=== PATIENT | female | born 1950 | race Caucasian/White ===

== ENCOUNTER 2016-06-13 08:56 | Outpatient (CLI) | payer MEDICARE ==
[~2016-06-13 08:56] MED LIST: FERUMOXYTOL (NON-ESRD) 510 MG/NS 100 ML IV PRN; NORMAL SALINE 250 ML IV PRN
[2016-06-13 10:25] VITALS: BP 148/28
== END 2016-06-13 10:24 | disposition home or self-care (01) ==
LOC: II 08:56 → 5TH 08:57 → II 10:24
PROVIDERS: ATTEND Internal Medicine
PROC: 3E033GC Introduction of Other Therapeutic Substance into Peripheral Vein, Percutaneous Approach (ICD-10-PCS; principal; 2016-06-13)
DX: D63.1 Anemia in chronic kidney disease (principal); N18.3 Chronic kidney disease, stage 3 (moderate)
CPT/HCPCS: 96365; Q0138

== ENCOUNTER 2016-06-20 08:55 | Outpatient (CLI) | payer MEDICARE ==
[2016-06-20 09:08] VITALS: BP 168/33
== END 2016-06-20 09:59 | disposition home or self-care (01) ==
LOC: II 08:55 → 5TH 08:56 → II 09:59
PROVIDERS: ATTEND Internal Medicine
PROC: 3E033GC Introduction of Other Therapeutic Substance into Peripheral Vein, Percutaneous Approach (ICD-10-PCS; principal; 2016-06-20)
DX: D63.1 Anemia in chronic kidney disease (principal); N18.3 Chronic kidney disease, stage 3 (moderate)
CPT/HCPCS: 96365; Q0138; 96367

== ENCOUNTER 2016-08-05 07:52 | Outpatient (CLI) | payer MEDICARE ==
[~2016-08-05 07:52] MED LIST changes: +ACETAMINOPHEN 325 MG TABLET PO PRN; +DIPHENHYDRAMINE HCL 25 MG CAPSULE PO PRN; +FUROSEMIDE INJ/PF 20 MG/2 ML SDV IV PRN; +NORMAL SALINE 1000 ML 1,000 ML IV PRN
[2016-08-05 08:52] VITALS: BP 140/31
== END 2016-08-05 09:12 | disposition home or self-care (01) ==
LOC: II 07:52 → 5TH 07:58 → II 09:12
PROVIDERS: ATTEND Internal Medicine
PROC: 3E033GC Introduction of Other Therapeutic Substance into Peripheral Vein, Percutaneous Approach (ICD-10-PCS; principal; 2016-08-05)
DX: D63.1 Anemia in chronic kidney disease (principal); N18.3 Chronic kidney disease, stage 3 (moderate)
CPT/HCPCS: 96374; Q0138; 96367

== ENCOUNTER 2016-11-06 08:48 | Outpatient (CLI) | payer MEDICARE, OTHER ==
[2016-11-06] MEDS ORDERED: NORMAL SALINE 250 ML IV PRN (09:20)
[2016-11-06] MEDS ORDERED: FERUMOXYTOL (NON-ESRD) 510 MG/NS 100 ML IV ONE ×2 (09:30)
[2016-11-06 09:52] VITALS: BP 136/34
== END 2016-11-06 11:05 | disposition home or self-care (01) ==
LOC: II 08:48 → 5TH 08:51 → II 11:05
PROVIDERS: ATTEND Internal Medicine
PROC: 3E033GC Introduction of Other Therapeutic Substance into Peripheral Vein, Percutaneous Approach (ICD-10-PCS; principal; 2016-11-06)
DX: N18.3 Chronic kidney disease, stage 3 (moderate) (principal); D63.1 Anemia in chronic kidney disease
CPT/HCPCS: 96367; Q0138; 96365

== ENCOUNTER 2016-11-13 08:54 | Outpatient (CLI) | payer MEDICARE, OTHER ==
[~2016-11-13 08:54] MED LIST changes: -ACETAMINOPHEN 325 MG TABLET PO PRN; -DIPHENHYDRAMINE HCL 25 MG CAPSULE PO PRN; -FUROSEMIDE INJ/PF 20 MG/2 ML SDV IV PRN; -NORMAL SALINE 1000 ML 1,000 ML IV PRN
[2016-11-13 09:20] VITALS: BP 132/42
== END 2016-11-13 09:58 | disposition home or self-care (01) ==
LOC: II 08:54 → 5TH 08:55 → II 09:58
PROVIDERS: ATTEND Internal Medicine
PROC: 3E033GC Introduction of Other Therapeutic Substance into Peripheral Vein, Percutaneous Approach (ICD-10-PCS; principal; 2016-11-13)
DX: N18.3 Chronic kidney disease, stage 3 (moderate) (principal); D63.1 Anemia in chronic kidney disease
CPT/HCPCS: 96365; Q0138; 96367

== ENCOUNTER 2016-11-19 10:00 | Emergency (ER) | payer MEDICARE, OTHER ==
--- NOTE | 2016-11-19 10:30 | ER Document Report ---
ED Medical Screen (RME) - General Chief Complaint: General Weakness Stated Complaint: WEAKNESS Time Seen by Provider: 11/19/16 10:23 Mode of Arrival: Ambulatory Information source: Patient, Relative TRAVEL OUTSIDE OF THE [place] IN LAST 30 DAYS: No - HPI Onset: Yesterday Onset/Duration: Gradual, Constant Associated Symptoms: Nausea, Weakness Exacerbated by: Denies Relieved by: Denies Notes: 11/19/16 10:29 Patient is a 66-year-old female with multiple medical problems including anemia. Patient states she was recently told that her thyroid levels are low and needs to see an fashion illustrator. Patient presents today with complaints of generalized weakness for 2 days along with some mild nausea. Also feels dizzy. No syncope. No chest pain or shortness of breath. She is eating and drinking without difficulty. No fevers or chills. - Related Data Allergies/Adverse Reactions: Sulfa (Sulfonamide Antibiotics) Allergy (Verified 11/19/16 10:18) warfarin sodium [From Coumadin] Adverse Reaction (Mild, Verified 11/19/16 10:18) Diarrhea Past Medical History - General Information source: Patient, [facility] Records - Social History Cigarette use (# per day): No Chew tobacco use (# tins/day): No - Past Medical History Cardiac Medical History: Reports: Hx Atrial Fibrillation - TWO YEARS AGO, Hx Congestive Heart Failure, Hx Coronary Artery Disease, Hx Heart Attack, Hx Hypercholesterolemia, Hx Hypertension Pulmonary Medical History: Reports: Hx Pneumonia Denies: Hx Asthma, Hx Bronchitis, Hx COPD, Hx Tuberculosis Neurological Medical History: Denies: Hx Cerebrovascular Accident, Hx Seizures Endocrine Medical History: Reports: Hx Diabetes Mellitus Type 1, Hx Diabetes Mellitus Type 2 Renal/ Medical History: Denies: Hx End Stage Renal Disease, Hx Kidney Stones, Hx Peritoneal Dialysis GI Medical History: Denies: Hx Cirrhosis, Hx Gastroesophageal Reflux Disease, Hx Ulcer Musculoskeltal Medical History: Reports Hx Arthritis, Reports Hx Gout, Denies Hx Multiple Sclerosis Skin Medical History: Denies Hx MRSA Psychiatric Medical History: Denies: Hx Bipolar Disorder, Hx Depression, Hx Schizophrenia Past Surgical History: Reports: Hx Cardiac Catheterization - Jan, Hx Cardiac Surgery - [place] 2004, Hx Coronary Artery Bypass Graft, Hx Hysterectomy, Hx Tubal Ligation. Denies: Hx Adenoidectomy, Hx Pacemaker - Immunizations Hx Diphtheria, Pertussis, Tetanus Vaccination: No Review of Systems - Review of Systems Constitutional: Weakness -: Yes All other systems reviewed and negative Physical Exam - Vital signs Vitals: Temp Pulse Resp BP Pulse Ox 97.8 F 62 16 98/36 L 94 11/19/16 10:20 11/19/16 10:20 11/19/16 10:20 11/19/16 10:20 11/19/16 10:20 Interpretation: Hypotensive - General General appearance: Appears well, Alert - HEENT Head: Normocephalic, Atraumatic Eyes: Normal Pupils: PERRL Mucous membranes: Moist Pharynx: Normal Neck: Normal - Respiratory Respiratory status: No respiratory distress Chest status: Nontender Breath sounds: Normal Chest palpation: Normal - Cardiovascular Rhythm: Regular Heart sounds: Normal auscultation Murmur: No - Abdominal Inspection: Normal Distension: No distension Bowel sounds: Normal Tenderness: Nontender Organomegaly: No organomegaly - Extremities General upper extremity: Normal inspection, Nontender, Normal color, Normal ROM , Normal temperature General lower extremity: Normal inspection, Nontender, Normal color, Normal ROM , Normal temperature, Normal weight bearing. No: Sasha's sign - Neurological Neuro grossly intact: Yes Cognition: Normal Orientation: AAOx4 [place] Coma Scale Eye Opening: Spontaneous [place]ur Coma Scale Verbal: Oriented [place] Coma Scale Motor: Obeys Commands [place] Coma Scale Total: 15 Speech: Normal Motor strength normal: LUE, RUE, LLE, RLE Sensory: Normal - Skin Skin Temperature: Warm Skin Moisture: Dry Skin Color: Normal Course - Re-evaluation Re-evalutation: 11/19/16 10:30 Patient will need to be evaluated in the back treatment area by another ED provider. - Vital Signs Vital signs: Temp Pulse Resp BP Pulse Ox 97.8 F 62 16 98/36 L 94 11/19/16 10:20 11/19/16 10:20 11/19/16 10:20 11/19/16 10:20 11/19/16 10:20
[2016-11-19] MEDS ORDERED: NORMAL SALINE 1000 ML 500 ML IV PRN (10:31)
--- NOTE | 2016-11-19 10:59 | ER Document Report ---
ED Dizziness/Weakness - General Chief Complaint: General Weakness Stated Complaint: WEAKNESS Time Seen by Provider: 11/19/16 10:23 Mode of Arrival: Ambulatory Information source: Patient Notes: Patient is a 66-year-old female, With a history of a triple bypass in 2004, hypertension, diabetes anemia, atrial fibrillation who presents to the ER today for generalized weakness, nausea and vomiting over the past 2 days. Patient states that she has vomited at least 2-3 times. She denies any chest pain, shortness of breath, numbness or tingling, weakness worse on one side, facial droop. She admits to a headache in the back of her head only. She denies any history of headaches. TRAVEL OUTSIDE OF THE [place] IN LAST 30 DAYS: No - Related Data Allergies/Adverse Reactions: Sulfa (Sulfonamide Antibiotics) Allergy (Verified 11/19/16 10:18) warfarin sodium [From Coumadin] Adverse Reaction (Mild, Verified 11/19/16 10:18) Diarrhea Past Medical History - General Information source: Patient, [facility] Records - Social History Smoking Status: Never Smoker Cigarette use (# per day): No Chew tobacco use (# tins/day): No Frequency of alcohol use: None Drug Abuse: None Family History: DM Patient has suicidal ideation: No Patient has homicidal ideation: No - Past Medical History Cardiac Medical History: Reports: Hx Atrial Fibrillation - TWO YEARS AGO, Hx Congestive Heart Failure, Hx Coronary Artery Disease, Hx Heart Attack, Hx Hypercholesterolemia, Hx Hypertension Pulmonary Medical History: Reports: Hx Pneumonia Denies: Hx Asthma, Hx Bronchitis, Hx COPD, Hx Tuberculosis Neurological Medical History: Denies: Hx Cerebrovascular Accident, Hx Seizures Endocrine Medical History: Reports: Hx Diabetes Mellitus Type 1, Hx Diabetes Mellitus Type 2 Renal/ Medical History: Denies: Hx End Stage Renal Disease, Hx Kidney Stones, Hx Peritoneal Dialysis GI Medical History: Denies: Hx Cirrhosis, Hx Gastroesophageal Reflux Disease, Hx Ulcer Musculoskeltal Medical History: Reports Hx Arthritis, Reports Hx Gout, Denies Hx Multiple Sclerosis Skin Medical History: Denies Hx MRSA Psychiatric Medical History: Denies: Hx Bipolar Disorder, Hx Depression, Hx Schizophrenia Past Surgical History: Reports: Hx Cardiac Catheterization - Jan, Hx Cardiac Surgery - [place] 2004, Hx Coronary Artery Bypass Graft, Hx Hysterectomy, Hx Tubal Ligation. Denies: Hx Adenoidectomy, Hx Pacemaker - Immunizations Hx Diphtheria, Pertussis, Tetanus Vaccination: No Hx Pneumococcal Vaccination: 03/11/14 Review of Systems - Review of Systems Constitutional: See HPI EENT: No symptoms reported Cardiovascular: See HPI Respiratory: No symptoms reported Gastrointestinal: No symptoms reported Genitourinary: See HPI Female Genitourinary: No symptoms reported Musculoskeletal: No symptoms reported Skin: No symptoms reported Hematologic/Lymphatic: No symptoms reported Neurological/Psychological: No symptoms reported Physical Exam - Vital signs Vitals: Temp Pulse Resp BP Pulse Ox 97.8 F 62 16 98/36 L 94 11/19/16 10:20 11/19/16 10:20 11/19/16 10:20 11/19/16 10:20 11/19/16 10:20 - Notes Notes: PHYSICAL EXAMINATION: GENERAL: chronically ill appearing, obese, but in no acute distress. HEAD: Atraumatic, normocephalic. EYES: Pupils equal round and reactive to light, extraocular movements intact, sclera anicteric, conjunctiva are normal. NECK: Normal range of motion, supple without lymphadenopathy LUNGS: CTAB and equal. No wheezes rales or rhonchi. HEART: Irregularly irregular rhythm, without murmurs ABDOMEN: Soft, no tenderness. No guarding, no rebound BACK: no vertebral tenderness, normal ROM GI/: no CVA tenderness EXTREMITIES: Normal range of motion, no pitting edema. No cyanosis. PHYSICAL EXAMINATION: NEUROLOGICAL: Cranial nerves grossly intact. Normal sensory/motor exams. Good and equal strength bilaterally, Kernig and Brudzinski's signs negative, Romberg' s test normal, normal heel to castellon testing PSYCH: Normal mood, normal affect. SKIN: Warm, Dry, normal turgor, no rashes or lesions noted Course - Re-evaluation Re-evalutation: 11/19/16 12:07 pt's troponin is 0.198 which is highest than it's ever been here and she had a normal troponin 2 weeks ago. [facility] cardiac connection called, awaiting callback. heparin protocol initiated. chest pain free at this time. 11/19/16 12:46 Dr. Oseguera, spool sorter from [facility] agrees to accept pt at this time. He states he's unsure if it's a true NSTEMI or from MELL, but with her cardiac history, she is to still start heparin protocol I ordered and be transferred there. She had her aspirin today already. She denies chest pain. Her vitals are much better, no longer hypotensive. receiving fluids. 11/19/16 13:55 pt just got very short of breath and her oxygen saturation dropped to the 80s, she was having no problems breathing before, this is new. CTA ordered, pt on oxygen and satting at 94% on 4L, repeat EKG ordered. still no chest pain. 11/19/16 18:13 CTA was negative for any PE or other acute pathology. Patient has been breathing better but has remained on oxygen. Daughter actually states that she does normally have some shortness of breath. This is not told to us initially by patient and patient's . Transport is here to get patient, patient has no complaints at this time. - Vital Signs Vital signs: Temp Pulse Resp BP Pulse Ox 97.8 F 62 20 163/50 H 100 11/19/16 10:20 11/19/16 10:20 11/19/16 17:01 11/19/16 17:01 11/19/16 17:01 - Laboratory Result Diagrams: 11/19/16 10:38 11/19/16 10:38 Laboratory results interpreted by me: 11/19/16 11/19/16 11/19/16 10:38 10:38 10:38 WBC 11.6 H RBC 2.78 L Hgb 10.2 L Hct 32.2 L MCV 116 H MCH 36.6 H MCHC 31.7 L RDW 21.2 H Seg Neuts % (Manual) 92 H Band Neutrophils % 1 L Lymphocytes % (Manual) 1 L Abs Neuts (Manual) 10.8 H Abs Lymphs (Manual) 0.1 L BUN 40 H Creatinine 1.57 H Est GFR ( Amer) 40 L Est GFR (Non-Af Amer) 33 L Glucose 121 H Direct Bilirubin 0.5 H AST 38 H Total Protein 6.1 L Albumin 3.3 L TSH 0.19 L Urine Protein Ur Leukocyte Esterase 11/19/16 13:04 WBC RBC Hgb Hct MCV MCH MCHC RDW Seg Neuts % (Manual) Band Neutrophils % Lymphocytes % (Manual) Abs Neuts (Manual) Abs Lymphs (Manual) BUN Creatinine Est GFR ( Amer) Est GFR (Non-Af Amer) Glucose Direct Bilirubin AST Total Protein Albumin TSH Urine Protein 100 H Ur Leukocyte Esterase SMALL H Critical Care Note - Critical Care Note Total time excluding time spent on procedures (mins): 45 - 45 minutes spent in critical care time with patient, consulted with attending, speaking with family , placing orders and evaluating tests and labs. Discharge - Discharge Clinical Impression: NSTEMI (non-ST elevated myocardial infarction), MELL (acute kidney injury) Condition: Stable Disposition: [facility]
[2016-11-19 11:02] LABS: HEMATOCRIT 32.2 % (36.0-47.0); HEMOGLOBIN 10.2 g/dL (12.0-15.5); HGB HCT DIFFERENCE -1.6; MEAN CORPUSCULAR HEMOGLOBIN 36.6 pg (27.0-33.4); MEAN CORPUSCULAR HGB CONC 31.7 g/dL (32.0-36.0); MEAN CORPUSCULAR VOLUME 116 fl (80-97); RED BLOOD COUNT 2.78 10^6/uL (3.72-5.28); RED CELL DISTRIBUTION WIDTH 21.2 % (11.5-14.0); WHITE BLOOD COUNT 11.6 10^3/uL (4.0-10.5)
--- NOTE | 2016-11-19 11:06 | RADIOLOGY REPORT (SQ) ---
EXAM DESCRIPTION: CHEST SINGLE VIEW COMPLETED DATE/TIME: 11/19/2016 10:58 am REASON FOR STUDY: weak COMPARISON: Two-view chest 03/10/2016, 06/28/2015 EXAM PARAMETERS: NUMBER OF VIEWS: One view. TECHNIQUE: Single frontal radiographic view of the chest acquired. RADIATION DOSE: NA LIMITATIONS: None. FINDINGS: LUNGS AND PLEURA: No opacities, masses or pneumothorax. No pleural effusion. MEDIASTINUM AND HILAR STRUCTURES: No masses. Contour normal. HEART AND VASCULAR STRUCTURES: Stable mild cardiomegaly. Old sternotomy and CABG BONES: No acute findings. HARDWARE: None in the chest. OTHER: No other significant finding. IMPRESSION: Stable cardiomegaly. TECHNICAL DOCUMENTATION: JOB ID: [id number]
[2016-11-19 11:11] LABS: ALANINE AMINOTRANSFERASE 51 U/L (9-52); ALBUMIN 3.3 g/dL (3.5-5.0); ALKALINE PHOSPHATASE 75 U/L (38-126); ANION GAP 10 (5-19); ASPARTATE AMINO TRANSFERASE 38 U/L (14-36); BILIRUBIN,DIRECT 0.5 mg/dL (0.0-0.4); BILIRUBIN,TOTAL 1.2 mg/dL (0.2-1.3); BLOOD UREA NITROGEN 40 mg/dL (7-20); CALCIUM 8.8 mg/dL (8.4-10.2); CARBON DIOXIDE 27 mmol/L (22-30); CHLORIDE 101 mmol/L (98-107); CREATININE RESULT 1.57 mg/dL (0.52-1.25); GLUCOSE 121 mg/dL (75-110); POTASSIUM 4.3 mmol/L (3.6-5.0); SODIUM 137.8 mmol/L (137-145); TOTAL PROTEIN 6.1 g/dL (6.3-8.2)
[2016-11-19 11:36] LABS: BAND NEUTROPHILS % (MANUAL) 1 % (3-5); BASOPHILS % (MANUAL) 0 % (0-2); EOSINOPHILS % (MANUAL) 0 % (0-6); LYMPHOCYTES % (MANUAL) 1 % (13-45); TOTAL CELLS COUNTED 100
[2016-11-19 11:37] LABS: ANISOCYTOSIS 3+; TOXIC GRANULATION 1+
--- NOTE | 2016-11-19 11:39 | RADIOLOGY REPORT (SQ) ---
EXAM DESCRIPTION: CT HEAD WITHOUT COMPLETED DATE/TIME: 11/19/2016 11:29 am REASON FOR STUDY: headache, hypotensive, weakness COMPARISON: None. TECHNIQUE: Axial images acquired through the brain without intravenous contrast. Images reviewed wi th bone, brain and subdural windows. Images stored on PACS. All CT scanners at this facility use dose modulation, iterative reconstruction, and/or weight based d osing when appropriate to reduce radiation dose to as low as reasonably achievable (ALARA). [facility]: Dose Right [facility]: CareDose [facility]: Dose Right [facility]: Teradose 4D [facility]: [employer] RADIATION DOSE: Up-to-date CT equipment and radiation dose reduction techniques were employed. CTDIv ol: 64.6 mGy. DLP: 1163 mGy-cm. mGy. LIMITATIONS: None. FINDINGS: VENTRICLES: Normal size and contour. CEREBRUM: No masses. No hemorrhage. No midline shift. Normal fox/white matter differentiation. N o evidence for acute infarction. CEREBELLUM: No masses. No hemorrhage. No alteration of density. No evidence for acute infarction. EXTRAAXIAL SPACES: No fluid collections. No masses. ORBITS AND GLOBE: No intra- or extraconal masses. Normal contour of globe without masses. CALVARIUM: No fracture. PARANASAL SINUSES: There is complete opacification of the sphenoid sinus. SOFT TISSUES: No mass or hematoma. OTHER: No other significant finding. IMPRESSION: Complete opacification of the sphenoid sinus stable from 2016. No acute intracranial ev ent. TECHNICAL DOCUMENTATION: JOB ID: [id number] Quality ID # [id number]: Final reports with documentation of one or more dose reduction techniques (e.g., Au tomated exposure control, adjustment of the mA and/or kV according to patient size, use of iterative reconstruction technique) 2010 [email or web address]- All Rights Reserved
[2016-11-19] MEDS ORDERED: HEPARIN SOD (PORCINE) 1,000 UNIT/ML 10 ML VIAL IV ONE (11:54)
[2016-11-19 13:04] LABS: PROTHROMBIN TIME 15.4 SEC (11.4-15.4)
[2016-11-19 13:05] LABS: PARTIAL THROMBOPLASTIN TIME 33.8 SEC (23.5-35.8)
--- NOTE | 2016-11-19 13:08 | EKG REPORT ---
SEVERITY:- ABNORMAL ECG - ATRIAL FIBRILLATION CONSIDER ANTEROSEPTAL INFARCT ABNORMAL T, CONSIDER ISCHEMIA, LATERAL LEADS : Confirmed by: Jeff Lanier MD 19-Nov-2016 13:07:31
--- NOTE | 2016-11-19 13:08 | EKG REPORT ---
SEVERITY:- ABNORMAL ECG - ATRIAL FIBRILLATION ABNRM R PROG, CONSIDER ASMI OR LEAD PLACEMENT ABNORMAL T, CONSIDER ISCHEMIA, LATERAL LEADS : Confirmed by: Jeff Lanier MD 19-Nov-2016 13:08:13
[2016-11-19 13:27] LABS: APPEARANCE,URINE CLOUDY; BILIRUBIN,URINE NEGATIVE (NEGATIVE); GLUCOSE, URINE NEGATIVE (NEGATIVE); KETONES,URINE NEGATIVE (NEGATIVE); LEUKOCYTE ESTERASE,URINE SMALL (NEGATIVE); NITRITE,URINE NEGATIVE (NEGATIVE); PROTEIN,URINE 100 mg/dL (NEGATIVE); URINE SPECIFIC GRAVITY 1.015; UROBILINOGEN,URINE NEGATIVE mg/dL (<2.0)
[2016-11-19] MEDS ORDERED: ONDANSETRON HCL INJ/PF 4 MG/2 ML SDV IV ONE (14:06)
--- NOTE | 2016-11-19 16:06 | RADIOLOGY REPORT (SQ) ---
EXAM DESCRIPTION: CTA CHEST COMPLETED DATE/TIME: 11/19/2016 2:57 pm REASON FOR STUDY: hypoxia, tachypnea, elevated troponin COMPARISON: Chest x-ray done earlier the same day. TECHNIQUE: CT scan of the chest performed using helical scanning technique with dynamic intravenous contrast injection. Images reviewed with lung, soft tissue and bone windows. Reconstructed coronal and sagittal MPR images reviewed. Additional 3 dimensional post-processing performed to develop Maximal Intensity Projection images (MS P). All images stored on PACS. All CT scanners at this facility use dose modulation, iterative reconstruction, and/or weight based d osing when appropriate to reduce radiation dose to as low as reasonably achievable (ALARA). [facility]: Dose Right [facility]: CareDose [facility]: Dose Right [facility]: Teradose 4D [facility]: [employer] CONTRAST TYPE AND DOSE: Not provided by the process engineering technician. RENAL FUNCTION: BUN 40, creatinine 1.57 RADIATION DOSE: . LIMITATIONS: None. FINDINGS: LUNGS AND PLEURA: There are small pleural effusions right greater than left. Minimal basi lar atelectasis. No focal consolidation. AORTA AND GREAT VESSELS: No aneurysm or dissection. HEART: No pericardial effusion. PULMONARY ARTERIES: No emboli visualized in the main pulmonary arteries or the segmental branches. HILAR AND MEDIASTINAL STRUCTURES: No identified masses or abnormal nodes. HARDWARE: None in the chest. UPPER ABDOMEN: There is a large left adrenal mass. This measures 7.5 by 5.4 cm in greatest dimension s. The lesion contains fat and is most consistent with adrenal myelolipoma. THYROID AND OTHER SOFT TISSUES: No masses. No adenopathy. BONES: No acute or significant finding. 3D MIPS: Confirm above findings. OTHER: No other significant finding. IMPRESSION: 1. No pulmonary emboli. 2. Small bilateral pleural effusions and basilar atelectasis right greater than left. 3. Fact containing lesion in the left adrenal gland most consistent with adrenal myelolipoma. TECHNICAL DOCUMENTATION: JOB ID: [id number] Quality ID # [id number]: Final reports with documentation of one or more dose reduction techniques (e.g., Au tomated exposure control, adjustment of the mA and/or kV according to patient size, use of iterative reconstruction technique) 2010 [employer]- All Rights Reserved
[2016-11-19 17:04] VITALS: BP 163/50
--- NOTE | 2016-11-19 19:48 | EKG REPORT ---
SEVERITY:- ABNORMAL ECG - ATRIAL FIBRILLATION, V-RATE 72-99 CONSIDER ANTEROSEPTAL INFARCT : Confirmed by: Jeff Lanier MD 19-Nov-2016 19:48:19
== END 2016-11-19 18:00 | disposition short-term general hospital (02) ==
LOC: ER 10:00
DX: I21.4 Non-ST elevation (NSTEMI) myocardial infarction (principal); N17.9 Acute kidney failure, unspecified; I25.10 Atherosclerotic heart disease of native coronary artery without angina pectoris; I25.2 Old myocardial infarction; I10 Essential (primary) hypertension; E11.9 Type 2 diabetes mellitus without complications; R53.1 Weakness; R11.2 Nausea with vomiting, unspecified; R06.02 Shortness of breath; R51 Headache; Z88.2 Allergy status to sulfonamides; Z95.1 Presence of aortocoronary bypass graft
CPT/HCPCS: 93005; 99291; 96361; 96374; 96375; 86900; 86901; 36415; 86850; 84443; 85025; 85610; 85730; 80053; 81001; 84484; 71010; 70450; 71275; 93010; J1644; J2405; J7030

== ENCOUNTER → 2016-11-28 | Outpatient (CLI) | payer MEDICARE ==
[2016-11-28 10:11] LABS: ANION GAP 11 (5-19); BLOOD UREA NITROGEN 29 mg/dL (7-20); CALCIUM 8.3 mg/dL (8.4-10.2); CARBON DIOXIDE 24 mmol/L (22-30); CHLORIDE 103 mmol/L (98-107); CREATININE RESULT 0.95 mg/dL (0.52-1.25); GLUCOSE 92 mg/dL (75-110); POTASSIUM 4.3 mmol/L (3.6-5.0)
--- NOTE | 2016-11-28 10:32 | RADIOLOGY REPORT (SQ) ---
EXAM DESCRIPTION: ANKLE BILATERAL 3 VIEWS MIN COMPLETED DATE/TIME: 11/28/2016 9:12 am REASON FOR STUDY: PAIN IN RIGHT/LT ANKLE AND JOINTS OF RIGHT/LT FOOT M25.571 PAIN IN RIGHT ANKLE A ND JOINTS OF RIGHT FOOT M25.572 PAIN IN LEFT ANKLE AND JOINTS OF LEFT FOOT COMPARISON: None. NUMBER OF VIEWS: Three views of each ankle TECHNIQUE: AP, lateral, and oblique radiographic images acquired of the right and left ankle. LIMITATIONS: None. FINDINGS: MINERALIZATION: Normal. BONES: No acute fracture or dislocation. No worrisome bone lesions. JOINTS: No effusions. SOFT TISSUES: Soft tissue swelling is identified bilaterally. OTHER: No other significant finding. IMPRESSION: Bilateral soft tissue swelling without evidence for fracture. TECHNICAL DOCUMENTATION: JOB ID: [id number] [employer]- All Rights Reserved
--- NOTE | 2016-11-28 10:32 | RADIOLOGY REPORT (SQ) ---
EXAM DESCRIPTION: FOOT BILATERAL 3 VIEWS COMPLETED DATE/TIME: 11/28/2016 9:12 am REASON FOR STUDY: PAIN IN RIGHT/LT ANKLE AND JOINTS OF RIGHT/LT FOOT M25.571 PAIN IN RIGHT ANKLE AN D JOINTS OF RIGHT FOOT M25.572 PAIN IN LEFT ANKLE AND JOINTS OF LEFT FOOT COMPARISON: None. NUMBER OF VIEWS: Three views of each foot TECHNIQUE: AP, lateral and oblique radiographic images acquired of the right and left foot. LIMITATIONS: None. FINDINGS: MINERALIZATION: Normal. BONES: No acute fracture or dislocation. No worrisome bone lesions. JOINTS: Degenerative changes are identified in multiple interphalangeal joints and tarsal articulatio ns. SOFT TISSUES: No soft tissue swelling. No foreign body. OTHER: There is bilateral Achilles tendon and plantar spurring. There are calcifications in the plan tar fascia on the right IMPRESSION: Degenerative changes without evidence for fracture. TECHNICAL DOCUMENTATION: JOB ID: [id number] [email or web address]- All Rights Reserved
== END ==
LOC: OD 08:30
PROVIDERS: ATTEND Family Medicine Geriatric Medicine
DX: M25.571 Pain in right ankle and joints of right foot (principal); M25.572 Pain in left ankle and joints of left foot; M10.9 Gout, unspecified; Z79.899 Other long term (current) drug therapy
CPT/HCPCS: 36415; 80048; 84550

== ENCOUNTER 2016-12-06 11:05 | Inpatient (IN) | payer MEDICARE ==
--- NOTE | 2016-12-06 11:41 | ER Document Report ---
ED Syncope and Near Syncope - General Chief Complaint: Weakness Stated Complaint: WEAKNESS Time Seen by Provider: 12/06/16 11:20 Mode of Arrival: Ambulatory Information source: Patient, Relative TRAVEL OUTSIDE OF THE [place] IN LAST 30 DAYS: No - HPI Patient complains to provider of: Fainting Episode witnessed (by whom): Yes - Symptoms prior to episode: Dizziness, Lightheaded, Short of breath Position/Activity at time of episode: Sitting Quality of pain: No pain Context: Became unresponsive Injury location: None Current symptoms: Breathing difficulty, Short of breath Recently seen / treated by doctor: Yes Notes: Patient is a 66-year-old female with multiple medical problems, including coronary artery disease, congestive heart failure, presents to the emergency room complaining of generalized weakness with lightheadedness and dizziness, with a syncopal episode in the car, reports that patient was unresponsive for approximately 5 minutes, her eyes rolled in the back of her head and he was unable to get a response from her, patient reports feeling funny in the head prior to this happening, as in a lightheadedness or dizziness sensation, she denies having any chest pain or pain elsewhere at any time, she does report increased generalized weakness over the past 2 days with dyspnea on exertion and increased swelling in her lower extremities, she was recently seen at this hospital on 11/19/2016 and transferred to tertiary care center because of an elevated troponin, she has a PICC line in the right upper arm to receive antibiotics related to sepsis of unknown source according to patient and , she did attempt to ambulate to the bathroom in her room in the emergency department and became very short of breath doing so - Related Data Allergies/Adverse Reactions: Sulfa (Sulfonamide Antibiotics) Allergy (Verified 12/06/16 11:14) warfarin sodium [From Coumadin] Adverse Reaction (Mild, Verified 12/06/16 11:14) Diarrhea Home Medications: Current Home Medications Apremilast [Otezla] 30 mg PO DAILY 12/06/16 [History] Aspirin [Aspirin 325 mg Tablet] 325 mg PO DAILY 12/06/16 [History] Carvedilol 25 mg PO BID 12/06/16 [History] Ergocalciferol (Vitamin D2) [Vitamin D2] 50,000 unit PO ASDIR PRN 12/06/16 [ History] Folic Acid [Folvite 1 mg Tablet] 1 mg PO DAILY 12/06/16 [History] Furosemide [Lasix] 40 mg PO BID 12/06/16 [History] Methotrexate Sodium [Methotrexate] 2.5 mg PO SUMOWEFR@1000 12/06/16 [History] Nifedipine [Procardia XL 60 mg Tablet] 60 mg PO DAILY 12/06/16 [History] Potassium Chloride [Klor-Con 10] 20 meq PO BID 12/06/16 [History] Past Medical History - General Information source: Patient - Social History Smoking Status: Former Smoker Family History: DM - Past Medical History Cardiac Medical History: Reports: Hx Atrial Fibrillation - TWO YEARS AGO, Hx Congestive Heart Failure, Hx Coronary Artery Disease, Hx Heart Attack, Hx Hypercholesterolemia, Hx Hypertension Pulmonary Medical History: Reports: Hx Pneumonia Denies: Hx Asthma, Hx Bronchitis, Hx COPD, Hx Tuberculosis Neurological Medical History: Denies: Hx Cerebrovascular Accident, Hx Seizures Endocrine Medical History: Reports: Hx Diabetes Mellitus Type 1, Hx Diabetes Mellitus Type 2 Renal/ Medical History: Denies: Hx End Stage Renal Disease, Hx Kidney Stones, Hx Peritoneal Dialysis GI Medical History: Denies: Hx Cirrhosis, Hx Gastroesophageal Reflux Disease, Hx Ulcer Musculoskeltal Medical History: Reports Hx Arthritis, Reports Hx Gout, Denies Hx Multiple Sclerosis Skin Medical History: Denies Hx MRSA Psychiatric Medical History: Denies: Hx Bipolar Disorder, Hx Depression, Hx Schizophrenia Past Surgical History: Reports: Hx Cardiac Catheterization - Jan, Hx Cardiac Surgery - [place] 2004, Hx Coronary Artery Bypass Graft, Hx Hysterectomy, Hx Tubal Ligation. Denies: Hx Adenoidectomy, Hx Pacemaker - Immunizations Hx Diphtheria, Pertussis, Tetanus Vaccination: No Hx Pneumococcal Vaccination: 03/11/14 Review of Systems - Review of Systems Constitutional: Weakness EENT: No symptoms reported Cardiovascular: Syncope, Dizziness, Lightheaded Respiratory: Short of breath Gastrointestinal: No symptoms reported Genitourinary: No symptoms reported Female Genitourinary: No symptoms reported Musculoskeletal: No symptoms reported Skin: No symptoms reported Hematologic/Lymphatic: No symptoms reported Neurological/Psychological: No symptoms reported -: Yes All other systems reviewed and negative Physical Exam - Vital signs Vitals: Temp Pulse Resp BP Pulse Ox 97.9 F 57 L 20 158/40 H 90 L 12/06/16 11:14 12/06/16 11:14 12/06/16 11:14 12/06/16 11:14 12/06/16 11:14 Interpretation: Bradycardic, Hypoxic - General General appearance: Alert In distress: Mild - HEENT Head: Normocephalic, Atraumatic Eyes: Normal Conjunctiva: Normal Extraocular movements intact: Yes Eyelashes: Normal Pupils: PERRL Mouth/Lips: Normal Mucous membranes: Normal Pharynx: Normal Neck: Normal - Respiratory Respiratory status: Depressed respirations Chest status: Nontender Breath sounds: Rales Chest palpation: Normal - Cardiovascular Rhythm: Regular, Bradycardia - Abdominal Inspection: Morbidly Obese Distension: No distension Bowel sounds: Normal Tenderness: Nontender Organomegaly: No organomegaly - Back Back: Normal - Extremities General lower extremity: Edema - pitting to knees Arm: Other - PICC line in right upper arm - Neurological Neuro grossly intact: Yes Cognition: Normal Orientation: AAOx4 [place] Coma Scale Eye Opening: Spontaneous [place] Coma Scale Verbal: Oriented [place] Coma Scale Motor: Obeys Commands [place] Coma Scale Total: 15 Speech: Normal - Psychological Associated symptoms: Normal affect, Normal mood - Skin Skin Temperature: Warm Skin Moisture: Dry Skin Color: Pale Course - Re-evaluation Re-evalutation: 12/06/16 17:47 Patient with congestive heart failure, with acute exacerbation, increased edema in lower extremities, pleural effusions, dyspnea on exertion even with short walk from her stretcher to the bathroom, she was discussed with the hospitalist service who agrees to admit for further evaluation and treatment, patient in agreement with this plan as well - Vital Signs Vital signs: Temp Pulse Resp BP Pulse Ox 97.9 F 57 L 15 139/45 H 97 12/06/16 11:14 12/06/16 11:14 12/06/16 15:15 12/06/16 15:15 12/06/16 15:15 - Laboratory Laboratory results interpreted by me: 12/06/16 12/06/16 09:00 09:00 Creatine Kinase < 20 L NT-Pro-B Natriuret Pep 2080 H - Diagnostic Test Radiology reviewed: Image reviewed, Reports reviewed - EKG Interpretation by Me Rate: Bradycardia Rhythm: A.Fib - Transfer of Care Care transferred to following provider: Fredo Arguello Discharge - Discharge Clinical Impression: Dyspnea on exertion, Hypoxia CHF exacerbation Qualifiers: Congestive heart failure type: diastolic Qualified Code(s): I50.33 - Acute on chronic diastolic (congestive) heart failure Condition: Fair Disposition: ADMITTED INPATIENT Admitting Provider: Hospitalist Unit Admitted: [facility]
[2016-12-06 12:08] LABS: PROTHROMBIN TIME 13.5 SEC (11.4-15.4)
[2016-12-06 12:13] LABS: CREATINE KINASE MB 0.87 ng/mL (<4.55); TROPONIN I 0.014 ng/mL
--- NOTE | 2016-12-06 12:45 | RADIOLOGY REPORT (SQ) ---
EXAM DESCRIPTION: CHEST SINGLE VIEW COMPLETED DATE/TIME: 12/06/2016 12:28 pm REASON FOR STUDY: bran COMPARISON: 11/19/2016 NUMBER OF VIEWS: One view. TECHNIQUE: Single frontal radiographic image of the chest acquired. LIMITATIONS: None. FINDINGS: LUNGS AND PLEURA: Small bilateral pleural effusions with associated airspace disease. MEDIASTINUM AND HEART: Stable heart size and mediastinal structures. SUPPORT DEVICES: Right-sided PICC line tip overlying SVC. BONY STRUCTURES: No acute findings. HARDWARE: CABG. OTHER: No other significant finding. IMPRESSION: Congestive heart failure.
[2016-12-06] MEDS ORDERED: FUROSEMIDE INJ/PF 40 MG/4 ML SDV IV ONE (12:53)
[2016-12-06] MEDS ORDERED: GLUCAGON,HUMAN RECOMB 1 MG INJ IM PRN (14:49)
[2016-12-06] MEDS ORDERED: DEXTROSE 50%-WATER 25 GM/50 ML DISP.SYRIN IV PRN ×2 (14:49)
[2016-12-06] MEDS ORDERED: DEXTROSE 40% GEL 15 GM TUBE PO PRN ×2 (14:49)
[2016-12-06] MEDS ORDERED: INSULIN LISPRO 100 UNIT/ML 3 ML VIAL SUBCUT PRN (14:49)
--- NOTE | 2016-12-06 15:17 | EKG REPORT ---
SEVERITY:- ABNORMAL ECG - ATRIAL FIBRILLATION ABNRM R PROG, CONSIDER ASMI OR LEAD PLACEMENT NONSPECIFIC T ABNORMALITIES, LATERAL LEADS : Confirmed by: Trang Monson MD 06-Dec-2016 15:15:42
--- NOTE | 2016-12-06 17:04 | HISTORY AND PHYSICAL E ---
History and Physical NAME: KIRK FUNEZ : 1950 AGE: 66Y ADMITTED: 12/06/2016 ROOM: 331 CODE STATUS: DO NOT RESUSCITATE/DO NOT INTUBATE. PRIMARY CARE PROVIDER: MINO MONZON MD OUTPATIENT FINISHED CLOTH EXAMINER: АННА CARVAJAL MD. OUTPATIENT INSTALLER INTERIOR ASSEMBLIES: BLASE. Ceci FLOYD MD - [facility]. OUTPATIENT TREE PULLER: ADAMARIS ROJAS MD OUTPATIENT VASCULAR SURGEON: De. Pickens CHIEF COMPLAINT: Weakness and shortness of breath. HISTORY OF PRESENT ILLNESS: The patient is a 66-year-old female with a past medical history including coronary artery disease and CHF that presents to the emergency department with a chief complaint of generalized weakness, lightheadedness, dizziness with syncope episodes in the car en route to the hospital. According to the patient's , the patient had an approximately 5 minute episode of unresponsiveness while en route. According to him, the patient's eyes rolled back in her head. He was unable to get any response from her, but she had no jerking, involuntary movements, no episodes of incontinence. According to the patient, she states that she had been feeling funny prior to this happening. The patient states that since she was discharged from [facility] 1 week ago, she has had increased weakness and edema of the lower extremities with paroxysmal nocturnal dyspnea. The patient was recently in our emergency department on 11/19/2016 and was transferred to tertiary care due to an elevated troponin. It was uncertain of the exact end diagnosis, but according to the patient and her daughter, the patient did have an echocardiogram as well as a SUPRIYA while at [facility] due to positive blood cultures. Uncertain of the exact etiology or organism as we are awaiting records at this time. The patient still has a PICC line in place; however, she has received her last dose of Ancef just 2 days ago. According to the patient, she did ambulate to the bathroom since being in the emergency department and became extremely dyspneic with this. The patient was found to have a BNP of 2080. The patient had a potassium of 5.4. Her creatinine was 1.18. Hemoglobin 10.1. The patient's chest x-ray was suggestive of CHF and the patient was referred to the hospitalist for admission and management. PAST MEDICAL HISTORY: Past medical history is remarkable for: 1. Diabetes mellitus type 2. 2. Coronary artery disease. 3. Atrial fibrillation. 4. Congestive heart failure, echocardiogram is unavailable. 5. Myocardial infarction. 6. Hypercholesterolemia. 7. Hypertension. 8. Psoriasis. 9. Osteoarthritis. 10. History of gout. 11. Gastroesophageal reflux disease. PAST SURGICAL HISTORY: Past surgical history is remarkable for: 1. Cardiac catheterization. 2. Coronary artery bypass grafting in 2004. 3. Hysterectomy. 4. Tubal ligation. ALLERGIES: Include: 1. SULFA. 2. WARFARIN, which causes nausea. MEDICATIONS: Home medications appear to be: 1. Allopurinol 300 mg p.o. q. hour of sleep. 2. Aspirin 325 mg p.o. daily. 3. Coreg 12.5 mg p.o. b.i.d. 4. Vitamin D3 of 1.2 mg p.o. daily. 5. Vitamin B12 of 1,000 mcg p.o. q. weekly. 6. Hydralazine 50 mg p.o. t.i.d. 7. Lantus 25 units subcutaneously q. hour of sleep. 8. Losartan 100 mg p.o. daily. 9. Aldomet 125 mg p.o. q. morning. 10. Nitro-Dur 0.4 mg an hour transdermal patch, 1 patch q. morning. 11. Omeprazole 20 mg p.o. daily. 12. Potassium chloride 20 mEq p.o. b.i.d. 13. Simvastatin 20 mg p.o. q. night. 14. Hytrin 5 mg p.o. q. hour of sleep. SOCIAL HISTORY: The patient currently resides at home with her , Patricio, who is also her surrogate decision maker. He can be reached at [phone]. The patient has a remote history of tobacco use, but states she has not smoked in many, many years. Denies any history of alcohol use or illicit drug use. FAMILY HISTORY: Family medical history is positive for diabetes and coronary artery disease in multiple family members. The patient does have a daughter who is healthy. REVIEW OF SYSTEMS: CONSTITUTIONAL: The patient denies any fevers. Positive for chills, dizziness, weakness, and loss of appetite. INTEGUMENTARY: Denies any diaphoresis, rashes, bruising, or itching. Patient does have areas of psoriasis. HEENT: The patient denies any visual changes, hearing loss, nasal drainage, sore throat. No headache. CARDIOVASCULAR: Denies any heart palpitations, but positive for shortness of breath and edema. Denies any chest pain. RESPIRATORY: Denies any sputum production or hemoptysis. Positive for cough. GASTROINTESTINAL: Positive for nausea. Denies any vomiting, abdominal pain, bloody hematemesis, constipation, melena, hematochezia. No epigastric pain. GENITOURINARY: Denies any hematuria, pyuria, or dysuria. MUSCULOSKELETAL: The patient does have some chronic joint pains associated with psoriasis, but no acute pains. NEUROLOGIC: No seizures, tremors, or loss of consciousness. HEMATOLOGIC: The patient denies any angie bleeding, but admits to easy bruising. ENDOCRINE: Denies any recent weight changes. PSYCHIATRIC: Denies any suicidal or homicidal ideations. The rest of the review of the other organ systems is negative. PHYSICAL EXAMINATION: GENERAL: The patient is a well-developed, well-nourished 66-year-old female who is awake, alert, and oriented to person, place, time, and situation. She is verbal, conversational, and does not appear to be in any acute distress. VITAL SIGNS: Temperature is 97.9, pulse 57, respirations 20, blood pressure is 158/40, oxygen saturation is 90% on room air. SKIN: Warm and dry. She is pale. Not diaphoretic. HEENT: Pupils equal, round, and reactive to light and accommodation. Conjunctivae pink. Sclerae is nonicteric. There are no mouth lesions. Tongue is midline. NECK: Supple. The patient does have JVD to the level of the right clavicle. No palpable lymphadenopathy or thyromegaly. CARDIOVASCULAR SYSTEM: Heart is irregularly irregular. There is no murmur, no rub. CHEST: Symmetrical and unlabored at this time with bilateral basal crackles. ABDOMEN: Soft, nontender, and nondistended. Bowel sounds are present. No palpable organomegaly. BACK: No CVA tenderness or sacral edema. EXTREMITIES: The patient has no clubbing, cyanosis, or peripheral signs of embolization. Trace pedal pulses noted bilaterally. Patient does have +2 bilateral lower extremity pitting edema. PSYCHIATRIC: Appropriate affect, pleasant mood. DIAGNOSTIC DATA: Lab values are as follows: Hematology obtained on 12/06/2016: WBCs are 5.7, hemoglobin is 10.1, hematocrit is 31.0, platelet count is 203,000. Coagulation obtained on 12/06/2016: PT is 13.5, INR is 0.96. Chemistries obtained on 12/06/2016: Sodium is 143, potassium is 5.4, chloride is 98, carbon dioxide 26, BUN 25, creatinine is 1.18, glucose 98, calcium is 8.5, magnesium is 1.8, AST 15, ALT is 19, alk phos 102. CK 20, CK-MB is 0.87, troponin is 0.014, BNP is 2080. Total protein 5.6, albumin 3.1. Chest x-ray obtained on 12/06/2016 reveals congestive heart failure. EKG obtained on 12/06/2016 reveals atrial fibrillation. IMPRESSION AND PLAN: 1. Acute on chronic congestive heart failure, unable to fully classify given that I do not have an echocardiogram available. Currently awaiting records from [facility]. Regardless, will admit the patient to inpatient IMCU, diuresis the patient with IV Bumex and replace electrolytes as needed. Will repeat chemistries in the a.m. and will resume home medications once reconcilable. 2. Atrial fibrillation. The patient is currently rate controlled. Will continue home medications. 3. Hypertension. The patient's blood pressures are only slightly elevated. Will resume medications once reconciled. 4. Psoriasis. It appears that the patient is on 2 separate biologic agents, including Otezla as well as methotrexate. According to the patient, she has noticed significant nausea and symptoms with the methotrexate. Did discuss weaning of this. The patient's weaver hand loom is Dr. Montero. Also, we are leery of biologic agent given her acute worsening of heart failure. Will follow. 5. Diabetes mellitus type 2. Will start the patient sliding-scale coverage, resume basal once the patient is taking p.o. 6. Hyperlipidemia. Will continue home medications. 7. DVT prophylaxis. Start patient on subcutaneous heparin. DISPOSITION: The patient is a DO NOT RESUSCITATE/DO NOT INTUBATE. The patient has expressed a desire for natural . She did this with her family to witness. Will admit the patient to inpatient IMCU. The patient's expected length of stay will surpass 2 midnights. TIME: Time spent on this admission including assessment, plan, physical examination, patient education, and family meeting was 60 minutes. DICTATING PHYSICIAN: MINO FONSECA NP [id number] PHY#: [id number] ID: [id number] JOB#: [id number] ACCT: [id number] cc:MARILYN BALDERRAMA > [facility]
[2016-12-06 17:46] LABS: APPEARANCE,URINE CLEAR; BILIRUBIN,URINE NEGATIVE (NEGATIVE); GLUCOSE, URINE NEGATIVE (NEGATIVE); KETONES,URINE NEGATIVE (NEGATIVE); LEUKOCYTE ESTERASE,URINE NEGATIVE (NEGATIVE); NITRITE,URINE NEGATIVE (NEGATIVE); PROTEIN,URINE NEGATIVE (NEGATIVE); URINE SPECIFIC GRAVITY 1.006; UROBILINOGEN,URINE NEGATIVE mg/dL (<2.0)
[2016-12-06] MEDS ORDERED: BUMETANIDE INJ/PF 1 MG/4 ML SDV ONE (17:46)
[2016-12-06] MEDS: BUMETANIDE INJ/PF 1 MG/4 ML SDV IV SCH (18:18)
[2016-12-06] MEDS: ALLOPURINOL 300 MG TABLET PO SCH (18:18)
[2016-12-06 18:37] LABS: ANION GAP 9 (5-19); BLOOD UREA NITROGEN 27 mg/dL (7-20); CALCIUM 8.9 mg/dL (8.4-10.2); CARBON DIOXIDE 26 mmol/L (22-30); CHLORIDE 108 mmol/L (98-107); CREATININE RESULT 1.28 mg/dL (0.52-1.25); GLUCOSE 96 mg/dL (75-110); POTASSIUM 5.4 mmol/L (3.6-5.0); SODIUM 143.2 mmol/L (137-145)
[2016-12-06] MEDS ORDERED: SODIUM POLYSTYRENE SULFONATE 15 GM/60 ML PO SCH (18:45)
[2016-12-06 18:53] LABS: FREE T3 4.15 pg/mL (2.77-5.27)
[2016-12-06 19:07] LABS: THYROID STIMULATING HORMONE 2.79 uIU/mL (0.47-4.68)
--- NOTE | 2016-12-06 19:58 | PDOC CONSULTATION ---
Consultation Consult Date: 12/06/16 Attending physician:: ENRICO CASANOVA Consult reason:: Shortness of breath History of Present Illness Admission Date/PCP: 12/06/16 13:37 MINO MONZON, Patient complains of: Syncope and shortness of breath History of Present Illness: Patient is a 66-year-old female with multiple medical problems, including coronary artery disease, congestive heart failure, presents to the emergency room complaining of generalized weakness with lightheadedness and dizziness, with a syncopal episode in the car, reports that patient was unresponsive for approximately 5 minutes, her eyes rolled in the back of her head and he was unable to get a response from her, patient reports feeling funny in the head prior to this happening, as in a lightheadedness or dizziness sensation, she denies having any chest pain or pain elsewhere at any time, she does report increased generalized weakness over the past 2 days with dyspnea on exertion and increased swelling in her lower extremities, she was recently seen at this hospital on 11/19/2016 and transferred to tertiary care center because of an elevated troponin, she has a PICC line in the right upper arm to receive antibiotics related to sepsis of unknown source according to patient and , she did attempt to ambulate to the bathroom in her room in the emergency department and became very short of breath doing so and was noted to become near syncopal. Patient's daughter also interviewed. She claims that recently patient had episodes of weak spells and also episodes of shortness of breath. Patient herself is a poor historian but daughter claims that she had a stress test about 3 weeks ago which was reported to be negative but that result is not available. 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 Patient did have an attempt of ablation of AV fistula. The atrial fibrillation is felt to be chronic. Patient also has some chronic pedal edema. Patient claims that she has a positive history of sleep apnea but because of claustrophobia is not on any CPAP therapy. Past Medical History Cardiac Medical History: Reports: Atrial Fibrillation - TWO YEARS AGO, Congestive Heart Failure, Coronary Artery Disease, Myocardial Infarction, Hyperlipidema, Hypertension Pulmonary Medical History: Reports: Pneumonia Denies: Asthma, Bronchitis, Chronic Obstructive Pulmonary Disease (COPD), Tuberculosis Neurological Medical History: Denies: Seizures Endocrine Medical History: Reports: Diabetes Mellitus Type 1, Diabetes Mellitus Type 2 Renal/ Medical History: Denies: End Stage Renal Disease GI Medical History: Denies: Cirrhosis, Gastroesophageal Reflux Disease Musculoskeltal Medical History: Reports: Arthritis, Gout Psychiatric Medical History: Denies: Bipolar Disorder, Depression Hematology: Reports: Anemia, Bleeding Tendencies Past Surgical History Past Surgical History: Reports: Cardiac Catheterization - Jan, Coronary Artery Bypass Graft - 2005 at [facility], Hysterectomy, Tubal Ligation Denies: Adenoidectomy, Pacemaker Social History Information Source: Patient Smoking Status: Former Smoker Frequency of Alcohol Use: None Hx Recreational Drug Use: No Drugs: None Hx Prescription Drug Abuse: No - Advance Directive Resuscitation Status: Do Not Resuscitate Surrogate healthcare decision maker:: Patient's is the surrogate decision-maker Family History Family History: CAD, DM, Hypertension Parental Family History Reviewed: Yes Children Family History Reviewed: Yes Sibling(s) Family History Reviewed.: Yes Medication/Allergy Home Medications: Allopurinol [Zyloprim 300 mg Tablet] 300 mg PO DAILY 11/02/12 Simvastatin 20 mg PO QPM 11/02/12 Acetaminophen [Tylenol 325 mg Tablet] 500 mg PO Q6HP PRN 02/05/13 Cyanocobalamin (Vitamin B-12) [Vitamin B-12 500 mcg Tablet] 1,000 mcg PO DAILY 02/05/13 Hydralazine HCl [Apresoline 50 mg Tablet] 50 mg PO TID 05/17/14 Nitroglycerin [Nitro-Dur 10 mg (0.4MG/Hr) Transdermal Patch] 1 patch TD DAILY Losartan Potassium 100 mg PO DAILY 07/27/14 Omeprazole 20 mg PO DAILY 07/27/14 Insulin Glargine,Hum.rec.anlog [Lantus Insulin 100 Unit/mL] 25 unit SUBCUT QHS 10/23/15 Apremilast [Otezla] 30 mg PO DAILY 12/06/16 Aspirin [Aspirin 325 mg Tablet] 325 mg PO DAILY 12/06/16 Carvedilol 25 mg PO BID 12/06/16 Ergocalciferol (Vitamin D2) [Vitamin D2] 50,000 unit PO ASDIR PRN 12/06/16 Folic Acid [Folvite 1 mg Tablet] 1 mg PO DAILY 12/06/16 Furosemide [Lasix] 40 mg PO BID 12/06/16 Methotrexate Sodium [Methotrexate] 2.5 mg PO SUMOWEFR@1000 12/06/16 Nifedipine [Procardia XL 60 mg Tablet] 60 mg PO DAILY 12/06/16 Potassium Chloride [Klor-Con 10] 20 meq PO BID 12/06/16 Allergies/Adverse Reactions: Sulfa (Sulfonamide Antibiotics) Allergy (Verified 12/06/16 11:14) warfarin sodium [From Coumadin] Adverse Reaction (Mild, Verified 12/06/16 11:14) Diarrhea Review of Systems Review of Systems: Please see history of present illness and past medical history as wall. Constitutional: No fever or chills reported. General deterioration of her health. Head : No recent chronic headaches, recent head injury. Eyes: No recent eye pain, diplopia, redness, discharge, acute visual changes. Ears: No recent chronic ear pain, acute hearing loss, ear discharge. Oral cavity: No recent ulcerations, bleeding, oral cavity discomfort. Neck: No recent acute neck pain reported. Hematologic: No recent easy bruising or bleeding or hematologic malignancy reported. Describes immunologic problems. Lymphatic: No recent lymphatic malignancy, chronic lymphadenopathy reported yet. Describes history of anemia from recurrent GI bleed Cardiovascular system review: See history of present illness. Respiratory system review: No recent chronic cough, hemoptysis, blood clots in the lungs reported. Significant shortness of breath on exertion, increasing pedal edema Gastrointestinal system review: Negative for any recent acute or chronic abdominal pain, hematemesis, melena, recent change in bowel habits. Genitourinary system review: No recent acute or chronic hematuria, flank pain, UTI etc. reported. Skin system review: Negative for any recent abnormal bruising, no rash, no pruritus reported. Neurologic: No prior history of strokes, mini strokes, seizure disorder. History of near syncope and syncope. Psychologic: No history of major psychosis or major depression reported. Musculoskeletal: Minor aches and pains reported. No acute joint swelling reported. Endocrine: No recent polyuria, polydipsia, recent heat or cold intolerance. Physical Exam Vital Signs: Temp Pulse Resp BP Pulse Ox 97.9 F 57 L 17 139/55 H 98 12/06/16 11:14 12/06/16 11:14 12/06/16 12:02 12/06/16 12:02 12/06/16 12:02 Exam: GENERAL: well-nourished and in no acute distress. Alert and oriented x3 HEAD: Atraumatic, normocephalic. EYES: Pupils equal round and reactive to light, extraocular movements intact, sclera anicteric, conjunctiva are normal. ENT: TMs normal, nares patent, oropharynx clear without exudates. Moist mucous membranes. No oral ulcerations or bleeding gums noted NECK: supple without lymphadenopathy. Trachea is central. No cervical or axillary lymphadenopathy noted. Carotids are 2+, JVD 8-10 cm LUNGS: Respiration seems nonlabored, no significant accessory muscle action noted. Bibasilar fine crackles and mild dullness noted. CHEST: Palpation of the chest wall shows no significant chest wall tenderness. No other significant abnormalities noted. HEART: [place] NURSE QUALITY, No PSH, 1/6 REX aortic area, 1/6 green systolic murmur mitral area, no rubs, no gallops. ABDOMEN: Soft, no significant tenderness appreciated, normoactive bowel sounds. No guarding, no rebound. No rigidity noted . No masses appreciated. EXTREMITIES: Pedal pulses are 1-2+, no calf tenderness noted. No clubbing or cyanosis, 2+ pedal edema noted NEUROLOGICAL: Focused neurological exam showed no significant neurologic deficit. Normal speech, no focal weakness appreciated. PSYCH: Normal mood, normal affect. Judgment and insight within normal limits. SKIN: No significant ecchymosis, rash, ulcerations or signs of pruritus noted. MUSCULOSKELETAL EXAM: No significant joint swelling noted. Results EKG Comments: Atrial fibrillation with minor nonspecific ST-T wave changes noted Impressions: Chest X-Ray 12/06/16 11:30 IMPRESSION: Congestive heart failure. Assessment & Plan - Diagnosis (1) Syncope Qualifiers: Syncope type: unspecified Qualified Code(s): R55 - Syncope and collapse Is this a current diagnosis for this admission?: Yes (2) Bradycardia Is this a current diagnosis for this admission?: Yes (3) Atrial fibrillation Qualifiers: Atrial fibrillation type: unspecified Qualified Code(s): I48.91 - Unspecified atrial fibrillation Is this a current diagnosis for this admission?: Yes (4) Coronary artery disease Qualifiers: Coronary Disease-Associated Artery/Lesion type: unspecified vessel or lesion type Associated angina: angina presence unspecified Is this a current diagnosis for this admission?: Yes (5) CHF exacerbation Qualifiers: Congestive heart failure type: diastolic Qualified Code(s): I50.33 - Acute on chronic diastolic (congestive) heart failure Is this a current diagnosis for this admission?: Yes (7) Hypoxia Is this a current diagnosis for this admission?: Yes (8) Hypertension Qualifiers: Hypertension type: essential hypertension Qualified Code(s): I10 - Essential (primary) hypertension Is this a current diagnosis for this admission?: Yes - Notes Notes: Syncope: Possibly related to postural hypotension, bradycardia, tachycardia. On monitoring patient was noted to be bradycardic. Have stopped carvedilol. This may need to be reinstituted gradually at a lower dose if needed. Bradycardia: Significant bradycardia with heart rate dropping down into 30s along with symptoms of generalized weakness noted by the nurse on floor. Have ordered for carvedilol to be held. Potassium was noted to be 5.4, order 2 doses of Kayexalate and stopped potassium supplementation. Follow potassium level. Atrial fibrillation: Patient not on chronic anticoagulation because of history of recurrent GI bleed. This can be addressed later on by the waiter waitress. Periodically assessment is indicated. Coronary artery disease: Patient initial troponin I is unremarkable. Patient claims a recent stress test 3 weeks ago which I am told is relatively unremarkable. No need for ischemia workup at this time in the absence of chest pain. CHF: Possibly diastolic possibly systolic. I did not find any evidence echocardiogram, in hospital records. It will be worthwhile to obtain a 2D echo to evaluate pulmonary hypertension especially in view of new onset syncope and near syncope. Continue diuretic therapy. Hypoxemia: Could be related to underlying COPD, obesity hypoventilation syndrome , CHF etc. Continue with oxygen supplementation. Hypertension: Will recommend liberal blood pressure control in this patient. Continue current antihypertensive. Medical decision making was complex. - Time Time Spent: 50 to 70 Minutes - CODE STATUS : was discussed, patient remains DO NOT RESUSCITATE. Surrogate decision-maker unchanged. Multiple medical problems were addressed. More than 50% of the time spent coordinating care, discussing management plans with involved caregivers. Management plans discussed with involved personnels. Medical decision making was of high complexity, patient's has multiple comorbidities. Medications reviewed and adjusted accordingly: Yes
[2016-12-06] MEDS ORDERED: INSULIN GLARGINE,HUM.REC.ANLOG 300 UNIT/3 ML INSULN.PEN SUBCUT ONE (22:00)
[2016-12-06] MEDS ORDERED: CARVEDILOL 12.5 MG TABLET PO SCH ×2 (22:00)
[2016-12-06] MEDS: HYDRALAZINE HCL 50 MG TABLET PO SCH (22:36)
[2016-12-06] MEDS: SIMVASTATIN 10 MG TABLET PO SCH (22:42)
[2016-12-06] MEDS: HEPARIN SOD (PORCINE) 5,000 UNIT/ML 1 ML SYRINGE SUBCUT SCH (22:44)
[2016-12-06] MEDS: INSULIN GLARGINE,HUM.REC.ANLOG 300 UNIT/3 ML INSULN.PEN SUBCUT SCH (22:44)
[2016-12-07] MEDS ORDERED: SODIUM POLYSTYRENE SULFONATE 15 GM/60 ML PO ONE (05:15)
[2016-12-07 05:24] LABS: HEMATOCRIT 30.5 % (36.0-47.0); HEMOGLOBIN 9.9 g/dL (12.0-15.5); HGB HCT DIFFERENCE -0.8; MEAN CORPUSCULAR HGB CONC 32.3 g/dL (32.0-36.0); MEAN CORPUSCULAR VOLUME 121 fl (80-97); RED BLOOD COUNT 2.53 10^6/uL (3.72-5.28); RED CELL DISTRIBUTION WIDTH 20.8 % (11.5-14.0); WHITE BLOOD COUNT 5.9 10^3/uL (4.0-10.5)
[2016-12-07 05:36] LABS: ANION GAP 8 (5-19); BLOOD UREA NITROGEN 30 mg/dL (7-20); CALCIUM 8.7 mg/dL (8.4-10.2); CARBON DIOXIDE 28 mmol/L (22-30); CHLORIDE 107 mmol/L (98-107); CREATININE RESULT 1.37 mg/dL (0.52-1.25); GLUCOSE 87 mg/dL (75-110); MAGNESIUM 1.8 mg/dL (1.6-2.3); POTASSIUM 5.2 mmol/L (3.6-5.0); SODIUM 142.7 mmol/L (137-145)
[2016-12-07] MEDS: HYDRALAZINE HCL 50 MG TABLET PO SCH ×3 (06:15→21:47)
[2016-12-07] MEDS: HEPARIN SOD (PORCINE) 5,000 UNIT/ML 1 ML SYRINGE SUBCUT SCH ×3 (06:17→21:50)
[2016-12-07] MEDS: BUMETANIDE INJ/PF 1 MG/4 ML SDV IV SCH (06:48)
[2016-12-07] MEDS ORDERED: ACETAMINOPHEN 325 MG TABLET PO PRN ×2 (08:54→15:15)
[2016-12-07] MEDS ORDERED: ERGOCALCIFEROL (VITAMIN D2) 50000 UNIT (1.25 MG) CAPSULE PO PRN (08:54)
[2016-12-07] MEDS ORDERED: [UNRECOGNIZED DRUG - OTHER] PO SCH (10:00)
[2016-12-07] MEDS ORDERED: ENOXAPARIN SODIUM INJ 40 MG/0.4 ML DISP.SYRIN SUBCUT SCH (10:00)
[2016-12-07] MEDS ORDERED: METHOTREXATE SODIUM 2.5 MG TABLET PO SCH (10:00)
[2016-12-07] MEDS ORDERED: (PENDING PHARMACY ID) (Losartan Potassium [Losartan Potassium] 100 MG) PO SCH (10:00)
[2016-12-07] MEDS ORDERED: ASPIRIN 325 MG TABLET PO SCH ×2 (10:00)
[2016-12-07] MEDS ORDERED: LOSARTAN POTASSIUM 50 MG TABLET PO SCH (10:00)
[2016-12-07] MEDS ORDERED: ASPIRIN 81 MG TABLET, ENT COATED PO SCH ×2 (10:00)
[2016-12-07] MEDS ORDERED: ERGOCALCIFEROL (VITAMIN D2) 50000 UNIT (1.25 MG) CAPSULE PO SCH (10:00)
[2016-12-07] MEDS ORDERED: (PENDING PHARMACY ID) (Apremilast [Otezla] 30 MG) PO SCH (10:00)
[2016-12-07] MEDS ORDERED: NIFEDIPINE 30 MG TAB.ER.24 PO SCH (10:00)
[2016-12-07] MEDS ORDERED: FUROSEMIDE 40 MG TABLET PO SCH (10:00)
[2016-12-07] MEDS ORDERED: CYANOCOBALAMIN PO SCH (10:00)
[2016-12-07] MEDS: NITROGLYCERIN 10 MG (0.4 MG/HR) PATCH.TD24 TD SCH (10:35)
[2016-12-07] MEDS: LANSOPRAZOLE 15 MG TAB.RAP.DR PO SCH (10:38)
[2016-12-07] MEDS: FOLIC ACID 1 MG TABLET PO SCH (10:39)
--- NOTE | 2016-12-07 16:03 | PROGRESS NOTE E ---
Progress Note NAME: KIRK FUNEZ : 1950 AGE: 66Y DATE: 12/07/2016 ROOM: 331 SUBJECTIVE: The patient is out of bed to the bedside chair. is present at the bedside, active in the patient's care. The patient states that she feels much better today in comparison to admission. Her shortness of breath is much improved. She is still dyspneic with significant activity, however, she is not dyspneic at rest. The patient also states that her nausea has improved. She denies any vomiting, shortness of breath, dizziness. No chest pain. No fevers, chills. The patient has been afebrile. Her blood pressures have been in a good range. The patient's heart rate is slowly improving, and the patient does not voice any other concerns at this time. REVIEW OF SYSTEMS: The rest of the review of systems is negative. MEDICATIONS: Medications have been reviewed. OBJECTIVE: GENERAL: The patient is a 66-year-old female that is awake, alert and oriented to person, place, time, and situation. She is verbal, conversational, does not appear to be in any acute distress. VITAL SIGNS: As follows: Temperature is 97.7, pulse 63, respirations 16, blood pressure 150/51, oxygen saturation 97% on room air. SKIN: Warm and dry. No rash. Not diaphoretic. HEENT: Pupils equal, round, reactive to light and accommodation. Conjunctiva pink. NECK: I see no evidence of JVD. CARDIOVASCULAR SYSTEM: Heart is irregular. No murmur or rub. CHEST: Clear, symmetrical, unlabored. ABDOMEN: Soft, nontender, nondistended. BACK: No CVA tenderness or sacral edema. EXTREMITIES: No clubbing, cyanosis. The patient does have 2+ pitting of the right lower extremity with trace edema of the left lower extremity. PSYCHIATRIC: Appropriate affect. Pleasant mood. DIAGNOSTICS: Lab values are as follows: Hematology obtained on 12/07/2016; WBCs are 5.9, hemoglobin is 9.9, hematocrit is 30.5, platelet count is 187,000. Chemistry obtained on 12/06/2016: Sodium is 143, potassium 5.4, chloride is 108, carbon dioxide 26, BUN 27, creatinine is 1.28, glucose 96, calcium is 8.9. IMPRESSION AND PLAN: 1. ACUTE ON CHRONIC DIASTOLIC CONGESTIVE HEART FAILURE. I reviewed the patient's SUPRIYA that she had done at [facility] 2 weeks ago. The patient did have a normal EF. The patient has tolerated diuresis well with much improvement of her symptoms. Will transition to oral diuretics and repeat chemistries in the a.m. and follow. 2. BRADYCARDIA. The patient was recently started on Procardia in addition to Coreg. Both are currently on hold at this time, but I will resume the Coreg once the patient's heart rate is sustained above 60. 3. SYNCOPE, MOST LIKELY SECONDARY TO BRADYCARDIA AND HYPOXIA. The patient overall is much improved. No further replication of symptoms. 4. CORONARY ARTERY DISEASE. Will continue the patient's home medications. 5. ATRIAL FIBRILLATION. The patient is rate controlled. 6. HYPERTENSION. The patient's blood pressure has been slightly elevated; however, given the patient's recent syncope, will allow it with some permissive hypertension for perfusion. 7. RECENT MSSA BACTEREMIA. The patient did undergo a SUPRIYA with Dr. Roldan at [facility]. The patient has completed her last dose of IV Unasyn. The patient's PICC line can be removed prior to leaving the hospital. 8. PSORIASIS. The patient states that she has been unable to tolerate methotrexate. However, in the past if she abruptly stops it, as she has taken it 4 times a week, she becomes ill. I did discuss possibly weaning. This can be discussed with her car loader. However, the patient is also taking Otezla which is concerning given her worsening heart failure. Will defer to Cardiology and Rheumatology. 9. DIABETES MELLITUS TYPE 2. Blood sugars have been in a decent range. Will continue current medications. 10. HYPERLIPIDEMIA. Will continue statin. DISPOSITION: The patient is a DO NOT RESUSCITATE/DO NOT INTUBATE. Pending patient's symptomatology and diagnostic findings, will re-evaluate in the a.m. Time spent on this followup including assessment, plan, physical examination, patient education, family meeting, and specialty collaboration is 30 minutes. DICTATING PHYSICIAN: MINO FONSECA NP [id number] PHY#: [id number] ID: [id number] JOB#: [id number] ACCT: [id number] cc:MINO FONSECA NP > [facility]
[2016-12-07] MEDS: FUROSEMIDE 40 MG TABLET PO SCH (17:58)
[2016-12-07] MEDS: ALLOPURINOL 300 MG TABLET PO SCH (17:59)
--- NOTE | 2016-12-07 18:22 | PDOC PROGRESS REPORT ---
Subjective Progress Note for:: 12/07/16 Subjective:: Patient seems to be doing better with gradual improvement. Pt is denying any chest arm or neck discomfort. Patient denying any PND, orthopnea. Patient denied any sustained palpitations, dizziness, syncope, near syncope. Patient denying any fever chills. Patient denying any other significant discomfort. Patient is maintaining chronic atrial fibrillation but heart rate is better. Review of systems: Rest review of systems negative. Medications: Medications have been reviewed. Physical Exam Vital Signs: Temp Pulse Resp BP Pulse Ox 97.7 F 63 16 150/51 H 97 12/07/16 07:52 12/07/16 07:52 12/07/16 07:52 12/07/16 07:52 12/07/16 07:52 Intake & Output 12/06/16 12/07/16 12/08/16 06:59 06:59 06:59 Intake Total 588 Output Total 280 Balance 308 Weight 112.9 kg Exam: GENERAL: well-nourished and in no acute distress. Alert and oriented x3 HEAD: Atraumatic, normocephalic. EYES: Pupils equal round and reactive to light, extraocular movements intact, sclera anicteric, conjunctiva are normal. ENT: TMs normal, nares patent, oropharynx clear without exudates. Moist mucous membranes. No oral ulcerations or bleeding gums noted NECK: supple without lymphadenopathy. Trachea is central. No cervical or axillary lymphadenopathy noted. Carotids are 2+, JVD 8-10 cm LUNGS: Respiration seems nonlabored, no significant accessory muscle action noted. Bibasilar fine crackles and mild dullness noted. Occasional wheezing noted. CHEST: Palpation of the chest wall shows no significant chest wall tenderness. No other significant abnormalities noted. HEART: [place] QUALITY ASSURANCE MONITOR FINAL, No PSH, 1/6 REX aortic area, 1/6 green systolic murmur mitral area, no rubs, no gallops. ABDOMEN: Soft, no significant tenderness appreciated, normoactive bowel sounds. No guarding, no rebound. No rigidity noted . No masses appreciated. EXTREMITIES: Pedal pulses are 1-2+, no calf tenderness noted. No clubbing or cyanosis. 2 + pedal edema noted NEUROLOGICAL: Focused neurological exam showed no significant neurologic deficit. Normal speech, no focal weakness appreciated. PSYCH: Normal mood, normal affect. Judgment and insight within normal limits. SKIN: No significant ecchymosis, rash, ulcerations or signs of pruritus noted. MUSCULOSKELETAL EXAM: No significant joint swelling noted. Results Laboratory Results: 12/07/16 04:30 12/07/16 04:30 12/06/16 12/07/16 12/07/16 17:18 04:30 04:30 WBC 5.9 RBC 2.53 L Hgb 9.9 L Hct 30.5 L MCV 121 H MCH 39.0 H MCHC 32.3 RDW 20.8 H Plt Count 187 Sodium 142.7 Potassium 5.2 H Chloride 107 Carbon Dioxide 28 Anion Gap 8 BUN 30 H Creatinine 1.37 H Est GFR ( Amer) 47 L Est GFR (Non-Af Amer) 39 L Glucose 87 Calcium 8.7 Magnesium 1.8 Urine Color YELLOW Urine Appearance CLEAR Urine pH 5.0 Ur Specific [place] 1.006 Urine Protein NEGATIVE Urine Glucose (UA) NEGATIVE Urine Ketones NEGATIVE Urine Blood NEGATIVE Urine Nitrite NEGATIVE Ur Leukocyte Esterase NEGATIVE Urine WBC (Auto) 4 Urine RBC (Auto) 1 Impressions: Chest X-Ray 12/06/16 11:30 IMPRESSION: Congestive heart failure. Assessment & Plan - Diagnosis (1) Syncope Qualifiers: Syncope type: unspecified Qualified Code(s): R55 - Syncope and collapse Is this a current diagnosis for this admission?: Yes (2) Bradycardia Is this a current diagnosis for this admission?: Yes (3) Atrial fibrillation Qualifiers: Atrial fibrillation type: unspecified Qualified Code(s): I48.91 - Unspecified atrial fibrillation Is this a current diagnosis for this admission?: Yes (4) Coronary artery disease Qualifiers: Coronary Disease-Associated Artery/Lesion type: unspecified vessel or lesion type Associated angina: angina presence unspecified Is this a current diagnosis for this admission?: Yes (5) CHF exacerbation Qualifiers: Congestive heart failure type: diastolic Qualified Code(s): I50.33 - Acute on chronic diastolic (congestive) heart failure Is this a current diagnosis for this admission?: Yes (7) Hypoxia Is this a current diagnosis for this admission?: Yes (8) Hypertension Qualifiers: Hypertension type: essential hypertension Qualified Code(s): I10 - Essential (primary) hypertension Is this a current diagnosis for this admission?: Yes - Notes Notes: Previous hospitalization records were reviewed. Syncope: Possibly related to postural hypotension, bradycardia, tachycardia. On monitoring patient was noted to be bradycardic yesterday but this has improved. Continue to hold carvedilol. This may need to be reinstituted gradually at a lower dose if needed. Bradycardia: This has improved. Yesterday potassium level was high. Today potassium is still high at 5.2. Stopped potassium supplementation. Follow potassium level. Atrial fibrillation: Patient not on chronic anticoagulation because of history of recurrent GI bleed. This can be addressed later on by the factory engineer. Periodically assessment is indicated. Coronary artery disease: Patient initial troponin I is unremarkable. Patient claims a recent stress test 3 weeks ago which I am told is relatively unremarkable. No need for ischemia workup at this time in the absence of chest pain. CHF: Possibly diastolic possibly systolic. I did not find any evidence echocardiogram, in hospital records. It will be worthwhile to obtain a 2D echo to evaluate pulmonary hypertension especially in view of new onset syncope and near syncope. Continue diuretic therapy. Hypoxemia: Could be related to underlying COPD, obesity hypoventilation syndrome , CHF etc. Continue with oxygen supplementation. Hypertension: Will recommend liberal blood pressure control in this patient. Continue current antihypertensive. Patient has previous diagnosis of sleep apnea syndrome. Patient may need to be reevaluated and treated if needed. Medical decision making was complex. - Time Time with patient: Greater than 35 minutes - CODE STATUS : was discussed, patient remains DO NOT RESUSCITATE. Surrogate decision-maker unchanged. Multiple medical problems were addressed. More than 50% of the time spent coordinating care, discussing management plans with involved caregivers. Management plans discussed with involved personnels. Medical decision making was of moderate to high complexity, patient's has multiple comorbidities. Medications reviewed and adjusted accordingly: Yes
[2016-12-07] MEDS: SIMVASTATIN 10 MG TABLET PO SCH (21:46)
[2016-12-07] MEDS: INSULIN GLARGINE,HUM.REC.ANLOG 300 UNIT/3 ML INSULN.PEN SUBCUT SCH (21:50)
[2016-12-07] MEDS ORDERED: CARVEDILOL 12.5 MG TABLET PO SCH (22:00)
[2016-12-08 05:14] LABS: MEAN CORPUSCULAR HEMOGLOBIN 39.3 pg (27.0-33.4); MEAN CORPUSCULAR HGB CONC 32.3 g/dL (32.0-36.0); MEAN CORPUSCULAR VOLUME 121 fl (80-97); RED BLOOD COUNT 2.55 10^6/uL (3.72-5.28); RED CELL DISTRIBUTION WIDTH 20.3 % (11.5-14.0); WHITE BLOOD COUNT 6.7 10^3/uL (4.0-10.5)
[2016-12-08 05:22] LABS: ANION GAP 7 (5-19); BLOOD UREA NITROGEN 32 mg/dL (7-20); CALCIUM 8.8 mg/dL (8.4-10.2); CARBON DIOXIDE 30 mmol/L (22-30); CHLORIDE 105 mmol/L (98-107); GLUCOSE 79 mg/dL (75-110); MAGNESIUM 1.8 mg/dL (1.6-2.3); POTASSIUM 4.5 mmol/L (3.6-5.0); SODIUM 142.4 mmol/L (137-145)
[2016-12-08] MEDS: HEPARIN SOD (PORCINE) 5,000 UNIT/ML 1 ML SYRINGE SUBCUT SCH ×3 (06:30→22:44)
[2016-12-08] MEDS: HYDRALAZINE HCL 50 MG TABLET PO SCH ×3 (06:30→22:43)
[2016-12-08] MEDS: CYANOCOBALAMIN (VITAMIN B-12) 1,000 MCG TABLET PO SCH (09:12)
[2016-12-08] MEDS: ASPIRIN 325 MG TABLET PO SCH (09:12)
[2016-12-08] MEDS: FOLIC ACID 1 MG TABLET PO SCH (09:13)
[2016-12-08] MEDS: FUROSEMIDE 40 MG TABLET PO SCH ×2 (09:13→17:16)
[2016-12-08] MEDS: NITROGLYCERIN 10 MG (0.4 MG/HR) PATCH.TD24 TD SCH (09:14)
[2016-12-08] MEDS: LANSOPRAZOLE 15 MG TAB.RAP.DR PO SCH (09:14)
--- NOTE | 2016-12-08 09:16 | PDOC PROGRESS REPORT ---
Subjective Progress Note for:: 12/08/16 Subjective:: The patient states to feel much better. She is much less short of breath. The legs are not swollen. She has not been popping about yet this morning. She denies any shortness of breath or chest pain. She denies any palpitations. Physical Exam Vital Signs: Temp Pulse Resp BP Pulse Ox 97.8 F 73 20 165/48 H 100 12/08/16 07:08 12/08/16 07:08 12/08/16 07:08 12/08/16 07:08 12/08/16 07:08 Intake & Output 12/07/16 12/08/16 12/09/16 06:59 06:59 06:59 Intake Total 588 1090 Output Total 280 900 Balance 308 190 Weight 112.9 kg 112.9 kg General appearance: PRESENT: no acute distress Head exam: PRESENT: atraumatic Eye exam: PRESENT: conjunctiva pink Neck exam: ABSENT: carotid bruit Respiratory exam: PRESENT: crackles Cardiovascular exam: PRESENT: irregular rhythm Pulses: PRESENT: +1 pedal pulses bilateral GI/Abdominal exam: PRESENT: normal bowel sounds, soft Extremities exam: PRESENT: full ROM Musculoskeletal exam: PRESENT: ambulatory Neurological exam: PRESENT: alert, awake Results Laboratory Results: 12/08/16 04:15 12/08/16 04:15 12/08/16 12/08/16 04:15 04:15 WBC 6.7 RBC 2.55 L Hgb 10.0 L Hct 31.0 L MCV 121 H MCH 39.3 H MCHC 32.3 RDW 20.3 H Plt Count 205 Sodium 142.4 Potassium 4.5 Chloride 105 Carbon Dioxide 30 Anion Gap 7 BUN 32 H Creatinine 1.30 H Est GFR ( Amer) 50 L Est GFR (Non-Af Amer) 41 L Glucose 79 Calcium 8.8 Magnesium 1.8 Impressions: Chest X-Ray 12/06/16 11:30 IMPRESSION: Congestive heart failure. Assessment & Plan - Diagnosis (1) Atrial fibrillation Qualifiers: Atrial fibrillation type: unspecified Qualified Code(s): I48.91 - Unspecified atrial fibrillation Is this a current diagnosis for this admission?: YesPlan: Right controlled (2) Bradycardia Is this a current diagnosis for this admission?: YesPlan: Possibly medication related to resolved (3) CHF exacerbation Qualifiers: Congestive heart failure type: diastolic Qualified Code(s): I50.33 - Acute on chronic diastolic (congestive) heart failure Is this a current diagnosis for this admission?: YesPlan: Improved with fluid restriction and diuretics (4) Syncope Qualifiers: Syncope type: unspecified Qualified Code(s): R55 - Syncope and collapse Is this a current diagnosis for this admission?: YesPlan: Most probably related to bradycardia secondary to medications resolved
[2016-12-08] MEDS: ALLOPURINOL 300 MG TABLET PO SCH (17:17)
[2016-12-08] MEDS ORDERED: LOSARTAN POTASSIUM 50 MG TABLET PO ONE (17:28)
[2016-12-08] MEDS: SIMVASTATIN 10 MG TABLET PO SCH (22:44)
[2016-12-08] MEDS: INSULIN GLARGINE,HUM.REC.ANLOG 300 UNIT/3 ML INSULN.PEN SUBCUT SCH (22:49)
[2016-12-09] MEDS: HYDRALAZINE HCL 50 MG TABLET PO SCH ×2 (05:28→14:03)
[2016-12-09] MEDS: HEPARIN SOD (PORCINE) 5,000 UNIT/ML 1 ML SYRINGE SUBCUT SCH ×2 (05:28→14:04)
--- NOTE | 2016-12-09 08:53 | PDOC DISCHARGE SUMMARY ---
General - Admit/Disc Date/PCP Admission Date/Primary Care Provider: 12/06/16 13:37 MINO MONZON, Discharge Date: 12/09/16 - Discharge Diagnosis (1) Atrial fibrillation Is this a current diagnosis for this admission?: Yes (2) Bradycardia Is this a current diagnosis for this admission?: Yes (3) CHF exacerbation Is this a current diagnosis for this admission?: Yes (4) Syncope Is this a current diagnosis for this admission?: Yes (5) Pseudomonas urinary tract infection Is this a current diagnosis for this admission?: Yes - Additional Information Resuscitation Status: Do Not Resuscitate Discharge Diet: Cardiac, Diabetic Discharge Activity: Activity As Tolerated, Balance Activity w/Rest, Weigh Daily Home Medications: Allopurinol [Zyloprim 300 mg Tablet] 300 mg PO DAILY 11/02/12 Simvastatin 20 mg PO QPM 11/02/12 Acetaminophen [Tylenol 325 mg Tablet] 500 mg PO Q6HP PRN 02/05/13 Cyanocobalamin (Vitamin B-12) [Vitamin B-12 500 mcg Tablet] 1,000 mcg PO DAILY 02/05/13 Hydralazine HCl [Apresoline 50 mg Tablet] 50 mg PO TID 05/17/14 Nitroglycerin [Nitro-Dur 10 mg (0.4MG/Hr) Transdermal Patch] 1 patch TD DAILY Losartan Potassium 100 mg PO DAILY 07/27/14 Omeprazole 20 mg PO DAILY 07/27/14 Insulin Glargine,Hum.rec.anlog [Lantus Insulin 100 Unit/mL] 25 unit SUBCUT QHS 10/23/15 Apremilast [Otezla] 30 mg PO DAILY 12/06/16 Aspirin [Aspirin 325 mg Tablet] 325 mg PO DAILY 12/06/16 Ergocalciferol (Vitamin D2) [Vitamin D2] 50,000 unit PO WE@1000 12/06/16 Folic Acid [Folvite 1 mg Tablet] 1 mg PO DAILY 12/06/16 Furosemide [Lasix] 40 mg PO BID 12/06/16 Methotrexate Sodium [Methotrexate] 2.5 mg PO SUMOWEFR@1000 12/06/16 Potassium Chloride [Klor-Con 10] 20 meq PO BID 12/06/16 Aspirin [Aspirin 325 mg Tablet] 325 mg PO DAILY #0 tablet 12/09/16 Ciprofloxacin HCl [Cipro 500 mg Tablet] 500 mg PO Q12 #0 tablet 12/09/16 History of Present Illness History of Present Illness: KIRK FUNEZ is a 66 year old female Hospital Course Hospital Course: The patient did well after the admission. Some of her medications have been stopped because of bradycardia. She continued to be in atrial fibrillation with rate control. She did not have any recurrence of syncope. On the day of discharge she appeared comfortable in no acute distress she was seen by cardiology and is scheduled for a follow-up. Her blood sugars were well controlled. I &O were negative. Urine was positive for Pseudomonas and the patient was started on Cipro Physical Exam Vital Signs: Temp Pulse Resp BP Pulse Ox 97.6 F 85 17 177/55 H 94 12/09/16 07:26 12/09/16 07:26 12/09/16 07:26 12/09/16 07:26 12/09/16 07:26 Intake & Output 12/08/16 12/09/16 12/10/16 06:59 06:59 06:59 Intake Total 1090 408 Output Total 900 1250 Balance 190 -842 Weight 112.9 kg 112.9 kg General appearance: PRESENT: no acute distress Eye exam: PRESENT: conjunctiva pink Neck exam: ABSENT: carotid bruit Respiratory exam: PRESENT: crackles Cardiovascular exam: PRESENT: irregular rhythm Pulses: PRESENT: +1 pedal pulses bilateral Vascular exam: PRESENT: normal capillary refill - We will recheck her stats GI/Abdominal exam: PRESENT: normal bowel sounds, soft Musculoskeletal exam: PRESENT: ambulatory Neurological exam: PRESENT: alert, awake Results Laboratory Results: 12/08/16 04:15 12/08/16 04:15 12/06/16 17:18 Clean Catch Midstream Urine Culture - Final Pseudomonas Aeruginosa Impressions: Chest X-Ray 12/06/16 11:30 IMPRESSION: Congestive heart failure.
[2016-12-09] MEDS: ASPIRIN 325 MG TABLET PO SCH (09:31)
[2016-12-09] MEDS: CYANOCOBALAMIN (VITAMIN B-12) 1,000 MCG TABLET PO SCH (09:32)
[2016-12-09] MEDS: NITROGLYCERIN 10 MG (0.4 MG/HR) PATCH.TD24 TD SCH (09:32)
[2016-12-09] MEDS: FUROSEMIDE 40 MG TABLET PO SCH (09:33)
[2016-12-09] MEDS: LANSOPRAZOLE 15 MG TAB.RAP.DR PO SCH (09:34)
[2016-12-09] MEDS: FOLIC ACID 1 MG TABLET PO SCH (09:34)
[2016-12-09] MEDS ORDERED: CIPROFLOXACIN HCL 500 MG TABLET PO SCH (10:00)
[2016-12-09] MEDS ORDERED: LOSARTAN POTASSIUM 50 MG TABLET PO SCH (10:00)
--- NOTE | 2016-12-09 11:37 | PDOC PROGRESS REPORT ---
Subjective Progress Note for:: 12/08/16 Subjective:: Patient was seen yesterday on rounds but somehow note got deleted. Patient seems to be doing better with significant improvement. Pt is denying any chest arm or neck discomfort. Patient denying any PND, orthopnea. Patient denied any sustained palpitations, dizziness, syncope, near syncope. Patient denying any fever chills. Patient denying any other significant discomfort. Patient still has pedal edema. Patient is maintaining chronic atrial fibrillation but heart rate is better. Review of systems: Rest review of systems negative. Medications: Medications have been reviewed. Physical Exam Vital Signs: Temp Pulse Resp BP Pulse Ox 97.6 F 85 17 177/55 H 94 12/09/16 07:26 12/09/16 07:26 12/09/16 07:26 12/09/16 07:26 12/09/16 07:26 Intake & Output 12/08/16 12/09/16 12/10/16 06:59 06:59 06:59 Intake Total 1090 408 Output Total 900 1250 Balance 190 -842 Weight 112.9 kg 112.9 kg Exam: GENERAL: well-nourished and in no acute distress. Alert and oriented x3 HEAD: Atraumatic, normocephalic. EYES: Pupils equal round and reactive to light, extraocular movements intact, sclera anicteric, conjunctiva are normal. ENT: TMs normal, nares patent, oropharynx clear without exudates. Moist mucous membranes. No oral ulcerations or bleeding gums noted NECK: supple without lymphadenopathy. Trachea is central. No cervical or axillary lymphadenopathy noted. Carotids are 2+, JVD 10 cm LUNGS: Respiration seems nonlabored, no significant accessory muscle action noted. Breath sounds clear to auscultation bilaterally and equal noted. No wheezes rales or rhonchi noted. No significant dullness noted on percussion. CHEST: Palpation of the chest wall shows no significant chest wall tenderness. No other significant abnormalities noted. HEART: [employer], No PSH, 1/6 REX aortic area, 1/6 green systolic murmur mitral area, no rubs, no gallops. ABDOMEN: Soft, no significant tenderness appreciated, normoactive bowel sounds. No guarding, no rebound. No rigidity noted . No masses appreciated. EXTREMITIES: Pedal pulses are 1-2+, no calf tenderness noted. No clubbing or cyanosis. 1-2 + pedal edema noted NEUROLOGICAL: Focused neurological exam showed no significant neurologic deficit. Normal speech, no focal weakness appreciated. PSYCH: Normal mood, normal affect. Judgment and insight within normal limits. SKIN: No significant ecchymosis, rash, ulcerations or signs of pruritus noted. MUSCULOSKELETAL EXAM: No significant joint swelling noted. Results Laboratory Results: 12/08/16 04:15 12/08/16 04:15 12/06/16 17:18 Clean Catch Midstream Urine Culture - Final Pseudomonas Aeruginosa EKG Comments: Telemetry shows atrial fibrillation. Impressions: Chest X-Ray 12/06/16 11:30 IMPRESSION: Congestive heart failure. Assessment & Plan - Diagnosis (1) Syncope Qualifiers: Syncope type: unspecified Qualified Code(s): R55 - Syncope and collapse Is this a current diagnosis for this admission?: Yes (2) Bradycardia Is this a current diagnosis for this admission?: Yes (3) Atrial fibrillation Qualifiers: Atrial fibrillation type: unspecified Qualified Code(s): I48.91 - Unspecified atrial fibrillation Is this a current diagnosis for this admission?: Yes (4) Coronary artery disease Qualifiers: Coronary Disease-Associated Artery/Lesion type: unspecified vessel or lesion type Associated angina: angina presence unspecified Is this a current diagnosis for this admission?: Yes (5) CHF exacerbation Qualifiers: Congestive heart failure type: diastolic Qualified Code(s): I50.33 - Acute on chronic diastolic (congestive) heart failure Is this a current diagnosis for this admission?: Yes (7) Hypoxia Is this a current diagnosis for this admission?: Yes (8) Hypertension Qualifiers: Hypertension type: essential hypertension Qualified Code(s): I10 - Essential (primary) hypertension Is this a current diagnosis for this admission?: Yes - Notes Notes: Syncope: Most likely related to bradycardia. Patient noted to be significantly bradycardic on admission but this has progressively improved. Continue to hold carvedilol. This may need to be reinstituted gradually at a lower dose if needed. Bradycardia: This has improved. Yesterday potassium level was high. Today potassium is normal at 4.5. Follow potassium level. Patient may need supplementation at the lower dose. Atrial fibrillation: Patient not on chronic anticoagulation because of history of recurrent GI bleed. This can be addressed later on by the developing machine tender. Periodically assessment is indicated. May consider event monitoring as an outpatient for better heart rate control. Coronary artery disease: Patient initial troponin I is unremarkable. Patient claims a recent stress test 3 weeks ago which I am told is relatively unremarkable. No need for ischemia workup at this time in the absence of chest pain. CHF: Continue diuretic therapy. Edema and other symptoms have gradually improved. Hypoxemia: Could be related to underlying COPD, obesity hypoventilation syndrome , CHF etc. Continue with oxygen supplementation. Hypertension: Continue current antihypertensive. Blood pressure goal should be 135/85 or less but avoid any postural hypotension Patient has previous diagnosis of sleep apnea syndrome. Patient may need to be reevaluated and treated if needed. Medical decision making was complex. - Time Time with patient: Greater than 35 minutes - CODE STATUS was discussed, patient remains full code. Surrogate decision-maker unchanged. Multiple medical problems were addressed. More than 50% of the time spent coordinating care, discussing management plans with involved caregivers. Management plans discussed with involved personnels. Medical decision making was of moderate to high complexity, patient's has multiple comorbidities. Medications reviewed and adjusted accordingly: Yes
--- NOTE | 2016-12-09 11:41 | PDOC PROGRESS REPORT ---
Subjective Progress Note for:: 12/09/16 Subjective:: Patient seems to be doing better with significant improvement. Pt is denying any chest arm or neck discomfort. Patient denying any PND, orthopnea. Patient denied any sustained palpitations, dizziness, syncope, near syncope. Patient denying any fever chills. Patient denying any other significant discomfort. Patient still has pedal edema. Patient tells me that she is being discharged today. Patient is maintaining chronic atrial fibrillation but heart rate is better. Review of systems: Rest review of systems negative. Medications: Medications have been reviewed. Physical Exam Vital Signs: Temp Pulse Resp BP Pulse Ox 97.6 F 85 17 177/55 H 94 12/09/16 07:26 12/09/16 07:26 12/09/16 07:26 12/09/16 07:26 12/09/16 07:26 Intake & Output 12/08/16 12/09/16 12/10/16 06:59 06:59 06:59 Intake Total 1090 408 Output Total 900 1250 Balance 190 -842 Weight 112.9 kg 112.9 kg Exam: GENERAL: well-nourished and in no acute distress. Alert and oriented x3 HEAD: Atraumatic, normocephalic. EYES: Pupils equal round and reactive to light, extraocular movements intact, sclera anicteric, conjunctiva are normal. ENT: TMs normal, nares patent, oropharynx clear without exudates. Moist mucous membranes. No oral ulcerations or bleeding gums noted NECK: supple without lymphadenopathy. Trachea is central. No cervical or axillary lymphadenopathy noted. Carotids are 2+, JVD 8-10 cm LUNGS: Respiration seems nonlabored, no significant accessory muscle action noted. Breath sounds clear to auscultation bilaterally and equal noted. No wheezes rales or rhonchi noted. No significant dullness noted on percussion. CHEST: Palpation of the chest wall shows no significant chest wall tenderness. No other significant abnormalities noted. HEART: [place] [employer] GIN, No PSH, 1/6 REX aortic area, 1/6 green systolic murmur mitral area, no rubs, no gallops. ABDOMEN: Soft, no significant tenderness appreciated, normoactive bowel sounds. No guarding, no rebound. No rigidity noted . No masses appreciated. EXTREMITIES: Pedal pulses are 1-2+, no calf tenderness noted. No clubbing or cyanosis. 1-2 + pedal edema noted NEUROLOGICAL: Focused neurological exam showed no significant neurologic deficit. Normal speech, no focal weakness appreciated. PSYCH: Normal mood, normal affect. Judgment and insight within normal limits. SKIN: No significant ecchymosis, rash, ulcerations or signs of pruritus noted. MUSCULOSKELETAL EXAM: No significant joint swelling noted. Results Laboratory Results: 12/08/16 04:15 12/08/16 04:15 12/06/16 17:18 Clean Catch Midstream Urine Culture - Final Pseudomonas Aeruginosa Impressions: Chest X-Ray 12/06/16 11:30 IMPRESSION: Congestive heart failure. Assessment & Plan - Diagnosis (1) Syncope Qualifiers: Syncope type: unspecified Qualified Code(s): R55 - Syncope and collapse Is this a current diagnosis for this admission?: Yes (2) Bradycardia Is this a current diagnosis for this admission?: Yes (3) Atrial fibrillation Qualifiers: Atrial fibrillation type: unspecified Qualified Code(s): I48.91 - Unspecified atrial fibrillation Is this a current diagnosis for this admission?: Yes (4) Coronary artery disease Qualifiers: Coronary Disease-Associated Artery/Lesion type: unspecified vessel or lesion type Associated angina: angina presence unspecified Is this a current diagnosis for this admission?: Yes (5) CHF exacerbation Qualifiers: Congestive heart failure type: diastolic Qualified Code(s): I50.33 - Acute on chronic diastolic (congestive) heart failure Is this a current diagnosis for this admission?: Yes (7) Hypoxia Is this a current diagnosis for this admission?: Yes (8) Hypertension Qualifiers: Hypertension type: essential hypertension Qualified Code(s): I10 - Essential (primary) hypertension Is this a current diagnosis for this admission?: Yes - Notes Notes: Syncope: No recurrences. Patient has ambulated to the bathroom. Most likely related to bradycardia. Improved since holding carvedilol. Heart rate has now normalized. Bradycardia: This has improved. Potassium level was 4.5 yesterday. Continue to monitor potassium as an outpatient. Patient will benefit from a event monitor as an outpatient. Atrial fibrillation: Patient not on chronic anticoagulation because of history of recurrent GI bleed. This can be addressed later on by the fire safety director. Periodically assessment is indicated. Coronary artery disease: Patient initial troponin I is unremarkable. Patient claims a recent stress test 3 weeks ago which I am told is relatively unremarkable. No need for ischemia workup at this time in the absence of chest pain. CHF: Continue diuretic therapy. Need to consider restarting carvedilol at a lower dose. Hypoxemia: Could be related to underlying COPD, obesity hypoventilation syndrome , CHF etc. Continue with oxygen supplementation. Hypertension: Blood pressure noted to be high today. Need to monitor blood pressure as an outpatient. Patient has previous diagnosis of sleep apnea syndrome. Patient may need to be reevaluated and treated if needed. Medical decision making was complex. - Time Time with patient: 15-25 minutes - CODE STATUS was discussed, patient remains full code. Surrogate decision-maker unchanged. Multiple medical problems were addressed. More than 50% of the time spent coordinating care, discussing management plans with involved caregivers. Management plans discussed with involved personnels. Medical decision making was of moderate to high complexity , patient's has multiple comorbidities. Medications reviewed and adjusted accordingly: Yes
[2016-12-09 14:30] VITALS: BP 170/30
== END 2016-12-09 14:51 | disposition home health service (06) | DRG 292 ==
LOC: ER 11:05 → EH 13:37 → 3S 16:22
PROVIDERS: ADMIT Family Medicine; ATTEND Family Medicine
DX: I11.0 Hypertensive heart disease with heart failure (principal); E66.2 Morbid (severe) obesity with alveolar hypoventilation; Z68.41 Body mass index [BMI] 40.0-44.9, adult; N39.0 Urinary tract infection, site not specified; I25.10 Atherosclerotic heart disease of native coronary artery without angina pectoris; I50.33 Acute on chronic diastolic (congestive) heart failure; R55 Syncope and collapse; R00.1 Bradycardia, unspecified; R09.02 Hypoxemia; I48.2 Chronic atrial fibrillation; E11.9 Type 2 diabetes mellitus without complications; M19.90 Unspecified osteoarthritis, unspecified site; L40.9 Psoriasis, unspecified; E78.00 Pure hypercholesterolemia, unspecified; I25.2 Old myocardial infarction; E78.5 Hyperlipidemia, unspecified; B96.5 Pseudomonas (aeruginosa) (mallei) (pseudomallei) as the cause of diseases classified elsewhere; Z66 Do not resuscitate; Z88.2 Allergy status to sulfonamides; Z79.02 Long term (current) use of antithrombotics/antiplatelets; Z98.51 Tubal ligation status; Z95.1 Presence of aortocoronary bypass graft; Z79.4 Long term (current) use of insulin; Z79.82 Long term (current) use of aspirin; Z79.891 Long term (current) use of opiate analgesic; Z83.3 Family history of diabetes mellitus; Z82.49 Family history of ischemic heart disease and other diseases of the circulatory system; Z95.9 Presence of cardiac and vascular implant and graft, unspecified
CPT/HCPCS: 36415; 71010; 80048; 80053; 81001; 82550; 82553; 82962; 83735; 83880; 84439; 84443; 84481; 84484; 85025; 85027; 85610; 85730; 87040; 87086; 87088; 87186; 93005; 93010; 96374; 99285; J1644; J1815; J1940; J3490

== ENCOUNTER 2016-12-13 14:42 | Emergency (ER) | payer MEDICARE ==
[2016-12-13] MEDS ORDERED: DIPH/PERTUSS(ACELL)/TETANUS VAC/PF 0.5 ML SYR (>=10YO) IM ONE (14:54)
--- NOTE | 2016-12-13 15:04 | ER Document Report ---
ED Fall - General Chief Complaint: Fall Stated Complaint: FALL/FACIAL INJURY Time Seen by Provider: 12/13/16 14:49 Mode of Arrival: Wheelchair Information source: Patient TRAVEL OUTSIDE OF THE [place] IN LAST 30 DAYS: No - HPI Patient complains to provider of: fall, facial injury, right knee injury Occurred: Just prior to arrival Where: Home Context: Lost balance Associated symptoms: None Location of injury/pain: Face, Knee, Upper extremity Quality of pain: Achy Severity: Mild Pain Level: 2 Notes: Patient is a 66-year-old female who presents to the emergency room after fall at home today injuring her face, her left forearm and her right knee, states she felt off balance and wobbly, causing her to fall flat to the floor on her face basically, she denies any loss of consciousness, no chest pain, she does report constant shortness of breath from congestive heart failure, she is oxygen dependent at home, no vomiting, denies pain elsewhere, states she was able to bear weight on both legs with pain in the right knee - Related data Allergies/Adverse Reactions: Sulfa (Sulfonamide Antibiotics) Allergy (Verified 12/13/16 14:52) warfarin sodium [From Coumadin] Adverse Reaction (Mild, Verified 12/13/16 14:52) Diarrhea Past Medical History - General Information source: Patient - Social History Smoking Status: Never Smoker Chew tobacco use (# tins/day): No Frequency of alcohol use: None Drug Abuse: None Family History: CAD, DM, Hypertension Patient has suicidal ideation: No Patient has homicidal ideation: No - Past Medical History Cardiac Medical History: Reports: Hx Atrial Fibrillation - TWO YEARS AGO, Hx Congestive Heart Failure, Hx Coronary Artery Disease, Hx Heart Attack, Hx Hypercholesterolemia, Hx Hypertension Pulmonary Medical History: Reports: Hx Pneumonia Denies: Hx Asthma, Hx Bronchitis, Hx COPD, Hx Tuberculosis Neurological Medical History: Denies: Hx Cerebrovascular Accident, Hx Seizures Endocrine Medical History: Reports: Hx Diabetes Mellitus Type 1, Hx Diabetes Mellitus Type 2 Renal/ Medical History: Denies: Hx End Stage Renal Disease, Hx Kidney Stones, Hx Peritoneal Dialysis GI Medical History: Denies: Hx Cirrhosis, Hx Gastroesophageal Reflux Disease, Hx Ulcer Musculoskeltal Medical History: Reports Hx Arthritis, Reports Hx Gout, Denies Hx Multiple Sclerosis Skin Medical History: Denies Hx MRSA Psychiatric Medical History: Denies: Hx Bipolar Disorder, Hx Depression, Hx Schizophrenia Past Surgical History: Reports: Hx Cardiac Catheterization - Jan, Hx Cardiac Surgery - [place] 2004, Hx Coronary Artery Bypass Graft - 2004 at [facility], Hx Hysterectomy, Hx Tubal Ligation. Denies: Hx Adenoidectomy, Hx Pacemaker - Immunizations Hx Diphtheria, Pertussis, Tetanus Vaccination: No Hx Pneumococcal Vaccination: 03/11/14 Review of Systems - Review of Systems Constitutional: No symptoms reported EENT: See HPI Cardiovascular: No symptoms reported Respiratory: No symptoms reported Gastrointestinal: No symptoms reported Genitourinary: No symptoms reported Female Genitourinary: No symptoms reported Musculoskeletal: See HPI Skin: See HPI Hematologic/Lymphatic: No symptoms reported Neurological/Psychological: No symptoms reported -: Yes All other systems reviewed and negative Physical Exam - Vital signs Vitals: Temp 97.4 F 12/13/16 14:49 Interpretation: Hypertensive - General General appearance: Alert In distress: None - HEENT Head: Normocephalic Eyes: Normal Conjunctiva: Normal Extraocular movements intact: Yes Eyelashes: Normal Pupils: PERRL Nasal: Ecchymosis, Epistaxis, Swelling, Other - Small hematoma to bridge of nose , with erythema and swelling, patient does have a small amount of blood coming from both nares, with bleeding from the distal septum, no hematoma noted Pharynx: Normal Neck: Normal - Respiratory Respiratory status: No respiratory distress Chest status: Nontender Breath sounds: Wheezing Chest palpation: Normal - Cardiovascular Rhythm: Regular Heart sounds: Normal auscultation Murmur: No - Abdominal Inspection: Normal Distension: No distension Bowel sounds: Normal Tenderness: Nontender Organomegaly: No organomegaly - Back Back: Normal, Nontender - Extremities General upper extremity: Normal temperature General lower extremity: Normal temperature. No: Sasha's sign Forearm: Other - Patient has a 3-1/2 cm L-shaped skin tear to the left lateral sensation and motor is intact with 2+ radial pulses Knee: Ecchymosis - Patient with ecchymosis and swelling to the right knee over the patella, with hematoma, tenderness to palpate, pain with range of motion testing, distal sensation and motor is intact, there is pitting edema distally - Neurological Neuro grossly intact: Yes Cognition: Normal Orientation: AAOx4 Timur Coma Scale Eye Opening: Spontaneous Timur Coma Scale Verbal: Oriented Timur Coma Scale Motor: Obeys Commands Timur Coma Scale Total: 15 Speech: Normal Motor strength normal: LUE, RUE, LLE, RLE Sensory: Normal - Psychological Associated symptoms: Normal affect, Normal mood - Skin Skin Temperature: Warm Skin Moisture: Dry Skin Color: Normal Course - Re-evaluation Re-evalutation: 12/13/16 16:27 Imaging findings were discussed with patient at bedside which are consistent with a distal nasal septum fracture, patient has a history of CHF and she is oxygen dependent but her oxygen was greater than 90% on each of my evaluations while in the room speaking with patient, she was started on antibiotics for open nasal septum fracture, no evidence of a septal hematoma as she has a small amount of active bleeding from the distal portion of her septum, she was also placed in an Pierce wrap for the right knee and wound care was provided to the left forearm, her tetanus shot was updated and she was offered pain medication which she declined, patient was advised to follow-up with her primary care provider and ENT in the next 2 days, and advised to return if any worsening of symptoms, patient acknowledges understanding and agreement with this plan - Vital Signs Vital signs: Temp Pulse Resp BP Pulse Ox 97.4 F 20 12/13/16 14:49 12/13/16 14:52 - Diagnostic Test Radiology reviewed: Image reviewed, Reports reviewed Procedures - Immobilization Right Knee Time completed: 16:28 Pre-Proc Neuro Vasc Exam: Normal Immobilizer type: Pierce wrap Performed by: PCT Post-Proc Neuro Vasc Exam: Normal Alignment checked and good: Yes Discharge - Discharge Clinical Impression: Skin tear Nasal septum fracture Qualifiers: Encounter type: initial encounter Fracture type: open Qualified Code(s): S02.2XXB - Fracture of nasal bones, initial encounter for open fracture Knee contusion Qualifiers: Encounter type: initial encounter Laterality: right Qualified Code(s): S80.01XA - Contusion of right knee, initial encounter Condition: Stable Disposition: HOME, SELF-CARE Instructions: Fracture of the Nose ([facility]), Prophylactic Antibiotic ([facility]), Skin Tear ([facility]), Contusion ([facility]) Additional Instructions: Follow up with your primary care provider and an ENT in one to 2 days. Return to the emergency room immediately if symptoms worsen or any additional concerns. Prescriptions: Amox Tr/Potassium Clavulanate [Augmentin 875-125 Tablet] 1 tab PO BID #20 tablet Referrals: MINO MONZON MD [Primary Care Provider] - Follow up as needed PAUL RICHARDSON MD [[facility]] - Follow up as needed
--- NOTE | 2016-12-13 15:34 | RADIOLOGY REPORT (SQ) ---
EXAM DESCRIPTION: CT HEAD WITHOUT COMPLETED DATE/TIME: 12/13/2016 3:12 pm REASON FOR STUDY: injury COMPARISON: CT facial bones same day CT brain 11/19/2016 CT angio neck 10/19/2015 TECHNIQUE: Axial images acquired through the brain without intravenous contrast. Images reviewed wi th bone, brain and subdural windows. Images stored on PACS. All CT scanners at this facility use dose modulation, iterative reconstruction, and/or weight based d osing when appropriate to reduce radiation dose to as low as reasonably achievable (ALARA). [facility]: Dose Right [facility]: CareDose [facility]: Dose Right [facility]: Teradose 4D [facility]: Smart [employer] RADIATION DOSE: Up-to-date CT equipment and radiation dose reduction techniques were employed. CTDIv ol: 64.6 mGy. DLP: 1163 mGy-cm. mGy. LIMITATIONS: Motion artifact. FINDINGS: VENTRICLES: Normal size and contour. CEREBRUM: No masses. No hemorrhage. No midline shift. Normal fox/white matter differentiation. N o evidence for acute infarction. CEREBELLUM: No masses. No hemorrhage. No alteration of density. No evidence for acute infarction. EXTRAAXIAL SPACES: No fluid collections. No masses. ORBITS AND GLOBE: No intra- or extraconal masses. Normal contour of globe without masses. CALVARIUM: No fracture. PARANASAL SINUSES: There is chronic inflammatory change in the sphenoid sinus, chronic opacification of the sphenoid sinus and mucoperiosteal thickening around its periphery. This is similar compared t o study from 10/19/2015. SOFT TISSUES: No mass or hematoma. OTHER: Patient has a nasal septal fracture better shown on the CT facial bones. There is hemorrhage in the nasal cavity. Ethmoid air cells, frontal sinus, right maxillary sinus are clear. Air-fluid l evel left maxillary sinus IMPRESSION: No acute intracranial changes. Motion artifact. Chronic inflammatory change in the sphenoid sinus Nasal septal fractures better shown on the CT facial bones. TECHNICAL DOCUMENTATION: JOB ID: [id number] Quality ID # [id number]: Final reports with documentation of one or more dose reduction techniques (e.g., Au tomated exposure control, adjustment of the mA and/or kV according to patient size, use of iterative reconstruction technique) 2010 [employer]- All Rights Reserved
--- NOTE | 2016-12-13 15:37 | RADIOLOGY REPORT (SQ) ---
EXAM DESCRIPTION: CT FACIAL AREA WITHOUT COMPLETED DATE/TIME: 12/13/2016 3:13 pm REASON FOR STUDY: fall COMPARISON: CT brain same date, 11/19/2016 CT soft tissue neck 10/19/2015 TECHNIQUE: Noncontrasted images through the facial bones and orbits windowed for bone and soft tissu e. Additional coronal and sagittal reconstructed images reviewed. All images stored on PACS. All CT scanners at this facility use dose modulation, iterative reconstruction, and/or weight based d osing when appropriate to reduce radiation dose to as low as reasonably achievable (ALARA). [facility]: Dose Right [facility]: CareDose [facility]: Dose Right [facility]: Teradose 4D [facility]: Smart [employer] RADIATION DOSE: Up-to-date CT equipment and radiation dose reduction techniques were employed. CTDIv ol: 30.4 mGy. DLP: 551 mGy-cm. mGy. LIMITATIONS: None. FINDINGS: FACIAL BONES: Minimally depressed midline nasal bone fracture seen on sagittal image 27. This fracture line extends into the superior aspect of the nasal septum best shown on coronal images 12-15. There is hemorrhage in the nasal cavity and mild rightward nasal septal deviation. No orbital floor fracture. No zygoma or anterior frontal sinus fracture. ORBITS: Intact. No fracture. Symmetric intact globes and retroorbital soft tissues. PARANASAL SINUSES: Air-fluid level left maxillary sinus likely related to the acute injury. There is chronic appearing opacification of the sphenoid sinus with mucoperiosteal thickening, similar compar ed to studies dating back to 2016. SOFT TISSUES: No mass or edema. INFERIOR BRAIN: Limited view. No acute findings. OTHER: No other significant finding. IMPRESSION: Midline nasal bone fracture with superior nasal septal fracture. TECHNICAL DOCUMENTATION: JOB ID: [id number] Quality ID # [id number]: Final reports with documentation of one or more dose reduction techniques (e.g., Au tomated exposure control, adjustment of the mA and/or kV according to patient size, use of iterative reconstruction technique) 2010 [employer]- All Rights Reserved
[2016-12-13] MEDS ORDERED: ACETAMINOPHEN 325 MG TABLET PO ONE (15:38)
[2016-12-13] MEDS ORDERED: AMOXICILLIN TR/POT CLAVULANATE 500-125 MG TAB PO ONE (15:39)
[2016-12-13] MEDS ORDERED: ALBUTEROL SULFATE 0.083% NEB 2.5 MG/3 ML AMPUL NEB ONE (15:42)
--- NOTE | 2016-12-13 16:05 | RADIOLOGY REPORT (SQ) ---
EXAM DESCRIPTION: KNEE RIGHT 4 VIEWS COMPLETED DATE/TIME: 12/13/2016 3:30 pm REASON FOR STUDY: pain COMPARISON: None. NUMBER OF VIEWS: Four views. TECHNIQUE: AP, lateral, and both oblique radiographic images acquired of the right knee. LIMITATIONS: None. FINDINGS: MINERALIZATION: Osteopenic BONES: No acute fracture or dislocation. No worrisome bone lesions. JOINT: High-grade patellofemoral, medial, and lateral compartment joint space narrowing with bony spu rring. SOFT TISSUES: Diffuse subcutaneous edema. Atherosclerotic arterial vascular calcifications with mult iple surgical clips in trhe medial leg soft tissues. OTHER: No other significant finding. IMPRESSION: Advanced osteoarthritis. No acute fracture TECHNICAL DOCUMENTATION: JOB ID: [id number] [employer]- All Rights Reserved
[2016-12-13 16:44] VITALS: BP 193/58
== END 2016-12-13 16:44 | disposition home or self-care (01) ==
LOC: ER 14:42
DX: S02.2XXB Fracture of nasal bones, initial encounter for open fracture (principal); S80.01XA Contusion of right knee, initial encounter; W19.XXXA Unspecified fall, initial encounter; I50.9 Heart failure, unspecified; Z99.81 Dependence on supplemental oxygen
CPT/HCPCS: 94640; 99284; 90471; 73564; 70450; 70486; 90715; A9270 ×3

== ENCOUNTER 2017-01-02 09:46 | Outpatient (CLI) | payer MEDICARE ==
[~2017-01-02 09:46] MED LIST changes: +ACETAMINOPHEN 325 MG TABLET PO PRN; +DIPHENHYDRAMINE HCL 25 MG CAPSULE PO PRN; -FERUMOXYTOL (NON-ESRD) 510 MG/NS 100 ML IV PRN; +FUROSEMIDE INJ/PF 20 MG/2 ML SDV IV PRN; -NORMAL SALINE 250 ML IV PRN
[2017-01-02] MEDS ORDERED: NORMAL SALINE 250 ML IV PRN (10:24)
[2017-01-02 11:22] LABS: HEMOGLOBIN 7.3 g/dL (12.0-15.5); HGB HCT DIFFERENCE -1.1; MEAN CORPUSCULAR HEMOGLOBIN 33.6 pg (27.0-33.4); MEAN CORPUSCULAR HGB CONC 31.7 g/dL (32.0-36.0); RED BLOOD COUNT 2.17 10^6/uL (3.72-5.28); RED CELL DISTRIBUTION WIDTH 19.8 % (11.5-14.0); WHITE BLOOD COUNT 7.5 10^3/uL (4.0-10.5)
[2017-01-02 11:30] LABS: MEAN CORPUSCULAR VOLUME 106 fl (80-97)
[2017-01-02 15:37] VITALS: BP 188/47
== END 2017-01-02 15:40 | disposition home or self-care (01) ==
LOC: II 09:46 → 5TH 09:54 → II 15:40
PROVIDERS: ATTEND Internal Medicine
PROC: 30233N1 Transfusion of Nonautologous Red Blood Cells into Peripheral Vein, Percutaneous Approach (ICD-10-PCS; principal; 2017-01-02)
DX: D50.8 Other iron deficiency anemias (principal)
CPT/HCPCS: 86900; 86901; 36415; 36430; 86850; 86920; P9016; A9270 ×2

== ENCOUNTER 2017-01-20 10:48 | Outpatient (CLI) | payer MEDICARE, OTHER ==
[2017-01-20 11:35] LABS: HEMATOCRIT 19.4 % (36.0-47.0); HGB HCT DIFFERENCE -1.4; MEAN CORPUSCULAR HEMOGLOBIN 28.4 pg (27.0-33.4); MEAN CORPUSCULAR HGB CONC 31.2 g/dL (32.0-36.0); RED BLOOD COUNT 2.12 10^6/uL (3.72-5.28); RED CELL DISTRIBUTION WIDTH 21.3 % (11.5-14.0); WHITE BLOOD COUNT 7.6 10^3/uL (4.0-10.5)
[2017-01-20 12:05] LABS: MEAN CORPUSCULAR VOLUME 91 fl (80-97)
[2017-01-20] MEDS ORDERED: NORMAL SALINE 250 ML IV PRN (12:08)
[2017-01-20 16:07] VITALS: BP 187/46
== END 2017-01-20 16:07 | disposition home or self-care (01) ==
LOC: II 10:48 → 5TH 10:52 → II 16:07
PROVIDERS: ATTEND Internal Medicine
PROC: 30233N1 Transfusion of Nonautologous Red Blood Cells into Peripheral Vein, Percutaneous Approach (ICD-10-PCS; principal; 2017-01-20)
DX: D50.8 Other iron deficiency anemias (principal)
CPT/HCPCS: 86900; 86901; 36415; 36430; 86850; 86920; P9016; A9270 ×2; J1940

== ENCOUNTER 2017-01-23 11:47 | Outpatient (CLI) | payer MEDICARE, OTHER ==
[~2017-01-23 11:47] MED LIST changes: -ACETAMINOPHEN 325 MG TABLET PO PRN; -DIPHENHYDRAMINE HCL 25 MG CAPSULE PO PRN; +FERUMOXYTOL (NON-ESRD) 510 MG/NS 100 ML IV PRN; -FUROSEMIDE INJ/PF 20 MG/2 ML SDV IV PRN
[2017-01-23 12:45] VITALS: BP 173/35
[2017-01-28] MEDS ORDERED: NORMAL SALINE 250 ML IV PRN (08:00)
[2017-01-28] MEDS ORDERED: FERUMOXYTOL 510 MG in NORMAL SALINE 100 ML IV PRN (08:00)
== END 2017-01-23 13:02 | disposition home or self-care (01) ==
LOC: II 11:47 → 5TH 11:47 → II 13:02
PROVIDERS: ATTEND Internal Medicine
PROC: 3E033GC Introduction of Other Therapeutic Substance into Peripheral Vein, Percutaneous Approach (ICD-10-PCS; principal; 2017-01-23)
DX: N18.3 Chronic kidney disease, stage 3 (moderate) (principal); D63.1 Anemia in chronic kidney disease
CPT/HCPCS: 96365; 96367

== ENCOUNTER 2017-01-30 08:36 | Outpatient (CLI) | payer MEDICARE, OTHER ==
[~2017-01-30 08:36] MED LIST changes: +NORMAL SALINE 250 ML IV PRN
[2017-01-30 08:46] VITALS: BP 157/52
== END 2017-01-30 09:35 | disposition home or self-care (01) ==
LOC: II 08:36
PROVIDERS: ATTEND Internal Medicine
PROC: 3E033GC Introduction of Other Therapeutic Substance into Peripheral Vein, Percutaneous Approach (ICD-10-PCS; principal; 2017-01-30)
DX: N18.3 Chronic kidney disease, stage 3 (moderate) (principal); D63.1 Anemia in chronic kidney disease
CPT/HCPCS: 96365; Q0138

== ENCOUNTER 2017-03-05 13:24 | Outpatient (CLI) | payer MEDICARE ==
[~2017-03-05 13:24] MED LIST changes: +ACETAMINOPHEN 325 MG TABLET PO PRN; +DIPHENHYDRAMINE HCL 25 MG CAPSULE PO PRN; -FERUMOXYTOL (NON-ESRD) 510 MG/NS 100 ML IV PRN; +FUROSEMIDE INJ/PF 20 MG/2 ML SDV IV PRN; -NORMAL SALINE 250 ML IV PRN
[2017-03-05 14:08] LABS: HEMATOCRIT 27.5 % (36.0-47.0); HEMOGLOBIN 8.5 g/dL (12.0-15.5); MEAN CORPUSCULAR HEMOGLOBIN 27.5 pg (27.0-33.4); MEAN CORPUSCULAR VOLUME 89 fl (80-97); RED CELL DISTRIBUTION WIDTH 19.8 % (11.5-14.0); WHITE BLOOD COUNT 11.8 10^3/uL (4.0-10.5)
[2017-03-05] MEDS: NORMAL SALINE 250 ML IV PRN ×2 (15:36→18:23)
[2017-03-05 21:33] VITALS: BP 158/40
== END 2017-03-05 21:25 | disposition home or self-care (01) ==
LOC: II 13:24 → 2N 13:26 → II 21:25
PROVIDERS: ATTEND Internal Medicine Hematology & Oncology
PROC: 30233N1 Transfusion of Nonautologous Red Blood Cells into Peripheral Vein, Percutaneous Approach (ICD-10-PCS; principal; 2017-03-05)
DX: D64.9 Anemia, unspecified (principal)
CPT/HCPCS: 86900; 86901; 36430; 86850; 86920; P9016; A9270 ×2; J1940; J7050; 96374

== ENCOUNTER 2017-03-27 09:24 | Outpatient (CLI) | payer MEDICARE ==
[2017-03-27 09:59] LABS: HEMATOCRIT 19.8 % (36.0-47.0); HGB HCT DIFFERENCE -1.2; MEAN CORPUSCULAR HGB CONC 31.5 g/dL (32.0-36.0); RED BLOOD COUNT 2.01 10^6/uL (3.72-5.28); RED CELL DISTRIBUTION WIDTH 26.5 % (11.5-14.0); WHITE BLOOD COUNT 6.8 10^3/uL (4.0-10.5)
[2017-03-27] MEDS ORDERED: NORMAL SALINE 250 ML IV PRN (10:25)
[2017-03-27 10:26] LABS: HEMOGLOBIN 6.2 g/dL (12.0-15.5)
[2017-03-27 10:31] LABS: MEAN CORPUSCULAR VOLUME 99 fl (80-97)
[2017-03-27 18:21] VITALS: BP 180/40
[2017-03-27] MEDS ORDERED: FUROSEMIDE INJ/PF 20 MG/2 ML SDV IV ONE (18:30)
== END 2017-03-27 19:03 | disposition home or self-care (01) ==
LOC: II 09:24 → 4S 09:37 → II 19:03
PROVIDERS: ATTEND Internal Medicine
PROC: 30233N1 Transfusion of Nonautologous Red Blood Cells into Peripheral Vein, Percutaneous Approach (ICD-10-PCS; principal; 2017-03-27)
DX: D64.9 Anemia, unspecified (principal)
CPT/HCPCS: 86900; 86901; 36415; 36430; 86850; 86920; P9016; A9270 ×2; J1940; 96374

== ENCOUNTER 2017-04-21 07:48 | Outpatient (CLI) | payer MEDICARE ==
[~2017-04-21 07:48] MED LIST changes: -ACETAMINOPHEN 325 MG TABLET PO PRN; -DIPHENHYDRAMINE HCL 25 MG CAPSULE PO PRN; +FERUMOXYTOL (NON-ESRD) 510 MG/NS 100 ML IV PRN; -FUROSEMIDE INJ/PF 20 MG/2 ML SDV IV PRN; +NORMAL SALINE 250 ML IV PRN
[2017-04-21 09:26] VITALS: BP 162/31
== END 2017-04-21 10:15 | disposition home or self-care (01) ==
LOC: II 07:48 → 5TH 07:49 → II 10:15
PROVIDERS: ATTEND Internal Medicine
PROC: 3E033GC Introduction of Other Therapeutic Substance into Peripheral Vein, Percutaneous Approach (ICD-10-PCS; principal; 2017-04-21)
DX: N18.3 Chronic kidney disease, stage 3 (moderate) (principal); D63.1 Anemia in chronic kidney disease
CPT/HCPCS: 96365; Q0138; 96367

== ENCOUNTER 2017-04-27 09:38 | Outpatient (CLI) | payer MEDICARE ==
[~2017-04-27 09:38] MED LIST changes: +ACETAMINOPHEN 325 MG TABLET PO PRN; +DIPHENHYDRAMINE HCL 25 MG CAPSULE PO PRN; -FERUMOXYTOL (NON-ESRD) 510 MG/NS 100 ML IV PRN; +FUROSEMIDE INJ/PF 20 MG/2 ML SDV IV PRN; -NORMAL SALINE 250 ML IV PRN
[2017-04-27 10:08] LABS: HEMATOCRIT 25.3 % (36.0-47.0); HGB HCT DIFFERENCE -2.8; MEAN CORPUSCULAR HEMOGLOBIN 28.4 pg (27.0-33.4); MEAN CORPUSCULAR HGB CONC 29.7 g/dL (32.0-36.0); RED BLOOD COUNT 2.65 10^6/uL (3.72-5.28); RED CELL DISTRIBUTION WIDTH 25.5 % (11.5-14.0)
[2017-04-27 10:12] LABS: HEMOGLOBIN 7.5 g/dL (12.0-15.5)
[2017-04-27] MEDS ORDERED: NORMAL SALINE 250 ML IV PRN (10:29)
[2017-04-27 10:43] LABS: MEAN CORPUSCULAR VOLUME 95 fl (80-97)
[2017-04-27 17:40] VITALS: BP 172/48
== END 2017-04-27 18:40 | disposition home or self-care (01) ==
LOC: II 09:38 → 2S 09:50 → II 18:40
PROVIDERS: ATTEND Internal Medicine
PROC: 30233N1 Transfusion of Nonautologous Red Blood Cells into Peripheral Vein, Percutaneous Approach (ICD-10-PCS; principal; 2017-04-27)
DX: D64.9 Anemia, unspecified (principal)
CPT/HCPCS: 86900; 86901; 36415; 36430; 86850; 86920; P9016; A9270 ×2; J1940

== ENCOUNTER 2017-04-28 07:46 | Outpatient (CLI) | payer MEDICARE ==
[~2017-04-28 07:46] MED LIST changes: -ACETAMINOPHEN 325 MG TABLET PO PRN; -DIPHENHYDRAMINE HCL 25 MG CAPSULE PO PRN; +FERUMOXYTOL (NON-ESRD) 510 MG/NS 100 ML IV PRN; -FUROSEMIDE INJ/PF 20 MG/2 ML SDV IV PRN; +NORMAL SALINE 250 ML IV PRN
[2017-04-28 08:14] VITALS: BP 190/43
== END 2017-04-28 09:10 | disposition home or self-care (01) ==
LOC: II 07:46 → 5TH 07:46 → II 09:10
PROVIDERS: ATTEND Internal Medicine
PROC: 3E033GC Introduction of Other Therapeutic Substance into Peripheral Vein, Percutaneous Approach (ICD-10-PCS; principal; 2017-04-28)
DX: N18.3 Chronic kidney disease, stage 3 (moderate) (principal); D63.1 Anemia in chronic kidney disease
CPT/HCPCS: 96367; Q0138; 96365

== ENCOUNTER 2017-05-18 10:42 | Outpatient (CLI) | payer MEDICARE ==
[2017-05-18 11:21] LABS: HEMATOCRIT 18.1 % (36.0-47.0); MEAN CORPUSCULAR HEMOGLOBIN 29.5 pg (27.0-33.4); MEAN CORPUSCULAR HGB CONC 30.7 g/dL (32.0-36.0); MEAN CORPUSCULAR VOLUME 96 fl (80-97); PLATELET COUNT 251 10^3/uL (150-450); RED BLOOD COUNT 1.89 10^6/uL (3.72-5.28)
[2017-05-18 11:22] LABS: HEMOGLOBIN 5.6 g/dL (12.0-15.5)
[2017-05-18] MEDS ORDERED: ACETAMINOPHEN 325 MG TABLET PO PRN (11:25)
[2017-05-18] MEDS ORDERED: DIPHENHYDRAMINE HCL 25 MG CAPSULE PO PRN (11:25)
[2017-05-18] MEDS ORDERED: FUROSEMIDE INJ/PF 20 MG/2 ML SDV IV PRN (11:25)
[2017-05-18 17:42] VITALS: BP 142/38
== END 2017-05-18 18:35 | disposition home or self-care (01) ==
LOC: II 10:42 → 2N 10:43 → II 18:35
PROVIDERS: ATTEND Internal Medicine
PROC: 30233N1 Transfusion of Nonautologous Red Blood Cells into Peripheral Vein, Percutaneous Approach (ICD-10-PCS; principal; 2017-05-18)
DX: D64.9 Anemia, unspecified (principal)
CPT/HCPCS: 86900; 86901; 36415; 36430; 86850; 86920; P9016; A9270 ×2; J1940; 96374

== ENCOUNTER 2017-06-17 07:41 | Outpatient (CLI) | payer MEDICARE, OTHER | END 2017-06-17 10:17 | disposition home or self-care (01) | LOC: 5TH 07:41 → II 07:41 | PROVIDERS: ATTEND Internal Medicine | PROC: 3E033GC Introduction of Other Therapeutic Substance into Peripheral Vein, Percutaneous Approach (ICD-10-PCS; principal; 2017-06-17) | DX: N18.3 Chronic kidney disease, stage 3 (moderate) (principal); D63.1 Anemia in chronic kidney disease | CPT/HCPCS: 96365; Q0138 ==

== ENCOUNTER 2017-06-22 08:54 | Day surgery (SDC) | payer MEDICARE, OTHER ==
[~2017-06-22 08:54] MED LIST changes: -FERUMOXYTOL (NON-ESRD) 510 MG/NS 100 ML IV PRN; -NORMAL SALINE 250 ML IV PRN; +PROPOFOL INJ 200 MG/20 ML VIAL IV ONE
[2017-06-22 11:11] VITALS: BP 181/50
--- NOTE | 2017-06-22 12:40 | Operative Report ---
Operative Report DATE OF SURGERY: 06/22/17 Operative Report: The risks, benefits and alternatives of the procedure including risks of bleeding, perforation requiring surgery are explained to the patient in detail and informed consent was obtained. Patient was taken back to the endoscopy suite and placed in the left, lateral decubital position. Timeout was called. Propofol medications administered. A rectal examination is done which did not reveal any masses, tears or fissures. An Olympus videoscope was inserted into the patient's rectum. The scope was then carefully advanced all the way to the cecum. The cecum was identified by the usual anatomical landmarks including the ileocecal valve as well as the appendiceal office. Photodocumentation was obtained. The scope was then sequentially pulled back via the various segments of the colon including the ascending colon, hepatic flexure, transverse colon, splenic flexure, descending colon finding to the rectosigmoid portions of the colon. Retroflexion maneuvers performed. The risks benefits and alternatives of the procedure explained to the patient in detail and informed consent is obtained.A GIF Olympus video scope was inserted into the patient's mouth and hypopharynx, the esophagus is identified intubated and insufflated, the scope was then advanced through the esophagus stomach and duodenum, retroflexion maneuver is done ,the esophagus stomach and first and second portions of the duodenum examined PREOPERATIVE DIAGNOSIS: Iron deficiency anemia POSTOPERATIVE DIAGNOSIS: 2 right-sided colon AVMs that are noted and ablated in situ. Internal hemorrhoids. Hiatal hernia. Duodenitis with evidence of iron deposition in the mucosa. Gastric nodule status post biopsy rule out Helicobacter pylori OPERATION: Colonoscopy with ablation. EGD with biopsy SURGEON: TAHIRA ROJAS ANESTHESIA: LMAC TISSUE REMOVED OR ALTERED: As noted above. COMPLICATIONS: None. ESTIMATED BLOOD LOSS: None. INTRAOPERATIVE FINDINGS: As noted above. PROCEDURE: Patient tolerated procedure well. No immediate postprocedure complications are noted. Patient discharged in good condition. Discharge date 06/22/2017. Discharge diet: Regular. Discharge activity: Regular. 2-3 week follow-up to discuss findings. Patient is instructed to call the office or proceed to the emergency room should there be any further problems or questions. We will wait on pathology.
== END 2017-06-22 11:20 | disposition home or self-care (01) ==
LOC: END 08:54
PROVIDERS: ATTEND Internal Medicine Gastroenterology
PROC: 0DB68ZX Excision of Stomach, Via Natural or Artificial Opening Endoscopic, Diagnostic (ICD-10-PCS; principal; 2017-06-22 11:30)
PROC: 0DB98ZX Excision of Duodenum, Via Natural or Artificial Opening Endoscopic, Diagnostic (ICD-10-PCS; 2017-06-22 11:30)
DX: Q27.33 Arteriovenous malformation of digestive system vessel (principal); K64.8 Other hemorrhoids; K44.9 Diaphragmatic hernia without obstruction or gangrene; K29.80 Duodenitis without bleeding; K29.50 Unspecified chronic gastritis without bleeding; I11.0 Hypertensive heart disease with heart failure; I50.9 Heart failure, unspecified; D50.0 Iron deficiency anemia secondary to blood loss (chronic); M19.90 Unspecified osteoarthritis, unspecified site; E11.9 Type 2 diabetes mellitus without complications; M10.9 Gout, unspecified; Z79.82 Long term (current) use of aspirin; Z79.899 Other long term (current) drug therapy; Z79.4 Long term (current) use of insulin; Z85.9 Personal history of malignant neoplasm, unspecified
CPT/HCPCS: 43239; 45388; 82962; 88305 ×2; 88313 ×2; J2704; 813

== ENCOUNTER 2017-06-24 08:34 | Outpatient (CLI) | payer MEDICARE ==
[~2017-06-24 08:34] MED LIST changes: +FERUMOXYTOL (NON-ESRD) 510 MG/NS 100 ML IV PRN; +NORMAL SALINE 250 ML IV PRN; -PROPOFOL INJ 200 MG/20 ML VIAL IV ONE
[2017-06-24 11:12] VITALS: BP 178/36
== END 2017-06-24 11:13 | disposition home or self-care (01) ==
LOC: II 08:34
PROVIDERS: ATTEND Internal Medicine
PROC: 3E033GC Introduction of Other Therapeutic Substance into Peripheral Vein, Percutaneous Approach (ICD-10-PCS; principal; 2017-06-24)
DX: N18.3 Chronic kidney disease, stage 3 (moderate) (principal); D63.1 Anemia in chronic kidney disease
CPT/HCPCS: 96365; Q0138

== ENCOUNTER → 2017-06-29 | Outpatient (CLI) | payer MEDICARE, OTHER ==
--- NOTE | 2017-06-30 08:44 | WOMENS IMAGING REPORT ---
EXAM DESCRIPTION: 3D SCREENING MAMMO BILAT COMPLETED DATE/TIME: 06/29/2017 1:20 pm REASON FOR STUDY: ROUTINE BILATERAL SCREENING;Z12.31 Z12.31 ENCNTR SCREEN MAMMOGRAM FOR MALIGNANT N EOPLASM OF BECKY COMPARISON: 11/19/15 and 10/23/14 TECHNIQUE: Standard craniocaudal and mediolateral oblique views of each breast recorded using digita l acquisition and breast tomosynthesis. LIMITATIONS: None. FINDINGS: Findings present which are benign by mammographic criteria. No suspicious masses, calcifi cations or architectural distortion. Read with the assistance of CAD. .[facility] - R2 Cenova Version 1.3 .[facility] - R2 Cenova Version 1.3 .[facility] - R2 Cenova Version 2.4 .[facility] - R2 Cenova Version 2.4 .[facility] - R2 [employer] Version 9.2 Benign mammographic findings may include one or more of the following: Smooth masses, popcorn/rim/co arse calcifications, asymmetries, post-procedure changes, and lesions with long-standing stability. IMPRESSION: BENIGN MAMMOGRAPHIC FINDINGS. BIRADS 2 BREAST DENSITY: a. The breasts are almost entirely fatty. BIRAD: 2 BENIGN FINDING(S) RECOMMENDATION: RECOMMENDATION: ROUTINE SCREENING COMMENT: The patient has been notified of the results by letter per [place] requirements. Additional no tification policies are in place for contacting patient with suspicious or incomplete findings. Quality ID #225: The [employer] recommends an annual screening mammogram for women aged 40 years or over. This facility utilizes a reminder system to ensure that all patients receive reminder letters, and/or direct phone calls for appointments. This includes reminders for routine scr eening mammograms, diagnostic mammograms, or other Breast Imaging Interventions when appropriate. Th is patient will be placed in the appropriate reminder system. The [employer] (ACR) has developed recommendations for screening MRI of the breast s in certain patient populations, to be used in conjunction with mammography. Breast MRI surveillanc e may be appropriate for women with more than 20% lifetime risk of developing breast cancer as deter mined by genetic testing, significant family history of the disease, or history of mantle radiation f or Hodgkins Disease. ACR Practice Guidelines 2008. DBT Technology DBT is a type of tomographic mammography. With conventional mammography, overlapping breast tissue ma y make lesions difficult to detect, even with good compression. DBT uses an x-ray tube that rotates a round the breast, taking images at different angles. These images are then combined to create thin sl ices of the breast that the radiologist can view as a 3D reconstruction. The Hologic unit can perform full-field digital mammograms (2D imaging); or DBT (3D imaging); or both, in a combination mode that quickly performs both the mammogram and the tomosynthesis scan while the breast is still compressed. PQRS 6045F: Fluoroscopic imaging is not utilized for breast tomosynthesis. TECHNICAL DOCUMENTATION: FINDING NUMBER: (1) ASSESSMENT: (1) JOB ID: [id number] [employer]- All Rights Reserved
== END ==
LOC: WI 08:25
PROVIDERS: ATTEND Internal Medicine
DX: Z12.31 Encounter for screening mammogram for malignant neoplasm of breast (principal)
CPT/HCPCS: 77063; 77067

== ENCOUNTER 2017-07-30 08:47 | Outpatient (CLI) | payer MEDICARE, OTHER ==
[2017-07-30 09:33] VITALS: BP 163/45
== END 2017-07-30 10:41 | disposition home or self-care (01) ==
LOC: II 08:47 → 5TH 08:54 → II 10:41
PROVIDERS: ATTEND Internal Medicine
PROC: 3E033GC Introduction of Other Therapeutic Substance into Peripheral Vein, Percutaneous Approach (ICD-10-PCS; principal; 2017-07-30)
DX: N18.3 Chronic kidney disease, stage 3 (moderate) (principal); D63.1 Anemia in chronic kidney disease
CPT/HCPCS: 96367; Q0138; 96365

== ENCOUNTER 2017-08-22 13:31 | Emergency (ER) | payer MEDICARE ==
[2017-08-22] MEDS ORDERED: ONDANSETRON 4 MG TAB.RAPDIS PO ONE (14:32)
--- NOTE | 2017-08-22 14:34 | ER Document Report ---
ED Medical Screen (RME) - General TRAVEL OUTSIDE OF THE [place] IN LAST 30 DAYS: No <KIERSTEN MUNOZ - Last Filed: 08/22/17 14:33> <MARIALUISA GIANG V - Last Filed: 08/22/17 18:24> - General Chief Complaint: Nausea/Vomiting/Diarrhea Stated Complaint: VOMITING Time Seen by Provider: 08/22/17 14:29 Notes: 67-year-old female patient with chronic anemia developed nausea vomiting diarrhea yesterday. She has had about 10 episodes of diarrhea, 5 episodes of vomiting. No fever but some chills. She is an insulin-dependent diabetic. I have greeted and performed a rapid initial assessment of this patient. A comprehensive ED assessment and evaluation of the patient, analysis of test results and completion of the medical decision making process will be conducted by additional ED providers. (KIERSTEN MUNOZ) Additionally patient has a history of prior GI bleeding as well as AVM. Patient is typically sees Dr. Osuna as an outpatient for outpatient colonoscopies. Patient has been having black tarry stools for the past 1 week. Patient has associated dizziness and lightheadedness. Patient denies any abdominal pain. Patient also has a history of heart failure as well as insulin- dependent diabetes. (MARIALUISA GIANG V) - Related Data Allergies/Adverse Reactions: Sulfa (Sulfonamide Antibiotics) Allergy (Mild, Verified 08/22/17 13:36) Hives warfarin sodium [From Coumadin] Adverse Reaction (Mild, Verified 08/22/17 13:36) Diarrhea Past Medical History - Social History Chew tobacco use (# tins/day): No Frequency of alcohol use: None Drug Abuse: None - Past Medical History Cardiac Medical History: Reports: Hx Atrial Fibrillation - TWO YEARS AGO, Hx Coronary Artery Disease, Hx Heart Attack - Triple bypass 2004, Hx Hypercholesterolemia, Hx Hypertension Denies: Hx Congestive Heart Failure Pulmonary Medical History: Reports: Hx Bronchitis, Hx Pneumonia Denies: Hx Asthma, Hx COPD, Hx Tuberculosis Neurological Medical History: Denies: Hx Cerebrovascular Accident, Hx Seizures Endocrine Medical History: Reports: Hx Diabetes Mellitus Type 1, Hx Diabetes Mellitus Type 2 Renal/ Medical History: Reports: Hx End Stage Renal Disease. Denies: Hx Kidney Stones, Hx Peritoneal Dialysis GI Medical History: Denies: Hx Cirrhosis, Hx Gastroesophageal Reflux Disease, Hx Ulcer Musculoskeltal Medical History: Reports Hx Arthritis - SCORIATIC ARTHRITIS, Reports Hx Gout, Denies Hx Multiple Sclerosis Skin Medical History: Denies Hx MRSA Psychiatric Medical History: Denies: Hx Bipolar Disorder, Hx Depression, Hx Schizophrenia Past Surgical History: Reports: Hx Cardiac Catheterization - Jan, Hx Cardiac Surgery - [place] 2004, Hx Section, Hx Cholecystectomy, Hx Coronary Artery Bypass Graft - 2004 at [facility], Hx Hysterectomy, Hx Tubal Ligation. Denies: Hx Adenoidectomy, Hx Pacemaker - Immunizations Hx Diphtheria, Pertussis, Tetanus Vaccination: Yes - 2016 History of Influenza Vaccine for 02/2017 - 07/2017 Season: Yes Influenza Administration Date for 02/2017 - 07/2017 Season: 01/08/17 <KIERSTEN MUNOZ - Last Filed: 08/22/17 14:33> - General Information source: Patient <MARIALUISA GIANG V - Last Filed: 08/22/17 18:24> Review of Systems <KIERSTEN MUNOZ - Last Filed: 08/22/17 14:33> <MARIALUISA GIANG V - Last Filed: 08/22/17 18:24> - Review of Systems Notes: REVIEW OF SYSTEMS: CONSTITUTIONAL: -fevers, -chills EENT: -eye pain, -difficulty swallowing, -nasal congestion CARDIOVASCULAR: -chest pain, -syncope, + dizziness RESPIRATORY: -cough, -SOB GASTROINTESTINAL: -abdominal pain, -nausea, -vomiting, -diarrhea, + black tarry stools GENITOURINARY: -dysuria, -hematuria MUSCULOSKELETAL: -back pain, -neck pain SKIN: -rash or skin lesions. HEMATOLOGIC: -easy bruising or bleeding. LYMPHATIC: -swollen, enlarged glands. NEUROLOGICAL: -altered mental status or loss of consciousness, -headache, - neurologic symptoms PSYCHIATRIC: -anxiety, -depression. ALL OTHER SYSTEMS REVIEWED AND NEGATIVE. (MARIALUISA GIANG V) Physical Exam <KIERSTEN MUNOZ - Last Filed: 08/22/17 14:33> <MARIALUISA GIANG V - Last Filed: 08/22/17 18:24> - Vital signs Vitals: Temp Pulse Resp BP Pulse Ox 97.6 F 72 20 130/32 H 100 08/22/17 13:45 08/22/17 13:45 08/22/17 13:45 08/22/17 13:45 08/22/17 13:45 - Notes Notes: Reviewed vital signs and nursing note as charted by RN. CONSTITUTIONAL: Alert and oriented and responds appropriately to questions HEAD: Normocephalic; atraumatic EYES: PERRL; Conjunctivae clear, sclerae non-icteric ENT: normal nose; no rhinorrhea; moist mucous membranes; pharynx without lesions noted NECK: Supple without meningismus; non-tender; no cervical lymphadenopathy, no masses CARD: Regular rate and rhythm; no murmurs, no clicks, no rubs, no gallops; symmetric distal pulses RESP: Normal chest excursion without splinting or tachypnea; breath sounds clear and equal bilaterally ABD/GI: Normal bowel sounds; non-distended; soft, nontender Rectal: Normal external rectum, patient has no melena but has Black stools, heme positive BACK: The back appears normal and is non-tender to palpation EXT: Normal ROM in all joints; non-tender to palpation; no cyanosis, no effusions, no edema SKIN: Pale skin, pale conjunctiva NEURO:Cranial nerves 3-12 intact. Motor strength 5/5 bilaterally. Sensation intact to touch bilaterally. No pronator drift. Finger to nose intact bilaterally PSYCH: The patient's mood and manner are appropriate. Grooming and personal hygiene are appropriate. (MARIALUISA GIANG V) Course <KIERSTEN MUNOZ - Last Filed: 08/22/17 14:33> - Laboratory Result Diagrams: 08/22/17 14:40 08/22/17 14:40 <MARIALUISA GIANG V - Last Filed: 08/22/17 18:24> - Re-evaluation Re-evalutation: 67-year-old here with black stools as well as prior history of GI bleeding as well as anemia Differential diagnosis includes GI bleeding, anemia, upper GI bleeding, worsening AVM malformations, Clostridium difficile We will obtain basic lab work including CBC, BMP, type and screen, C. difficile Reassess patient 08/22/17 17:20 Patient has elevated BUN as well as worsening anemia Patient has drop in his hemoglobin from 8 to 5 Concern for worsening GI bleeding as well as profound anemia We will start patient on packed red blood cells, admit patient for GI evaluation Anticipate transfer to [facility] per patient request Attempted to contact her turn down man, Dr. Osuna, unable to contact the patient We will start patient on Protonix 08/22/17 18:16 I have discussed the case with transfer center at [facility] as well as [facility] , no beds available for next 24 hours I have discussed the case with [facility], and discussed the case with accepting physician, Dr. Andrei Boyce Patient is accepted to [facility]. Patient is on her second blood unit Transfer patient to [facility] Patient and family agree with the transfer (MARIALUISA GIANG V) - Vital Signs Vital signs: Temp Pulse Resp BP Pulse Ox 97.3 F 77 17 147/40 H 97 08/22/17 17:45 08/22/17 17:00 08/22/17 17:45 08/22/17 17:45 08/22/17 17:45 - Laboratory Laboratory results interpreted by me: 08/22/17 08/22/17 08/22/17 14:40 14:40 15:30 WBC 13.3 H RBC 1.92 L Hgb 5.9 L Hct 18.6 L MCHC 31.7 L RDW 23.5 H Seg Neutrophils % 87.2 H Lymphocytes % 6.5 L Absolute Neutrophils 11.5 H BUN 101 H Creatinine 1.30 H Est GFR ( Amer) 50 L Est GFR (Non-Af Amer) 41 L Glucose 136 H Total Protein 5.2 L Albumin 2.9 L Crossmatch See Detail Critical Care Note <KIERSTEN MUNOZ - Last Filed: 08/22/17 14:33> <MARIALUISA GIANG V - Last Filed: 08/22/17 18:24> - Critical Care Note Comments: Critical Care Time: 75 minutes Critical care provider statement: Critical care time was exclusive of: Separately billable procedures and treating other patients and teaching time Critical care was time spent personally by me on the following activities: Blood draw for specimens, development of treatment plan with patient or surrogate, evaluation of patient's response to treatment, examination of patient , obtaining history from patient or surrogate, ordering and performing treatments and interventions, ordering and review of laboratory studies, ordering and review of radiographic studies, pulse oximetry, re-evaluation of patient's condition and review of old charts I assumed direction of critical care for this patient from another provider in my specialty: no (MARIALUISA GIANG V) Doctor's Discharge <KIERSTEN MUNOZ - Last Filed: 08/22/17 14:33> <MARIALUISA GIANG V - Last Filed: 08/22/17 18:24> - Discharge Clinical Impression: GI bleeding, Anemia Condition: Stable Disposition: [facility] Referrals: MINO MONZON MD [Primary Care Provider] - Follow up as needed
[2017-08-22 15:05] LABS: ABSOLUTE LYMPHOCYTES (AUTO) 0.9 10^3/uL (0.5-4.7); ABSOLUTE MONOCYTES (AUTO) 0.8 10^3/uL (0.1-1.4); ABSOLUTE NEUT (AUTO) 11.5 10^3/uL (1.7-8.2); BASOPHILS % (AUTO) 0.3 % (0-2); EOSINOPHILS % (AUTO) 0.2 % (0-6); HEMATOCRIT 18.6 % (36.0-47.0); LYMPHOCYTES % (AUTO) 6.5 % (13-45); MEAN CORPUSCULAR HEMOGLOBIN 30.7 pg (27.0-33.4); MEAN CORPUSCULAR HGB CONC 31.7 g/dL (32.0-36.0); MEAN CORPUSCULAR VOLUME 97 fl (80-97); MONOCYTES % (AUTO) 5.8 % (3-13); PLATELET COUNT 251 10^3/uL (150-450); RED BLOOD COUNT 1.92 10^6/uL (3.72-5.28); RED CELL DISTRIBUTION WIDTH 23.5 % (11.5-14.0); SEGMENTED NEUTROPHILS % (AUTO) 87.2 % (42-78); TOTAL CELLS COUNTED % (AUTO) 100 %; WHITE BLOOD COUNT 13.3 10^3/uL (4.0-10.5)
[2017-08-22 15:13] LABS: APPEARANCE,URINE CLEAR; BILIRUBIN,URINE NEGATIVE (NEGATIVE); COLOR,URINE YELLOW; GLUCOSE, URINE NEGATIVE (NEGATIVE); KETONES,URINE NEGATIVE (NEGATIVE); LEUKOCYTE ESTERASE,URINE NEGATIVE (NEGATIVE); NITRITE,URINE NEGATIVE (NEGATIVE); PROTEIN,URINE NEGATIVE (NEGATIVE); URINE SPECIFIC GRAVITY 1.013; UROBILINOGEN,URINE NEGATIVE mg/dL (<2.0)
[2017-08-22] MEDS ORDERED: NORMAL SALINE 1000 ML 1,000 ML IV ONE (15:17)
[2017-08-22 15:19] LABS: ALANINE AMINOTRANSFERASE 22 U/L (9-52); ALBUMIN 2.9 g/dL (3.5-5.0); ALKALINE PHOSPHATASE 62 U/L (38-126); ANION GAP 10 (5-19); ASPARTATE AMINO TRANSFERASE 18 U/L (14-36); BILIRUBIN,DIRECT 0.1 mg/dL (0.0-0.4); BILIRUBIN,TOTAL 0.2 mg/dL (0.2-1.3); BLOOD UREA NITROGEN 101 mg/dL (7-20); CALCIUM 8.8 mg/dL (8.4-10.2); CARBON DIOXIDE 30 mmol/L (22-30); CHLORIDE 101 mmol/L (98-107); GLUCOSE 136 mg/dL (75-110); POTASSIUM 4.3 mmol/L (3.6-5.0); SODIUM 140.7 mmol/L (137-145); TOTAL PROTEIN 5.2 g/dL (6.3-8.2)
[2017-08-22 15:25] LABS: HEMOGLOBIN 5.9 g/dL (12.0-15.5)
[2017-08-22] MEDS ORDERED: NORMAL SALINE 250 ML IV PRN ×2 (15:27)
[2017-08-22] MEDS ORDERED: PANTOPRAZOLE SODIUM 40 MG VIAL IV ONE (17:57)
[2017-08-22 20:44] VITALS: BP 132/31
== END 2017-08-22 21:00 | disposition short-term general hospital (02) ==
LOC: ER 13:31
DX: R11.2 Nausea with vomiting, unspecified (principal); R19.7 Diarrhea, unspecified; R42 Dizziness and giddiness; K92.2 Gastrointestinal hemorrhage, unspecified; D64.9 Anemia, unspecified; E78.00 Pure hypercholesterolemia, unspecified; E10.22 Type 1 diabetes mellitus with diabetic chronic kidney disease; I12.0 Hypertensive chronic kidney disease with stage 5 chronic kidney disease or end stage renal disease; N18.6 End stage renal disease; I25.2 Old myocardial infarction; Z88.2 Allergy status to sulfonamides; Z95.1 Presence of aortocoronary bypass graft; Z90.49 Acquired absence of other specified parts of digestive tract; Z90.710 Acquired absence of both cervix and uterus
CPT/HCPCS: 99291; 99292; 96374; 86900; 86901; 36415; 36430; 86850; 85025; 82272; 80053; 81001; 86920; P9016; A9270; C9113; S0119; S0164

== ENCOUNTER 2017-08-28 08:02 | Outpatient (CLI) | payer MEDICARE ==
[~2017-08-28 08:02] MED LIST changes: +FERRIC CARBOXYMALTOSE 750 MG in NORMAL SALINE 250 ML IV PRN; -FERUMOXYTOL (NON-ESRD) 510 MG/NS 100 ML IV PRN
[2017-08-28 09:42] VITALS: BP 160/45
== END 2017-08-28 09:46 | disposition home or self-care (01) ==
LOC: II 08:02 → 5TH 08:05 → II 09:46
PROVIDERS: ATTEND Internal Medicine
PROC: 3E033GC Introduction of Other Therapeutic Substance into Peripheral Vein, Percutaneous Approach (ICD-10-PCS; principal; 2017-08-28)
DX: D50.8 Other iron deficiency anemias (principal); K90.9 Intestinal malabsorption, unspecified
CPT/HCPCS: 96365; J7050; J1439

== ENCOUNTER 2017-09-04 07:55 | Outpatient (CLI) | payer MEDICARE, OTHER ==
[2017-09-04 08:07] VITALS: BP 160/28
== END 2017-09-04 09:03 | disposition home or self-care (01) ==
LOC: II 07:55 → 5TH 08:00 → II 09:03
PROVIDERS: ATTEND Internal Medicine
PROC: 3E033GC Introduction of Other Therapeutic Substance into Peripheral Vein, Percutaneous Approach (ICD-10-PCS; principal; 2017-09-04)
DX: D50.8 Other iron deficiency anemias (principal); K90.9 Intestinal malabsorption, unspecified
CPT/HCPCS: 96367; J7050; J1439; 96374

== ENCOUNTER 2017-09-11 03:43 | Emergency (ER) | payer MEDICARE, OTHER ==
[2017-09-11] MEDS ORDERED: NORMAL SALINE 250 ML IV PRN ×2 (04:11→05:15)
[2017-09-11] MEDS ORDERED: TRANEXAMIC ACID INJ/PF 1,000 MG/10 ML SDV IV ONE (04:11)
[2017-09-11] MEDS ORDERED: ONDANSETRON HCL INJ/PF 4 MG/2 ML SDV IV ONE ×2 (04:22→05:56)
[2017-09-11 04:35] LABS: ABSOLUTE LYMPHOCYTES (AUTO) 0.7 10^3/uL (0.5-4.7); ABSOLUTE MONOCYTES (AUTO) 0.4 10^3/uL (0.1-1.4); ABSOLUTE NEUT (AUTO) 10.5 10^3/uL (1.7-8.2); BASOPHILS % (AUTO) 0.4 % (0-2); EOSINOPHILS % (AUTO) 0.1 % (0-6); LYMPHOCYTES % (AUTO) 5.8 % (13-45); MEAN CORPUSCULAR HEMOGLOBIN 32.6 pg (27.0-33.4); MEAN CORPUSCULAR HGB CONC 31.4 g/dL (32.0-36.0); MONOCYTES % (AUTO) 3.5 % (3-13); PLATELET COUNT 253 10^3/uL (150-450); RED BLOOD COUNT 1.74 10^6/uL (3.72-5.28); RED CELL DISTRIBUTION WIDTH 26.5 % (11.5-14.0); SEGMENTED NEUTROPHILS % (AUTO) 90.2 % (42-78); TOTAL CELLS COUNTED % (AUTO) 100 %; WHITE BLOOD COUNT 11.6 10^3/uL (4.0-10.5)
--- NOTE | 2017-09-11 04:36 | RADIOLOGY REPORT (SQ) ---
EXAM DESCRIPTION: CHEST SINGLE VIEW CLINICAL HISTORY: abdominal pain COMPARISON: 12/06/2016 FINDINGS: Single frontal view of the chest. Cardiomegaly. Prior median sternotomy. Atherosclerotic vascular calcification. Leads overlie the chest. No consolidation, pneumothorax, or pleural effusion. No displaced rib fractures identified. Upper abdominal soft tissues are unremarkable. IMPRESSION: 1. No acute pulmonary process identified. Cardiomegaly.
[2017-09-11 04:43] LABS: INTERNATIONAL RATION (INR) 1.14; PROTHROMBIN TIME 15.2 SEC (11.4-15.4)
[2017-09-11 04:47] LABS: ANION GAP 9 (5-19); BLOOD UREA NITROGEN 92 mg/dL (7-20); CALCIUM 8.4 mg/dL (8.4-10.2); CARBON DIOXIDE 28 mmol/L (22-30); CHLORIDE 107 mmol/L (98-107); GLUCOSE 143 mg/dL (75-110); POTASSIUM 4.5 mmol/L (3.6-5.0); SODIUM 144.3 mmol/L (137-145)
[2017-09-11 05:01] LABS: HEMOGLOBIN 5.7 g/dL (12.0-15.5)
[2017-09-11 05:02] LABS: MEAN CORPUSCULAR VOLUME 104 fl (80-97)
[2017-09-11 05:09] LABS: ANISOCYTOSIS 3+; HYPOCHROMASIA 2+; OVALOCYTES SLIGHT; POIKILOCYTOSIS SLIGHT; POLYCHROMASIA SLIGHT
[2017-09-11 05:10] LABS: PLATELET COMMENT ADEQUATE
[2017-09-11] MEDS ORDERED: ACETAMINOPHEN 325 MG TABLET PO ONE (05:27)
--- NOTE | 2017-09-11 05:28 | ER Document Report ---
ED General - General Chief Complaint: Nausea/Vomiting/Diarrhea Stated Complaint: BLOOD IN STOOL Time Seen by Provider: 09/11/17 04:05 Notes: Patient is a 67-year-old female with a history of AV malformations and chronic anemia requiring frequent blood transfusions and iron infusions who presents with complaint of bright red blood per rectum. Started on lunchtime and continue to progress throughout the night. She had several large bowel movements tonight and therefore came to the ER. She is followed by Dr. Osuna. Said she recently had a colonoscopy in June which showed AV malformations. She is followed by Dr. Fito francis for her chronic anemia. She just recently had a blood transfusion yesterday. She denies use any recent fevers. She does have some diffuse crampy abdominal pain which she sometimes gets when she has these bleeding episodes. She says she feels this is the worse when she has ever had. She has had some nausea. No vomiting. No other complaints at this time. TRAVEL OUTSIDE OF THE [place] IN LAST 30 DAYS: No - Related Data Allergies/Adverse Reactions: Sulfa (Sulfonamide Antibiotics) Allergy (Mild, Verified 09/11/17 04:58) Hives warfarin sodium [From Coumadin] Adverse Reaction (Mild, Verified 09/11/17 04:58) Diarrhea Past Medical History - Social History Smoking Status: Never Smoker Frequency of alcohol use: None Drug Abuse: None Family History: CAD, DM, Hypertension Patient has suicidal ideation: No Patient has homicidal ideation: No - Past Medical History Cardiac Medical History: Reports: Hx Atrial Fibrillation - TWO YEARS AGO, Hx Coronary Artery Disease, Hx Heart Attack - Triple bypass 2004, Hx Hypercholesterolemia, Hx Hypertension Denies: Hx Congestive Heart Failure Pulmonary Medical History: Reports: Hx Bronchitis, Hx Pneumonia Denies: Hx Asthma, Hx COPD, Hx Tuberculosis Neurological Medical History: Denies: Hx Cerebrovascular Accident, Hx Seizures Endocrine Medical History: Reports: Hx Diabetes Mellitus Type 1, Hx Diabetes Mellitus Type 2 Renal/ Medical History: Reports: Hx End Stage Renal Disease. Denies: Hx Kidney Stones, Hx Peritoneal Dialysis GI Medical History: Denies: Hx Cirrhosis, Hx Gastroesophageal Reflux Disease, Hx Ulcer Musculoskeltal Medical History: Reports Hx Arthritis - SCORIATIC ARTHRITIS, Reports Hx Gout, Denies Hx Multiple Sclerosis Skin Medical History: Denies Hx MRSA Psychiatric Medical History: Denies: Hx Bipolar Disorder, Hx Depression, Hx Schizophrenia Past Surgical History: Reports: Hx Cardiac Catheterization - 18TH OF SEPT 2013, Hx Cardiac Surgery - [place] 2004, Hx Section, Hx Cholecystectomy, Hx Coronary Artery Bypass Graft - 2004 at [facility], Hx Hysterectomy, Hx Tubal Ligation. Denies: Hx Adenoidectomy, Hx Pacemaker - Immunizations Hx Diphtheria, Pertussis, Tetanus Vaccination: No Hx Pneumococcal Vaccination: 03/11/14 Review of Systems - Review of Systems Notes: My Normal Review Basic REVIEW OF SYSTEMS: CONSTITUTIONAL : Denies fever, chills, or sweats. Denies recent illness. RESPIRATORY: Denies cough, cold, or chest congestion. Denies shortness of breath, difficulty breathing, or wheezing. GASTROINTESTINAL: Some abdominal pain. Rectal bleeding. MUSCULOSKELETAL: Denies neck or back pain or joint pain or swelling. SKIN: Denies rash or skin lesions. HEMATOLOGIC : Chronic anemia NEUROLOGICAL: Denies altered mental status or loss of consciousness. Denies headache. Denies weakness or paralysis or loss of use of either side. Denies problems with gait or speech. Denies sensory or motor loss. ALL OTHER SYSTEMS REVIEWED AND NEGATIVE. Physical Exam - Vital signs Vitals: Temp Pulse Resp BP Pulse Ox 97.6 F 81 18 160/32 H 98 09/11/17 03:44 09/11/17 03:44 09/11/17 03:44 09/11/17 03:44 09/11/17 03:44 - Notes Notes: General Appearance: Well nourished, alert, cooperative, no acute distress, no obvious discomfort. Vitals: reviewed, See vital signs table. Head: no swelling or tenderness to the head Eyes: PERRL, EOMI, Conjuctiva clear Mouth: No decreasd moisture Lungs: No wheezing, No rales, No rhonci, No accessory muscle use, good air exchange bilaterally. Heart: Normal rate, Regular rythm, No murmur, no rub Abdomen: Normal BS, soft, No rigidity, No abdominal tenderness, No guarding, no rebound, Rectal exam: Dry blood around rectum. Extremities: strength 5/5 in all extremities, good pulses in all extremities, no swelling or tenderness in the extremities, no edema. Skin: warm, dry, appropriate color, no rash Neuro: speech clear, oriented x 3, normal affect, responds appropriately to questions. Course - Re-evaluation Re-evalutation: 09/11/17 05:27 Patient is received a tranexamic acid. She has had one bloody bowel movement while here in the ER. Her vital signs remained stable. I have ordered the blood. Her blood transfusion should be starting soon according to nurse. The went for blood bank to send on the blood. I did attempt to call Dr. Osuna. He is not on-call but this is his private patient. Cell Phone Repair Technician informed me that she left a message for him to call us back. 09/11/17 05:[address] Osuna again and he did not answer. Dr. Osuna is not on-call so he is not I will give to answer. We do not have any undersigned GI call either. I therefore went back to speak with patient and she says that she is also followed by Dr. Villarreal at [facility]. She said she just saw him last week and had endoscopy in the is also been discussing with him possibly taking the camera pill. She requests to be transferred to [facility] that we do not have GI coverage. I did call and speak with Dr. Amezquita, hospitalist at [place], who agrees to accept the patient for transfer. Patient remains vitally stable. Current heart rate is 76. Blood pressure is 152/50. - Vital Signs Vital signs: Temp Pulse Resp BP Pulse Ox 98 F 81 20 152/50 H 100 09/11/17 05:40 09/11/17 03:44 09/11/17 06:03 09/11/17 06:03 09/11/17 06:03 - Laboratory Result Diagrams: 09/11/17 04:15 09/11/17 04:15 Laboratory results interpreted by me: 09/11/17 09/11/17 09/11/17 04:15 04:15 04:15 WBC 11.6 H RBC 1.74 L Hgb 5.7 L Hct 18.0 L MCV 104 H D MCHC 31.4 L RDW 26.5 H Seg Neutrophils % 90.2 H Lymphocytes % 5.8 L Absolute Neutrophils 10.5 H BUN 92 H Creatinine 1.29 H Est GFR ( Amer) 50 L Est GFR (Non-Af Amer) 41 L Glucose 143 H Crossmatch See Detail Critical Care Note - Critical Care Note Total time excluding time spent on procedures (mins): 35 Comments: Critical care time for this patient not including time spent on procedures approximately 35 minutes to frequent re-evaluations and blood transfusions for severe anemia. Discharge - Discharge Clinical Impression: Rectal bleeding Anemia Qualifiers: Anemia type: unspecified type Qualified Code(s): D64.9 - Anemia, unspecified Condition: Stable Disposition: [facility] Referrals: MINO MONZON MD [Primary Care Provider] - Follow up as needed
[2017-09-11] MEDS ORDERED: MORPHINE SULFATE 10 MG/ML INJ IV ONE (06:14)
[2017-09-11] MEDS ORDERED: FUROSEMIDE INJ/PF 40 MG/4 ML SDV IV ONE (06:50)
--- NOTE | 2017-09-11 07:14 | RADIOLOGY REPORT (SQ) ---
EXAM DESCRIPTION: CT ABDOMEN AND PELVIS WITH CONTRAST CLINICAL HISTORY: Views abdominal pain. COMPARISON: 07/05/2015 TECHNIQUE: CT of the abdomen and pelvis performed following IV administration of 100 mL of Isovue-370. DLP: 2952.05 mGycm FINDINGS: Lung Bases: Small bilateral pleural effusions. Cardia megaly. Bones: Minimal degenerative change of the spine. Degenerative change of the sacroiliac joints and hips. Abdomen: Liver: The liver has normal size and density. No intrahepatic mass or biliary dilatation. Gallbladder: Prior cholecystectomy. 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 The right adrenal gland, pancreas, and spleen are unremarkable. Kidneys: The kidneys have normal size and contour without evidence of solid mass or hydronephrosis. Vasculature: Aortoiliac atherosclerosis. IVC is unremarkable. The portal vein is patent. The proximal visceral and renal arteries are patent. Stomach: The stomach and duodenum have normal course. Other: No free intraperitoneal air. No free fluid or lymphadenopathy. Nonspecific left pelvic likely retroperitoneal inflammatory change may be related to previous surgery. Pelvis: Bladder: Urinary bladder is unremarkable. Bowel: No dilated loops of large or small bowel. Appendix: The appendix is not definitely identified. Reported prior appendectomy. Pelvis: Prior hysterectomy. IMPRESSION: 1. No acute inflammatory or obstructive process identified. 2. Small bilateral pleural effusions. 3. Stable left adrenal angiomyolipoma. This exam was performed according to our departmental dose-optimization program, which includes automated exposure control, adjustment of the mA and/or kV according to patient size and/or use of iterative reconstruction technique.
--- NOTE | 2017-09-11 08:02 | ER Document Report ---
Doctor's Note Notes: 09/11/17 08:02 Transport is here at this time. Patient remained stable for transport. CT scan reviewed. No significant major results seen on CT.
[2017-09-11 08:07] VITALS: BP 168/51
--- NOTE | 2017-09-11 21:29 | EKG REPORT ---
SEVERITY:- ABNORMAL ECG - ATRIAL FIBRILLATION PROBABLE LVH WITH SECONDARY REPOL ABNRM ANTERIOR Q WAVES, POSSIBLY DUE TO LVH : Confirmed by: Shelia Branch 11-Sep-2017 21:28:08
== END 2017-09-11 08:30 | disposition short-term general hospital (02) ==
LOC: ER 03:43
DX: K62.5 Hemorrhage of anus and rectum (principal); D64.9 Anemia, unspecified; Q27.33 Arteriovenous malformation of digestive system vessel; R10.84 Generalized abdominal pain; R11.0 Nausea; E11.9 Type 2 diabetes mellitus without complications; I25.10 Atherosclerotic heart disease of native coronary artery without angina pectoris; I10 Essential (primary) hypertension; I25.2 Old myocardial infarction; Z95.5 Presence of coronary angioplasty implant and graft; Z95.1 Presence of aortocoronary bypass graft; Z88.2 Allergy status to sulfonamides
CPT/HCPCS: 93005; 96376; 99291; 96374; 96375; 86900; 86901; 36415; 36430; 86850; 85025; 85610; 85730; 80048; 86920; 71045; 74177; 93010; P9016; A9270; J1940; J2270; J2405; J3490

== ENCOUNTER 2017-10-06 11:38 | Outpatient (CLI) | payer MEDICARE ==
[2017-10-06 12:24] VITALS: BP 146/72
== END 2017-10-06 13:49 | disposition home or self-care (01) ==
LOC: II 11:38
PROVIDERS: ATTEND Internal Medicine
PROC: 3E033GC Introduction of Other Therapeutic Substance into Peripheral Vein, Percutaneous Approach (ICD-10-PCS; principal; 2017-10-06)
DX: D50.8 Other iron deficiency anemias (principal); K90.9 Intestinal malabsorption, unspecified
CPT/HCPCS: 96365; J7050; J1439

== ENCOUNTER 2017-10-13 08:49 | Outpatient (CLI) | payer MEDICARE ==
[2017-10-13 09:46] VITALS: BP 163/37
== END 2017-10-13 10:28 | disposition home or self-care (01) ==
LOC: II 08:49 → 5TH 08:53 → II 10:28
PROVIDERS: ATTEND Internal Medicine
PROC: 3E033GC Introduction of Other Therapeutic Substance into Peripheral Vein, Percutaneous Approach (ICD-10-PCS; principal; 2017-10-13)
DX: D50.8 Other iron deficiency anemias (principal); K90.9 Intestinal malabsorption, unspecified
CPT/HCPCS: 96367; J7050; J1439; 96374

== ENCOUNTER 2017-10-26 09:22 | Outpatient (CLI) | payer MEDICARE, OTHER ==
[~2017-10-26 09:22] MED LIST changes: +ACETAMINOPHEN 325 MG TABLET PO PRN; +DIPHENHYDRAMINE HCL 25 MG CAPSULE PO PRN; -FERRIC CARBOXYMALTOSE 750 MG in NORMAL SALINE 250 ML IV PRN; +FUROSEMIDE INJ/PF 20 MG/2 ML SDV IV PRN; -NORMAL SALINE 250 ML IV PRN
[2017-10-26 09:57] LABS: HEMATOCRIT 19.8 % (36.0-47.0); MEAN CORPUSCULAR HEMOGLOBIN 32.1 pg (27.0-33.4); MEAN CORPUSCULAR HGB CONC 31.9 g/dL (32.0-36.0); MEAN CORPUSCULAR VOLUME 101 fl (80-97); PLATELET COUNT 239 10^3/uL (150-450); RED BLOOD COUNT 1.97 10^6/uL (3.72-5.28); RED CELL DISTRIBUTION WIDTH 21.6 % (11.5-14.0); WHITE BLOOD COUNT 11.7 10^3/uL (4.0-10.5)
[2017-10-26 09:59] LABS: HEMOGLOBIN 6.3 g/dL (12.0-15.5)
[2017-10-26] MEDS ORDERED: PROMETHAZINE HCL INJ 25 MG/1 ML VIAL ONE (10:26)
[2017-10-26] MEDS ORDERED: NORMAL SALINE 250 ML IV PRN (10:38)
[2017-10-26] MEDS ORDERED: NORMAL SALINE 1000 ML 1,000 ML IV ONE (10:45)
[2017-10-26 15:49] VITALS: BP 174/35
== END 2017-10-26 16:00 | disposition home or self-care (01) ==
LOC: LAB 09:22 → 2S 09:40 → LAB 16:00
PROVIDERS: ATTEND Internal Medicine
PROC: 30233N1 Transfusion of Nonautologous Red Blood Cells into Peripheral Vein, Percutaneous Approach (ICD-10-PCS; principal; 2017-10-26)
PROC: 3E033GC Introduction of Other Therapeutic Substance into Peripheral Vein, Percutaneous Approach (ICD-10-PCS; 2017-10-26)
DX: D64.9 Anemia, unspecified (principal)
CPT/HCPCS: 86900; 86901; 36415; 36430; 86850; 86920; P9016; A9270 ×2; J2550; J7030; 96374

== ENCOUNTER 2017-10-26 16:05 | Emergency (ER) | payer MEDICARE ==
--- NOTE | 2017-10-26 16:39 | ER Document Report ---
ED General - General Chief Complaint: Vomiting Stated Complaint: VOMITING Time Seen by Provider: 10/26/17 16:39 Mode of Arrival: Ambulatory Information source: Patient, DrDon Zavaleta, [facility] Records TRAVEL OUTSIDE OF THE [place] IN LAST 30 DAYS: No - HPI Onset: Yesterday Onset/Duration: Sudden Quality of pain: No pain Associated symptoms: Diarrhea, Nausea, Vomiting Exacerbated by: Denies Relieved by: Denies Similar symptoms previously: No - NOT RECENT Recently seen / treated by doctor: Yes - DR. CARVAJAL, TODAY - Related Data Allergies/Adverse Reactions: Sulfa (Sulfonamide Antibiotics) Allergy (Mild, Verified 09/11/17 04:58) Hives warfarin sodium [From Coumadin] Adverse Reaction (Mild, Verified 09/11/17 04:58) Diarrhea Past Medical History - General Information source: Patient, [facility] Records - Social History Smoking Status: Unknown if Ever Smoked Cigarette use (# per day): No Chew tobacco use (# tins/day): No Frequency of alcohol use: None Drug Abuse: None Lives with: Family Family History: CAD, DM, Hypertension - Past Medical History Cardiac Medical History: Reports: Hx Atrial Fibrillation - TWO YEARS AGO, Hx Congestive Heart Failure, Hx Coronary Artery Disease, Hx Heart Attack - Triple bypass 2004, Hx Hypercholesterolemia, Hx Hypertension Pulmonary Medical History: Reports: Hx Bronchitis, Hx Pneumonia Denies: Hx Asthma, Hx COPD, Hx Tuberculosis Neurological Medical History: Denies: Hx Cerebrovascular Accident, Hx Seizures Endocrine Medical History: Reports: Hx Diabetes Mellitus Type 1, Hx Diabetes Mellitus Type 2 Renal/ Medical History: Reports: Hx End Stage Renal Disease. Denies: Hx Kidney Stones, Hx Peritoneal Dialysis GI Medical History: Reports: Hx Endoscopy, Other - AVM's, RESULTING IN CHRONIC BLOOD LOSS & RECURRENT NEED FOR TRANSFUSION. Denies: Hx Cirrhosis, Hx Gastroesophageal Reflux Disease, Hx Ulcer Musculoskeltal Medical History: Reports Hx Arthritis - SCORIATIC ARTHRITIS, Reports Hx Gout, Denies Hx Multiple Sclerosis Skin Medical History: Denies Hx MRSA Psychiatric Medical History: Denies: Hx Bipolar Disorder, Hx Depression, Hx Schizophrenia Past Surgical History: Reports: Hx Cardiac Catheterization - Jan, Hx Cardiac Surgery - [place] 2004, Hx Section, Hx Cholecystectomy, Hx Coronary Artery Bypass Graft - 2004 at [facility], Hx Hysterectomy, Hx Tubal Ligation. Denies: Hx Adenoidectomy, Hx Pacemaker - Immunizations Hx Diphtheria, Pertussis, Tetanus Vaccination: No Hx Pneumococcal Vaccination: 03/11/14 Review of Systems - Review of Systems Constitutional: Weakness EENT: No symptoms reported Cardiovascular: No symptoms reported Respiratory: Short of breath Gastrointestinal: Black stools Genitourinary: No symptoms reported Musculoskeletal: No symptoms reported Skin: No symptoms reported Neurological/Psychological: No symptoms reported Physical Exam - Vital signs Vitals: Resp Pulse Ox 28 H 96 10/26/17 16:36 10/26/17 16:36 Interpretation: Tachypneic. No: Hypotensive, Tachycardic - General General appearance: Appears well, Alert In distress: None - HEENT Head: Normocephalic Eyes: Pale conjunctiva Ears: Normal Nasal: Normal Mouth/Lips: Normal Mucous membranes: Normal Pharynx: Normal Neck: Normal - Respiratory Respiratory status: No respiratory distress Breath sounds: Normal - Cardiovascular Rhythm: Regular Heart sounds: Normal auscultation Murmur: No - Abdominal Inspection: Normal Distension: No distension Bowel sounds: Normal - Rectal Stool: Heme positive, Black - Back Back: Normal - Extremities General upper extremity: Normal inspection General lower extremity: Normal inspection - Neurological Neuro grossly intact: Yes Cognition: Normal Orientation: AAOx4 - Psychological Associated symptoms: Normal affect, Normal mood - Skin Skin Temperature: Warm Skin Moisture: Dry Skin Color: Normal Skin Turgor: Elastic Course - Vital Signs Vital signs: Temp Pulse Resp BP Pulse Ox 98.2 F 77 21 H 195/52 H 97 10/27/17 08:45 10/26/17 19:03 10/27/17 08:45 10/27/17 08:45 10/27/17 08:45 - Laboratory Result Diagrams: 10/27/17 02:55 10/26/17 17:54 Laboratory results interpreted by me: 10/26/17 10/27/17 17:54 02:55 WBC 10.9 H RBC 2.46 L Hgb 7.8 L Hct 23.1 L RDW 22.9 H Seg Neutrophils % 85.1 H Lymphocytes % 6.5 L Absolute Neutrophils 9.3 H Carbon Dioxide 32 H BUN 88 H Est GFR ( Amer) 58 L Est GFR (Non-Af Amer) 48 L Glucose 134 H Total Protein 5.4 L Albumin 2.8 L - Consults DR. COPPOLA Time consulted: 18:15 Reason for consultation: 10/26/17 19:07 ACCEPTS PATIENT FOR TRANSFER TO [facility] (NO G.I. SPECIALIST AVAILABLE @ [facility] THIS DATE). Discharge - Discharge Clinical Impression: Upper gastrointestinal bleed Anemia Qualifiers: Anemia type: unspecified type Qualified Code(s): D64.9 - Anemia, unspecified Condition: Good Disposition: [facility]
[2017-10-26] MEDS ORDERED: PANTOPRAZOLE SODIUM 40 MG VIAL IV PRN (17:35)
[2017-10-26 18:13] LABS: INTERNATIONAL RATION (INR) 1.13; PROTHROMBIN TIME 15.1 SEC (11.4-15.4)
[2017-10-26 18:22] LABS: ALANINE AMINOTRANSFERASE 23 U/L (9-52); ALBUMIN 2.8 g/dL (3.5-5.0); ALKALINE PHOSPHATASE 74 U/L (38-126); ANION GAP 8 (5-19); ASPARTATE AMINO TRANSFERASE 21 U/L (14-36); BILIRUBIN,DIRECT 0.4 mg/dL (0.0-0.4); BILIRUBIN,TOTAL 0.7 mg/dL (0.2-1.3); BLOOD UREA NITROGEN 88 mg/dL (7-20); CALCIUM 8.5 mg/dL (8.4-10.2); CARBON DIOXIDE 32 mmol/L (22-30); CHLORIDE 104 mmol/L (98-107); GLUCOSE 134 mg/dL (75-110); POTASSIUM 3.7 mmol/L (3.6-5.0); SODIUM 144.3 mmol/L (137-145); TOTAL PROTEIN 5.4 g/dL (6.3-8.2)
[2017-10-27 03:15] LABS: ABSOLUTE BASOPHILS # (AUTO) 0.1 10^3/uL (0.0-0.2); ABSOLUTE EOSINOPHILS # (AUTO) 0.2 10^3/uL (0.0-0.6); ABSOLUTE LYMPHOCYTES (AUTO) 0.7 10^3/uL (0.5-4.7); ABSOLUTE MONOCYTES (AUTO) 0.6 10^3/uL (0.1-1.4); ABSOLUTE NEUT (AUTO) 9.3 10^3/uL (1.7-8.2); BASOPHILS % (AUTO) 0.8 % (0-2); HEMATOCRIT 23.1 % (36.0-47.0); LYMPHOCYTES % (AUTO) 6.5 % (13-45); MEAN CORPUSCULAR HEMOGLOBIN 31.6 pg (27.0-33.4); MEAN CORPUSCULAR HGB CONC 33.6 g/dL (32.0-36.0); MONOCYTES % (AUTO) 5.6 % (3-13); PLATELET COUNT 220 10^3/uL (150-450); RED BLOOD COUNT 2.46 10^6/uL (3.72-5.28); RED CELL DISTRIBUTION WIDTH 22.9 % (11.5-14.0); SEGMENTED NEUTROPHILS % (AUTO) 85.1 % (42-78); TOTAL CELLS COUNTED % (AUTO) 100 %; WHITE BLOOD COUNT 10.9 10^3/uL (4.0-10.5)
[2017-10-27 03:20] LABS: HEMOGLOBIN 7.8 g/dL (12.0-15.5)
[2017-10-27 03:22] LABS: MEAN CORPUSCULAR VOLUME 94 fl (80-97)
[2017-10-27] MEDS ORDERED: ACETAMINOPHEN 325 MG TABLET PO ONE (06:37)
--- NOTE | 2017-10-27 08:49 | ER Document Report ---
Doctor's Note Notes: 10/27/17 08:49 Patient transport here at this time. Blood pressure is high not low. Awake and alert and in no acute distress. Remained stable for transfer at this time.
[2017-10-27 08:55] VITALS: BP 195/52
== END 2017-10-27 08:58 | disposition short-term general hospital (02) ==
LOC: ER 16:05
DX: K92.2 Gastrointestinal hemorrhage, unspecified (principal); D64.9 Anemia, unspecified; R53.1 Weakness; R11.2 Nausea with vomiting, unspecified; R19.7 Diarrhea, unspecified; I25.10 Atherosclerotic heart disease of native coronary artery without angina pectoris; I10 Essential (primary) hypertension; E11.9 Type 2 diabetes mellitus without complications; Z88.2 Allergy status to sulfonamides
CPT/HCPCS: 99285; 96365; 96366; 36415; 82962; 85025; 85610; 82272; 80053; A9270; C9113; S0164

== ENCOUNTER 2017-11-24 07:40 | Outpatient (CLI) | payer MEDICARE, OTHER ==
[2017-11-24] MEDS ORDERED: NORMAL SALINE 250 ML IV PRN (08:00)
[2017-11-24] MEDS ORDERED: FERUMOXYTOL 510 MG in NORMAL SALINE 100 ML IV PRN (08:00)
[2017-11-24 08:52] VITALS: BP 149/38
== END 2017-11-24 09:31 | disposition home or self-care (01) ==
LOC: II 07:40 → 5TH 07:43 → II 09:31
PROVIDERS: ATTEND Internal Medicine
PROC: 3E033GC Introduction of Other Therapeutic Substance into Peripheral Vein, Percutaneous Approach (ICD-10-PCS; principal; 2017-11-24)
DX: D50.8 Other iron deficiency anemias (principal); N18.3 Chronic kidney disease, stage 3 (moderate)
CPT/HCPCS: 96365; Q0138

== ENCOUNTER 2017-12-01 07:45 | Outpatient (CLI) | payer MEDICARE, OTHER ==
[~2017-12-01 07:45] MED LIST changes: -ACETAMINOPHEN 325 MG TABLET PO PRN; -DIPHENHYDRAMINE HCL 25 MG CAPSULE PO PRN; +FERUMOXYTOL (NON-ESRD) 510 MG/NS 100 ML IV PRN; -FUROSEMIDE INJ/PF 20 MG/2 ML SDV IV PRN; +NORMAL SALINE 250 ML IV PRN
[2017-12-01 09:06] VITALS: BP 152/30
== END 2017-12-01 09:44 | disposition home or self-care (01) ==
LOC: II 07:45 → 5TH 07:48 → II 09:44
PROVIDERS: ATTEND Internal Medicine
PROC: 3E033GC Introduction of Other Therapeutic Substance into Peripheral Vein, Percutaneous Approach (ICD-10-PCS; principal; 2017-12-01)
DX: D50.8 Other iron deficiency anemias (principal); N18.3 Chronic kidney disease, stage 3 (moderate)
CPT/HCPCS: 96365; Q0138

== ENCOUNTER 2018-01-04 10:39 | Inpatient (IN) | payer MEDICARE, OTHER ==
--- NOTE | 2018-01-04 11:13 | ER Document Report ---
ED General - General Chief Complaint: Shortness Of Breath Stated Complaint: SHORTNESS OF BREATH Time Seen by Provider: 01/04/18 11:13 Notes: 67-year-old female history of congestive heart failure followed by Dr. Dasilva which sent here for direct admit. Patient has been complaining of increased shortness of breath, orthopnea, dyspnea on exertion, lower extremity edema with lower extremity anasarca. Has been admitted in the past for similar symptoms. Denies any chest pain at this time. Has had some increased weight gain as well. Was seen at primary care doctor's this morning and sent to the hospital for direct admit. Currently there are no beds available in the hospital so patient sent through the emergency department to be evaluated initially by emergency physician. TRAVEL OUTSIDE OF THE [place] IN LAST 30 DAYS: No - HPI Onset: Last week Onset/Duration: Gradual, Constant, Worse Pain Level: 0 - Related Data Allergies/Adverse Reactions: Sulfa (Sulfonamide Antibiotics) Allergy (Mild, Verified 01/04/18 10:40) Hives warfarin sodium [From Coumadin] Adverse Reaction (Mild, Verified 01/04/18 10:40) Diarrhea Past Medical History - General Information source: Patient - Social History Smoking Status: Never Smoker Cigarette use (# per day): No Frequency of alcohol use: None Drug Abuse: None Lives with: Spouse/Significant other Family History: CAD, DM, Hypertension - Past Medical History Cardiac Medical History: Reports: Hx Atrial Fibrillation - TWO YEARS AGO, Hx Congestive Heart Failure, Hx Coronary Artery Disease, Hx Heart Attack - Triple bypass 2004, Hx Hypercholesterolemia, Hx Hypertension Pulmonary Medical History: Reports: Hx Bronchitis, Hx Pneumonia Denies: Hx Asthma, Hx COPD, Hx Tuberculosis Neurological Medical History: Denies: Hx Cerebrovascular Accident, Hx Seizures Endocrine Medical History: Reports: Hx Diabetes Mellitus Type 1, Hx Diabetes Mellitus Type 2 Renal/ Medical History: Reports: Hx End Stage Renal Disease. Denies: Hx Kidney Stones, Hx Peritoneal Dialysis GI Medical History: Reports: Hx Endoscopy. Denies: Hx Cirrhosis, Hx Gastroesophageal Reflux Disease, Hx Ulcer Musculoskeletal Medical History: Reports Hx Arthritis - SCORIATIC ARTHRITIS, Reports Hx Gout, Denies Hx Multiple Sclerosis Skin Medical History: Denies Hx MRSA Psychiatric Medical History: Denies: Hx Bipolar Disorder, Hx Depression, Hx Schizophrenia Past Surgical History: Reports: Hx Cardiac Catheterization - 18TH OF SEPT 2013, Hx Cardiac Surgery - [place] 2005, Hx Section, Hx Cholecystectomy, Hx Coronary Artery Bypass Graft - 2005 at [facility], Hx Hysterectomy, Hx Tubal Ligation. Denies: Hx Adenoidectomy, Hx Pacemaker - Immunizations Hx Diphtheria, Pertussis, Tetanus Vaccination: No Hx Pneumococcal Vaccination: 03/11/14 Review of Systems - Review of Systems Notes: Constitutional: denies: Chills, Diaphoresis, Fever, Malaise, Weakness EENT: denies: Eye discharge, Blurred vision, Tearing, Double vision, Nose congestion, Nose discharge, Throat swelling, Mouth pain Cardiovascular: denies: Palpitations, Heart racing, does complain of dyspnea and orthopnea but denies chest pain at this complain of bilateral lower extremity edema Respiratory: + for shortness of breath, dyspnea on exertion, orthopnea. Gastrointestinal: denies: Abdominal pain, Diarrhea, Nausea, Vomiting, Black stools, bright red blood in stool Genitourinary: denies: Burning, Dysuria, Discharge, Frequency, Flank pain, Hematuria Musculoskeletal: denies: Joint pain, Joint swelling, Muscle pain, Muscle stiffness, back pain. Significant for bilateral lower extremity edema Hematologic/Lymphatic: denies: Anemia, Easy bleeding, Easy bruising, Blood clots Neurological/Psychological: denies: Confusion, Dementia, Depression, Loss of consciousness Skin: No lesions, no masses, no skin breakdown, no abscesses. does complain of oozing of the bilateral lower extremities with edema. Physical Exam - Vital signs Vitals: Temp Pulse Resp BP Pulse Ox 97.6 F 58 L 20 177/33 H 93 01/04/18 10:45 01/04/18 10:45 01/04/18 10:45 01/04/18 10:45 01/04/18 10:45 Interpretation: Normal - General General appearance: Appears well, Alert - HEENT Head: Normocephalic, Atraumatic Eyes: Normal Pupils: PERRL - Respiratory Respiratory status: No respiratory distress Chest status: Nontender Breath sounds: Rales - Faint bilateral lower lobe Chest palpation: Normal - Cardiovascular Rhythm: Regular Heart sounds: Normal auscultation Murmur: No - Abdominal Inspection: Normal Distension: No distension Bowel sounds: Normal Tenderness: Nontender Organomegaly: No organomegaly - Back Back: Normal, Nontender - Extremities General upper extremity: Normal inspection, Nontender, Normal color, Normal ROM , Normal temperature General lower extremity: Normal inspection, Nontender, Edema - Large amount of edema lateral lower extremities 3+ pitting., Normal color, Normal ROM, Normal temperature, Normal weight bearing. No: Sasha's sign - Neurological Neuro grossly intact: Yes Cognition: Normal Orientation: AAOx4 [place] Coma Scale Eye Opening: Spontaneous [place] Coma Scale Verbal: Oriented [place] Coma Scale Motor: Obeys Commands [place] Coma Scale Total: 15 Speech: Normal Motor strength normal: LUE, RUE, LLE, RLE Sensory: Normal - Psychological Associated symptoms: Normal affect, Normal mood - Skin Skin Temperature: Warm Skin Moisture: Dry Skin Color: Normal Course - Re-evaluation Re-evalutation: 01/04/18 11:16 At this time patient presents with admit orders. Will hold in the emergency department. Will contact patient's primary care doctor to let them know that there are no beds currently available so that when rounding occurs if patient is still in the ER they will know to come here. I will place the laboratory orders that patient came with and put order in for a bed. 01/04/18 19:22 - Vital Signs Vital signs: Temp Pulse Resp BP Pulse Ox 97.3 F 82 24 H 176/29 H 92 01/04/18 18:02 01/04/18 18:02 01/04/18 18:02 01/04/18 18:02 01/04/18 18:02 - Laboratory Result Diagrams: 01/04/18 14:54 01/04/18 17:15 - EKG Interpretation by Oh EKG shows normal: Bishop, Intervals, QRS Complexes, ST-T Waves Rhythm: A.Fib Discharge - Discharge Clinical Impression: Congestive heart failure Qualifiers: Heart failure type: unspecified Heart failure chronicity: unspecified Qualified Code(s): I50.9 - Heart failure, unspecified Condition: Good Disposition: ADMITTED INPATIENT Admitting Provider: Schuyler Unit Admitted: [facility]
[2018-01-04 17:12] LABS: ABSOLUTE EOSINOPHILS # (AUTO) 0.1 10^3/uL (0.0-0.6); ABSOLUTE LYMPHOCYTES (AUTO) 0.4 10^3/uL (0.5-4.7); ABSOLUTE MONOCYTES (AUTO) 0.3 10^3/uL (0.1-1.4); ABSOLUTE NEUT (AUTO) 4.3 10^3/uL (1.7-8.2); BASOPHILS % (AUTO) 0.6 % (0-2); EOSINOPHILS % (AUTO) 1.4 % (0-6); HEMATOCRIT 30.8 % (36.0-47.0); HEMOGLOBIN 9.5 g/dL (12.0-15.5); LYMPHOCYTES % (AUTO) 7.1 % (13-45); MEAN CORPUSCULAR HEMOGLOBIN 31.1 pg (27.0-33.4); MEAN CORPUSCULAR HGB CONC 30.9 g/dL (32.0-36.0); MEAN CORPUSCULAR VOLUME 101 fl (80-97); MONOCYTES % (AUTO) 6.1 % (3-13); PLATELET COUNT 175 10^3/uL (150-450); RED BLOOD COUNT 3.07 10^6/uL (3.72-5.28); RED CELL DISTRIBUTION WIDTH 18.4 % (11.5-14.0); SEGMENTED NEUTROPHILS % (AUTO) 84.8 % (42-78); TOTAL CELLS COUNTED % (AUTO) 100 %; WHITE BLOOD COUNT 5.1 10^3/uL (4.0-10.5)
[2018-01-04 17:16] LABS: INTERNATIONAL RATION (INR) 1.02; PROTHROMBIN TIME 13.9 SEC (11.4-15.4)
[2018-01-04 17:17] LABS: PARTIAL THROMBOPLASTIN TIME 29.7 SEC (23.5-35.8)
--- NOTE | 2018-01-04 17:21 | RADIOLOGY REPORT (SQ) ---
EXAM DESCRIPTION: CHEST 2 VIEWS COMPLETED DATE/TIME: 01/04/2018 5:11 pm REASON FOR STUDY: sob COMPARISON: 03/10/2016 EXAM PARAMETERS: NUMBER OF VIEWS: two views TECHNIQUE: Digital Frontal and Lateral radiographic views of the chest acquired. RADIATION DOSE: NA LIMITATIONS: none FINDINGS: LUNGS AND PLEURA: Small pleural effusions. Pulmonary vascular congestion. Cannot exclude mild pulmonary edema. MEDIASTINUM AND HILAR STRUCTURES: No masses or contour abnormalities. HEART AND VASCULAR STRUCTURES: Cardiomegaly. BONES: No acute findings. HARDWARE: Sternotomy wires. Graft markers. OTHER: No other significant finding. IMPRESSION: Cardiomegaly. Cannot exclude mild pulmonary edema. Small pleural effusions. TECHNICAL DOCUMENTATION: JOB ID: [id number] [employer]- All Rights Reserved Reading location - IP/workstation name: [email or web address]
[2018-01-04] MEDS ORDERED: CEFEPIME 1 GM/D5W RTU 1 GM/50 ML RTUPB IV SCH (18:00)
[2018-01-04 18:03] LABS: CREATINE KINASE MB 1.98 ng/mL (<4.55)
[2018-01-04 18:07] LABS: TROPONIN I 0.035 ng/mL
[2018-01-04 18:19] LABS: ALANINE AMINOTRANSFERASE 17 U/L (9-52); ALBUMIN 3.5 g/dL (3.5-5.0); ALKALINE PHOSPHATASE 122 U/L (38-126); ANION GAP 11 (5-19); ASPARTATE AMINO TRANSFERASE 19 U/L (14-36); BILIRUBIN,DIRECT 0.5 mg/dL (0.0-0.4); BILIRUBIN,TOTAL 0.5 mg/dL (0.2-1.3); BLOOD UREA NITROGEN 92 mg/dL (7-20); CALCIUM 8.9 mg/dL (8.4-10.2); CARBON DIOXIDE 29 mmol/L (22-30); CHLORIDE 102 mmol/L (98-107); CREATINE KINASE 37 U/L (30-135); GLUCOSE 88 mg/dL (75-110); POTASSIUM 5.7 mmol/L (3.6-5.0); SODIUM 141.9 mmol/L (137-145); TOTAL PROTEIN 6.7 g/dL (6.3-8.2)
[2018-01-04] MEDS: FUROSEMIDE INJ/PF 40 MG/4 ML SDV IV SCH (18:25)
[2018-01-04] MEDS ORDERED: DEXTROSE 40% GEL 15 GM TUBE PO PRN (19:17)
[2018-01-04] MEDS ORDERED: GLUCAGON,HUMAN RECOMB 1 MG INJ IM PRN (19:17)
[2018-01-04] MEDS ORDERED: INSULIN LISPRO 100 UNIT/ML 3 ML VIAL SUBCUT PRN (19:17)
[2018-01-04] MEDS ORDERED: DEXTROSE 40% GEL 15 GM TUBE X 2 PO PRN (19:17)
[2018-01-04] MEDS ORDERED: DEXTROSE 50%-WATER SYRINGE 12.5 GM/25 ML DOSE IV PRN (19:17)
[2018-01-04] MEDS ORDERED: DEXTROSE 50%-WATER SYRINGE 25 GM/50 ML DOSE IV PRN (19:17)
--- NOTE | 2018-01-04 19:29 | EKG REPORT ---
SEVERITY:- ABNORMAL ECG - ATRIAL FIBRILLATION : Confirmed by: Jeff Lanier MD 04-Jan-2018 19:28:24
[2018-01-04 19:38] LABS: HEMATOCRIT 29.9 % (36.0-47.0); HEMOGLOBIN 9.3 g/dL (12.0-15.5); MEAN CORPUSCULAR VOLUME 100 fl (80-97); PLATELET COUNT 157 10^3/uL (150-450); RED BLOOD COUNT 2.99 10^6/uL (3.72-5.28); RED CELL DISTRIBUTION WIDTH 18.5 % (11.5-14.0); WHITE BLOOD COUNT 6.8 10^3/uL (4.0-10.5)
[2018-01-04 20:01] LABS: ALANINE AMINOTRANSFERASE 21 U/L (9-52); ALBUMIN 3.3 g/dL (3.5-5.0); ALKALINE PHOSPHATASE 118 U/L (38-126); ANION GAP 11 (5-19); ASPARTATE AMINO TRANSFERASE 20 U/L (14-36); BILIRUBIN,DIRECT 0.5 mg/dL (0.0-0.4); BILIRUBIN,TOTAL 0.5 mg/dL (0.2-1.3); BLOOD UREA NITROGEN 93 mg/dL (7-20); CALCIUM 8.8 mg/dL (8.4-10.2); CARBON DIOXIDE 26 mmol/L (22-30); CHLORIDE 103 mmol/L (98-107); CREATINE KINASE 40 U/L (30-135); GLUCOSE 105 mg/dL (75-110); SODIUM 140.1 mmol/L (137-145); TOTAL PROTEIN 6.6 g/dL (6.3-8.2)
[2018-01-04 20:12] LABS: CREATINE KINASE MB 1.94 ng/mL (<4.55); TROPONIN I 0.046 ng/mL
[2018-01-04] MEDS: IPRATROPIUM/ALBUTEROL 0.5-2.5 MG/3 ML AMPUL NEB SCH (20:14)
[2018-01-04] MEDS ORDERED: VANCOMYCIN HCL 1,250 MG in DEXTROSE 5%-WATER 250 ML IV SCH (22:00)
[2018-01-04] MEDS: CEFEPIME 1 GM/D5W RTU 1 GM/50 ML RTUPB IV SCH (22:02)
[2018-01-04] MEDS: HYDRALAZINE HCL 50 MG TABLET PO SCH (22:03)
[2018-01-04] MEDS: CARVEDILOL 12.5 MG TABLET PO SCH (22:04)
[2018-01-04] MEDS: INSULIN GLARGINE,HUM.REC.ANLOG 300 UNIT/3 ML INSULN.PEN SUBCUT SCH (22:04)
[2018-01-04] MEDS: SIMVASTATIN 10 MG TABLET PO SCH (22:04)
[2018-01-04] MEDS ORDERED: INSULIN REG, HUMAN 100 UNIT/ML 3 ML VIAL (PYX) SUBCUT ONE (22:30)
[2018-01-04] MEDS ORDERED: DEXTROSE 50%-WATER 25 GM/50 ML DISP.SYRIN IV ONE (22:30)
[2018-01-04] MEDS ORDERED: SODIUM POLYSTYRENE SULFONATE 15 GM/60 ML PO ONE (22:45)
[2018-01-05 00:53] LABS: ANION GAP 8 (5-19); BLOOD UREA NITROGEN 96 mg/dL (7-20); CALCIUM 8.5 mg/dL (8.4-10.2); CARBON DIOXIDE 27 mmol/L (22-30); CHLORIDE 104 mmol/L (98-107); CREATINE KINASE 34 U/L (30-135); GLUCOSE 100 mg/dL (75-110); POTASSIUM 5.3 mmol/L (3.6-5.0); SODIUM 139.4 mmol/L (137-145)
[2018-01-05 01:01] LABS: CREATINE KINASE MB 1.69 ng/mL (<4.55); TROPONIN I 0.047 ng/mL
[2018-01-05] MEDS: FUROSEMIDE INJ/PF 40 MG/4 ML SDV IV SCH ×3 (01:21→17:35)
[2018-01-05] MEDS: IPRATROPIUM/ALBUTEROL 0.5-2.5 MG/3 ML AMPUL NEB SCH ×4 (02:12→20:51)
[2018-01-05] MEDS: HYDRALAZINE HCL 50 MG TABLET PO SCH ×3 (05:31→21:51)
[2018-01-05] MEDS: CEFEPIME 1 GM/D5W RTU 1 GM/50 ML RTUPB IV SCH ×3 (05:32→21:52)
[2018-01-05] MEDS ORDERED: LANSOPRAZOLE 30 MG TAB.RAP.DR PO SCH (06:00)
[2018-01-05 06:58] LABS: CREATINE KINASE MB 1.85 ng/mL (<4.55); TROPONIN I 0.059 ng/mL
[2018-01-05 07:01] LABS: ANION GAP 11 (5-19); BLOOD UREA NITROGEN 94 mg/dL (7-20); CALCIUM 8.3 mg/dL (8.4-10.2); CARBON DIOXIDE 25 mmol/L (22-30); CHLORIDE 103 mmol/L (98-107); CREATINE KINASE 33 U/L (30-135); GLUCOSE 97 mg/dL (75-110); POTASSIUM 5.8 mmol/L (3.6-5.0); SODIUM 139.3 mmol/L (137-145)
--- NOTE | 2018-01-05 07:44 | EKG REPORT ---
SEVERITY:- ABNORMAL ECG - ATRIAL FIBRILLATION NONSPECIFIC T ABNORMALITIES, INFERIOR LEADS : Confirmed by: Jeff Lanier MD 05-Jan-2018 07:43:48
[2018-01-05] MEDS: ALLOPURINOL 300 MG TABLET PO SCH (09:24)
[2018-01-05] MEDS: CETIRIZINE 10 MG TABLET PO SCH (09:24)
[2018-01-05] MEDS: CARVEDILOL 12.5 MG TABLET PO SCH ×2 (09:25→21:52)
[2018-01-05] MEDS: SODIUM POLYSTYRENE SULFONATE 15 GM/60 ML PO SCH ×2 (09:25→21:51)
[2018-01-05] MEDS: NITROGLYCERIN 10 MG (0.4 MG/HR) PATCH.TD24 TD SCH (09:25)
[2018-01-05] MEDS: ENOXAPARIN SODIUM INJ 30 MG/0.3 ML DISP.SYRIN SUBCUT SCH (09:26)
[2018-01-05] MEDS ORDERED: LOSARTAN POTASSIUM 50 MG TABLET PO SCH (10:00)
[2018-01-05] MEDS ORDERED: POTASSIUM CHLORIDE 10 MEQ CAPSULE.ER PO SCH (10:00)
--- NOTE | 2018-01-05 12:02 | RADIOLOGY REPORT (SQ) ---
EXAM DESCRIPTION: U/S RETROPERITON (RENAL/AORTA) COMPLETED DATE/TIME: 01/05/2018 11:34 am REASON FOR STUDY: renal failure COMPARISON: CT abdomen pelvis 09/11/2017 TECHNIQUE: Dynamic and static grayscale images acquired of the kidneys and bladder and recorded on P ACS. Additional selected color Doppler and spectral images recorded. LIMITATIONS: Large patient FINDINGS: RIGHT KIDNEY: Normal size, 11.2 cm in length. Normal echogenicity. No solid or suspicious masses. No hydronephrosis. No calcifications. LEFT KIDNEY: Normal size, 10.6 cm in length. Normal echogenicity. No solid or suspicious masses. No hydronephrosis. No calcifications. BLADDER: No masses. OTHER FINDINGS: No other significant finding. IMPRESSION: GROSSLY NORMAL RENAL AND BLADDER ULTRASOUND. TECHNICAL DOCUMENTATION: JOB ID: [id number] [employer]- All Rights Reserved Reading location - IP/workstation name: [email or web address]
--- NOTE | 2018-01-05 12:34 | PDOC CONSULTATION ---
Consultation Consult Date: 01/05/18 Attending physician:: ASAF COURTNEY Consult reason:: CHF History of Present Illness Admission Date/PCP: 01/04/18 11:37 MINO MONZON MD Patient complains of: Shortness of breath and cellulitis History of Present Illness: KIRK FUNEZ is a 67 year old female with history of congestive heart failure followed by Dr. Courtney sent here for direct admit. Patient has been complaining of increased shortness of breath, orthopnea, dyspnea on exertion, lower extremity edema with lower extremity anasarca. Has been admitted in the past for similar symptoms. Denies any chest pain at this time. Has had some increased weight gain as well. Was seen at primary care doctor's this morning and sent to the hospital for direct admit. Currently there are no beds available in the hospital so patient sent through the emergency department to be evaluated initially by emergency physician. This history obtained by the hospitalist was reviewed and confirmed. Patient has also noted some pain and discomfort in the right lower extremity with increased redness and swelling. Patient is suspected to have right lower extremity cellulitis. In addition patient claims that she had some exacerbation of psoriatic rash. On questioning patient denied any chest pain. She denied any recent sustained palpitations, syncope, near syncope. Patient claims that her last cardiac evaluation was more than a year ago. Past Medical History Cardiac Medical History: Reports: Atrial Fibrillation - TWO YEARS AGO, Congestive Heart Failure, Coronary Artery Disease, Myocardial Infarction - Triple bypass 2004, Hyperlipidema, Hypertension Pulmonary Medical History: Reports: Bronchitis, Pneumonia Denies: Asthma, Chronic Obstructive Pulmonary Disease (COPD), Tuberculosis Neurological Medical History: Denies: Seizures Endocrine Medical History: Reports: Diabetes Mellitus Type 1, Diabetes Mellitus Type 2 Renal/ Medical History: Reports: End Stage Renal Disease GI Medical History: Denies: Cirrhosis, Gastroesophageal Reflux Disease Musculoskeltal Medical History: Reports: Arthritis - SCORIATIC ARTHRITIS, Gout Psychiatric Medical History: Denies: Bipolar Disorder, Depression Hematology: Reports: Anemia Denies: Bleeding Tendencies Past Surgical History Past Surgical History: Reports: Cardiac Catheterization - Jan, Section, Cholecystectomy, Coronary Artery Bypass Graft - 2004 at [facility], Hysterectomy, Tubal Ligation Denies: Adenoidectomy, Pacemaker Social History Information Source: Patient Lives with: Spouse/Significant other Smoking Status: Never Smoker Number of Years Smokin Frequency of Alcohol Use: None Hx Recreational Drug Use: No Drugs: None Hx Prescription Drug Abuse: No - Advance Directive Resuscitation Status: Full Code Surrogate healthcare decision maker:: Patient's is the surrogate this decision maker Family History Family History: CAD, DM, Hypertension Parental Family History Reviewed: Yes Children Family History Reviewed: Yes Sibling(s) Family History Reviewed.: Yes Medication/Allergy Home Medications: Allopurinol [Zyloprim 300 mg Tablet] 300 mg PO DAILY 03/05/17 Apremilast [Otezla] 30 mg PO QHS 03/05/17 Cholecalciferol (Vitamin D3) [Vitamin D] 50,000 unit PO WE@1000 03/05/17 Cyanocobalamin (Vitamin B-12) [Vitamin B-12] 1,000 mcg PO DAILY 03/05/17 Furosemide [Lasix 40 mg Tablet] 40 mg PO TID 03/05/17 Hydralazine HCl [Apresoline 25 mg Tablet] 1.5 tab PO TID 03/05/17 Insulin Glargine,Hum.rec.anlog [Toujeo Solostar] 20 units SQ QHS 03/05/17 Losartan Potassium [Cozaar 100 mg Tablet] 100 mg PO DAILY 03/05/17 Potassium Chloride 20 meq PO BID 03/05/17 Simvastatin [Zocor 20 mg Tablet] 20 mg PO QHS 03/05/17 Carvedilol 12.5 mg PO QPM 06/17/17 Cetirizine HCl [Zyrtec 10 mg Tablet] 1 tab PO DAILY 08/22/17 Acetaminophen [Pain & Fever] 500 mg PO QID 01/04/18 Levalbuterol Tartrate [Xopenex Hfa] 15 gm IH TIDP PRN 01/04/18 Nitroglycerin [Nitroglycerin Patch] 1 patch TOP DAILY 01/04/18 Allergies/Adverse Reactions: Sulfa (Sulfonamide Antibiotics) Allergy (Mild, Verified 01/04/18 10:40) Hives warfarin sodium [From Coumadin] Adverse Reaction (Mild, Verified 01/04/18 10:40) Diarrhea Review of Systems Review of Systems: Please see history of present illness and past medical history as wall. Constitutional: Low-grade fever reported. Head : No recent chronic headaches, recent head injury. Eyes: No recent eye pain, diplopia, redness, discharge, acute visual changes. Ears: No recent chronic ear pain, acute hearing loss, ear discharge. Oral cavity: No recent ulcerations, bleeding, oral cavity discomfort. Neck: No recent acute neck pain reported. Hematologic: No recent easy bruising or bleeding. Lymphatic: No recent lymph node enlargement reported. Cardiovascular system review: See history of present illness. Respiratory system review: No hemoptysis or blood clots in the lungs reported. Mild Shortness of breath on exertion Gastrointestinal system review: Negative for any recent acute hematemesis, melena. Genitourinary system review: No recent acute or chronic hematuria, flank pain, UTI etc. reported. Skin system review: Positive for psoriatic rash. Patient also has redness and swelling of the right lower extremity. Neurologic: No prior history of strokes, mini strokes, seizure disorder. Psychologic: No history of major psychosis or major depression reported. Musculoskeletal: Minor aches and pains reported. No acute joint swelling reported. Endocrine: No recent polyuria, polydipsia, recent heat or cold intolerance. Physical Exam Vital Signs: Temp Pulse Resp BP Pulse Ox 97.9 F 63 16 164/52 H 94 01/05/18 07:29 01/05/18 07:48 01/05/18 07:48 01/05/18 07:29 01/05/18 07:48 Intake & Output 01/04/18 01/05/18 01/06/18 06:59 06:59 06:59 Intake Total 500 Output Total 200 Balance 300 Weight 114.1 kg Exam: GENERAL: well-nourished and in no acute distress. Alert and oriented x3 HEAD: Atraumatic, normocephalic. EYES: Pupils equal round and reactive to light, extraocular movements intact, sclera anicteric, conjunctiva are normal. ENT: TMs normal, nares patent, oropharynx clear without exudates. Moist mucous membranes. No oral ulcerations or bleeding gums noted NECK: supple without lymphadenopathy. Trachea is central. No cervical or axillary lymphadenopathy noted. Carotids are 2+, JVD 12 cm LUNGS: Respiration seems nonlabored, no significant accessory muscle action noted. Bibasilar fine crackles are noted. No wheezes rales or rhonchi noted. No significant dullness noted on percussion. CHEST: Palpation of the chest wall shows no significant chest wall tenderness. HEART: [place] [employer], No PSH, 1/6 REX aortic area, 1/6 green systolic murmur mitral area, no rubs, no gallops. ABDOMEN: Soft, no significant tenderness appreciated, normoactive bowel sounds. No guarding, no rebound. No rigidity noted . No masses appreciated. EXTREMITIES: Pedal pulses are 1-2+, no calf tenderness noted. No clubbing or cyanosis. negative pedal edema noted NEUROLOGICAL: Focused neurological exam showed no significant neurologic deficit. Normal speech, no focal weakness appreciated. PSYCH: Normal mood, normal affect. Judgment and insight within normal limits. SKIN: No significant ecchymosis, skin is noted to be warm. Findings consistent with cellulitis right lower leg. MUSCULOSKELETAL EXAM: No significant acute joint swelling noted. Results Laboratory Results: 01/04/18 19:00 01/05/18 06:10 01/04/18 01/04/18 01/04/18 14:54 17:15 19:00 WBC 5.1 6.8 RBC 3.07 L 2.99 L Hgb 9.5 L 9.3 L Hct 30.8 L 29.9 L MCV 101 H 100 H MCH 31.1 31.0 MCHC 30.9 L 31.0 L RDW 18.4 H 18.5 H Plt Count 175 157 Seg Neutrophils % 84.8 H Lymphocytes % 7.1 L Monocytes % 6.1 Eosinophils % 1.4 Basophils % 0.6 Absolute Neutrophils 4.3 Absolute Lymphocytes 0.4 L Absolute Monocytes 0.3 Absolute Eosinophils 0.1 Absolute Basophils 0.0 Sodium 141.9 Potassium 5.7 H Chloride 102 Carbon Dioxide 29 Anion Gap 11 BUN 92 H Creatinine 2.31 H Est GFR ( Amer) 26 L Est GFR (Non-Af Amer) 21 L Glucose 88 Calcium 8.9 Total Bilirubin 0.5 AST 19 ALT 17 Alkaline Phosphatase 122 Total Protein 6.7 Albumin 3.5 01/04/18 01/05/18 01/05/18 19:00 00:15 06:10 WBC RBC Hgb Hct MCV MCH MCHC RDW Plt Count Seg Neutrophils % Lymphocytes % Monocytes % Eosinophils % Basophils % Absolute Neutrophils Absolute Lymphocytes Absolute Monocytes Absolute Eosinophils Absolute Basophils Sodium 140.1 139.4 139.3 Potassium 6.0 H* 5.3 H 5.8 H Chloride 103 104 103 Carbon Dioxide 26 27 25 Anion Gap 11 8 11 BUN 93 H 96 H 94 H Creatinine 2.25 H 2.24 H 2.37 H Est GFR ( Amer) 26 L 27 L 25 L Est GFR (Non-Af Amer) 22 L 22 L 21 L Glucose 105 100 97 Calcium 8.8 8.5 8.3 L Total Bilirubin 0.5 AST 20 ALT 21 Alkaline Phosphatase 118 Total Protein 6.6 Albumin 3.3 L 01/04/18 01/04/18 01/04/18 17:15 17:15 19:00 Creatine Kinase 37 40 CK-MB (CK-2) 1.98 Troponin I 0.035 NT-Pro-B Natriuret Pep 8320 H 01/04/18 01/05/18 01/05/18 19:00 00:15 00:15 Creatine Kinase 34 CK-MB (CK-2) 1.94 1.69 Troponin I 0.046 0.047 NT-Pro-B Natriuret Pep 01/05/18 01/05/18 06:10 06:10 Creatine Kinase 33 CK-MB (CK-2) 1.85 Troponin I 0.059 NT-Pro-B Natriuret Pep EKG Comments: Atrial fibrillation with controlled ventricular response Impressions: Chest X-Ray 01/04/18 16:53 IMPRESSION: Cardiomegaly. Cannot exclude mild pulmonary edema. Small pleural effusions. Renal Ultrasound 01/05/18 06:58 IMPRESSION: GROSSLY NORMAL RENAL AND BLADDER ULTRASOUND. Assessment & Plan - Diagnosis (1) Congestive heart failure Qualifiers: Heart failure type: unspecified Heart failure chronicity: unspecified Qualified Code(s): I50.9 - Heart failure, unspecified Is this a current diagnosis for this admission?: Yes (2) Atrial fibrillation Qualifiers: Atrial fibrillation type: chronic Qualified Code(s): I48.2 - Chronic atrial fibrillation Is this a current diagnosis for this admission?: Yes (3) Coronary artery disease Qualifiers: Coronary Disease-Associated Artery/Lesion type: [place] artery [place] vs. transplanted heart: [place] heart Associated angina: angina presence unspecified Qualified Code(s): I25.10 - Atherosclerotic heart disease of [place] coronary artery without angina pectoris Is this a current diagnosis for this admission?: Yes (4) Hypertension Qualifiers: Hypertension type: essential hypertension Qualified Code(s): I10 - Essential (primary) hypertension Is this a current diagnosis for this admission?: Yes (5) Cellulitis of right leg Is this a current diagnosis for this admission?: Yes - Notes Notes: Congestive heart failure: Agree with obtaining a 2D echo. Will review that when completed. In the meantime, agree with IV diuretics. Atrial fibrillation: This is probably chronic. Recommend rate control. Chronic anticoagulation issue to be decided later on. Currently not on any chronic anticoagulation, patient has history of GI bleed and also had received blood transfusion. After ruling out any acute ongoing bleed, may consider chronic anticoagulation. Any of the newer oral anticoagulants will be preferable. Other option would be placement of watchman device, or other left atrial appendage occlusive device. Coronary artery disease: Currently symptomatically stable. Will consider evaluation with a nuclear stress test after CHF is well controlled. Hypertension: Blood pressure goal should be 135/85 or less. Recommend beta- blockers, MT inhibitor/ARB for hypertension control. Additional agents may be needed. Cellulitis of the right leg: Continue with antibiotic therapy. - Time Time Spent: 30 to 50 Minutes - CODE STATUS was discussed, patient remains full code. Surrogate decision-maker unchanged. Multiple medical problems were addressed. More than 50% of the time spent coordinating care, discussing management plans with involved caregivers. Management plans discussed with involved personnels. Medical decision making was of moderate to high complexity , patient's has multiple comorbidities. Medications reviewed and adjusted accordingly: Yes
[2018-01-05 13:17] LABS: URINE PROTEIN 48.6 mg/dL (<12)
--- NOTE | 2018-01-05 13:37 | PDOC H&P ---
History of Present Illness Admission Date/PCP: 01/04/18 11:37 MINO MONZON MD Patient complains of: Progressive shortness of breath and leg swelling History of Present Illness: KIRK FUNEZ is a 67 year old female she presents with 6 month history of progressive shortness of breath, dyspnea on exertion less than 100 feet, 2-3 pillow orthopnea, cough nonproductive, leg swelling development of discharge of the right leg with pain denied fever chills chest pain palpitation. She states to being compliant with her medications and attempts as outpatient of increasing diuretics did not show any improvement in her leg edema. Past Medical History Cardiac Medical History: Reports: Atrial Fibrillation - TWO YEARS AGO, Congestive Heart Failure, Coronary Artery Disease, Myocardial Infarction - Triple bypass 2004, Hyperlipidema, Hypertension, Heart Murmur Pulmonary Medical History: Reports: Bronchitis, Pneumonia Denies: Asthma, Chronic Obstructive Pulmonary Disease (COPD), Tuberculosis Neurological Medical History: Reports: Other - retinal artery occlusion Denies: Seizures Endocrine Medical History: Reports: Diabetes Mellitus Type 1, Diabetes Mellitus Type 2 Renal/ Medical History: Reports: Chronic Kidney Disease, End Stage Renal Disease Malignancy Medical History: Reports: Breast Cancer GI Medical History: Denies: Cirrhosis, Gastroesophageal Reflux Disease GI History Note: History of occult GI blood loss Musculoskeltal Medical History: Reports: Arthritis - SCORIATIC ARTHRITIS, Gout Skin Medical History: Reports: Psoriasis Psychiatric Medical History: Reports: None Denies: Bipolar Disorder, Depression Hematology: Reports: Anemia Denies: Bleeding Tendencies Past Surgical History Past Surgical History: Reports: Cardiac Catheterization - Jan, Section, Cholecystectomy, Coronary Artery Bypass Graft - [address] [facility], Hysterectomy, Tubal Ligation Denies: Adenoidectomy, Pacemaker Social History Lives with: Spouse/Significant other Smoking Status: Never Smoker Number of Years Smokin Frequency of Alcohol Use: None Hx Recreational Drug Use: No Drugs: None Hx Prescription Drug Abuse: No - Advance Directive Resuscitation Status: Full Code Family History Family History: CAD, DM, Hypertension Parental Family History Reviewed: Yes Children Family History Reviewed: Yes Sibling(s) Family History Reviewed.: Yes Medication/Allergy Home Medications: Allopurinol [Zyloprim 300 mg Tablet] 300 mg PO DAILY 03/05/17 Apremilast [Otezla] 30 mg PO QHS 03/05/17 Cholecalciferol (Vitamin D3) [Vitamin D] 50,000 unit PO WE@1000 03/05/17 Cyanocobalamin (Vitamin B-12) [Vitamin B-12] 1,000 mcg PO DAILY 03/05/17 Furosemide [Lasix 40 mg Tablet] 40 mg PO TID 03/05/17 Hydralazine HCl [Apresoline 25 mg Tablet] 1.5 tab PO TID 03/05/17 Insulin Glargine,Hum.rec.anlog [Toujeo Solostar] 20 units SQ QHS 03/05/17 Losartan Potassium [Cozaar 100 mg Tablet] 100 mg PO DAILY 03/05/17 Potassium Chloride 20 meq PO BID 03/05/17 Simvastatin [Zocor 20 mg Tablet] 20 mg PO QHS 03/05/17 Carvedilol 12.5 mg PO QPM 06/17/17 Cetirizine HCl [Zyrtec 10 mg Tablet] 1 tab PO DAILY 08/22/17 Acetaminophen [Pain & Fever] 500 mg PO QID 01/04/18 Levalbuterol Tartrate [Xopenex Hfa] 15 gm IH TIDP PRN 01/04/18 Nitroglycerin [Nitroglycerin Patch] 1 patch TOP DAILY 01/04/18 Allergies/Adverse Reactions: Sulfa (Sulfonamide Antibiotics) Allergy (Mild, Verified 01/04/18 10:40) Hives warfarin sodium [From Coumadin] Adverse Reaction (Mild, Verified 01/04/18 10:40) Diarrhea Review of Systems Constitutional: PRESENT: weight gain Eyes: ABSENT: visual disturbances Ears: ABSENT: hearing changes Cardiovascular: PRESENT: dyspnea on exertion, edema, orthropnea Respiratory: PRESENT: cough, dyspnea Gastrointestinal: ABSENT: abdominal pain, constipation, diarrhea, hematemesis, hematochezia, nausea, vomiting Genitourinary: ABSENT: dysuria, hematuria Musculoskeletal: ABSENT: joint swelling Integumentary: PRESENT: erythema Neurological: PRESENT: other - visual loss transient Endocrine: ABSENT: cold intolerance, heat intolerance, menstrual abnormalities, polydipsia, polyuria Hematologic/Lymphatic: ABSENT: easy bleeding, easy bruising, lymphadenopathy Physical Exam Vital Signs: Temp Pulse Resp BP Pulse Ox 97.0 F 76 17 153/48 H 96 01/05/18 11:12 01/05/18 11:12 01/05/18 11:12 01/05/18 11:12 01/05/18 11:12 Intake & Output 01/04/18 01/05/18 01/06/18 06:59 06:59 06:59 Intake Total 500 400 Output Total 200 Balance 300 400 Weight 114.1 kg General appearance: PRESENT: no acute distress Head exam: PRESENT: atraumatic, normocephalic Eye exam: PRESENT: conjunctiva pink, EOMI, PERRLA. ABSENT: scleral icterus Ear exam: PRESENT: normal external ear exam Mouth exam: PRESENT: moist, tongue midline Neck exam: PRESENT: full ROM. ABSENT: carotid bruit, JVD, lymphadenopathy, thyromegaly Respiratory exam: PRESENT: crackles, decreased breath sounds Cardiovascular exam: PRESENT: systolic murmur Murmur grade: 2 Pulses: PRESENT: normal dorsalis pedis pul, +2 pedal pulses bilateral Vascular exam: PRESENT: normal capillary refill GI/Abdominal exam: PRESENT: normal bowel sounds, soft. ABSENT: distended, guarding, mass, organolmegaly, rebound, tenderness Rectal exam: PRESENT: deferred Extremities exam: PRESENT: other - 1-2+ edema to the knees Neurological exam: PRESENT: alert, awake, oriented to person, oriented to place , oriented to time, oriented to situation, CN II-XII grossly intact. ABSENT: motor sensory deficit Psychiatric exam: PRESENT: appropriate affect, normal mood. ABSENT: homicidal ideation, suicidal ideation Skin exam: PRESENT: erythema, warm, other Results Laboratory Results: 01/04/18 19:00 01/05/18 06:10 01/04/18 01/04/18 01/04/18 14:54 17:15 19:00 WBC 5.1 6.8 RBC 3.07 L 2.99 L Hgb 9.5 L 9.3 L Hct 30.8 L 29.9 L MCV 101 H 100 H MCH 31.1 31.0 MCHC 30.9 L 31.0 L RDW 18.4 H 18.5 H Plt Count 175 157 Seg Neutrophils % 84.8 H Lymphocytes % 7.1 L Monocytes % 6.1 Eosinophils % 1.4 Basophils % 0.6 Absolute Neutrophils 4.3 Absolute Lymphocytes 0.4 L Absolute Monocytes 0.3 Absolute Eosinophils 0.1 Absolute Basophils 0.0 Sodium 141.9 Potassium 5.7 H Chloride 102 Carbon Dioxide 29 Anion Gap 11 BUN 92 H Creatinine 2.31 H Est GFR ( Amer) 26 L Est GFR (Non-Af Amer) 21 L Glucose 88 Calcium 8.9 Total Bilirubin 0.5 AST 19 ALT 17 Alkaline Phosphatase 122 Total Protein 6.7 Albumin 3.5 01/04/18 01/05/18 01/05/18 19:00 00:15 06:10 WBC RBC Hgb Hct MCV MCH MCHC RDW Plt Count Seg Neutrophils % Lymphocytes % Monocytes % Eosinophils % Basophils % Absolute Neutrophils Absolute Lymphocytes Absolute Monocytes Absolute Eosinophils Absolute Basophils Sodium 140.1 139.4 139.3 Potassium 6.0 H* 5.3 H 5.8 H Chloride 103 104 103 Carbon Dioxide 26 27 25 Anion Gap 11 8 11 BUN 93 H 96 H 94 H Creatinine 2.25 H 2.24 H 2.37 H Est GFR ( Amer) 26 L 27 L 25 L Est GFR (Non-Af Amer) 22 L 22 L 21 L Glucose 105 100 97 Calcium 8.8 8.5 8.3 L Total Bilirubin 0.5 AST 20 ALT 21 Alkaline Phosphatase 118 Total Protein 6.6 Albumin 3.3 L 01/04/18 01/04/18 01/04/18 17:15 17:15 19:00 Creatine Kinase 37 40 CK-MB (CK-2) 1.98 Troponin I 0.035 NT-Pro-B Natriuret Pep 8320 H 01/04/18 01/05/18 01/05/18 19:00 00:15 00:15 Creatine Kinase 34 CK-MB (CK-2) 1.94 1.69 Troponin I 0.046 0.047 NT-Pro-B Natriuret Pep 01/05/18 01/05/18 06:10 06:10 Creatine Kinase 33 CK-MB (CK-2) 1.85 Troponin I 0.059 NT-Pro-B Natriuret Pep Impressions: Chest X-Ray 01/04/18 16:53 IMPRESSION: Cardiomegaly. Cannot exclude mild pulmonary edema. Small pleural effusions. Renal Ultrasound 01/05/18 06:58 IMPRESSION: GROSSLY NORMAL RENAL AND BLADDER ULTRASOUND. Assessment & Plan - Diagnosis (1) Congestive heart failure Qualifiers: Heart failure type: unspecified Heart failure chronicity: unspecified Qualified Code(s): I50.9 - Heart failure, unspecified Is this a current diagnosis for this admission?: Yes Plan: 1000 cc fluid restricted put on IV Lasix, get an echo consult cardiology, (2) Cellulitis of right leg Is this a current diagnosis for this admission?: Yes Plan: It has been put on cefepime and vancomycin to be managed by the pharmacy we will monitor clinical response of redness warmth and tenderness (3) Hypertension Qualifiers: Hypertension type: essential hypertension Qualified Code(s): I10 - Essential (primary) hypertension Is this a current diagnosis for this admission?: Yes Plan: We will continue carvedilol, increase hydralazine to 100 every 8 we will continue on Nitro-Dur 0.4 q. daily (4) Acute on chronic renal failure Qualifiers: Acute renal failure type: unspecified Chronic kidney disease stage: stage 4 (severe) Qualified Code(s): N17.9 - Acute kidney failure, unspecified; N18.4 - Chronic kidney disease, stage 4 (severe); N18.4 - Chronic kidney disease , stage 4 (severe); N18.4 - Chronic kidney disease, stage 4 (severe); N18.4 - Chronic kidney disease, stage 4 (severe) Is this a current diagnosis for this admission?: Yes Plan: Plan get a renal ultrasound and urine spot sodium get a CPAP, UPEP get serum immune protein electrophoresis, will get an JOBY, [id number], discontinue Protonix, discontinue losartan, will consult nephrology. Also get a microalbumin level (5) Hyperkalemia, diminished renal excretion Is this a current diagnosis for this admission?: Yes Plan: When she is getting Lasix IV we will give Kayexalate for 24-36 hours, will discontinue the losartan my expectation is as kidney function improves her hyperkalemia will resolve. - Time Time Spent: 50 to 70 Minutes Medications reviewed and adjusted accordingly: Yes Anticipated discharge: Home Within: within 72 hours - Inpatient Certification I certify that my determination is in accordance with my understanding of Medicare's requirements for reasonable and necessary INPATIENT services [42 CFR 412.3e].: Yes Medical Necessity: Failure to Improve With Outpatient Therapy, Significant Comorbidiites Make Outpatient Treatment Too Risky, Need for IV Antibiotics Post Hospital Care: D/C Front Desk Monitor Documentation
--- NOTE | 2018-01-05 14:32 | RADIOLOGY REPORT (SQ) ---
EXAM DESCRIPTION: CT HEAD WITHOUT COMPLETED DATE/TIME: 01/05/2018 2:24 pm REASON FOR STUDY: TIA COMPARISON: 12/13/2016 TECHNIQUE: Axial images acquired through the brain without intravenous contrast. Images reviewed wi th bone, brain and subdural windows. Images stored on PACS. All CT scanners at this facility use dose modulation, iterative reconstruction, and/or weight based d osing when appropriate to reduce radiation dose to as low as reasonably achievable (ALARA). [facility]: Dose Right [facility]: CareDose [facility]: Dose Right [facility]: Teradose 4D [facility]: [employer] RADIATION DOSE: CT Rad equipment meets quality standard of care and radiation dose reduction techniq ues were employed. CTDIvol: 48.6 mGy. DLP: 904 mGy-cm. mGy. LIMITATIONS: None. FINDINGS: VENTRICLES: Normal size and contour. CEREBRUM: No masses. No hemorrhage. No midline shift. No evidence for acute infarction. Normal gra y/white matter differentiation. No areas of low density in the white matter. CEREBELLUM: No masses. No hemorrhage. No alteration of density. No evidence for acute infarction. EXTRAAXIAL SPACES: No fluid collections. No masses. ORBITS AND GLOBE: No intra- or extraconal masses. Normal contour of globe without masses. CALVARIUM: No fracture. PARANASAL SINUSES: There is chronic sphenoid sinus disease. SOFT TISSUES: No mass or hematoma. OTHER: No other significant finding. IMPRESSION: 1. No acute intracranial event. 2. Chronic sphenoid sinus disease. EVIDENCE OF ACUTE STROKE: NO. COMMENT: Quality ID # [id number]: Final reports with documentation of one or more dose reduction techniques (e.g., Automated exposure control, adjustment of the mA and/or kV according to patient size, use of iterative reconstruction technique) TECHNICAL DOCUMENTATION: JOB ID: [id number] [facility]- All Rights Reserved Reading location - IP/workstation name: [email or web address]
--- NOTE | 2018-01-05 15:07 | PDOC CONSULTATION ---
Consultation Consult Date: 01/05/18 Consult reason:: MELL. History of Present Illness Admission Date/PCP: 01/04/18 11:37 MINO MONZON MD History of Present Illness: KIRK FUNEZ is a 67 year old female with a long-standing history of complicated diabetes, hypertension, CAD, congestive heart failure, psoriasis was admitted with history of progressive shortness of breath initially on exertion finally culminating in orthopnea on the day before admission.She has also noticed progressive worsening of pedal edema.She is also noticed some worsening of his psoriasis of her lower extremities. She denies any history of fever or chills. After clinical evaluations in the ER she was diagnosed to have congestive heart failure and MELL. She was begun on IV diuretics and oxygen and also begun on IV antibiotics on the presumptive diagnosis of possible cellulitis of her lower extremities.She admits to high salt intake. No history of being on any NSAIDs. No history of any recent infection.Her base creatinine is around 1.1. Hypertension was also found to be high. Her home medications included an ARB along with potassium replacements. Both above-mentioned had been stopped and she has been treated with Kayexalate.Currently she is feeling better as she is sitting on the edge of the bed. Past Medical History Cardiac Medical History: Reports: Atrial Fibrillation - TWO YEARS AGO, Coronary Artery Disease, Heart Murmur, Hyperlipidemia, Hypertension-primary, Myocardial Infarction - Triple bypass 2004 Pulmonary Medical History: Reports: Bronchitis, Pneumonia Denies: Asthma, Chronic Obstructive Pulmonary Disease (COPD), Tuberculosis Neurological Medical History: Reports: Other - retinal artery occlusion Denies: Seizures Endocrine Medical History: Reports: Diabetes Mellitus Type 2 Renal/ Medical History: Denies: Benign Prostatic Hyperplasia Malignancy Medical History: Reports: Breast Cancer GI Medical History: Denies: Cirrhosis, Gastroesophageal Reflux Disease Musculoskeltal Medical History: Reports: Arthritis - SCORIATIC ARTHRITIS, Gout Skin Medical History: Reports: Psoriasis Psychiatric Medical History: Reports: None Denies: Bipolar Disorder, Depression Past Surgical History Past Surgical History: Reports: Cardiac Catheterization - Jan, Section, Cholecystectomy, Coronary Artery Bypass Graft - 2004 at [facility], Hysterectomy, Tubal Ligation Denies: Pacemaker Social History Lives with: Spouse/Significant other Smoking Status: Never Smoker Number of Years Smokin Frequency of Alcohol Use: None Hx Recreational Drug Use: No Drugs: None Hx Prescription Drug Abuse: No - Advance Directive Resuscitation Status: Full Code Family History Parental Family History Reviewed: Yes - Denies any history of ESRD. Children Family History Reviewed: No Sibling(s) Family History Reviewed.: No Medication/Allergy Home Medications: Allopurinol [Zyloprim 300 mg Tablet] 300 mg PO DAILY 03/05/17 Apremilast [Otezla] 30 mg PO QHS 03/05/17 Cholecalciferol (Vitamin D3) [Vitamin D] 50,000 unit PO WE@1000 03/05/17 Cyanocobalamin (Vitamin B-12) [Vitamin B-12] 1,000 mcg PO DAILY 03/05/17 Furosemide [Lasix 40 mg Tablet] 40 mg PO TID 03/05/17 Hydralazine HCl [Apresoline 25 mg Tablet] 1.5 tab PO TID 03/05/17 Insulin Glargine,Hum.rec.anlog [Toujeo Solostar] 20 units SQ QHS 03/05/17 Losartan Potassium [Cozaar 100 mg Tablet] 100 mg PO DAILY 03/05/17 Potassium Chloride 20 meq PO BID 03/05/17 Simvastatin [Zocor 20 mg Tablet] 20 mg PO QHS 03/05/17 Carvedilol 12.5 mg PO QPM 06/17/17 Cetirizine HCl [Zyrtec 10 mg Tablet] 1 tab PO DAILY 08/22/17 Acetaminophen [Pain & Fever] 500 mg PO QID 01/04/18 Levalbuterol Tartrate [Xopenex Hfa] 15 gm IH TIDP PRN 01/04/18 Nitroglycerin [Nitroglycerin Patch] 1 patch TOP DAILY 01/04/18 Allergies/Adverse Reactions: Sulfa (Sulfonamide Antibiotics) Allergy (Mild, Verified 01/04/18 10:40) Hives warfarin sodium [From Coumadin] Adverse Reaction (Mild, Verified 01/04/18 10:40) Diarrhea Review of Systems Constitutional: PRESENT: fatigue. ABSENT: fever(s), headache(s), night sweats, weakness Nose, Mouth, and Throat: ABSENT: mouth pain, sore throat Cardiovascular: PRESENT: dyspnea on exertion, edema, orthropnea, palpitations. ABSENT: chest pain Respiratory: PRESENT: cough, dyspnea. ABSENT: hemoptysis Gastrointestinal: ABSENT: abdominal pain, diarrhea, dysphagia, heartburn, hematemesis, hematochezia, nausea, vomiting Genitourinary: ABSENT: dysuria, hematuria Integumentary: PRESENT: erythema - Of lower extremity which she thinks was worsening of her psoriatic lesions.. ABSENT: lesions, pruritus, rash Neurological: ABSENT: confusion, convulsions, focal weakness, frequent falls, syncope Endocrine: ABSENT: heat intolerance Hematologic/Lymphatic: ABSENT: easy bleeding, easy bruising, lymphadenopathy Physical Exam Vital Signs: Temp Pulse Resp BP Pulse Ox 97.0 F 61 16 153/48 H 99 01/05/18 11:12 01/05/18 14:00 01/05/18 14:00 01/05/18 11:12 01/05/18 14:00 Intake & Output 01/04/18 01/05/18 01/06/18 06:59 06:59 06:59 Intake Total 500 400 Output Total 200 Balance 300 400 Weight 114.1 kg General appearance: PRESENT: mild distress Eye exam: PRESENT: conjunctiva pink, EOMI, PERRLA Ear exam: PRESENT: normal external ear exam Mouth exam: PRESENT: moist, neck supple Neck exam: ABSENT: lymphadenopathy, meningismus, tenderness, thyromegaly, tracheal deviation Respiratory exam: PRESENT: clear to auscultation noelle, crackles. ABSENT: rhonchi Cardiovascular exam: PRESENT: +S1, +S2 GI/Abdominal exam: PRESENT: normal bowel sounds, soft. ABSENT: distended, organomegaly, tenderness Extremities exam: PRESENT: pedal edema, +1 edema. ABSENT: calf tenderness, clubbing Neurological exam: PRESENT: alert, awake, oriented to person, oriented to place , oriented to time Skin exam: PRESENT: erythema - And patchy areas of her lower extremity which looks possibly more like psoriatic lesions then cellulitis. ABSENT: mottled, rash Results Laboratory Results: 01/04/18 19:00 01/05/18 06:10 01/04/18 01/04/18 01/04/18 14:54 17:15 19:00 WBC 5.1 6.8 RBC 3.07 L 2.99 L Hgb 9.5 L 9.3 L Hct 30.8 L 29.9 L MCV 101 H 100 H MCH 31.1 31.0 MCHC 30.9 L 31.0 L RDW 18.4 H 18.5 H Plt Count 175 157 Seg Neutrophils % 84.8 H Lymphocytes % 7.1 L Monocytes % 6.1 Eosinophils % 1.4 Basophils % 0.6 Absolute Neutrophils 4.3 Absolute Lymphocytes 0.4 L Absolute Monocytes 0.3 Absolute Eosinophils 0.1 Absolute Basophils 0.0 Sodium 141.9 Potassium 5.7 H Chloride 102 Carbon Dioxide 29 Anion Gap 11 BUN 92 H Creatinine 2.31 H Est GFR ( Amer) 26 L Est GFR (Non-Af Amer) 21 L Glucose 88 Calcium 8.9 Total Bilirubin 0.5 AST 19 ALT 17 Alkaline Phosphatase 122 Total Protein 6.7 Albumin 3.5 01/04/18 01/05/18 01/05/18 19:00 00:15 06:10 WBC RBC Hgb Hct MCV MCH MCHC RDW Plt Count Seg Neutrophils % Lymphocytes % Monocytes % Eosinophils % Basophils % Absolute Neutrophils Absolute Lymphocytes Absolute Monocytes Absolute Eosinophils Absolute Basophils Sodium 140.1 139.4 139.3 Potassium 6.0 H* 5.3 H 5.8 H Chloride 103 104 103 Carbon Dioxide 26 27 25 Anion Gap 11 8 11 BUN 93 H 96 H 94 H Creatinine 2.25 H 2.24 H 2.37 H Est GFR ( Amer) 26 L 27 L 25 L Est GFR (Non-Af Amer) 22 L 22 L 21 L Glucose 105 100 97 Calcium 8.8 8.5 8.3 L Total Bilirubin 0.5 AST 20 ALT 21 Alkaline Phosphatase 118 Total Protein 6.6 Albumin 3.3 L 01/04/18 01/04/18 01/04/18 17:15 17:15 19:00 Creatine Kinase 37 40 CK-MB (CK-2) 1.98 Troponin I 0.035 NT-Pro-B Natriuret Pep 8320 H 01/04/18 01/05/18 01/05/18 19:00 00:15 00:15 Creatine Kinase 34 CK-MB (CK-2) 1.94 1.69 Troponin I 0.046 0.047 NT-Pro-B Natriuret Pep 01/05/18 01/05/18 06:10 06:10 Creatine Kinase 33 CK-MB (CK-2) 1.85 Troponin I 0.059 NT-Pro-B Natriuret Pep Impressions: Chest X-Ray 01/04/18 16:53 IMPRESSION: Cardiomegaly. Cannot exclude mild pulmonary edema. Small pleural effusions. Renal Ultrasound 01/05/18 06:58 IMPRESSION: GROSSLY NORMAL RENAL AND BLADDER ULTRASOUND. Head CT 01/05/18 13:39 IMPRESSION: 1. No acute intracranial event. 2. Chronic sphenoid sinus disease. EVIDENCE OF ACUTE STROKE: NO. Assessment & Plan - Diagnosis (1) Acute on chronic renal failure Qualifiers: Acute renal failure type: unspecified Chronic kidney disease stage: stage 4 (severe) Qualified Code(s): N17.9 - Acute kidney failure, unspecified; N18.4 - Chronic kidney disease, stage 4 (severe); N18.4 - Chronic kidney disease , stage 4 (severe); N18.4 - Chronic kidney disease, stage 4 (severe); N18.4 - Chronic kidney disease, stage 4 (severe) Is this a current diagnosis for this admission?: Yes Plan: Currently nonoliguric. Her baseline creatinine is 1.1 which puts her in CKD stage III. Unsure of proteinuria. Will get a UA. Her presenting renal numbers showed a creatinine between 3 and 4 secondary to MELL from prerenal congestive heart failure. Possible additional factors may include cellulitis.Renal ultrasound obtained was reviewed and was negative for any obstructive lesions otherwise. Continue on IV Lasix. Please dose medications for GFR of approximately 25 cc/min. Converted/adjusted vancomycin and cefepime accordingly. Discussed with pharmacy that I will take over management of vancomycin. (2) Congestive heart failure Qualifiers: Heart failure type: unspecified Heart failure chronicity: unspecified Qualified Code(s): I50.9 - Heart failure, unspecified Is this a current diagnosis for this admission?: Yes (3) Hyperkalemia, diminished renal excretion Is this a current diagnosis for this admission?: Yes Plan: From a combination of being on ARB/potassium replacement. Both above medications have been held. Currently treating with SPS. Advised low potassium diet for the moment. We will continue to monitor. Discussed implications of hyperkalemia. (4) Atrial fibrillation Qualifiers: Atrial fibrillation type: chronic Qualified Code(s): I48.2 - Chronic atrial fibrillation Is this a current diagnosis for this admission?: Yes Plan: Currently rate controlled. As per cardiology. (5) Diabetes mellitus Plan: Poorly controlled. Advised the need for tight diabetic control especially given her comorbidities and therefore the propensity to have advanced CKD. (6) Psoriasis Plan: ? Possibly the lesion on the right leg with exacerbation. Monitor. (7) Cellulitis of right leg Is this a current diagnosis for this admission?: Yes Plan: ?.Currently on IV cefepime and vancomycin that I have dose adjusted renally. If there is no clinical responses to the antibiotics one might deem that this could be just a psoriatic exacerbation and might stop the antibiotics. (8) Anemia Plan: Note that some studies have been initiated. Note that she has had a previous history of GI bleed. I am going to add iron studies as well to that.
--- NOTE | 2018-01-05 18:46 | XCELERA REPORT ---
[address] [address] Transthoracic Echocardiogram Report Name: KIRK FUNEZ Age: 67 yrs Gender: Female : 1950 Patient Status: Inpatient Patient Location: [address] [place], [place] [address] Study Date: 01/05/2018 10:42 AM Height: 64 in Weight: 251 lb BSA: 2.2 m2 Procedure: A complete two-dimensional transthoracic echocardiogram was performed (2D, M-mode, spectral and color flow Doppler). The study was technically difficult with many images being suboptimal in quality. Reason For Study: chf Ordering Physician: ASAF COURTNEY Performed By: Sandy Rosales Interpretation Summary The left ventricular ejection fraction is normal. Doppler measurements suggest pseudonormalized left ventricular relaxation, which is associated with grade II/IV or mild to moderate diastolic dysfunction There is mild to moderate concentric left ventricular hypertrophy. The left ventricle is grossly normal size. Wall motion cannot be accurately commented on, but no definite regional wall motion abnormalities noted. The right ventricle is mildly dilated. There is normal right ventricular wall thickness. The right ventricular systolic function is borderline reduced. The left atrium is mildly dilated. The right atrium is mildly dilated. There is a trace to mild amount of mitral regurgitation There is no mitral valve stenosis. There is no aortic valve stenosis No aortic regurgitation is present. There is a mild amount of tricuspid regurgitation There is moderate to severe pulmonary hypertension by echo Best estimated RVSP is approximately 60-65 mm/Hg. The inferior vena cava appeared dilated and decreased < 50% with respiration (RAP 15-20 mmHg) The aortic root is not well visualized. There is no pericardial effusion. MMode/2D Measurements & Calculations RVDd: 2.8 cm LVIDd: 4.1 cm FS: 40.2 % Ao root diam: 2.6 cm IVSd: 1.2 cm LVIDs: 2.5 cm EDV(Teich): 75.9 ml Ao root area: 5.3 cm2 LVPWd: 1.1 cm ESV(Teich): 21.7 ml LA dimension: 3.5 cm EF(Teich): 71.3 % Doppler Measurements & Calculations MV E max tyler: MV P1/2t max tyler: Ao V2 max: LV V1 max P.5 cm/sec 154.5 cm/sec 181.3 cm/sec 6.0 mmHg MV A max tyler: MV P1/2t: 64.2 msec Ao max PG: LV V1 max: 39.0 cm/sec MVA(P1/2t): 3.4 cm2 13.2 mmHg 122.9 cm/sec MV E/A: 4.0 MV dec slope: 705.3 cm/sec2 MV dec time: 0.20 sec PA V2 max: TR max tyler: MV P1/2t-pr_phl: 107.6 cm/sec 350.2 cm/sec 59.9 msec PA max P.6 mmHgTR max P.1 mmHg Left Ventricle The left ventricle is grossly normal size. There is mild to moderate concentric left ventricular hypertrophy. The left ventricular ejection fraction is normal. Doppler measurements suggest pseudonormalized left ventricular relaxation, which is associated with grade II/IV or mild to moderate diastolic dysfunction. Wall motion cannot be accurately commented on, but no definite regional wall motion abnormalities noted. Right Ventricle The right ventricle is mildly dilated. There is normal right ventricular wall thickness. The right ventricular systolic function is borderline reduced. Atria The right atrium is mildly dilated. The left atrium is mildly dilated. Interarterial septum not well visualized and not well dopplered. Cannot comment on ASD/PFO presence. Mitral Valve There is mild mitral leaflet calcification. There is mild to moderate mitral annular calcification. There is no mitral valve stenosis. There is a trace to mild amount of mitral regurgitation. Aortic Valve The aortic valve is not well visualized secondary to technical limitations. There is no aortic valve stenosis. No aortic regurgitation is present. Tricuspid Valve The tricuspid valve is not well visualized, but is grossly normal. There is no tricuspid stenosis. There is a mild amount of tricuspid regurgitation. There is moderate to severe pulmonary hypertension by echo. Best estimated RVSP is approximately 60-65 mm/Hg. Pulmonic Valve The pulmonic valve is not well visualized. Great Vessels The aortic root is not well visualized. The inferior vena cava appeared dilated and decreased < 50% with respiration (RAP 15-20 mmHg). Effusions There is no pericardial effusion. : ASAF COURTNEY > Shelia Branch
[2018-01-05 19:39] LABS: APPEARANCE,URINE CLOUDY; BILIRUBIN,URINE NEGATIVE (NEGATIVE); COLOR,URINE YELLOW; GLUCOSE, URINE NEGATIVE (NEGATIVE); KETONES,URINE NEGATIVE (NEGATIVE); LEUKOCYTE ESTERASE,URINE NEGATIVE (NEGATIVE); NITRITE,URINE NEGATIVE (NEGATIVE); PROTEIN,URINE 30 mg/dL (NEGATIVE); URINE SPECIFIC GRAVITY 1.016; UROBILINOGEN,URINE NEGATIVE mg/dL (<2.0)
[2018-01-05] MEDS: SIMVASTATIN 10 MG TABLET PO SCH (21:52)
[2018-01-05] MEDS: INSULIN GLARGINE,HUM.REC.ANLOG 300 UNIT/3 ML INSULN.PEN SUBCUT SCH (21:53)
[2018-01-06] MEDS: FUROSEMIDE INJ/PF 40 MG/4 ML SDV IV SCH ×3 (01:06→22:19)
[2018-01-06] MEDS: IPRATROPIUM/ALBUTEROL 0.5-2.5 MG/3 ML AMPUL NEB SCH ×4 (02:27→20:31)
[2018-01-06] MEDS: HYDRALAZINE HCL 50 MG TABLET PO SCH ×3 (05:26→22:17)
[2018-01-06 06:27] LABS: APPEARANCE,URINE SLIGHTLY-CLOUDY; BILIRUBIN,URINE NEGATIVE (NEGATIVE); CALCIUM OXALATE CRYSTALS,URINE RARE /HPF; COLOR,URINE YELLOW; GLUCOSE, URINE NEGATIVE (NEGATIVE); KETONES,URINE NEGATIVE (NEGATIVE); LEUKOCYTE ESTERASE,URINE TRACE (NEGATIVE); NITRITE,URINE NEGATIVE (NEGATIVE); PROTEIN,URINE 30 mg/dL (NEGATIVE); URINE SPECIFIC GRAVITY 1.014; UROBILINOGEN,URINE NEGATIVE mg/dL (<2.0)
[2018-01-06 06:52] LABS: ABSOLUTE EOSINOPHILS # (AUTO) 0.1 10^3/uL (0.0-0.6); ABSOLUTE LYMPHOCYTES (AUTO) 0.4 10^3/uL (0.5-4.7); ABSOLUTE MONOCYTES (AUTO) 0.5 10^3/uL (0.1-1.4); ABSOLUTE NEUT (AUTO) 6.3 10^3/uL (1.7-8.2); ABSOLUTE RETICS # 0.068 10^6/uL (0.028-0.122); BASOPHILS % (AUTO) 0.5 % (0-2); EOSINOPHILS % (AUTO) 0.9 % (0-6); HEMATOCRIT 28.8 % (36.0-47.0); HEMOGLOBIN 8.9 g/dL (12.0-15.5); LYMPHOCYTES % (AUTO) 5.6 % (13-45); MEAN CORPUSCULAR HEMOGLOBIN 31.1 pg (27.0-33.4); MEAN CORPUSCULAR VOLUME 100 fl (80-97); MONOCYTES % (AUTO) 6.4 % (3-13); PLATELET COUNT 160 10^3/uL (150-450); RED BLOOD COUNT 2.87 10^6/uL (3.72-5.28); RED CELL DISTRIBUTION WIDTH 18.3 % (11.5-14.0); RETICULOCYTE COUNT (AUTO) 2.36 % (0.66-2.85); SEGMENTED NEUTROPHILS % (AUTO) 86.6 % (42-78); TOTAL CELLS COUNTED % (AUTO) 100 %; WHITE BLOOD COUNT 7.2 10^3/uL (4.0-10.5)
[2018-01-06 07:05] LABS: ANION GAP 13 (5-19); BLOOD UREA NITROGEN 99 mg/dL (7-20); C-REACTIVE PROTEIN 13.3 mg/L (<10.0); CALCIUM 8.4 mg/dL (8.4-10.2); CARBON DIOXIDE 27 mmol/L (22-30); CHLORIDE 101 mmol/L (98-107); GLUCOSE 107 mg/dL (75-110); IRON(TIBC) 17.3 ug/dL (37-170); POTASSIUM 5.2 mmol/L (3.6-5.0); SODIUM 140.7 mmol/L (137-145)
--- NOTE | 2018-01-06 07:50 | EKG REPORT ---
SEVERITY:- ABNORMAL ECG - ATRIAL FIBRILLATION, V-RATE 60-101 BORDERLINE RIGHT AXIS DEVIATION NONSPECIFIC ST-T CHANGES- INFERIOR LEADS UNCHANGED OLD ANTEROSEPTAL AL : Confirmed by: Jeff Lanier MD 06-Jan-2018 07:49:41
[2018-01-06 07:53] LABS: ERYTHROCYTE SEDIMENTATION RATE 50 mm/hr (0-30)
[2018-01-06] MEDS ORDERED: IRON SUCROSE COMPLEX INJ/PF 100 MG/5 ML SDV IV ONE (10:00)
[2018-01-06] MEDS: CARVEDILOL 12.5 MG TABLET PO SCH ×2 (10:37→22:18)
[2018-01-06] MEDS: ENOXAPARIN SODIUM INJ 30 MG/0.3 ML DISP.SYRIN SUBCUT SCH (10:38)
[2018-01-06] MEDS: CEFEPIME 1 GM/D5W RTU 1 GM/50 ML RTUPB IV SCH ×2 (10:38→22:19)
[2018-01-06] MEDS: NITROGLYCERIN 10 MG (0.4 MG/HR) PATCH.TD24 TD SCH (10:39)
[2018-01-06] MEDS: ALLOPURINOL 300 MG TABLET PO SCH (10:40)
[2018-01-06] MEDS: CETIRIZINE 10 MG TABLET PO SCH (10:40)
[2018-01-06] MEDS ORDERED: SODIUM POLYSTYRENE SULFONATE 15 GM/60 ML PO ONE (11:30)
[2018-01-06 11:39] LABS: ANTICHROMATIN AB <0.2 AI (0.0-0.9); CENTROMERE B AB <0.2 AI (0.0-0.9); JO-1 ANTIBODY (ANACOMP) <0.2 AI (0.0-0.9); RNP AB <0.2 AI (0.0-0.9); SCLERODERMA-70 ANTIBODIES <0.2 AI (0.0-0.9); SJOGREN'S ANTI-SS-B AB <0.2 AI (0.0-0.9); SJOGREN'S SS-A ANTIBODY <0.2 AI (0.0-0.9); SMITH AB ANA <0.2 AI (0.0-0.9)
--- NOTE | 2018-01-06 12:23 | PDOC PROGRESS REPORT ---
Subjective Progress Note for:: 01/06/18 Subjective:: Patient seen today less short of breath but became somewhat dizzy last night while going to the bathroom noticed to have a lower blood pressure so this morning his blood pressure medicine was held. She denies chest pain, cough, abdominal pain she had some mild urinary discomfort this morning urine analysis was sent. Achieved a negative balance of 200 cc in the last 24 hours. Reason For Visit: CHF,CELLULITUS Physical Exam Vital Signs: Temp Pulse Resp BP Pulse Ox 97.9 F 93 26 H 186/43 H 95 01/06/18 07:58 01/06/18 09:03 01/06/18 10:46 01/06/18 07:58 01/06/18 10:46 Intake & Output 01/05/18 01/06/18 01/07/18 06:59 06:59 06:59 Intake Total 500 672 50 Output Total 200 800 Balance 300 -128 50 Weight 114.1 kg 114 kg General appearance: PRESENT: no acute distress, well-developed, well-nourished Head exam: PRESENT: atraumatic, normocephalic Eye exam: PRESENT: conjunctiva pink, EOMI, PERRLA. ABSENT: scleral icterus Ear exam: PRESENT: normal external ear exam Mouth exam: PRESENT: moist, tongue midline Neck exam: PRESENT: full ROM. ABSENT: carotid bruit, JVD, lymphadenopathy, thyromegaly Respiratory exam: PRESENT: crackles, decreased breath sounds Cardiovascular exam: PRESENT: systolic murmur Murmur grade: 2 Pulses: PRESENT: normal dorsalis pedis pul, +2 pedal pulses bilateral Vascular exam: PRESENT: normal capillary refill GI/Abdominal exam: PRESENT: normal bowel sounds, soft. ABSENT: distended, guarding, mass, organolmegaly, rebound, tenderness Rectal exam: PRESENT: deferred Additional comments: Lateral lower extremity edema the right leg the erythematous area and warmth has decreased she does have psoriatic lesions which are mainly dry. Musculoskeletal exam: PRESENT: ambulatory Neurological exam: PRESENT: alert, awake, oriented to person, oriented to place , oriented to time, oriented to situation, CN II-XII grossly intact. ABSENT: motor sensory deficit Psychiatric exam: PRESENT: appropriate affect, normal mood. ABSENT: homicidal ideation, suicidal ideation Skin exam: PRESENT: dry, intact, warm. ABSENT: cyanosis, rash Results Laboratory Results: 01/06/18 06:21 01/06/18 06:21 01/05/18 01/06/18 01/06/18 12:35 05:45 06:21 WBC 7.2 RBC 2.87 L Hgb 8.9 L Hct 28.8 L MCV 100 H MCH 31.1 MCHC 31.0 L RDW 18.3 H Plt Count 160 Seg Neutrophils % 86.6 H Lymphocytes % 5.6 L Monocytes % 6.4 Eosinophils % 0.9 Basophils % 0.5 Absolute Neutrophils 6.3 Absolute Lymphocytes 0.4 L Absolute Monocytes 0.5 Absolute Eosinophils 0.1 Absolute Basophils 0.0 Retic Count (auto) 2.36 Absolute Retic 0.068 Sodium Potassium Chloride Carbon Dioxide Anion Gap BUN Creatinine Est GFR ( Amer) Est GFR (Non-Af Amer) Glucose Calcium Iron TIBC % Saturation Ferritin C-Reactive Protein Vitamin B12 Folate Urine Color YELLOW YELLOW Urine Appearance CLOUDY SLIGHTLY-CLOUDY Urine pH 5.0 5.0 Ur Specific [place] 1.016 1.014 Urine Protein 30 H 30 H Urine Glucose (UA) NEGATIVE NEGATIVE Urine Ketones NEGATIVE NEGATIVE Urine Blood NEGATIVE NEGATIVE Urine Nitrite NEGATIVE NEGATIVE Ur Leukocyte Esterase NEGATIVE TRACE H Urine WBC (Auto) 3 2 Urine RBC (Auto) 11 16 01/06/18 06:21 WBC RBC Hgb Hct MCV MCH MCHC RDW Plt Count Seg Neutrophils % Lymphocytes % Monocytes % Eosinophils % Basophils % Absolute Neutrophils Absolute Lymphocytes Absolute Monocytes Absolute Eosinophils Absolute Basophils Retic Count (auto) Absolute Retic Sodium 140.7 Potassium 5.2 H Chloride 101 Carbon Dioxide 27 Anion Gap 13 BUN 99 H Creatinine 2.89 H Est GFR ( Amer) 20 L Est GFR (Non-Af Amer) 16 L Glucose 107 Calcium 8.4 Iron 17.3 L TIBC 390 % Saturation 4 Ferritin 29.80 C-Reactive Protein 13.3 H Vitamin B12 > 1000.0 H Folate 10.80 Urine Color Urine Appearance Urine pH Ur Specific [place] Urine Protein Urine Glucose (UA) Urine Ketones Urine Blood Urine Nitrite Ur Leukocyte Esterase Urine WBC (Auto) Urine RBC (Auto) 01/04/18 01/04/18 01/04/18 17:15 17:15 19:00 Creatine Kinase 37 40 CK-MB (CK-2) 1.98 Troponin I 0.035 NT-Pro-B Natriuret Pep 8320 H 08/01/05/18 01/05/18 19:00 00:15 00:15 Creatine Kinase 34 CK-MB (CK-2) 1.94 1.69 Troponin I 0.046 0.047 NT-Pro-B Natriuret Pep 01/05/18 01/05/18 06:10 06:10 Creatine Kinase 33 CK-MB (CK-2) 1.85 Troponin I 0.059 NT-Pro-B Natriuret Pep Impressions: Chest X-Ray 01/04/18 16:53 IMPRESSION: Cardiomegaly. Cannot exclude mild pulmonary edema. Small pleural effusions. Renal Ultrasound 01/05/18 06:58 IMPRESSION: GROSSLY NORMAL RENAL AND BLADDER ULTRASOUND. Head CT 01/05/18 13:39 IMPRESSION: 1. No acute intracranial event. 2. Chronic sphenoid sinus disease. EVIDENCE OF ACUTE STROKE: NO. Assessment & Plan - Diagnosis (1) Congestive heart failure Qualifiers: Heart failure type: unspecified Heart failure chronicity: unspecified Qualified Code(s): I50.9 - Heart failure, unspecified Is this a current diagnosis for this admission?: Yes (2) Cellulitis of right leg Is this a current diagnosis for this admission?: Yes (3) Hypertension Qualifiers: Hypertension type: essential hypertension Qualified Code(s): I10 - Essential (primary) hypertension Is this a current diagnosis for this admission?: Yes (4) Acute on chronic renal failure Qualifiers: Acute renal failure type: unspecified Chronic kidney disease stage: stage 4 (severe) Qualified Code(s): N17.9 - Acute kidney failure, unspecified; N18.4 - Chronic kidney disease, stage 4 (severe); N18.4 - Chronic kidney disease , stage 4 (severe); N18.4 - Chronic kidney disease, stage 4 (severe); N18.4 - Chronic kidney disease, stage 4 (severe) Is this a current diagnosis for this admission?: Yes Plan: Since an increase in the creatinine decreased GFR we will cut back on the diuretics Lasix 40 twice daily discussed with PA for nephrology agreed along with a negative fluid balance can be achieved we may decrease her total fluids at 750 cc. (5) Hyperkalemia, diminished renal excretion Is this a current diagnosis for this admission?: Yes (6) Pulmonary hypertension Is this a current diagnosis for this admission?: Yes Plan: Is with cardiology treatment options we will do outpatient sleep study - Time Time Spent with patient: 15-24 minutes Medications reviewed and adjusted accordingly: Yes Anticipated discharge: Home Within: within 48 hours - Inpatient Certification Medical Necessity: Failure to Improve With Outpatient Therapy, Need for Nebulizer Therapy and Monitoring of Response, Need for IV Antibiotics Post Hospital Care: D/C Safekeeping Clerk Documentation
[2018-01-06 14:40] LABS: A/G RATIO. 1.1 (0.7-1.7); ALBUMIN 3 3.1 g/dL (2.9-4.4); ALPHA-1-GLOBULIN 0.3 g/dL (0.0-0.4); BETA GLOBULIN 0.8 g/dL (0.7-1.3); GAMMA GLOBULINS 1.2 g/dL (0.4-1.8); IMMUNOGLOBULIN A 221 mg/dL (87-352); IMMUNOGLOBULIN G 1281 mg/dL (700-1600); IMMUNOGLOBULIN M 167 mg/dL (26-217); MONOCLONAL-SPIKE Not Observed g/dL (Not Observ)
[2018-01-06 14:53] LABS: DNA DOUBLE STRAND ANTIBODY ANA 10 IU/mL (0-9)
--- NOTE | 2018-01-06 16:11 | PDOC PROGRESS REPORT ---
Subjective Progress Note for:: 01/06/18 Subjective:: Patient was seen today laying in her bed. She says that she is less short of breath than yesterday. According to the nurse in charge of her care she became dizzy and lightheaded when she went to go to the restroom. BP night meds were held. She currently today denies being dizzy or lightheaded anymore. Reason For Visit: CHF,CELLULITUS Physical Exam Vital Signs: Temp Pulse Resp BP Pulse Ox 97.3 F 71 16 168/36 H 95 01/06/18 15:24 01/06/18 15:24 01/06/18 15:24 01/06/18 15:24 01/06/18 15:24 Intake & Output 01/05/18 01/06/18 01/07/18 06:59 06:59 06:59 Intake Total 500 672 272 Output Total 200 800 100 Balance 300 -128 172 Weight 114.1 kg 114 kg General appearance: PRESENT: no acute distress, well-developed, well-nourished Mouth exam: PRESENT: moist, neck supple Neck exam: PRESENT: full ROM. ABSENT: JVD Respiratory exam: PRESENT: clear to auscultation noelle. ABSENT: accessory muscle use, crackles, rales, rhonchi, wheezes Cardiovascular exam: PRESENT: +S1, +S2 GI/Abdominal exam: PRESENT: normal bowel sounds, soft. ABSENT: distended, organomegaly, tenderness Extremities exam: PRESENT: +2 edema. ABSENT: pedal edema Musculoskeletal exam: ABSENT: normal inspection, tenderness Neurological exam: PRESENT: alert, awake, oriented to person, oriented to place , oriented to time, oriented to situation Skin exam: PRESENT: dry, erythema, intact, rash, warm. ABSENT: cyanosis Results Laboratory Results: 01/06/18 06:21 01/06/18 06:21 01/05/18 01/05/18 01/06/18 06:10 12:35 05:45 WBC RBC Hgb Hct MCV MCH MCHC RDW Plt Count Seg Neutrophils % Lymphocytes % Monocytes % Eosinophils % Basophils % Absolute Neutrophils Absolute Lymphocytes Absolute Monocytes Absolute Eosinophils Absolute Basophils Retic Count (auto) Absolute Retic Sodium Potassium Chloride Carbon Dioxide Anion Gap BUN Creatinine Est GFR ( Amer) Est GFR (Non-Af Amer) Glucose Calcium Iron TIBC % Saturation Ferritin C-Reactive Protein Total Protein 6.0 Albumin 3.1 Vitamin B12 Folate Urine Color YELLOW YELLOW Urine Appearance CLOUDY SLIGHTLY-CLOUDY Urine pH 5.0 5.0 Ur Specific [place] 1.016 1.014 Urine Protein 30 H 30 H Urine Glucose (UA) NEGATIVE NEGATIVE Urine Ketones NEGATIVE NEGATIVE Urine Blood NEGATIVE NEGATIVE Urine Nitrite NEGATIVE NEGATIVE Ur Leukocyte Esterase NEGATIVE TRACE H Urine WBC (Auto) 3 2 Urine RBC (Auto) 11 16 01/06/18 01/06/18 06:21 06:21 WBC 7.2 RBC 2.87 L Hgb 8.9 L Hct 28.8 L MCV 100 H MCH 31.1 MCHC 31.0 L RDW 18.3 H Plt Count 160 Seg Neutrophils % 86.6 H Lymphocytes % 5.6 L Monocytes % 6.4 Eosinophils % 0.9 Basophils % 0.5 Absolute Neutrophils 6.3 Absolute Lymphocytes 0.4 L Absolute Monocytes 0.5 Absolute Eosinophils 0.1 Absolute Basophils 0.0 Retic Count (auto) 2.36 Absolute Retic 0.068 Sodium 140.7 Potassium 5.2 H Chloride 101 Carbon Dioxide 27 Anion Gap 13 BUN 99 H Creatinine 2.89 H Est GFR ( Amer) 20 L Est GFR (Non-Af Amer) 16 L Glucose 107 Calcium 8.4 Iron 17.3 L TIBC 390 % Saturation 4 Ferritin 29.80 C-Reactive Protein 13.3 H Total Protein Albumin Vitamin B12 > 1000.0 H Folate 10.80 Urine Color Urine Appearance Urine pH Ur Specific [place] Urine Protein Urine Glucose (UA) Urine Ketones Urine Blood Urine Nitrite Ur Leukocyte Esterase Urine WBC (Auto) Urine RBC (Auto) 01/04/18 01/04/18 01/04/18 17:15 17:15 19:00 Creatine Kinase 37 40 CK-MB (CK-2) 1.98 Troponin I 0.035 NT-Pro-B Natriuret Pep 8320 H 01/04/18 01/05/18 01/05/18 19:00 00:15 00:15 Creatine Kinase 34 CK-MB (CK-2) 1.94 1.69 Troponin I 0.046 0.047 NT-Pro-B Natriuret Pep 01/05/18 01/05/18 06:10 06:10 Creatine Kinase 33 CK-MB (CK-2) 1.85 Troponin I 0.059 NT-Pro-B Natriuret Pep Impressions: Chest X-Ray 01/04/18 16:53 IMPRESSION: Cardiomegaly. Cannot exclude mild pulmonary edema. Small pleural effusions. Renal Ultrasound 01/05/18 06:58 IMPRESSION: GROSSLY NORMAL RENAL AND BLADDER ULTRASOUND. Head CT 01/05/18 13:39 IMPRESSION: 1. No acute intracranial event. 2. Chronic sphenoid sinus disease. EVIDENCE OF ACUTE STROKE: NO. Assessment & Plan - Diagnosis (1) Acute on chronic renal failure Qualifiers: Acute renal failure type: unspecified Chronic kidney disease stage: stage 4 (severe) Qualified Code(s): N17.9 - Acute kidney failure, unspecified; N18.4 - Chronic kidney disease, stage 4 (severe); N18.4 - Chronic kidney disease , stage 4 (severe); N18.4 - Chronic kidney disease, stage 4 (severe); N18.4 - Chronic kidney disease, stage 4 (severe) Is this a current diagnosis for this admission?: Yes Plan: nonoliguric, slightly worse, underlining CHF and cellulitis infection. Lasix were decreased due to elevation of creatinine, will monitor. (2) Anemia Qualifiers: Anemia type: iron deficiency Iron deficiency anemia type: chronic blood loss Qualified Code(s): D50.0 - Iron deficiency anemia secondary to blood loss (chronic) Plan: iron studies came back with a low iron saturations and a low ferritin. she was given iv iron. (3) Cellulitis of right leg Is this a current diagnosis for this admission?: Yes Plan: wound culture showing gram positive cocii (4) Congestive heart failure Qualifiers: Heart failure type: unspecified Heart failure chronicity: unspecified Qualified Code(s): I50.9 - Heart failure, unspecified Is this a current diagnosis for this admission?: Yes Plan: continue on lasix and fluid restriction, slightly improved (6) Hyperkalemia, diminished renal excretion Is this a current diagnosis for this admission?: Yes Plan: patient is slightly elevated, discussed low potassium foods with her. Do no recommend kayexelate until the potassium is above 5.5. (8) Pulmonary hypertension Is this a current diagnosis for this admission?: Yes Plan: per primary and cardiology - Notes Notes: Patient was discussed with Dr. Chaudhary
--- NOTE | 2018-01-06 17:19 | PDOC CONSULTATION ---
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 Of note, we have been following her closely in our office with monthly CBC and iron checks. She requires IV iron, generally 1 g at least on a monthly basis. The last time we gave 1 g of IV iron was approximately 1 month ago. We checked her iron studies 6 days ago and her ferritin even after that 1 g of IV iron was only 73. She was given Venofer 100 mg today. Past Medical History Cardiac Medical History: Reports: Atrial Fibrillation - TWO YEARS AGO, Congestive Heart Failure, Coronary Artery Disease, Myocardial Infarction - Triple bypass 2004, Hyperlipidema, Hypertension, Heart Murmur Pulmonary Medical History: Reports: Bronchitis, Pneumonia Denies: Asthma, Chronic Obstructive Pulmonary Disease (COPD), Tuberculosis Neurological Medical History: Reports: Other - retinal artery occlusion Denies: Seizures Endocrine Medical History: Reports: Diabetes Mellitus Type 1, Diabetes Mellitus Type 2 Renal/ Medical History: Reports: Chronic Kidney Disease, End Stage Renal Disease Malignancy Medical History: Reports: Breast Cancer GI Medical History: Denies: Cirrhosis, Gastroesophageal Reflux Disease Musculoskeltal Medical History: Reports: Arthritis - SCORIATIC ARTHRITIS, Gout Skin Medical History: Reports: Psoriasis Psychiatric Medical History: Reports: None Denies: Bipolar Disorder, Depression Hematology: Reports: Anemia Denies: Bleeding Tendencies Past Surgical History Past Surgical History: Reports: Cardiac Catheterization - Jan, Section, Cholecystectomy, Coronary Artery Bypass Graft - 2004 at [facility], Hysterectomy, Tubal Ligation Denies: Adenoidectomy, Pacemaker Social History Information Source: Patient Lives with: Spouse/Significant other Smoking Status: Never Smoker Number of Years Smokin Frequency of Alcohol Use: None Hx Recreational Drug Use: No Drugs: None Hx Prescription Drug Abuse: No - Advance Directive Resuscitation Status: Full Code Family History Family History: CAD, DM, Hypertension Parental Family History Reviewed: Yes Children Family History Reviewed: Yes Sibling(s) Family History Reviewed.: Yes Medication/Allergy Home Medications: Allopurinol [Zyloprim 300 mg Tablet] 300 mg PO DAILY 03/05/17 Apremilast [Otezla] 30 mg PO QHS 03/05/17 Cholecalciferol (Vitamin D3) [Vitamin D] 50,000 unit PO WE@1000 03/05/17 Cyanocobalamin (Vitamin B-12) [Vitamin B-12] 1,000 mcg PO DAILY 03/05/17 Furosemide [Lasix 40 mg Tablet] 40 mg PO TID 03/05/17 Hydralazine HCl [Apresoline 25 mg Tablet] 1.5 tab PO TID 03/05/17 Insulin Glargine,Hum.rec.anlog [Toujeo Solostar] 20 units SQ QHS 03/05/17 Losartan Potassium [Cozaar 100 mg Tablet] 100 mg PO DAILY 03/05/17 Potassium Chloride 20 meq PO BID 03/05/17 Simvastatin [Zocor 20 mg Tablet] 20 mg PO QHS 03/05/17 Carvedilol 12.5 mg PO QPM 06/17/17 Cetirizine HCl [Zyrtec 10 mg Tablet] 1 tab PO DAILY 08/22/17 Acetaminophen [Pain & Fever] 500 mg PO QID 01/04/18 Levalbuterol Tartrate [Xopenex Hfa] 15 gm IH TIDP PRN 01/04/18 Nitroglycerin [Nitroglycerin Patch] 1 patch TOP DAILY 01/04/18 Allergies/Adverse Reactions: Sulfa (Sulfonamide Antibiotics) Allergy (Mild, Verified 01/04/18 10:40) Hives warfarin sodium [From Coumadin] Adverse Reaction (Mild, Verified 01/04/18 10:40) Diarrhea Review of Systems Constitutional: ABSENT: chills, fever(s), headache(s), weight gain, weight loss Eyes: ABSENT: visual disturbances Ears: ABSENT: hearing changes Cardiovascular: ABSENT: chest pain, dyspnea on exertion, edema, orthropnea, palpitations Respiratory: ABSENT: cough, hemoptysis Gastrointestinal: ABSENT: abdominal pain, constipation, diarrhea, hematemesis, hematochezia, nausea, vomiting Genitourinary: ABSENT: dysuria, hematuria Musculoskeletal: ABSENT: joint swelling Integumentary: ABSENT: rash, wounds Neurological: ABSENT: abnormal gait, abnormal speech, confusion, dizziness, focal weakness, syncope Psychiatric: ABSENT: anxiety, depression, homidical ideation, suicidal ideation Endocrine: ABSENT: cold intolerance, heat intolerance, polydipsia, polyuria Hematologic/Lymphatic: ABSENT: easy bleeding, easy bruising Physical Exam Vital Signs: Temp Pulse Resp BP Pulse Ox 97.3 F 71 16 168/36 H 95 01/06/18 15:24 01/06/18 15:24 01/06/18 15:24 01/06/18 15:24 01/06/18 15:24 Intake & Output 01/05/18 01/06/18 01/07/18 06:59 06:59 06:59 Intake Total 500 672 272 Output Total 200 800 100 Balance 300 -128 172 Weight 114.1 kg 114 kg General appearance: PRESENT: no acute distress, well-developed, well-nourished Head exam: PRESENT: atraumatic, normocephalic Eye exam: PRESENT: conjunctiva pink, EOMI, PERRLA. ABSENT: scleral icterus Ear exam: PRESENT: normal external ear exam Mouth exam: PRESENT: moist, tongue midline Neck exam: ABSENT: carotid bruit, JVD, lymphadenopathy, thyromegaly Respiratory exam: PRESENT: clear to auscultation noelle. ABSENT: rales, rhonchi, wheezes Cardiovascular exam: PRESENT: RRR. ABSENT: diastolic murmur, rubs, systolic murmur Pulses: PRESENT: normal dorsalis pedis pul Vascular exam: PRESENT: normal capillary refill GI/Abdominal exam: PRESENT: normal bowel sounds, soft. ABSENT: distended, guarding, mass, organolmegaly, rebound, tenderness Rectal exam: PRESENT: deferred Extremities exam: PRESENT: full ROM. ABSENT: calf tenderness, clubbing, pedal edema Neurological exam: PRESENT: alert, awake, oriented to person, oriented to place , oriented to time, oriented to situation, CN II-XII grossly intact. ABSENT: motor sensory deficit Psychiatric exam: PRESENT: appropriate affect, normal mood. ABSENT: homicidal ideation, suicidal ideation Skin exam: PRESENT: dry, intact, warm. ABSENT: cyanosis, rash Results Laboratory Results: 01/06/18 06:21 01/06/18 06:21 01/05/18 01/05/18 01/06/18 06:10 12:35 05:45 WBC RBC Hgb Hct MCV MCH MCHC RDW Plt Count Seg Neutrophils % Lymphocytes % Monocytes % Eosinophils % Basophils % Absolute Neutrophils Absolute Lymphocytes Absolute Monocytes Absolute Eosinophils Absolute Basophils Retic Count (auto) Absolute Retic Sodium Potassium Chloride Carbon Dioxide Anion Gap BUN Creatinine Est GFR ( Amer) Est GFR (Non-Af Amer) Glucose Calcium Iron TIBC % Saturation Ferritin C-Reactive Protein Total Protein 6.0 Albumin 3.1 Vitamin B12 Folate Urine Color YELLOW YELLOW Urine Appearance CLOUDY SLIGHTLY-CLOUDY Urine pH 5.0 5.0 Ur Specific [place] 1.016 1.014 Urine Protein 30 H 30 H Urine Glucose (UA) NEGATIVE NEGATIVE Urine Ketones NEGATIVE NEGATIVE Urine Blood NEGATIVE NEGATIVE Urine Nitrite NEGATIVE NEGATIVE Ur Leukocyte Esterase NEGATIVE TRACE H Urine WBC (Auto) 3 2 Urine RBC (Auto) 11 16 01/06/18 01/06/18 06:21 06:21 WBC 7.2 RBC 2.87 L Hgb 8.9 L Hct 28.8 L MCV 100 H MCH 31.1 MCHC 31.0 L RDW 18.3 H Plt Count 160 Seg Neutrophils % 86.6 H Lymphocytes % 5.6 L Monocytes % 6.4 Eosinophils % 0.9 Basophils % 0.5 Absolute Neutrophils 6.3 Absolute Lymphocytes 0.4 L Absolute Monocytes 0.5 Absolute Eosinophils 0.1 Absolute Basophils 0.0 Retic Count (auto) 2.36 Absolute Retic 0.068 Sodium 140.7 Potassium 5.2 H Chloride 101 Carbon Dioxide 27 Anion Gap 13 BUN 99 H Creatinine 2.89 H Est GFR ( Amer) 20 L Est GFR (Non-Af Amer) 16 L Glucose 107 Calcium 8.4 Iron 17.3 L TIBC 390 % Saturation 4 Ferritin 29.80 C-Reactive Protein 13.3 H Total Protein Albumin Vitamin B12 > 1000.0 H Folate 10.80 Urine Color Urine Appearance Urine pH Ur Specific [place] Urine Protein Urine Glucose (UA) Urine Ketones Urine Blood Urine Nitrite Ur Leukocyte Esterase Urine WBC (Auto) Urine RBC (Auto) 01/04/18 01/04/18 01/04/18 17:15 17:15 19:00 Creatine Kinase 37 40 CK-MB (CK-2) 1.98 Troponin I 0.035 NT-Pro-B Natriuret Pep 8320 H 01/04/18 01/05/18 01/05/18 19:00 00:15 00:15 Creatine Kinase 34 CK-MB (CK-2) 1.94 1.69 Troponin I 0.046 0.047 NT-Pro-B Natriuret Pep 01/05/18 01/05/18 06:10 06:10 Creatine Kinase 33 CK-MB (CK-2) 1.85 Troponin I 0.059 NT-Pro-B Natriuret Pep Impressions: Chest X-Ray 01/04/18 16:53 IMPRESSION: Cardiomegaly. Cannot exclude mild pulmonary edema. Small pleural effusions. Renal Ultrasound 01/05/18 06:58 IMPRESSION: GROSSLY NORMAL RENAL AND BLADDER ULTRASOUND. Head CT 01/05/18 13:39 IMPRESSION: 1. No acute intracranial event. 2. Chronic sphenoid sinus disease. EVIDENCE OF ACUTE STROKE: NO. Assessment & Plan - Diagnosis (1) Anemia Qualifiers: Anemia type: iron deficiency Iron deficiency anemia type: chronic blood loss Qualified Code(s): D50.0 - Iron deficiency anemia secondary to blood loss (chronic) Is this a current diagnosis for this admission?: Yes Plan: Chronic blood loss secondary to AVM, will give 1 dose of Feraheme 510 mg IV tomorrow. That should be reasonable for a ferritin of 73. She will chronically need to have this done. We would check her iron studies again in 1 month and treat accordingly with continued IV iron. If her ferritin never is able to stabilize greater than 100 and saturation is able to stabilize greater than 20, she would be a good candidate for erythropoietin stimulating agent. But have been following her now for nearly 3 years and we have not gotten to that point even with monthly IV iron because of the extreme blood loss from the AVMs. - Time Time Spent: Greater than 70 Minutes - Inpatient Certification Based on my medical assessment, after consideration of the patient's comorbidities, presenting symptoms, or acuity I expect that the services needed warrant INPATIENT care.: Yes I certify that my determination is in accordance with my understanding of Medicare's requirements for reasonable and necessary INPATIENT services [42 CFR 412.3e].: Yes Medical Necessity: Risk of Complication if Not Cared For in Hospital
--- NOTE | 2018-01-06 18:35 | PDOC PROGRESS REPORT ---
Subjective Progress Note for:: 01/06/18 Subjective:: Discussed that 2D echocardiogram shows significant pulmonary hypertension, RV enlargement. Discussed that she would benefit from oxygen supplementation and institution of noninvasive positive pressure ventilation. She does tell me previous diagnosis of sleep apnea but could not tolerate CPAP therapy. Have written orders for BiPAP therapy. This will desensitize her. Patient seems to be doing better with gradual improvement. Pt is denying any chest arm or neck discomfort. Patient denying any PND, orthopnea. Patient denied any sustained palpitations, dizziness, syncope, near syncope. Patient denying any fever chills. Patient denying any other significant discomfort. Patient is maintaining sinus rhythm. Review of systems: Rest review of systems negative. Medications: Medications have been reviewed. Reason For Visit: CHF,CELLULITUS Physical Exam Vital Signs: Temp Pulse Resp BP Pulse Ox 97.3 F 71 16 168/36 H 95 01/06/18 15:24 01/06/18 15:24 01/06/18 15:24 01/06/18 15:24 01/06/18 17:05 Intake & Output 01/05/18 01/06/18 01/07/18 06:59 06:59 06:59 Intake Total 552 562 2904 Output Total 200 800 300 Balance 300 -128 744 Weight 114.1 kg 114 kg Exam: GENERAL: well-nourished and in no acute distress. Alert and oriented x3 HEAD: Atraumatic, normocephalic. EYES: Pupils equal round and reactive to light, extraocular movements intact, sclera anicteric, conjunctiva are normal. ENT: TMs normal, nares patent, oropharynx clear without exudates. Moist mucous membranes. No oral ulcerations or bleeding gums noted NECK: supple without lymphadenopathy. Trachea is central. No cervical or axillary lymphadenopathy noted. Carotids are 2+, JVD 10 cm LUNGS: Respiration seems nonlabored, no significant accessory muscle action noted. Bibasilar fine crackles are noted. No wheezes rales or rhonchi noted. No significant dullness noted on percussion. CHEST: Palpation of the chest wall shows no significant chest wall tenderness. 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 ABDOMEN: Soft, no significant tenderness appreciated, normoactive bowel sounds. No guarding, no rebound. No rigidity noted . No masses appreciated. EXTREMITIES: Pedal pulses are 1-2+, no calf tenderness noted. No clubbing or cyanosis. 1-2+ pedal edema noted NEUROLOGICAL: Focused neurological exam showed no significant neurologic deficit. Normal speech, no focal weakness appreciated. PSYCH: Normal mood, normal affect. Judgment and insight within normal limits. SKIN: No significant ecchymosis, skin is noted to be warm. Right lower extremity cellulitis. MUSCULOSKELETAL EXAM: No significant acute joint swelling noted. Results Laboratory Results: 01/06/18 06:21 01/06/18 06:21 01/05/18 01/05/18 01/06/18 06:10 12:35 05:45 WBC RBC Hgb Hct MCV MCH MCHC RDW Plt Count Seg Neutrophils % Lymphocytes % Monocytes % Eosinophils % Basophils % Absolute Neutrophils Absolute Lymphocytes Absolute Monocytes Absolute Eosinophils Absolute Basophils Retic Count (auto) Absolute Retic Sodium Potassium Chloride Carbon Dioxide Anion Gap BUN Creatinine Est GFR ( Amer) Est GFR (Non-Af Amer) Glucose Calcium Iron TIBC % Saturation Ferritin C-Reactive Protein Total Protein 6.0 Albumin 3.1 Vitamin B12 Folate Urine Color YELLOW YELLOW Urine Appearance CLOUDY SLIGHTLY-CLOUDY Urine pH 5.0 5.0 Ur Specific [place] 1.016 1.014 Urine Protein 30 H 30 H Urine Glucose (UA) NEGATIVE NEGATIVE Urine Ketones NEGATIVE NEGATIVE Urine Blood NEGATIVE NEGATIVE Urine Nitrite NEGATIVE NEGATIVE Ur Leukocyte Esterase NEGATIVE TRACE H Urine WBC (Auto) 3 2 Urine RBC (Auto) 11 16 01/06/18 01/06/18 06:21 06:21 WBC 7.2 RBC 2.87 L Hgb 8.9 L Hct 28.8 L MCV 100 H MCH 31.1 MCHC 31.0 L RDW 18.3 H Plt Count 160 Seg Neutrophils % 86.6 H Lymphocytes % 5.6 L Monocytes % 6.4 Eosinophils % 0.9 Basophils % 0.5 Absolute Neutrophils 6.3 Absolute Lymphocytes 0.4 L Absolute Monocytes 0.5 Absolute Eosinophils 0.1 Absolute Basophils 0.0 Retic Count (auto) 2.36 Absolute Retic 0.068 Sodium 140.7 Potassium 5.2 H Chloride 101 Carbon Dioxide 27 Anion Gap 13 BUN 99 H Creatinine 2.89 H Est GFR ( Amer) 20 L Est GFR (Non-Af Amer) 16 L Glucose 107 Calcium 8.4 Iron 17.3 L TIBC 390 % Saturation 4 Ferritin 29.80 C-Reactive Protein 13.3 H Total Protein Albumin Vitamin B12 > 1000.0 H Folate 10.80 Urine Color Urine Appearance Urine pH Ur Specific [place] Urine Protein Urine Glucose (UA) Urine Ketones Urine Blood Urine Nitrite Ur Leukocyte Esterase Urine WBC (Auto) Urine RBC (Auto) 01/04/18 01/04/18 01/04/18 17:15 17:15 19:00 Creatine Kinase 37 40 CK-MB (CK-2) 1.98 Troponin I 0.035 NT-Pro-B Natriuret Pep 8320 H 01/04/18 01/05/18 01/05/18 19:00 00:15 00:15 Creatine Kinase 34 CK-MB (CK-2) 1.94 1.69 Troponin I 0.046 0.047 NT-Pro-B Natriuret Pep 01/05/18 01/05/18 06:10 06:10 Creatine Kinase 33 CK-MB (CK-2) 1.85 Troponin I 0.059 NT-Pro-B Natriuret Pep Impressions: Chest X-Ray 01/04/18 16:53 IMPRESSION: Cardiomegaly. Cannot exclude mild pulmonary edema. Small pleural effusions. Renal Ultrasound 01/05/18 06:58 IMPRESSION: GROSSLY NORMAL RENAL AND BLADDER ULTRASOUND. Head CT 01/05/18 13:39 IMPRESSION: 1. No acute intracranial event. 2. Chronic sphenoid sinus disease. EVIDENCE OF ACUTE STROKE: NO. Assessment & Plan - Diagnosis (1) Congestive heart failure Qualifiers: Heart failure type: diastolic Heart failure chronicity: acute on chronic Qualified Code(s): I50.33 - Acute on chronic diastolic (congestive) heart failure Is this a current diagnosis for this admission?: Yes (2) Atrial fibrillation Qualifiers: Atrial fibrillation type: chronic Qualified Code(s): I48.2 - Chronic atrial fibrillation Is this a current diagnosis for this admission?: Yes (3) Coronary artery disease Qualifiers: Coronary Disease-Associated Artery/Lesion type: [place] artery [place] vs. transplanted heart: [place] heart Associated angina: angina presence unspecified Qualified Code(s): I25.10 - Atherosclerotic heart disease of [place] coronary artery without angina pectoris Is this a current diagnosis for this admission?: Yes (4) Hypertension Qualifiers: Hypertension type: essential hypertension Qualified Code(s): I10 - Essential (primary) hypertension Is this a current diagnosis for this admission?: Yes (5) Cellulitis of right leg Is this a current diagnosis for this admission?: Yes (6) Pulmonary hypertension Is this a current diagnosis for this admission?: Yes (7) Sleep apnea syndrome Qualifiers: Sleep apnea type: unspecified type Qualified Code(s): G47.30 - Sleep apnea , unspecified Is this a current diagnosis for this admission?: Yes - Notes Notes: Continue diuretic therapy. Start BiPAP therapy as part of desensitization protocol while in the hospital patient encouraged to use it during the day. Agree with hematology oncology consultation. Will consider referral as an outpatient for watchman device placement, in the left atrial appendage. Congestive heart failure: 2D echo results were reviewed. Patient noted to have significant pulmonary hypertension. Continue with with IV diuretics. Atrial fibrillation: This is probably chronic. Recommend rate control. Chronic anticoagulation issue to be decided later on. Currently not on any chronic anticoagulation, patient has history of GI bleed and also had received blood transfusion. After ruling out any acute ongoing bleed, may consider chronic anticoagulation. Any of the newer oral anticoagulants will be preferable. Other option would be placement of watchman device, or other left atrial appendage occlusive device. Coronary artery disease: Currently symptomatically stable. Will consider evaluation with a nuclear stress test after CHF is well controlled. Hypertension: Blood pressure goal should be 135/85 or less. Recommend beta- blockers, MT inhibitor/ARB for hypertension control. Additional agents may be needed. Cellulitis of the right leg: Continue with antibiotic therapy. Pulmonary hypertension: Most likely related to chronic left heart failure. Patient could also have obesity hypoventilation syndrome, sleep apnea syndrome, nocturnal hypoxemia. These were discussed. Patient advised in weight loss. Sleep apnea syndrome: Patient describes history of sleep apnea syndrome but does not want to wear CPAP therapy because of claustrophobia. Discussed that desensitization could be attempted while she is in the hospital. - Time Time with patient: Greater than 35 minutes - CODE STATUS was discussed, patient remains full code. Surrogate decision-maker patient's . Multiple medical problems were addressed. More than 50% of the time spent coordinating care, discussing management plans with involved caregivers. Management plans discussed with involved personnels. Medical decision making was of moderate to high complexity, patient's has multiple comorbidities. Medications reviewed and adjusted accordingly: Yes
[2018-01-06] MEDS ORDERED: HYDRALAZINE HCL 50 MG TABLET PO ONE (22:00)
[2018-01-06] MEDS: SODIUM POLYSTYRENE SULFONATE 15 GM/60 ML PO SCH (22:16)
[2018-01-06] MEDS: OTEZLA 30 MG PO SCH (22:18)
[2018-01-06] MEDS: SIMVASTATIN 10 MG TABLET PO SCH (22:18)
[2018-01-06] MEDS: INSULIN GLARGINE,HUM.REC.ANLOG 300 UNIT/3 ML INSULN.PEN SUBCUT SCH (22:18)
[2018-01-06] MEDS: VANCOMYCIN HCL 1,250 MG in DEXTROSE 5%-WATER 250 ML IV SCH (23:38)
[2018-01-07] MEDS: IPRATROPIUM/ALBUTEROL 0.5-2.5 MG/3 ML AMPUL NEB SCH ×4 (02:30→20:47)
[2018-01-07] MEDS: HYDRALAZINE HCL 50 MG TABLET PO SCH ×3 (05:38→21:53)
[2018-01-07 06:42] LABS: ANION GAP 15 (5-19); BLOOD UREA NITROGEN 95 mg/dL (7-20); CALCIUM 7.7 mg/dL (8.4-10.2); CARBON DIOXIDE 24 mmol/L (22-30); CHLORIDE 99 mmol/L (98-107); GLUCOSE 93 mg/dL (75-110); SODIUM 138.4 mmol/L (137-145)
[2018-01-07 06:49] LABS: POTASSIUM 3.8 mmol/L (3.6-5.0)
--- NOTE | 2018-01-07 08:39 | PDOC PROGRESS REPORT ---
Subjective Progress Note for:: 01/07/18 Subjective:: Plan for another dose IV iron today Reason For Visit: CHF,CELLULITUS Physical Exam Vital Signs: Temp Pulse Resp BP Pulse Ox 97.7 F 75 16 164/51 H 97 01/07/18 03:57 01/07/18 08:22 01/07/18 08:22 01/07/18 03:57 01/07/18 08:22 Intake & Output 01/06/18 01/07/18 01/08/18 06:59 06:59 06:59 Intake Total 672 1636 Output Total 800 500 Balance -128 1136 Weight 114 kg 115.4 kg General appearance: PRESENT: no acute distress, well-developed, well-nourished Head exam: PRESENT: atraumatic, normocephalic Eye exam: PRESENT: conjunctiva pink, EOMI, PERRLA. ABSENT: scleral icterus Ear exam: PRESENT: normal external ear exam Mouth exam: PRESENT: moist, tongue midline Neck exam: ABSENT: carotid bruit, JVD, lymphadenopathy, thyromegaly Respiratory exam: PRESENT: clear to auscultation noelle. ABSENT: rales, rhonchi, wheezes Cardiovascular exam: PRESENT: RRR. ABSENT: diastolic murmur, rubs, systolic murmur Pulses: PRESENT: normal dorsalis pedis pul Vascular exam: PRESENT: normal capillary refill GI/Abdominal exam: PRESENT: normal bowel sounds, soft. ABSENT: distended, guarding, mass, organolmegaly, rebound, tenderness Rectal exam: PRESENT: deferred Extremities exam: PRESENT: full ROM. ABSENT: calf tenderness, clubbing, pedal edema Neurological exam: PRESENT: alert, awake, oriented to person, oriented to place , oriented to time, oriented to situation, CN II-XII grossly intact. ABSENT: motor sensory deficit Psychiatric exam: PRESENT: appropriate affect, normal mood. ABSENT: homicidal ideation, suicidal ideation Skin exam: PRESENT: dry, intact, warm. ABSENT: cyanosis, rash Results Laboratory Results: 01/06/18 06:21 01/07/18 05:44 01/05/18 01/06/18 01/07/18 06:10 06:21 05:44 Sodium 140.7 138.4 Potassium 5.2 H 3.8 D Chloride 101 99 Carbon Dioxide 27 24 Anion Gap 13 15 BUN 99 H 95 H Creatinine 2.89 H 2.44 H Est GFR ( Amer) 20 L 24 L Est GFR (Non-Af Amer) 16 L 20 L Glucose 107 93 Calcium 8.4 7.7 L Iron 17.3 L TIBC 390 % Saturation 4 Ferritin 29.80 C-Reactive Protein 13.3 H Total Protein 6.0 Albumin 3.1 Vitamin B12 > 1000.0 H Folate 10.80 01/04/18 01/04/18 01/04/18 17:15 17:15 19:00 Creatine Kinase 37 40 CK-MB (CK-2) 1.98 Troponin I 0.035 NT-Pro-B Natriuret Pep 8320 H 01/04/18 01/05/18 01/05/18 19:00 00:15 00:15 Creatine Kinase 34 CK-MB (CK-2) 1.94 1.69 Troponin I 0.046 0.047 NT-Pro-B Natriuret Pep 01/05/18 01/05/18 06:10 06:10 Creatine Kinase 33 CK-MB (CK-2) 1.85 Troponin I 0.059 NT-Pro-B Natriuret Pep Impressions: Chest X-Ray 01/04/18 16:53 IMPRESSION: Cardiomegaly. Cannot exclude mild pulmonary edema. Small pleural effusions. Renal Ultrasound 01/05/18 06:58 IMPRESSION: GROSSLY NORMAL RENAL AND BLADDER ULTRASOUND. Head CT 01/05/18 13:39 IMPRESSION: 1. No acute intracranial event. 2. Chronic sphenoid sinus disease. EVIDENCE OF ACUTE STROKE: NO. Assessment & Plan - Diagnosis (1) Anemia Qualifiers: Anemia type: iron deficiency Iron deficiency anemia type: chronic blood loss Qualified Code(s): D50.0 - Iron deficiency anemia secondary to blood loss (chronic) Is this a current diagnosis for this admission?: Yes Plan: Secondary to recurrent blood loss from AVMs, plan for further IV iron today. This should be her full dose of IV iron. We will recheck in 1 month.
[2018-01-07] MEDS: SODIUM POLYSTYRENE SULFONATE 15 GM/60 ML PO SCH (09:54)
[2018-01-07] MEDS ORDERED: METOLAZONE 2.5 MG TABLET PO SCH (10:00)
[2018-01-07] MEDS: ALLOPURINOL 300 MG TABLET PO SCH (10:02)
[2018-01-07] MEDS: NITROGLYCERIN 10 MG (0.4 MG/HR) PATCH.TD24 TD SCH (10:02)
[2018-01-07] MEDS: CARVEDILOL 12.5 MG TABLET PO SCH ×2 (10:02→21:52)
[2018-01-07] MEDS: CETIRIZINE 10 MG TABLET PO SCH (10:02)
[2018-01-07] MEDS: ENOXAPARIN SODIUM INJ 30 MG/0.3 ML DISP.SYRIN SUBCUT SCH (10:03)
[2018-01-07] MEDS: FUROSEMIDE INJ/PF 40 MG/4 ML SDV IV SCH ×2 (10:04→21:52)
[2018-01-07] MEDS ORDERED: FERUMOXYTOL (NON-ESRD) 510 MG/NS 100 ML IV ONE ×2 (11:00)
--- NOTE | 2018-01-07 13:00 | PDOC PROGRESS REPORT ---
Subjective Progress Note for:: 01/07/18 Subjective:: Patient was sitting up on the edge of the bed. She was on oxygen at the time. She claims that her SOB is about the same as yesterday. Despite having a fluid restriction of 1L she was given over 1600mL of fluids yesterday. Discussed with the April, the nurse in charge of her care, about strict restriction on fluids. Patient denies chest pain, n/v/c. Reason For Visit: CHF,CELLULITUS Physical Exam Vital Signs: Temp Pulse Resp BP Pulse Ox 97.6 F 75 16 148/52 H 97 01/07/18 07:14 01/07/18 08:22 01/07/18 08:22 01/07/18 07:14 01/07/18 08:22 Intake & Output 01/06/18 01/07/18 01/08/18 06:59 06:59 06:59 Intake Total 672 1636 Output Total 800 500 Balance -128 1136 Weight 114 kg 115.4 kg General appearance: PRESENT: no acute distress, obese, well-developed, well- nourished Mouth exam: PRESENT: moist, neck supple Neck exam: PRESENT: full ROM. ABSENT: JVD Respiratory exam: PRESENT: crackles, rales. ABSENT: accessory muscle use, clear to auscultation noelle, rhonchi, wheezes Cardiovascular exam: PRESENT: irregular rhythm, +S1, +S2 GI/Abdominal exam: PRESENT: normal bowel sounds, soft. ABSENT: distended, organomegaly, tenderness Extremities exam: PRESENT: pedal edema, +2 edema Neurological exam: PRESENT: alert, awake, oriented to person, oriented to place , oriented to time, oriented to situation Results Laboratory Results: 01/06/18 06:21 01/07/18 05:44 01/05/18 01/07/18 06:10 05:44 Sodium 138.4 Potassium 3.8 D Chloride 99 Carbon Dioxide 24 Anion Gap 15 BUN 95 H Creatinine 2.44 H Est GFR ( Amer) 24 L Est GFR (Non-Af Amer) 20 L Glucose 93 Calcium 7.7 L Total Protein 6.0 Albumin 3.1 01/04/18 01/04/18 01/04/18 17:15 17:15 19:00 Creatine Kinase 37 40 CK-MB (CK-2) 1.98 Troponin I 0.035 NT-Pro-B Natriuret Pep 8320 H 01/04/18 01/05/18 01/05/18 19:00 00:15 00:15 Creatine Kinase 34 CK-MB (CK-2) 1.94 1.69 Troponin I 0.046 0.047 NT-Pro-B Natriuret Pep 01/05/18 01/05/18 06:10 06:10 Creatine Kinase 33 CK-MB (CK-2) 1.85 Troponin I 0.059 NT-Pro-B Natriuret Pep Impressions: Chest X-Ray 01/04/18 16:53 IMPRESSION: Cardiomegaly. Cannot exclude mild pulmonary edema. Small pleural effusions. Renal Ultrasound 01/05/18 06:58 IMPRESSION: GROSSLY NORMAL RENAL AND BLADDER ULTRASOUND. Head CT 01/05/18 13:39 IMPRESSION: 1. No acute intracranial event. 2. Chronic sphenoid sinus disease. EVIDENCE OF ACUTE STROKE: NO. Assessment & Plan - Diagnosis (1) Acute on chronic renal failure Qualifiers: Acute renal failure type: unspecified Chronic kidney disease stage: stage 4 (severe) Qualified Code(s): N17.9 - Acute kidney failure, unspecified; N18.4 - Chronic kidney disease, stage 4 (severe); N18.4 - Chronic kidney disease , stage 4 (severe); N18.4 - Chronic kidney disease, stage 4 (severe); N18.4 - Chronic kidney disease, stage 4 (severe) Is this a current diagnosis for this admission?: Yes Plan: starting metolazone 2.5mg qd and discussed with her nurse about strict I and Os. (2) Anemia Qualifiers: Anemia type: iron deficiency Iron deficiency anemia type: chronic blood loss Qualified Code(s): D50.0 - Iron deficiency anemia secondary to blood loss (chronic) Is this a current diagnosis for this admission?: Yes Plan: per heme/onc (3) Cellulitis of right leg Is this a current diagnosis for this admission?: Yes Plan: on vanc, receives second dose tomorrow (4) Congestive heart failure Qualifiers: Heart failure type: unspecified Heart failure chronicity: unspecified Qualified Code(s): I50.9 - Heart failure, unspecified Is this a current diagnosis for this admission?: Yes Plan: starting metolazone 2.5mg qd; will look to see how the kidneys react to the metolazone and then increase if needed (6) Hyperkalemia, diminished renal excretion Is this a current diagnosis for this admission?: Yes Plan: stable, will monitor. (8) Pulmonary hypertension Is this a current diagnosis for this admission?: Yes Plan: per primary and cardiology
--- NOTE | 2018-01-07 16:32 | PDOC PROGRESS REPORT ---
Subjective Progress Note for:: 01/07/18 Subjective:: Patient had a difficult time with the nasal CPAP last night, her fluid balance was 1000 cc positive. She states her breathing is better she denies any chest pain some intermittent cough with clear phlegm she has had bowel movements her right leg is feeling better less pain less swelling. Denies fever chills. Reason For Visit: CHF,CELLULITUS Physical Exam Vital Signs: Temp Pulse Resp BP Pulse Ox 97.5 F 76 14 145/54 H 97 01/07/18 15:06 01/07/18 15:06 01/07/18 15:06 01/07/18 15:06 01/07/18 15:26 Intake & Output 01/06/18 01/07/18 01/08/18 06:59 06:59 06:59 Intake Total 672 1936 215 Output Total 800 500 200 Balance -128 1436 15 Weight 114 kg 115.4 kg General appearance: PRESENT: no acute distress Head exam: PRESENT: atraumatic, normocephalic Eye exam: PRESENT: conjunctiva pink, EOMI, PERRLA. ABSENT: scleral icterus Ear exam: PRESENT: normal external ear exam Mouth exam: PRESENT: moist, tongue midline Neck exam: PRESENT: full ROM. ABSENT: carotid bruit, JVD, lymphadenopathy, thyromegaly Respiratory exam: PRESENT: decreased breath sounds, rhonchi Cardiovascular exam: PRESENT: systolic murmur Murmur grade: 2 Pulses: PRESENT: normal dorsalis pedis pul, +2 pedal pulses bilateral Vascular exam: PRESENT: normal capillary refill GI/Abdominal exam: PRESENT: normal bowel sounds, soft. ABSENT: distended, guarding, mass, organolmegaly, rebound, tenderness Rectal exam: PRESENT: deferred Extremities exam: PRESENT: pedal edema Musculoskeletal exam: PRESENT: ambulatory Neurological exam: PRESENT: alert, awake, oriented to person, oriented to place , oriented to time, oriented to situation, CN II-XII grossly intact. ABSENT: motor sensory deficit Psychiatric exam: PRESENT: appropriate affect, normal mood. ABSENT: homicidal ideation, suicidal ideation Skin exam: PRESENT: dry, intact, warm. ABSENT: cyanosis, rash Results Laboratory Results: 01/06/18 06:21 01/07/18 05:44 01/07/18 05:44 Sodium 138.4 Potassium 3.8 D Chloride 99 Carbon Dioxide 24 Anion Gap 15 BUN 95 H Creatinine 2.44 H Est GFR ( Amer) 24 L Est GFR (Non-Af Amer) 20 L Glucose 93 Calcium 7.7 L 01/06/18 05:45 Clean Catch Midstream Urine Culture - Final Yeast, Not Stacy Albicans 01/04/18 01/04/18 01/04/18 17:15 17:15 19:00 Creatine Kinase 37 40 CK-MB (CK-2) 1.98 Troponin I 0.035 NT-Pro-B Natriuret Pep 8320 H 01/04/18 01/05/18 01/05/18 19:00 00:15 00:15 Creatine Kinase 34 CK-MB (CK-2) 1.94 1.69 Troponin I 0.046 0.047 NT-Pro-B Natriuret Pep 01/05/18 01/05/18 06:10 06:10 Creatine Kinase 33 CK-MB (CK-2) 1.85 Troponin I 0.059 NT-Pro-B Natriuret Pep Impressions: Chest X-Ray 01/04/18 16:53 IMPRESSION: Cardiomegaly. Cannot exclude mild pulmonary edema. Small pleural effusions. Renal Ultrasound 01/05/18 06:58 IMPRESSION: GROSSLY NORMAL RENAL AND BLADDER ULTRASOUND. Head CT 01/05/18 13:39 IMPRESSION: 1. No acute intracranial event. 2. Chronic sphenoid sinus disease. EVIDENCE OF ACUTE STROKE: NO. Assessment & Plan - Diagnosis (1) Congestive heart failure Qualifiers: Heart failure type: unspecified Heart failure chronicity: unspecified Qualified Code(s): I50.9 - Heart failure, unspecified Is this a current diagnosis for this admission?: Yes Plan: Continue Lasix discuss with nephrology possible add of Demadex low-dose. (2) Cellulitis of right leg Is this a current diagnosis for this admission?: Yes (3) Hypertension Qualifiers: Hypertension type: essential hypertension Qualified Code(s): I10 - Essential (primary) hypertension Is this a current diagnosis for this admission?: Yes (4) Acute on chronic renal failure Qualifiers: Acute renal failure type: unspecified Chronic kidney disease stage: stage 4 (severe) Qualified Code(s): N17.9 - Acute kidney failure, unspecified; N18.4 - Chronic kidney disease, stage 4 (severe); N18.4 - Chronic kidney disease , stage 4 (severe); N18.4 - Chronic kidney disease, stage 4 (severe); N18.4 - Chronic kidney disease, stage 4 (severe) Is this a current diagnosis for this admission?: Yes (5) Hyperkalemia, diminished renal excretion Is this a current diagnosis for this admission?: Yes (6) Pulmonary hypertension Is this a current diagnosis for this admission?: Yes (7) Cellulitis Qualifiers: Site of cellulitis of extremity: lower extremity Is this a current diagnosis for this admission?: Yes Plan: Plan gram-positive cocci was grown we will discontinue Maxipime and continue vancomycin that is being adjusted per nephrology. - Time Time Spent with patient: 15-24 minutes Anticipated discharge: Home Within: within 48 hours
--- NOTE | 2018-01-07 19:54 | PDOC PROGRESS REPORT ---
Subjective Progress Note for:: 01/07/18 Subjective:: Patient claims that she tried BiPAP therapy last night but just could not tolerate it and currently declined needing to use it anymore. Discussed that 2D echocardiogram shows significant pulmonary hypertension, RV enlargement. Discussed that she would benefit from oxygen supplementation and institution of noninvasive positive pressure ventilation. Pt is denying any chest arm or neck discomfort. Patient denying any PND, orthopnea. Patient denied any sustained palpitations, dizziness, syncope, near syncope. Patient denying any fever chills. Patient denying any other significant discomfort. Patient is maintaining atrial fibrillation. Review of systems: Rest review of systems negative. Medications: Medications have been reviewed. Reason For Visit: CHF,CELLULITUS Physical Exam Vital Signs: Temp Pulse Resp BP Pulse Ox 97.5 F 76 14 145/54 H 97 01/07/18 15:06 01/07/18 15:06 01/07/18 15:06 01/07/18 15:06 01/07/18 15:26 Intake & Output 01/06/18 01/07/18 01/08/18 06:59 06:59 06:59 Intake Total 672 1936 537 Output Total 800 500 450 Balance -128 1436 87 Weight 114 kg 115.4 kg Exam: GENERAL: well-nourished and in no acute distress. Alert and oriented x3 HEAD: Atraumatic, normocephalic. EYES: Pupils equal round and reactive to light, extraocular movements intact, sclera anicteric, conjunctiva are normal. ENT: TMs normal, nares patent, oropharynx clear without exudates. Moist mucous membranes. No oral ulcerations or bleeding gums noted NECK: supple without lymphadenopathy. Trachea is central. No cervical or axillary lymphadenopathy noted. Carotids are 2+, JVD 14 cm LUNGS: Respiration seems nonlabored, no significant accessory muscle action noted. Bibasilar fine crackles are noted. No wheezes rales or rhonchi noted. No significant dullness noted on percussion. CHEST: Palpation of the chest wall shows no significant chest wall tenderness. HEART: [place]NOT[place], No PSH, 1/6 REX aortic area, 1/6 green systolic murmur mitral area, no rubs, no gallops. ABDOMEN: Soft, no significant tenderness appreciated, normoactive bowel sounds. No guarding, no rebound. No rigidity noted . No masses appreciated. EXTREMITIES: Pedal pulses are 1-2+, no calf tenderness noted. No clubbing or cyanosis. 1-2+ pedal edema noted NEUROLOGICAL: Focused neurological exam showed no significant neurologic deficit. Normal speech, no focal weakness appreciated. PSYCH: Normal mood, normal affect. Judgment and insight within normal limits. SKIN: No significant ecchymosis, skin is noted to be warm. MUSCULOSKELETAL EXAM: No significant acute joint swelling noted. Results Laboratory Results: 01/06/18 06:21 01/07/18 05:44 01/07/18 05:44 Sodium 138.4 Potassium 3.8 D Chloride 99 Carbon Dioxide 24 Anion Gap 15 BUN 95 H Creatinine 2.44 H Est GFR ( Amer) 24 L Est GFR (Non-Af Amer) 20 L Glucose 93 Calcium 7.7 L 01/06/18 05:45 Clean Catch Midstream Urine Culture - Final Yeast, Not Stacy Albicans 01/04/18 01/04/18 01/04/18 17:15 17:15 19:00 Creatine Kinase 37 40 CK-MB (CK-2) 1.98 Troponin I 0.035 NT-Pro-B Natriuret Pep 8320 H 01/04/18 01/05/18 01/05/18 19:00 00:15 00:15 Creatine Kinase 34 CK-MB (CK-2) 1.94 1.69 Troponin I 0.046 0.047 NT-Pro-B Natriuret Pep 01/05/18 01/05/18 06:10 06:10 Creatine Kinase 33 CK-MB (CK-2) 1.85 Troponin I 0.059 NT-Pro-B Natriuret Pep Impressions: Chest X-Ray 01/04/18 16:53 IMPRESSION: Cardiomegaly. Cannot exclude mild pulmonary edema. Small pleural effusions. Renal Ultrasound 01/05/18 06:58 IMPRESSION: GROSSLY NORMAL RENAL AND BLADDER ULTRASOUND. Head CT 01/05/18 13:39 IMPRESSION: 1. No acute intracranial event. 2. Chronic sphenoid sinus disease. EVIDENCE OF ACUTE STROKE: NO. Assessment & Plan - Diagnosis (1) Congestive heart failure Qualifiers: Heart failure type: unspecified Heart failure chronicity: unspecified Qualified Code(s): I50.9 - Heart failure, unspecified Is this a current diagnosis for this admission?: Yes (2) Atrial fibrillation Qualifiers: Atrial fibrillation type: chronic Qualified Code(s): I48.2 - Chronic atrial fibrillation Is this a current diagnosis for this admission?: Yes (3) Coronary artery disease Qualifiers: Coronary Disease-Associated Artery/Lesion type: [place] artery [place] vs. transplanted heart: [place] heart Associated angina: angina presence unspecified Qualified Code(s): I25.10 - Atherosclerotic heart disease of [place] coronary artery without angina pectoris Is this a current diagnosis for this admission?: Yes (4) Hypertension Qualifiers: Hypertension type: essential hypertension Qualified Code(s): I10 - Essential (primary) hypertension Is this a current diagnosis for this admission?: Yes (5) Cellulitis of right leg Is this a current diagnosis for this admission?: Yes - Notes Notes: CHF: Patient noted to have significant fluid overload. Patient placed on fluid restriction. Continue IV diuretics. May need to optimize this further. Atrial fibrillation: Patient has history of chronic GI bleed. Currently there is some contraindication for chronic Coumadin therapy or other anticoagulants. Coronary artery disease: Currently without any symptoms of angina or angina equivalent symptoms. Hypertension: Blood pressure goal should be 135/85 or less. Cellulitis right leg: Continue antibiotic therapy. Sleep apnea syndrome: Patient declines to use CPAP therapy. Pulmonary hypertension and right heart failure: Patient will benefit from oxygen supplementation and CPAP therapy/BiPAP therapy if she would try to use it. - Time Time with patient: Greater than 35 minutes - CODE STATUS was discussed, patient remains full code. Surrogate decision-maker unchanged. Multiple medical problems were addressed. More than 50% of the time spent coordinating care, discussing management plans with involved caregivers. Management plans discussed with involved personnels. Medical decision making was of moderate to high complexity, patient's has multiple comorbidities. Medications reviewed and adjusted accordingly: Yes
[2018-01-07] MEDS: INSULIN GLARGINE,HUM.REC.ANLOG 300 UNIT/3 ML INSULN.PEN SUBCUT SCH (21:53)
[2018-01-07] MEDS: SIMVASTATIN 10 MG TABLET PO SCH (21:53)
[2018-01-07] MEDS: OTEZLA 30 MG PO SCH (21:54)
[2018-01-08] MEDS: IPRATROPIUM/ALBUTEROL 0.5-2.5 MG/3 ML AMPUL NEB SCH ×4 (02:28→20:00)
[2018-01-08] MEDS: HYDRALAZINE HCL 50 MG TABLET PO SCH ×3 (05:37→21:52)
[2018-01-08 06:44] LABS: ANION GAP 13 (5-19); BLOOD UREA NITROGEN 99 mg/dL (7-20); CALCIUM 8.4 mg/dL (8.4-10.2); CARBON DIOXIDE 27 mmol/L (22-30); CHLORIDE 98 mmol/L (98-107); GLUCOSE 93 mg/dL (75-110); POTASSIUM 3.8 mmol/L (3.6-5.0); SODIUM 138.3 mmol/L (137-145)
--- NOTE | 2018-01-08 08:17 | PDOC PROGRESS REPORT ---
Subjective Progress Note for:: 01/08/18 Subjective:: Pt given full dose IV iron completed yesterday Reason For Visit: CHF,CELLULITUS Physical Exam Vital Signs: Temp Pulse Resp BP Pulse Ox 97.9 F 72 17 141/38 H 97 01/08/18 03:35 01/08/18 06:59 01/08/18 03:35 01/08/18 03:35 01/08/18 03:35 Intake & Output 01/07/18 01/08/18 01/09/18 06:59 06:59 06:59 Intake Total 1936 537 Output Total 500 450 Balance 1436 87 Weight 115.4 kg 117.1 kg General appearance: PRESENT: no acute distress, well-developed, well-nourished Head exam: PRESENT: atraumatic, normocephalic Eye exam: PRESENT: conjunctiva pink, EOMI, PERRLA. ABSENT: scleral icterus Ear exam: PRESENT: normal external ear exam Mouth exam: PRESENT: moist, tongue midline Neck exam: ABSENT: carotid bruit, JVD, lymphadenopathy, thyromegaly Respiratory exam: PRESENT: clear to auscultation noelle. ABSENT: rales, rhonchi, wheezes Cardiovascular exam: PRESENT: RRR. ABSENT: diastolic murmur, rubs, systolic murmur Pulses: PRESENT: normal dorsalis pedis pul Vascular exam: PRESENT: normal capillary refill GI/Abdominal exam: PRESENT: normal bowel sounds, soft. ABSENT: distended, guarding, mass, organolmegaly, rebound, tenderness Rectal exam: PRESENT: deferred Extremities exam: PRESENT: full ROM. ABSENT: calf tenderness, clubbing, pedal edema Neurological exam: PRESENT: alert, awake, oriented to person, oriented to place , oriented to time, oriented to situation, CN II-XII grossly intact. ABSENT: motor sensory deficit Psychiatric exam: PRESENT: appropriate affect, normal mood. ABSENT: homicidal ideation, suicidal ideation Skin exam: PRESENT: dry, intact, warm. ABSENT: cyanosis, rash Results Laboratory Results: 01/06/18 06:21 01/08/18 06:10 01/08/18 06:10 Sodium 138.3 Potassium 3.8 Chloride 98 Carbon Dioxide 27 Anion Gap 13 BUN 99 H Creatinine 2.91 H Est GFR ( Amer) 20 L Est GFR (Non-Af Amer) 16 L Glucose 93 Calcium 8.4 01/06/18 05:45 Clean Catch Midstream Urine Culture - Final Yeast, Not Stacy Albicans 01/04/18 01/04/18 01/04/18 17:15 17:15 19:00 Creatine Kinase 37 40 CK-MB (CK-2) 1.98 Troponin I 0.035 NT-Pro-B Natriuret Pep 8320 H 01/04/18 01/05/18 01/05/18 19:00 00:15 00:15 Creatine Kinase 34 CK-MB (CK-2) 1.94 1.69 Troponin I 0.046 0.047 NT-Pro-B Natriuret Pep 01/05/18 01/05/18 06:10 06:10 Creatine Kinase 33 CK-MB (CK-2) 1.85 Troponin I 0.059 NT-Pro-B Natriuret Pep Impressions: Chest X-Ray 01/04/18 16:53 IMPRESSION: Cardiomegaly. Cannot exclude mild pulmonary edema. Small pleural effusions. Renal Ultrasound 01/05/18 06:58 IMPRESSION: GROSSLY NORMAL RENAL AND BLADDER ULTRASOUND. Head CT 01/05/18 13:39 IMPRESSION: 1. No acute intracranial event. 2. Chronic sphenoid sinus disease. EVIDENCE OF ACUTE STROKE: NO. Assessment & Plan - Diagnosis (1) Anemia Qualifiers: Anemia type: iron deficiency Iron deficiency anemia type: chronic blood loss Qualified Code(s): D50.0 - Iron deficiency anemia secondary to blood loss (chronic) Is this a current diagnosis for this admission?: Yes Plan: Iv iron fully given, will sign off and follow up pt in office
[2018-01-08] MEDS: FUROSEMIDE INJ/PF 40 MG/4 ML SDV IV SCH (09:56)
[2018-01-08] MEDS: METOLAZONE 5 MG TABLET PO SCH (09:57)
[2018-01-08] MEDS: CETIRIZINE 10 MG TABLET PO SCH (09:57)
[2018-01-08] MEDS: NITROGLYCERIN 10 MG (0.4 MG/HR) PATCH.TD24 TD SCH (09:57)
[2018-01-08] MEDS: CARVEDILOL 12.5 MG TABLET PO SCH ×2 (09:57→21:52)
[2018-01-08] MEDS: ALLOPURINOL 300 MG TABLET PO SCH (09:57)
[2018-01-08] MEDS: ENOXAPARIN SODIUM INJ 30 MG/0.3 ML DISP.SYRIN SUBCUT SCH (09:58)
--- NOTE | 2018-01-08 10:02 | RADIOLOGY REPORT (SQ) ---
EXAM DESCRIPTION: CHEST SINGLE VIEW COMPLETED DATE/TIME: 01/08/2018 9:46 am REASON FOR STUDY: chf COMPARISON: Chest films 09/11/2017, 01/04/2018 EXAM PARAMETERS: NUMBER OF VIEWS: One view. TECHNIQUE: Single frontal radiographic view of the chest acquired. RADIATION DOSE: NA LIMITATIONS: None. FINDINGS: LUNGS AND PLEURA: Small bilateral pleural effusions are present with bibasilar airspace di sease atelectasis versus pneumonia. There are increased interstitial markings with Lou lines from mild interstitial edema. No pneumothorax. MEDIASTINUM AND HILAR STRUCTURES: No masses. Contour normal. HEART AND VASCULAR STRUCTURES: Stable marked cardiomegaly. Post sternotomy for CABG BONES: No acute findings. HARDWARE: None in the chest. OTHER: No other significant finding. IMPRESSION: Marked cardiomegaly Small bilateral pleural effusions with bibasilar airspace disease. TECHNICAL DOCUMENTATION: JOB ID: [id number] [employer]- All Rights Reserved Reading location - IP/workstation name: [email or web address]
--- NOTE | 2018-01-08 10:18 | PDOC PROGRESS REPORT ---
Subjective Progress Note for:: 01/08/18 Subjective:: She states still short of breath was not able to use the CPAP due to claustrophobia, she denies chest pain palpitation she is afebrile her right leg pain is improved she is moving her bowels regularly. Reason For Visit: CHF,CELLULITUS Physical Exam Vital Signs: Temp Pulse Resp BP Pulse Ox 97.4 F 76 14 166/42 H 97 01/08/18 07:18 01/08/18 07:18 01/08/18 07:18 01/08/18 08:35 01/08/18 07:18 Intake & Output 01/07/18 01/08/18 01/09/18 06:59 06:59 06:59 Intake Total 1936 537 Output Total 500 450 Balance 1436 87 Weight 115.4 kg 117.1 kg General appearance: PRESENT: no acute distress, well-developed, well-nourished Head exam: PRESENT: atraumatic, normocephalic Eye exam: PRESENT: conjunctiva pink, EOMI, PERRLA. ABSENT: scleral icterus Ear exam: PRESENT: normal external ear exam Mouth exam: PRESENT: moist, tongue midline Neck exam: PRESENT: full ROM. ABSENT: carotid bruit, JVD, lymphadenopathy, thyromegaly Respiratory exam: PRESENT: crackles, decreased breath sounds, wheezes Cardiovascular exam: PRESENT: systolic murmur Murmur grade: 2 Pulses: PRESENT: normal dorsalis pedis pul, +2 pedal pulses bilateral GI/Abdominal exam: PRESENT: normal bowel sounds, soft. ABSENT: distended, guarding, mass, organolmegaly, rebound, tenderness Rectal exam: PRESENT: deferred Additional comments: Right leg erythema is decreased nondraining, no warmth there is 2+ edema to the knees , Musculoskeletal exam: PRESENT: ambulatory Neurological exam: PRESENT: alert, awake, oriented to person, oriented to place , oriented to time, oriented to situation, CN II-XII grossly intact. ABSENT: motor sensory deficit Psychiatric exam: PRESENT: appropriate affect, normal mood. ABSENT: homicidal ideation, suicidal ideation Skin exam: PRESENT: rash Results Laboratory Results: 01/06/18 06:21 01/08/18 06:10 01/08/18 06:10 Sodium 138.3 Potassium 3.8 Chloride 98 Carbon Dioxide 27 Anion Gap 13 BUN 99 H Creatinine 2.91 H Est GFR ( Amer) 20 L Est GFR (Non-Af Amer) 16 L Glucose 93 Calcium 8.4 01/06/18 05:45 Clean Catch Midstream Urine Culture - Final Yeast, Not Stacy Albicans 01/04/18 01/04/18 01/04/18 17:15 17:15 19:00 Creatine Kinase 37 40 CK-MB (CK-2) 1.98 Troponin I 0.035 NT-Pro-B Natriuret Pep 8320 H 01/04/18 01/05/18 01/05/18 19:00 00:15 00:15 Creatine Kinase 34 CK-MB (CK-2) 1.94 1.69 Troponin I 0.046 0.047 NT-Pro-B Natriuret Pep 01/05/18 01/05/18 06:10 06:10 Creatine Kinase 33 CK-MB (CK-2) 1.85 Troponin I 0.059 NT-Pro-B Natriuret Pep Impressions: Renal Ultrasound 01/05/18 06:58 IMPRESSION: GROSSLY NORMAL RENAL AND BLADDER ULTRASOUND. Head CT 01/05/18 13:39 IMPRESSION: 1. No acute intracranial event. 2. Chronic sphenoid sinus disease. EVIDENCE OF ACUTE STROKE: NO. Chest X-Ray 01/08/18 08:52 IMPRESSION: Marked cardiomegaly Small bilateral pleural effusions with bibasilar airspace disease. Assessment & Plan - Diagnosis (1) Congestive heart failure Qualifiers: Heart failure type: unspecified Heart failure chronicity: unspecified Qualified Code(s): I50.9 - Heart failure, unspecified Is this a current diagnosis for this admission?: Yes Plan: Plan we will increase the Zaroxolyn to 5 mg a day being understanding that this may worsen her kidney function, discussed with nursing the importance of detailed intake and output and daily weights. (2) Cellulitis of right leg Is this a current diagnosis for this admission?: Yes Plan: 1 of the organisms of enterococcus which was pansensitive but must wait for the second organism gram-positive in clusters most likely is staph aureus to make sure it is not MRSA, if it is not we will switch to oral antibiotics in the next 24 hours hopefully as we could decrease more IV fluids. (3) Hypertension Qualifiers: Hypertension type: essential hypertension Qualified Code(s): I10 - Essential (primary) hypertension Is this a current diagnosis for this admission?: Yes Plan: Continue on current antihypertensives (4) Acute on chronic renal failure Qualifiers: Acute renal failure type: unspecified Chronic kidney disease stage: stage 4 (severe) Qualified Code(s): N17.9 - Acute kidney failure, unspecified; N18.4 - Chronic kidney disease, stage 4 (severe); N18.4 - Chronic kidney disease , stage 4 (severe); N18.4 - Chronic kidney disease, stage 4 (severe); N18.4 - Chronic kidney disease, stage 4 (severe) Is this a current diagnosis for this admission?: Yes (5) Hyperkalemia, diminished renal excretion Is this a current diagnosis for this admission?: Yes (6) Pulmonary hypertension Is this a current diagnosis for this admission?: Yes Plan: Discussed with patient the importance of CPAP or even BiPAP eating at night because of the pulmonary hypertension. Discuss with respiratory we will try to see if there is nasal CPAP as an alternative. (7) Cellulitis Qualifiers: Site of cellulitis of extremity: lower extremity Is this a current diagnosis for this admission?: Yes (8) Diabetes mellitus Qualifiers: Diabetes mellitus type: type 2 Diabetes mellitus complication status: with kidney complications Diabetes mellitus complication detail: with chronic kidney disease Chronic kidney disease stage: stage 4 (severe) Is this a current diagnosis for this admission?: Yes Plan: Due to maintain tight blood sugar control with range of 120-180s with these Humalog. 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
[2018-01-08] MEDS ORDERED: NORMAL SALINE 250 ML with FUROSEMIDE 250 MG IV PRN ×4 (14:42→14:58)
--- NOTE | 2018-01-08 15:12 | PDOC PROGRESS REPORT ---
Subjective Progress Note for:: 01/08/18 Subjective:: Patient was sitting up in her chair at the time of examination. At the time she said that her SOB was stable. It wasn't worse but it also has not gotten better. Her urine output was less than 500mL yesterday. She denies chest pain Reason For Visit: CHF,CELLULITUS Physical Exam Vital Signs: Temp Pulse Resp BP Pulse Ox 97.2 F 76 18 156/38 H 96 01/08/18 11:10 01/08/18 14:06 01/08/18 14:06 01/08/18 11:10 01/08/18 14:06 Intake & Output 01/07/18 01/08/18 01/09/18 06:59 06:59 06:59 Intake Total 1936 537 200 Output Total 500 450 250 Balance 1436 87 -50 Weight 115.4 kg 117.1 kg General appearance: PRESENT: no acute distress, well-developed, well-nourished, other - -on oxygen Mouth exam: PRESENT: moist, neck supple Neck exam: PRESENT: full ROM, JVD Respiratory exam: PRESENT: crackles, decreased breath sounds, rales. ABSENT: accessory muscle use, clear to auscultation noelle, wheezes Cardiovascular exam: PRESENT: irregular rhythm, +S1, +S2 Extremities exam: PRESENT: pedal edema, +2 edema. ABSENT: tenderness Musculoskeletal exam: ABSENT: normal inspection, tenderness Neurological exam: PRESENT: alert, awake, oriented to person, oriented to place , oriented to time, oriented to situation Psychiatric exam: PRESENT: appropriate affect, normal mood Skin exam: PRESENT: dry, erythema - 4, intact, warm. ABSENT: cyanosis Results Laboratory Results: 01/06/18 06:21 01/08/18 06:10 01/08/18 06:10 Sodium 138.3 Potassium 3.8 Chloride 98 Carbon Dioxide 27 Anion Gap 13 BUN 99 H Creatinine 2.91 H Est GFR ( Amer) 20 L Est GFR (Non-Af Amer) 16 L Glucose 93 Calcium 8.4 01/06/18 05:45 Clean Catch Midstream Urine Culture - Final Yeast, Not Stacy Albicans 01/04/18 01/04/18 01/04/18 17:15 17:15 19:00 Creatine Kinase 37 40 CK-MB (CK-2) 1.98 Troponin I 0.035 NT-Pro-B Natriuret Pep 8320 H 01/04/18 01/05/18 01/05/18 19:00 00:15 00:15 Creatine Kinase 34 CK-MB (CK-2) 1.94 1.69 Troponin I 0.046 0.047 NT-Pro-B Natriuret Pep 01/05/18 01/05/18 06:10 06:10 Creatine Kinase 33 CK-MB (CK-2) 1.85 Troponin I 0.059 NT-Pro-B Natriuret Pep Impressions: Renal Ultrasound 01/05/18 06:58 IMPRESSION: GROSSLY NORMAL RENAL AND BLADDER ULTRASOUND. Head CT 01/05/18 13:39 IMPRESSION: 1. No acute intracranial event. 2. Chronic sphenoid sinus disease. EVIDENCE OF ACUTE STROKE: NO. Chest X-Ray 01/08/18 08:52 IMPRESSION: Marked cardiomegaly Small bilateral pleural effusions with bibasilar airspace disease. Assessment & Plan - Diagnosis (1) Acute on chronic renal failure Qualifiers: Acute renal failure type: unspecified Chronic kidney disease stage: stage 4 (severe) Qualified Code(s): N17.9 - Acute kidney failure, unspecified; N18.4 - Chronic kidney disease, stage 4 (severe); N18.4 - Chronic kidney disease , stage 4 (severe); N18.4 - Chronic kidney disease, stage 4 (severe); N18.4 - Chronic kidney disease, stage 4 (severe) Is this a current diagnosis for this admission?: Yes Plan: currently creatinine is stable but urine out put. Along with the recent increase in metolazone, I am going to place her on a furosemide infusion of 5mg per hour. Once culture fully comes back, I would recommend stopping the vanc and switching to a more kidney friendly antibiotic. 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 (3) Cellulitis of right leg Is this a current diagnosis for this admission?: Yes Plan: on vanc, receives second dose today. Recommend switching to ampicillin or more kidney friendly antibiotic once the culture fully comes back. (4) Anemia Qualifiers: Anemia type: iron deficiency Iron deficiency anemia type: chronic blood loss Qualified Code(s): D50.0 - Iron deficiency anemia secondary to blood loss (chronic) Is this a current diagnosis for this admission?: Yes Plan: per heme/onc (5) Diabetes mellitus Qualifiers: Diabetes mellitus type: type 2 Diabetes mellitus complication status: with kidney complications Diabetes mellitus complication detail: with chronic kidney disease Chronic kidney disease stage: stage 4 (severe) Is this a current diagnosis for this admission?: Yes (6) Hyperkalemia, diminished renal excretion Is this a current diagnosis for this admission?: Yes Plan: stable, will monitor. (8) Pulmonary hypertension Is this a current diagnosis for this admission?: Yes Plan: per primary and cardiology - Notes Notes: Case and treatment plan was discussed with Dr. Chaudhary
[2018-01-08] MEDS: BUDESONIDE NEB 0.25 MG/2 ML AMPUL NEB SCH (20:01)
--- NOTE | 2018-01-08 20:33 | PDOC PROGRESS REPORT ---
Subjective Progress Note for:: 01/08/18 Subjective:: Patient declines to use CPAP therapy but other option could be a small nasal mask or a nasal pillow which the hospital does not carry but can be used as an outpatient. However patient would need to be exposed to these. Pt is denying any chest arm or neck discomfort. Patient denying any PND, orthopnea. Patient denied any sustained palpitations, dizziness, syncope, near syncope. Patient denying any fever chills. Patient denying any other significant discomfort. Patient is maintaining atrial fibrillation. Review of systems: Rest review of systems negative. Medications: Medications have been reviewed. Reason For Visit: CHF,CELLULITUS Physical Exam Vital Signs: Temp Pulse Resp BP Pulse Ox 97.9 F 75 17 140/37 H 100 01/08/18 19:38 01/08/18 20:02 01/08/18 20:02 01/08/18 19:38 01/08/18 20:02 Intake & Output 01/07/18 01/08/18 01/09/18 06:59 06:59 06:59 Intake Total 1936 537 852 Output Total 500 450 350 Balance 1436 87 502 Weight 115.4 kg 117.1 kg Exam: GENERAL: well-nourished and in no acute distress. Alert and oriented x3 HEAD: Atraumatic, normocephalic. EYES: Pupils equal round and reactive to light, extraocular movements intact, sclera anicteric, conjunctiva are normal. ENT: TMs normal, nares patent, oropharynx clear without exudates. Moist mucous membranes. No oral ulcerations or bleeding gums noted NECK: supple without lymphadenopathy. Trachea is central. No cervical or axillary lymphadenopathy noted. Carotids are 2+, JVD 10-12 cm LUNGS: Respiration seems nonlabored, no significant accessory muscle action noted. Bibasilar fine crackles are noted. No wheezes rales or rhonchi noted. No significant dullness noted on percussion. CHEST: Palpation of the chest wall shows no significant chest wall tenderness. 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 ABDOMEN: Soft, no significant tenderness appreciated, normoactive bowel sounds. No guarding, no rebound. No rigidity noted . No masses appreciated. EXTREMITIES: Pedal pulses are 1-2+, no calf tenderness noted. No clubbing or cyanosis. 2+ pedal edema noted NEUROLOGICAL: Focused neurological exam showed no significant neurologic deficit. Normal speech, no focal weakness appreciated. PSYCH: Normal mood, normal affect. Judgment and insight within normal limits. SKIN: No significant ecchymosis, skin is noted to be warm. MUSCULOSKELETAL EXAM: No significant acute joint swelling noted. Results Laboratory Results: 01/06/18 06:21 01/08/18 06:10 01/08/18 06:10 Sodium 138.3 Potassium 3.8 Chloride 98 Carbon Dioxide 27 Anion Gap 13 BUN 99 H Creatinine 2.91 H Est GFR ( Amer) 20 L Est GFR (Non-Af Amer) 16 L Glucose 93 Calcium 8.4 01/04/18 23:26 Leg - [place] Gram Stain - Final 01/04/18 23:26 Leg - [place] Wound Culture - Final Enterococcus Faecalis(Group D) Staphylococcus Aureus Skin Gala 01/04/18 01/04/18 01/04/18 17:15 17:15 19:00 Creatine Kinase 37 40 CK-MB (CK-2) 1.98 Troponin I 0.035 NT-Pro-B Natriuret Pep 8320 H 01/04/18 01/05/18 01/05/18 19:00 00:15 00:15 Creatine Kinase 34 CK-MB (CK-2) 1.94 1.69 Troponin I 0.046 0.047 NT-Pro-B Natriuret Pep 01/05/18 01/05/18 06:10 06:10 Creatine Kinase 33 CK-MB (CK-2) 1.85 Troponin I 0.059 NT-Pro-B Natriuret Pep EKG Comments: Atrial fibrillation but heart rate reasonably well controlled. Impressions: Renal Ultrasound 01/05/18 06:58 IMPRESSION: GROSSLY NORMAL RENAL AND BLADDER ULTRASOUND. Head CT 01/05/18 13:39 IMPRESSION: 1. No acute intracranial event. 2. Chronic sphenoid sinus disease. EVIDENCE OF ACUTE STROKE: NO. Chest X-Ray 01/08/18 08:52 IMPRESSION: Marked cardiomegaly Small bilateral pleural effusions with bibasilar airspace disease. Assessment & Plan - Diagnosis (1) Congestive heart failure Qualifiers: Heart failure type: unspecified Heart failure chronicity: unspecified Qualified Code(s): I50.9 - Heart failure, unspecified Is this a current diagnosis for this admission?: Yes (2) Atrial fibrillation Qualifiers: Atrial fibrillation type: chronic Qualified Code(s): I48.2 - Chronic atrial fibrillation Is this a current diagnosis for this admission?: Yes (3) Coronary artery disease Qualifiers: Coronary Disease-Associated Artery/Lesion type: [place] artery [place] vs. transplanted heart: ch[place]koot heart Associated angina: angina presence unspecified Qualified Code(s): I25.10 - Atherosclerotic heart disease of [place] coronary artery without angina pectoris Is this a current diagnosis for this admission?: Yes (4) Hypertension Qualifiers: Hypertension type: essential hypertension Qualified Code(s): I10 - Essential (primary) hypertension Is this a current diagnosis for this admission?: Yes (5) Cellulitis of right leg Is this a current diagnosis for this admission?: Yes - Notes Notes: Patient may benefit from using a nasal pillow or small nasal mask for CPAP but would need to be exposed to it through my office. Patient is showing gradual slow improvement. Continue current therapeutic regimen. CHF: Patient noted to have significant fluid overload. Patient placed on fluid restriction. Continue IV diuretics. May need to optimize this further. Atrial fibrillation: Patient has history of chronic GI bleed. Currently there is some contraindication for chronic Coumadin therapy or other anticoagulants. Coronary artery disease: Currently without any symptoms of angina or angina equivalent symptoms. Hypertension: Blood pressure goal should be 135/85 or less. Cellulitis right leg: Continue antibiotic therapy. Sleep apnea syndrome: Patient declines to use CPAP therapy. However will introduce nasal pillows to the patient. Pulmonary hypertension and right heart failure: Patient will benefit from oxygen supplementation and CPAP therapy/BiPAP therapy if she would try to use it. - Time Time with patient: 15-25 minutes - More than 50% of the time spent coordinating care, discussing management plans with involved caregivers. Management plans discussed with involved personnels. Medical decision making was of moderate to high complexity, patient's has multiple comorbidities. Medications reviewed and adjusted accordingly: Yes
[2018-01-08] MEDS: INSULIN GLARGINE,HUM.REC.ANLOG 300 UNIT/3 ML INSULN.PEN SUBCUT SCH (21:21)
[2018-01-08] MEDS: OTEZLA 30 MG PO SCH (21:52)
[2018-01-08] MEDS: SIMVASTATIN 10 MG TABLET PO SCH (21:52)
[2018-01-08] MEDS: VANCOMYCIN HCL 1,250 MG in DEXTROSE 5%-WATER 250 ML IV SCH (21:53)
[2018-01-09] MEDS: IPRATROPIUM/ALBUTEROL 0.5-2.5 MG/3 ML AMPUL NEB SCH ×4 (02:22→20:52)
[2018-01-09 05:45] LABS: ANION GAP 13 (5-19); BLOOD UREA NITROGEN 104 mg/dL (7-20); CALCIUM 8.5 mg/dL (8.4-10.2); CARBON DIOXIDE 26 mmol/L (22-30); CHLORIDE 97 mmol/L (98-107); GLUCOSE 86 mg/dL (75-110); POTASSIUM 3.9 mmol/L (3.6-5.0); SODIUM 136.1 mmol/L (137-145)
[2018-01-09] MEDS: HYDRALAZINE HCL 50 MG TABLET PO SCH ×3 (05:45→21:43)
[2018-01-09] MEDS: BUDESONIDE NEB 0.25 MG/2 ML AMPUL NEB SCH ×2 (07:46→20:52)
[2018-01-09] MEDS: CARVEDILOL 12.5 MG TABLET PO SCH ×2 (09:40→21:44)
[2018-01-09] MEDS: METOLAZONE 5 MG TABLET PO SCH (09:40)
[2018-01-09] MEDS: ALLOPURINOL 300 MG TABLET PO SCH (09:40)
[2018-01-09] MEDS: CETIRIZINE 10 MG TABLET PO SCH (09:41)
[2018-01-09] MEDS: NITROGLYCERIN 10 MG (0.4 MG/HR) PATCH.TD24 TD SCH (09:41)
[2018-01-09] MEDS: ENOXAPARIN SODIUM INJ 30 MG/0.3 ML DISP.SYRIN SUBCUT SCH (09:42)
[2018-01-09] MEDS: AMPICILLIN SODIUM/SULBACTAM NA 3 GM in NORMAL SALINE 50 ML IV SCH ×2 (10:18→21:44)
--- NOTE | 2018-01-09 11:17 | PDOC PROGRESS REPORT ---
Subjective Progress Note for:: 01/09/18 Subjective:: No adverse events overnight. No new complaints. Vital signs been stable. She says she thinks the redness around the areas were considered infected on her right [place] have decreased somewhat in intensity of erythema, but she notes that her legs are still fairly swollen. Reason For Visit: CHF,CELLULITUS Physical Exam Vital Signs: Temp Pulse Resp BP Pulse Ox 97.5 F 80 16 164/43 H 94 01/09/18 07:41 01/09/18 07:49 01/09/18 07:49 01/09/18 07:41 01/09/18 07:49 Intake & Output 01/08/18 01/09/18 01/10/18 06:59 06:59 06:59 Intake Total 537 1457 Output Total 450 750 Balance 87 707 Weight 117.1 kg 118.2 kg General appearance: PRESENT: no acute distress, well-developed, well-nourished Respiratory exam: PRESENT: Unlabored, decreased breath sounds Cardiovascular exam: PRESENT: systolic murmur Murmur grade: 2 Pulses: PRESENT: normal dorsalis pedis pul, +2 pedal pulses bilateral GI/Abdominal exam: PRESENT: normal bowel sounds, soft. ABSENT: distended, guarding, mass, organolmegaly, rebound, tenderness Extremities: Right leg erythema is faint, fluid blisters have scabbed over, no warmth there is 2+ pitting edema to the knees Neurological exam: PRESENT: alert, awake, oriented to person, oriented to place , oriented to time, oriented to situation Results Laboratory Results: 01/06/18 06:21 01/09/18 05:11 01/09/18 05:11 Sodium 136.1 L Potassium 3.9 Chloride 97 L Carbon Dioxide 26 Anion Gap 13 BUN 104 H Creatinine 2.70 H Est GFR ( Amer) 21 L Est GFR (Non-Af Amer) 18 L Glucose 86 Calcium 8.5 01/04/18 23:26 Leg - [place] Gram Stain - Final 01/04/18 23:26 Leg - [place] Wound Culture - Final Enterococcus Faecalis(Group D) Staphylococcus Aureus Skin Gala 01/04/18 01/04/18 01/04/18 17:15 17:15 19:00 Creatine Kinase 37 40 CK-MB (CK-2) 1.98 Troponin I 0.035 NT-Pro-B Natriuret Pep 8320 H 01/04/18 01/05/18 01/05/18 19:00 00:15 00:15 Creatine Kinase 34 CK-MB (CK-2) 1.94 1.69 Troponin I 0.046 0.047 NT-Pro-B Natriuret Pep 01/05/18 01/05/18 06:10 06:10 Creatine Kinase 33 CK-MB (CK-2) 1.85 Troponin I 0.059 NT-Pro-B Natriuret Pep Impressions: Renal Ultrasound 01/05/18 06:58 IMPRESSION: GROSSLY NORMAL RENAL AND BLADDER ULTRASOUND. Head CT 01/05/18 13:39 IMPRESSION: 1. No acute intracranial event. 2. Chronic sphenoid sinus disease. EVIDENCE OF ACUTE STROKE: NO. Chest X-Ray 01/08/18 08:52 IMPRESSION: Marked cardiomegaly Small bilateral pleural effusions with bibasilar airspace disease. Assessment & Plan - Diagnosis (1) Congestive heart failure Qualifiers: Heart failure type: diastolic Heart failure chronicity: acute on chronic Qualified Code(s): I50.33 - Acute on chronic diastolic (congestive) heart failure Is this a current diagnosis for this admission?: Yes Plan: She has been switched over to a Lasix drip because her output has not been to the level desired despite fluid restriction and bolus doses of Lasix. Also, her creatinine has started to rise and the Lasix drip should be a little bit better tolerated. (2) Acute on chronic renal failure Qualifiers: Acute renal failure type: unspecified Chronic kidney disease stage: stage 4 (severe) Qualified Code(s): N17.9 - Acute kidney failure, unspecified; N18.4 - Chronic kidney disease, stage 4 (severe); N18.4 - Chronic kidney disease , stage 4 (severe); N18.4 - Chronic kidney disease, stage 4 (severe); N18.4 - Chronic kidney disease, stage 4 (severe) Is this a current diagnosis for this admission?: Yes Plan: As noted above. We will continue to monitor for further rising serum creatinine. (3) Cellulitis of right leg Is this a current diagnosis for this admission?: Yes Plan: She is growing out a pansensitive Enterococcus faecalis and a pansensitive MSSA. We will switch her to Unasyn dosed renally. We should then be able to transition her over to oral amoxicillin or Augmentin to complete her course of treatment after she leaves the hospital. vancomycin has been discontinued. - Time Time Spent with patient: 25-34 minutes Medications reviewed and adjusted accordingly: Yes
[2018-01-09] MEDS: OTEZLA 30 MG PO SCH (21:43)
[2018-01-09] MEDS: SIMVASTATIN 10 MG TABLET PO SCH (21:44)
[2018-01-09] MEDS: INSULIN GLARGINE,HUM.REC.ANLOG 300 UNIT/3 ML INSULN.PEN SUBCUT SCH (21:57)
[2018-01-10] MEDS: IPRATROPIUM/ALBUTEROL 0.5-2.5 MG/3 ML AMPUL NEB SCH ×4 (02:21→20:36)
[2018-01-10] MEDS: HYDRALAZINE HCL 50 MG TABLET PO SCH ×3 (05:19→21:33)
[2018-01-10 05:48] LABS: ANION GAP 11 (5-19); BLOOD UREA NITROGEN 106 mg/dL (7-20); CALCIUM 8.6 mg/dL (8.4-10.2); CARBON DIOXIDE 29 mmol/L (22-30); CHLORIDE 95 mmol/L (98-107); GLUCOSE 88 mg/dL (75-110); POTASSIUM 4.3 mmol/L (3.6-5.0); SODIUM 135.3 mmol/L (137-145)
[2018-01-10] MEDS ORDERED: AMPICILLIN SODIUM/SULBACTAM NA 3 GM in NORMAL SALINE 50 ML IV ONE (07:30)
[2018-01-10] MEDS: BUDESONIDE NEB 0.25 MG/2 ML AMPUL NEB SCH ×2 (08:09→20:41)
[2018-01-10] MEDS: CARVEDILOL 12.5 MG TABLET PO SCH ×2 (09:33→21:34)
[2018-01-10] MEDS: ALLOPURINOL 300 MG TABLET PO SCH (09:34)
[2018-01-10] MEDS: NITROGLYCERIN 10 MG (0.4 MG/HR) PATCH.TD24 TD SCH (09:34)
[2018-01-10] MEDS: METOLAZONE 5 MG TABLET PO SCH (09:34)
[2018-01-10] MEDS: CETIRIZINE 10 MG TABLET PO SCH (09:34)
[2018-01-10] MEDS: ENOXAPARIN SODIUM INJ 30 MG/0.3 ML DISP.SYRIN SUBCUT SCH (09:35)
[2018-01-10] MEDS ORDERED: NORMAL SALINE 250 ML with FUROSEMIDE 250 MG IV PRN ×2 (11:05)
--- NOTE | 2018-01-10 15:00 | PDOC PROGRESS REPORT ---
Subjective Progress Note for:: 01/10/18 Subjective:: No adverse events overnight. No new complaints. She still on a positive fluid balance. She does not feel like her swelling has changed any. Reason For Visit: CHF,CELLULITUS Physical Exam Vital Signs: Temp Pulse Resp BP Pulse Ox 97.5 F 70 17 153/50 H 90 L 01/10/18 11:50 01/10/18 11:50 01/10/18 11:50 01/10/18 11:50 01/10/18 11:50 Intake & Output 01/09/18 01/10/18 01/11/18 06:59 06:59 06:59 Intake Total 1457 772 436 Output Total 750 600 200 Balance 707 172 236 Weight 118.2 kg 118 kg General appearance: PRESENT: no acute distress, well-developed, well-nourished Respiratory exam: PRESENT: Unlabored, decreased breath sounds Cardiovascular exam: PRESENT: systolic murmur Murmur grade: 2 Pulses: PRESENT: normal dorsalis pedis pul, +2 pedal pulses bilateral GI/Abdominal exam: PRESENT: normal bowel sounds, soft. ABSENT: distended, guarding, mass, organolmegaly, rebound, tenderness Extremities: Right leg erythema is faint, fluid blisters have scabbed over, no warmth there is 2+ pitting edema to the knees Neurological exam: PRESENT: alert, awake, oriented to person, oriented to place , oriented to time, oriented to situation Results Laboratory Results: 01/06/18 06:21 01/10/18 05:07 01/10/18 05:07 Sodium 135.3 L Potassium 4.3 Chloride 95 L Carbon Dioxide 29 Anion Gap 11 BUN 106 H Creatinine 2.93 H Est GFR ( Amer) 19 L Est GFR (Non-Af Amer) 16 L Glucose 88 Calcium 8.6 01/04/18 19:20 Blood Blood Culture - Final NO GROWTH IN 5 DAYS 01/04/18 19:00 Blood Blood Culture - Final NO GROWTH IN 5 DAYS 01/04/18 01/04/18 01/04/18 17:15 17:15 19:00 Creatine Kinase 37 40 CK-MB (CK-2) 1.98 Troponin I 0.035 NT-Pro-B Natriuret Pep 8320 H 01/04/18 01/05/18 01/05/18 19:00 00:15 00:15 Creatine Kinase 34 CK-MB (CK-2) 1.94 1.69 Troponin I 0.046 0.047 NT-Pro-B Natriuret Pep 01/05/18 01/05/18 06:10 06:10 Creatine Kinase 33 CK-MB (CK-2) 1.85 Troponin I 0.059 NT-Pro-B Natriuret Pep Impressions: Renal Ultrasound 01/05/18 06:58 IMPRESSION: GROSSLY NORMAL RENAL AND BLADDER ULTRASOUND. Head CT 01/05/18 13:39 IMPRESSION: 1. No acute intracranial event. 2. Chronic sphenoid sinus disease. EVIDENCE OF ACUTE STROKE: NO. Chest X-Ray 01/08/18 08:52 IMPRESSION: Marked cardiomegaly Small bilateral pleural effusions with bibasilar airspace disease. Assessment & Plan - Diagnosis (1) Congestive heart failure Qualifiers: Heart failure type: diastolic Heart failure chronicity: acute on chronic Qualified Code(s): I50.33 - Acute on chronic diastolic (congestive) heart failure Is this a current diagnosis for this admission?: Yes Plan: Lasix drip increased from 5 mg now to 10 mg an hour. We will monitor urine output and renal function closely. She is also on a fluid restriction. Already on nitroglycerin patch. (2) Acute on chronic renal failure Qualifiers: Acute renal failure type: unspecified Chronic kidney disease stage: stage 4 (severe) Qualified Code(s): N17.9 - Acute kidney failure, unspecified; N18.4 - Chronic kidney disease, stage 4 (severe); N18.4 - Chronic kidney disease , stage 4 (severe); N18.4 - Chronic kidney disease, stage 4 (severe); N18.4 - Chronic kidney disease, stage 4 (severe) Is this a current diagnosis for this admission?: Yes Plan: Renal function is been holding steady over the last several days. As long as not further decompensate, will continue to push diuretics. (3) Cellulitis of right leg Is this a current diagnosis for this admission?: Yes Plan: Improving well with Unasyn. She should be able to transition over to Augmentin to finish her course of therapy. - Time Time Spent with patient: 25-34 minutes
[2018-01-10] MEDS: AMPICILLIN SODIUM/SULBACTAM NA 3 GM in NORMAL SALINE 50 ML IV SCH (17:43)
[2018-01-10] MEDS ORDERED: PHARMACY COMMUNICATION ORDER MC SCH (18:00)
[2018-01-10] MEDS ORDERED: BUMETANIDE INJ/PF 1 MG/4 ML SDV IV ONE (19:00)
[2018-01-10] MEDS ORDERED: BUMETANIDE INJ/PF 1 MG/4 ML SDV ONE (19:38)
[2018-01-10] MEDS: SIMVASTATIN 10 MG TABLET PO SCH (21:33)
[2018-01-10] MEDS: OTEZLA 30 MG PO SCH (21:34)
[2018-01-10] MEDS: INSULIN GLARGINE,HUM.REC.ANLOG 300 UNIT/3 ML INSULN.PEN SUBCUT SCH (23:50)
[2018-01-11] MEDS: IPRATROPIUM/ALBUTEROL 0.5-2.5 MG/3 ML AMPUL NEB SCH ×4 (02:03→20:32)
[2018-01-11 05:18] LABS: ANION GAP 14 (5-19); BLOOD UREA NITROGEN 112 mg/dL (7-20); CALCIUM 8.2 mg/dL (8.4-10.2); CARBON DIOXIDE 26 mmol/L (22-30); CHLORIDE 95 mmol/L (98-107); GLUCOSE 90 mg/dL (75-110); SODIUM 135.1 mmol/L (137-145)
[2018-01-11] MEDS: HYDRALAZINE HCL 50 MG TABLET PO SCH ×3 (05:50→21:49)
[2018-01-11] MEDS: AMPICILLIN SODIUM/SULBACTAM NA 3 GM in NORMAL SALINE 50 ML IV SCH (05:50)
[2018-01-11] MEDS: BUDESONIDE NEB 0.25 MG/2 ML AMPUL NEB SCH ×2 (07:42→20:32)
[2018-01-11] MEDS: CARVEDILOL 12.5 MG TABLET PO SCH ×2 (09:47→21:48)
[2018-01-11] MEDS: ALLOPURINOL 300 MG TABLET PO SCH (09:48)
[2018-01-11] MEDS: ENOXAPARIN SODIUM INJ 30 MG/0.3 ML DISP.SYRIN SUBCUT SCH (09:48)
[2018-01-11] MEDS: NITROGLYCERIN 10 MG (0.4 MG/HR) PATCH.TD24 TD SCH (09:48)
[2018-01-11] MEDS: CETIRIZINE 10 MG TABLET PO SCH (09:48)
[2018-01-11] MEDS: METOLAZONE 5 MG TABLET PO SCH ×2 (09:50→17:22)
[2018-01-11] MEDS: BUMETANIDE INJ/PF 1 MG/4 ML SDV IV SCH ×2 (10:22→17:22)
[2018-01-11] MEDS: ACETAMINOPHEN 325 MG TABLET PO PRN (13:23)
--- NOTE | 2018-01-11 15:45 | PDOC PROGRESS REPORT ---
Subjective Progress Note for:: 01/11/18 - seen on rounds this morning Subjective:: States she is swelling good this morning and her swelling is coming down slowly. Discussed about her care and management today with family and patient. Reason For Visit: CHF,CELLULITUS Physical Exam Vital Signs: Temp Pulse Resp BP Pulse Ox 97.6 F 72 20 175/39 H 95 01/11/18 11:44 01/11/18 14:04 01/11/18 14:04 01/11/18 11:44 01/11/18 14:04 Intake & Output 01/10/18 01/11/18 01/12/18 06:59 06:59 06:59 Intake Total 772 560 150 Output Total 600 820 300 Balance 172 -260 -150 Weight 260 lb 2.327 oz 249 lb 1.957 oz General appearance: PRESENT: no acute distress, morbidly obese Head exam: PRESENT: atraumatic, normocephalic Eye exam: PRESENT: EOMI, PERRLA. ABSENT: scleral icterus Ear exam: PRESENT: normal external ear exam Mouth exam: PRESENT: tongue midline Neck exam: ABSENT: tracheal deviation Respiratory exam: PRESENT: clear to auscultation noelle, symmetrical Pulses: PRESENT: +1 pedal pulses bilateral GI/Abdominal exam: PRESENT: normal bowel sounds, soft. ABSENT: tenderness Extremities exam: PRESENT: +2 edema - b/l Neurological exam: PRESENT: alert, awake, oriented to person, oriented to place , oriented to time, oriented to situation, CN II-XII grossly intact Skin exam: PRESENT: dry, erythema - Erythema of the right lower extremity, warm Results Laboratory Results: 01/06/18 06:21 01/11/18 04:36 01/11/18 04:36 Sodium 135.1 L Potassium 4.0 Chloride 95 L Carbon Dioxide 26 Anion Gap 14 BUN 112 H Creatinine 2.60 H Est GFR ( Amer) 22 L Est GFR (Non-Af Amer) 18 L Glucose 90 Calcium 8.2 L 01/04/18 01/04/18 01/04/18 17:15 17:15 19:00 Creatine Kinase 37 40 CK-MB (CK-2) 1.98 Troponin I 0.035 NT-Pro-B Natriuret Pep 8320 H 01/04/18 01/05/18 01/05/18 19:00 00:15 00:15 Creatine Kinase 34 CK-MB (CK-2) 1.94 1.69 Troponin I 0.046 0.047 NT-Pro-B Natriuret Pep 01/05/18 01/05/18 06:10 06:10 Creatine Kinase 33 CK-MB (CK-2) 1.85 Troponin I 0.059 NT-Pro-B Natriuret Pep Impressions: Renal Ultrasound 01/05/18 06:58 IMPRESSION: GROSSLY NORMAL RENAL AND BLADDER ULTRASOUND. Head CT 01/05/18 13:39 IMPRESSION: 1. No acute intracranial event. 2. Chronic sphenoid sinus disease. EVIDENCE OF ACUTE STROKE: NO. Chest X-Ray 01/08/18 08:52 IMPRESSION: Marked cardiomegaly Small bilateral pleural effusions with bibasilar airspace disease. Assessment & Plan - Diagnosis (1) Acute on chronic renal failure Qualifiers: Acute renal failure type: unspecified Chronic kidney disease stage: stage 4 (severe) Qualified Code(s): N17.9 - Acute kidney failure, unspecified; N18.4 - Chronic kidney disease, stage 4 (severe); N18.4 - Chronic kidney disease , stage 4 (severe); N18.4 - Chronic kidney disease, stage 4 (severe); N18.4 - Chronic kidney disease, stage 4 (severe) Is this a current diagnosis for this admission?: Yes Plan: Creatinine this morning is improved from yesterday. Her baseline seems to be around 1.3. She likely has chronic renal disease and this is an acute event. Last night she was started on Bumex since Lasix was not having a good effect on her urine output. She is diuresing better after started on Bumex IV 2 mg twice daily. Patient tells me that her Lasix dose was increased outpatient as her fluid retention is worsening. Continue with IV Bumex at this time. She was also started with Zaroxolyn per nephrology. Nephrology is consulted on the case and I appreciate their assistance (2) CHF exacerbation Is this a current diagnosis for this admission?: Yes Plan: Acute on chronic diastolic heart failure. Echo done shows preserved EF. 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 Continue to diuresis with Bumex IV 2 mg twice daily daily monitor I's and O's and daily weights. (3) Cellulitis of right leg Is this a current diagnosis for this admission?: Yes Plan: Her right leg cellulitis is much improved and has some minimal erythema remaining. She was on IV antibiotics for 7 days, the last one being IV Unasyn. I have stopped her Unasyn at this time. Her wound culture is positive for Enterococcus faecalis and staph aureus. Her blood culture remains negative. I have transitioned her to Augmentin p.o. for the next 7 days for a total of 2 weeks of antibiotic therapy. (4) Atrial fibrillation Qualifiers: Atrial fibrillation type: chronic Qualified Code(s): I48.2 - Chronic atrial fibrillation Is this a current diagnosis for this admission?: Yes Plan: Currently on rate control with metoprolol but on no anticoagulation. Spoke with family-they tell me that she has a history of GI bleed and was having a lot of issues with anticoagulation and hence it was stopped. Family and patient understands the risk of having a stroke and/or blood clot with her atrial fibrillation. They accept the risks and would like to continue without any anticoagulation. She is on Lovenox for DVT prophylaxis at this time. (5) Coronary artery disease Qualifiers: Coronary Disease-Associated Artery/Lesion type: jena artery [place] vs. transplanted heart: jena heart Associated angina: angina presence unspecified Qualified Code(s): I25.10 - Atherosclerotic heart disease of jena coronary artery without angina pectoris Is this a current diagnosis for this admission?: Yes Plan: Stable continue with beta-caterina and Nitropatch (6) Diabetes mellitus Qualifiers: Diabetes mellitus type: type 2 Diabetes mellitus complication status: with kidney complications Diabetes mellitus complication detail: with chronic kidney disease Chronic kidney disease stage: stage 4 (severe) Is this a current diagnosis for this admission?: Yes
--- NOTE | 2018-01-11 16:02 | PDOC PROGRESS REPORT ---
Subjective Progress Note for:: 01/11/18 Reason For Visit: Patient was seen today in the hospital. She is feeling some better as far as shortness of breath is concerned. However pedal edema still persisting. She is up on a recliner. Her daughter is at the bedside. She denies any history of chest pains. She has not been very ambulatory and is mainly cohabiting between her bed and the recliner. Appetite is still poor. Bowels are moving well. No abdominal pains or black stools or any evidence of GI bleeds. Labs and medications were reviewed with the patient and the treating nurse. Intake and output is not properly maintained and patient has no Cruz catheter. Physical Exam Vital Signs: Temp Pulse Resp BP Pulse Ox 97.6 F 72 20 175/39 H 95 01/11/18 11:44 01/11/18 14:04 01/11/18 14:04 01/11/18 11:44 01/11/18 14:04 Intake & Output 01/10/18 01/11/18 01/12/18 06:59 06:59 06:59 Intake Total 772 560 150 Output Total 600 820 300 Balance 172 -260 -150 Weight 118 kg 113 kg General appearance: PRESENT: no acute distress Respiratory exam: PRESENT: clear to auscultation noelle. ABSENT: crackles Cardiovascular exam: PRESENT: irregular rhythm, +S1, +S2 GI/Abdominal exam: PRESENT: normal bowel sounds, soft. ABSENT: distended, organomegaly, tenderness Extremities exam: PRESENT: +2 edema Neurological exam: PRESENT: alert, awake, oriented to person, oriented to place Skin exam: ABSENT: mottled, rash Results Laboratory Results: 01/06/18 06:21 01/11/18 04:36 01/11/18 04:36 Sodium 135.1 L Potassium 4.0 Chloride 95 L Carbon Dioxide 26 Anion Gap 14 BUN 112 H Creatinine 2.60 H Est GFR ( Amer) 22 L Est GFR (Non-Af Amer) 18 L Glucose 90 Calcium 8.2 L 01/04/18 01/04/18 01/04/18 17:15 17:15 19:00 Creatine Kinase 37 40 CK-MB (CK-2) 1.98 Troponin I 0.035 NT-Pro-B Natriuret Pep 8320 H 01/04/18 01/05/18 01/05/18 19:00 00:15 00:15 Creatine Kinase 34 CK-MB (CK-2) 1.94 1.69 Troponin I 0.046 0.047 NT-Pro-B Natriuret Pep 01/05/18 01/05/18 06:10 06:10 Creatine Kinase 33 CK-MB (CK-2) 1.85 Troponin I 0.059 NT-Pro-B Natriuret Pep Impressions: Renal Ultrasound 01/05/18 06:58 IMPRESSION: GROSSLY NORMAL RENAL AND BLADDER ULTRASOUND. Head CT 01/05/18 13:39 IMPRESSION: 1. No acute intracranial event. 2. Chronic sphenoid sinus disease. EVIDENCE OF ACUTE STROKE: NO. Chest X-Ray 01/08/18 08:52 IMPRESSION: Marked cardiomegaly Small bilateral pleural effusions with bibasilar airspace disease. Assessment & Plan - Diagnosis (1) Acute on chronic renal failure Qualifiers: Acute renal failure type: unspecified Chronic kidney disease stage: stage 4 (severe) Qualified Code(s): N17.9 - Acute kidney failure, unspecified; N18.4 - Chronic kidney disease, stage 4 (severe); N18.4 - Chronic kidney disease , stage 4 (severe); N18.4 - Chronic kidney disease, stage 4 (severe); N18.4 - Chronic kidney disease, stage 4 (severe) Is this a current diagnosis for this admission?: Yes Plan: Nonoliguric. Needs strict I's and O's and discussed with treating nurse. Apparently poor response to IV Lasix infusion and was therefore changed to Bumex by hospitalist. Titrate her Bumex and metolazone. Advised appropriate physical measures. Monitor. (2) Congestive heart failure Qualifiers: Heart failure type: diastolic Heart failure chronicity: acute on chronic Qualified Code(s): I50.33 - Acute on chronic diastolic (congestive) heart failure Is this a current diagnosis for this admission?: Yes Plan: Still decompensated. See the response to titration of diuretic regimen. (3) Hyperkalemia, diminished renal excretion Is this a current diagnosis for this admission?: Yes Plan: Resolved and currently stable. (4) Atrial fibrillation Qualifiers: Atrial fibrillation type: chronic Qualified Code(s): I48.2 - Chronic atrial fibrillation Is this a current diagnosis for this admission?: Yes Plan: As per Dr. Payan and cardiology. (5) Diabetes mellitus Qualifiers: Diabetes mellitus type: type 2 Diabetes mellitus complication status: with kidney complications Diabetes mellitus complication detail: with chronic kidney disease Chronic kidney disease stage: stage 4 (severe) Is this a current diagnosis for this admission?: Yes Plan: Advised the need for tight diabetic control (6) Psoriasis Plan: Stable. (7) Cellulitis of right leg Is this a current diagnosis for this admission?: Yes Plan: She is growing enterococcus and methicillin sensitive staph aureus both sensitive to ampicillin. Dose appropriately adjusted for her current renal functions. Patient overall getting better. (8) Anemia Qualifiers: Anemia type: iron deficiency Iron deficiency anemia type: chronic blood loss Qualified Code(s): D50.0 - Iron deficiency anemia secondary to blood loss (chronic) Is this a current diagnosis for this admission?: Yes Plan: Being seen by heme oncologist. Iron deficiency noted earlier and has been given 1 dose of IV iron. Hemoglobin relatively stable. No evidences of any GI bleeds.
[2018-01-11] MEDS ORDERED: AMPICILLIN SODIUM/SULBACTAM NA 3 GM in NORMAL SALINE 100 ML IV SCH (18:00)
[2018-01-11] MEDS: INSULIN GLARGINE,HUM.REC.ANLOG 300 UNIT/3 ML INSULN.PEN SUBCUT SCH (21:48)
[2018-01-11] MEDS: OTEZLA 30 MG PO SCH (21:48)
[2018-01-11] MEDS: SIMVASTATIN 10 MG TABLET PO SCH (21:49)
[2018-01-11] MEDS: AMOXICILLIN TR/POT CLAVULANATE 500-125 MG TAB PO SCH (21:49)
[2018-01-12] MEDS: IPRATROPIUM/ALBUTEROL 0.5-2.5 MG/3 ML AMPUL NEB SCH ×4 (01:13→20:51)
[2018-01-12 05:00] LABS: HEMATOCRIT 27.1 % (36.0-47.0); HEMOGLOBIN 8.6 g/dL (12.0-15.5); MEAN CORPUSCULAR HGB CONC 31.8 g/dL (32.0-36.0); MEAN CORPUSCULAR VOLUME 97 fl (80-97); PLATELET COUNT 142 10^3/uL (150-450); RED BLOOD COUNT 2.78 10^6/uL (3.72-5.28); RED CELL DISTRIBUTION WIDTH 18.7 % (11.5-14.0); WHITE BLOOD COUNT 6.7 10^3/uL (4.0-10.5)
[2018-01-12 05:25] LABS: ANION GAP 12 (5-19); BLOOD UREA NITROGEN 119 mg/dL (7-20); CALCIUM 8.3 mg/dL (8.4-10.2); CARBON DIOXIDE 29 mmol/L (22-30); CHLORIDE 95 mmol/L (98-107); GLUCOSE 108 mg/dL (75-110); POTASSIUM 3.8 mmol/L (3.6-5.0); SODIUM 135.5 mmol/L (137-145)
[2018-01-12] MEDS: AMOXICILLIN TR/POT CLAVULANATE 500-125 MG TAB PO SCH ×3 (05:37→22:04)
[2018-01-12] MEDS: HYDRALAZINE HCL 50 MG TABLET PO SCH ×3 (05:37→22:04)
[2018-01-12] MEDS: BUDESONIDE NEB 0.25 MG/2 ML AMPUL NEB SCH ×2 (08:01→20:54)
[2018-01-12] MEDS: ENOXAPARIN SODIUM INJ 30 MG/0.3 ML DISP.SYRIN SUBCUT SCH (09:31)
[2018-01-12] MEDS: NITROGLYCERIN 10 MG (0.4 MG/HR) PATCH.TD24 TD SCH (09:31)
[2018-01-12] MEDS: CARVEDILOL 12.5 MG TABLET PO SCH ×2 (09:31→22:05)
[2018-01-12] MEDS: BUMETANIDE INJ/PF 1 MG/4 ML SDV IV SCH ×2 (09:31→17:52)
[2018-01-12] MEDS: CETIRIZINE 10 MG TABLET PO SCH (09:32)
[2018-01-12] MEDS: ACETAMINOPHEN 325 MG TABLET PO PRN (09:32)
[2018-01-12] MEDS: ALLOPURINOL 300 MG TABLET PO SCH (09:32)
[2018-01-12] MEDS: METOLAZONE 5 MG TABLET PO SCH ×2 (09:32→17:52)
--- NOTE | 2018-01-12 13:24 | PDOC PROGRESS REPORT ---
Subjective Progress Note for:: 01/12/18 Subjective:: Patient is sitting up in her chair on nasal oxygen she states her pain feels her breathing is better. She is able to ambulate with less difficulty denies any cough chest pain or palpitations she is afebrile. Her right lower leg she states is not bothering her she is having regular bowel movements. She has been able to achieve significant negative balance for the last 24 hours of over a liter. Reason For Visit: CHF,CELLULITUS Physical Exam Vital Signs: Temp Pulse Resp BP Pulse Ox 97.5 F 71 17 155/37 H 95 01/12/18 11:37 01/12/18 11:37 01/12/18 11:37 01/12/18 11:37 01/12/18 11:37 Intake & Output 01/11/18 01/12/18 01/13/18 06:59 06:59 06:59 Intake Total 560 268 0 Output Total 820 1150 300 Balance -260 -882 -300 Weight 113 kg General appearance: PRESENT: no acute distress, well-developed, well-nourished Head exam: PRESENT: atraumatic, normocephalic Eye exam: PRESENT: conjunctiva pink, EOMI, PERRLA. ABSENT: scleral icterus Ear exam: PRESENT: normal external ear exam Mouth exam: PRESENT: moist, tongue midline Neck exam: PRESENT: full ROM. ABSENT: carotid bruit, JVD, lymphadenopathy, thyromegaly Respiratory exam: PRESENT: crackles, decreased breath sounds Cardiovascular exam: PRESENT: systolic murmur Murmur grade: 2 Pulses: PRESENT: normal dorsalis pedis pul, +2 pedal pulses bilateral Vascular exam: PRESENT: normal capillary refill GI/Abdominal exam: PRESENT: normal bowel sounds, soft. ABSENT: distended, guarding, mass, organolmegaly, rebound, tenderness Rectal exam: PRESENT: deferred Additional comments: 1-2+ edema just to the proximal tibial tuberosity leg decreased erythema decreased warmth and drainage Musculoskeletal exam: PRESENT: ambulatory Neurological exam: PRESENT: alert, awake, oriented to person, oriented to place , oriented to time, oriented to situation, CN II-XII grossly intact. ABSENT: motor sensory deficit Psychiatric exam: PRESENT: appropriate affect, normal mood. ABSENT: homicidal ideation, suicidal ideation Results Laboratory Results: 01/12/18 04:48 01/12/18 04:48 01/12/18 01/12/18 04:48 04:48 WBC 6.7 RBC 2.78 L Hgb 8.6 L Hct 27.1 L MCV 97 MCH 31.0 MCHC 31.8 L RDW 18.7 H Plt Count 142 L Sodium 135.5 L Potassium 3.8 Chloride 95 L Carbon Dioxide 29 Anion Gap 12 BUN 119 H Creatinine 2.77 H Est GFR ( Amer) 21 L Est GFR (Non-Af Amer) 17 L Glucose 108 Calcium 8.3 L Magnesium 2.6 H 01/04/18 01/04/18 01/04/18 17:15 17:15 19:00 Creatine Kinase 37 40 CK-MB (CK-2) 1.98 Troponin I 0.035 NT-Pro-B Natriuret Pep 8320 H 01/04/18 01/05/18 01/05/18 19:00 00:15 00:15 Creatine Kinase 34 CK-MB (CK-2) 1.94 1.69 Troponin I 0.046 0.047 NT-Pro-B Natriuret Pep 01/05/18 01/05/18 06:10 06:10 Creatine Kinase 33 CK-MB (CK-2) 1.85 Troponin I 0.059 NT-Pro-B Natriuret Pep Impressions: Renal Ultrasound 01/05/18 06:58 IMPRESSION: GROSSLY NORMAL RENAL AND BLADDER ULTRASOUND. Head CT 01/05/18 13:39 IMPRESSION: 1. No acute intracranial event. 2. Chronic sphenoid sinus disease. EVIDENCE OF ACUTE STROKE: NO. Chest X-Ray 01/08/18 08:52 IMPRESSION: Marked cardiomegaly Small bilateral pleural effusions with bibasilar airspace disease. Assessment & Plan - Diagnosis (1) Congestive heart failure Qualifiers: Heart failure type: diastolic Heart failure chronicity: acute on chronic Qualified Code(s): I50.33 - Acute on chronic diastolic (congestive) heart failure Is this a current diagnosis for this admission?: Yes Plan: Tinea the Bumex and the Zaroxolyn maintaining strict I's and O's she is off all IV medication presently only on orals with the exception of the IV diuretics monitor I's and O's (2) Cellulitis of right leg Is this a current diagnosis for this admission?: Yes Plan: Since cellulitis is better she is on Augmentin which is pansensitive for the enterococcus and the MSSA (3) Hypertension Qualifiers: Hypertension type: essential hypertension Qualified Code(s): I10 - Essential (primary) hypertension Is this a current diagnosis for this admission?: Yes Plan: Continue on current antihypertensive regimen (4) Acute on chronic renal failure Qualifiers: Acute renal failure type: unspecified Chronic kidney disease stage: stage 4 (severe) Qualified Code(s): N17.9 - Acute kidney failure, unspecified; N18.4 - Chronic kidney disease, stage 4 (severe); N18.4 - Chronic kidney disease , stage 4 (severe); N18.4 - Chronic kidney disease, stage 4 (severe); N18.4 - Chronic kidney disease, stage 4 (severe) Is this a current diagnosis for this admission?: Yes Plan: Continue present treatment per nephrology (5) Hyperkalemia, diminished renal excretion Is this a current diagnosis for this admission?: Yes (6) Pulmonary hypertension Is this a current diagnosis for this admission?: Yes (7) Cellulitis Qualifiers: Site of cellulitis of extremity: lower extremity Is this a current diagnosis for this admission?: Yes (8) Diabetes mellitus Qualifiers: Diabetes mellitus type: type 2 Diabetes mellitus complication status: with kidney complications Diabetes mellitus complication detail: with chronic kidney disease Chronic kidney disease stage: stage 4 (severe) Is this a current diagnosis for this admission?: Yes Plan: Needs strict control between 120 and 180 which has been achieved. - Time Time Spent with patient: 15-24 minutes Medications reviewed and adjusted accordingly: Yes Anticipated discharge: Home Within: within 48 hours - Inpatient Certification I certify that my determination is in accordance with my understanding of Medicare's requirements for reasonable and necessary INPATIENT services [42 CFR 412.3e].: Yes Medical Necessity: Failure to Improve With Outpatient Therapy, Significant Comorbidiites Make Outpatient Treatment Too Risky Post Hospital Care: D/C Brushing Operator Documentation
[2018-01-12 15:37] LABS: ALBUMIN URINE 67.8 % (.); ALPHA-2-GLOBULIN UR 4.7 % (.); M-SPIKE % URINE Not Observed % (Not Observ); PROTEIN TOTAL URINE 47.1 mg/dL (Not Estab.)
--- NOTE | 2018-01-12 16:02 | PDOC PROGRESS REPORT ---
Subjective Progress Note for:: 01/12/18 Reason For Visit: Patient seen today in the hospital. She is more ambulatory. Shortness of breath is persisting but a whole lot better on nasal cannula. She denies any history of chest pain, fever or chills. She has had good urine output to the change of diuretics. Labs and medications were reviewed with the patient. Physical Exam Vital Signs: Temp Pulse Resp BP Pulse Ox 97.5 F 67 16 155/37 H 95 01/12/18 11:37 01/12/18 14:01 01/12/18 14:01 01/12/18 11:37 01/12/18 14:01 Intake & Output 01/11/18 01/12/18 01/13/18 06:59 06:59 06:59 Intake Total 560 268 0 Output Total 820 1150 300 Balance -260 -882 -300 Weight 113 kg General appearance: PRESENT: no acute distress Respiratory exam: PRESENT: clear to auscultation noelle. ABSENT: crackles Cardiovascular exam: PRESENT: irregular rhythm, +S1, +S2 GI/Abdominal exam: PRESENT: normal bowel sounds, soft. ABSENT: distended, organomegaly, tenderness Extremities exam: PRESENT: +1 edema Neurological exam: PRESENT: alert, awake, oriented to person, oriented to place Results Laboratory Results: 01/12/18 04:48 01/12/18 04:48 01/12/18 01/12/18 04:48 04:48 WBC 6.7 RBC 2.78 L Hgb 8.6 L Hct 27.1 L MCV 97 MCH 31.0 MCHC 31.8 L RDW 18.7 H Plt Count 142 L Sodium 135.5 L Potassium 3.8 Chloride 95 L Carbon Dioxide 29 Anion Gap 12 BUN 119 H Creatinine 2.77 H Est GFR ( Amer) 21 L Est GFR (Non-Af Amer) 17 L Glucose 108 Calcium 8.3 L Magnesium 2.6 H 01/04/18 01/04/18 01/04/18 17:15 17:15 19:00 Creatine Kinase 37 40 CK-MB (CK-2) 1.98 Troponin I 0.035 NT-Pro-B Natriuret Pep 8320 H 01/04/18 01/05/18 01/05/18 19:00 00:15 00:15 Creatine Kinase 34 CK-MB (CK-2) 1.94 1.69 Troponin I 0.046 0.047 NT-Pro-B Natriuret Pep 01/05/18 01/05/18 06:10 06:10 Creatine Kinase 33 CK-MB (CK-2) 1.85 Troponin I 0.059 NT-Pro-B Natriuret Pep Impressions: Renal Ultrasound 01/05/18 06:58 IMPRESSION: GROSSLY NORMAL RENAL AND BLADDER ULTRASOUND. Head CT 01/05/18 13:39 IMPRESSION: 1. No acute intracranial event. 2. Chronic sphenoid sinus disease. EVIDENCE OF ACUTE STROKE: NO. Chest X-Ray 01/08/18 08:52 IMPRESSION: Marked cardiomegaly Small bilateral pleural effusions with bibasilar airspace disease. Assessment & Plan - Diagnosis (1) Acute on chronic renal failure Qualifiers: Acute renal failure type: unspecified Chronic kidney disease stage: stage 4 (severe) Qualified Code(s): N17.9 - Acute kidney failure, unspecified; N18.4 - Chronic kidney disease, stage 4 (severe); N18.4 - Chronic kidney disease , stage 4 (severe); N18.4 - Chronic kidney disease, stage 4 (severe); N18.4 - Chronic kidney disease, stage 4 (severe) Is this a current diagnosis for this admission?: Yes Plan: Nonoliguric. Doing well with good diuresis on current diuretic regimen. Monitor. (2) Congestive heart failure Qualifiers: Heart failure type: diastolic Heart failure chronicity: acute on chronic Qualified Code(s): I50.33 - Acute on chronic diastolic (congestive) heart failure Is this a current diagnosis for this admission?: Yes Plan: Still decompensated but improving well. Good response on the current diuretic regimen. (3) Hyperkalemia, diminished renal excretion Is this a current diagnosis for this admission?: Yes Plan: Resolved and currently stable. (4) Atrial fibrillation Qualifiers: Atrial fibrillation type: chronic Qualified Code(s): I48.2 - Chronic atrial fibrillation Is this a current diagnosis for this admission?: Yes Plan: As per Dr. Payan and cardiology. (5) Diabetes mellitus Qualifiers: Diabetes mellitus type: type 2 Diabetes mellitus complication status: with kidney complications Diabetes mellitus complication detail: with chronic kidney disease Chronic kidney disease stage: stage 4 (severe) Is this a current diagnosis for this admission?: Yes (7) Cellulitis of right leg Is this a current diagnosis for this admission?: Yes Plan: She is growing enterococcus and methicillin sensitive staph aureus both sensitive to ampicillin. Dose appropriately adjusted for her current renal functions. Patient overall getting better. (8) Anemia Qualifiers: Anemia type: iron deficiency Iron deficiency anemia type: chronic blood loss Qualified Code(s): D50.0 - Iron deficiency anemia secondary to blood loss (chronic) Is this a current diagnosis for this admission?: Yes Plan: Being seen by heme oncologist. Iron deficiency noted earlier and has been given 1 dose of IV iron. Hemoglobin relatively stable. No evidences of any GI bleeds.
--- NOTE | 2018-01-12 20:01 | PDOC PROGRESS REPORT ---
Subjective Progress Note for:: 01/12/18 Subjective:: Patient has made slow progress. Today she claims that she is now willing to try nasal CPAP with a nasal pillow but the hospital does not carry a nasal pillow. Pt is denying any chest arm or neck discomfort. Patient denying any PND, orthopnea. Patient denied any sustained palpitations, dizziness, syncope, near syncope. Patient denying any fever chills. Patient denying any other significant discomfort. Patient is maintaining atrial fibrillation. Review of systems: Rest review of systems negative. Medications: Medications have been reviewed. Reason For Visit: CHF,CELLULITUS Physical Exam Vital Signs: Temp Pulse Resp BP Pulse Ox 97.5 F 72 17 150/32 H 96 01/12/18 15:59 01/12/18 15:59 01/12/18 15:59 01/12/18 15:59 01/12/18 15:59 Intake & Output 01/11/18 01/12/18 01/13/18 06:59 06:59 06:59 Intake Total 560 268 630 Output Total 820 1150 600 Balance -260 -882 30 Weight 113 kg Exam: GENERAL: well-nourished and in no acute distress. Alert and oriented x3 HEAD: Atraumatic, normocephalic. EYES: Pupils equal round and reactive to light, extraocular movements intact, sclera anicteric, conjunctiva are normal. ENT: TMs normal, nares patent, oropharynx clear without exudates. Moist mucous membranes. No oral ulcerations or bleeding gums noted NECK: supple without lymphadenopathy. Trachea is central. No cervical or axillary lymphadenopathy noted. Carotids are 2+, JVD 10 cm LUNGS: Respiration seems nonlabored, no significant accessory muscle action noted. Bibasilar fine crackles are noted. No wheezes rales or rhonchi noted. No significant dullness noted on percussion. CHEST: Palpation of the chest wall shows no significant chest wall tenderness. HEART: [place] [employer], No PSH, 1/6 REX aortic area, 1/6 green systolic murmur mitral area, no rubs, no gallops. ABDOMEN: Soft, no significant tenderness appreciated, normoactive bowel sounds. No guarding, no rebound. No rigidity noted . No masses appreciated. EXTREMITIES: Pedal pulses are 1-2+, no calf tenderness noted. No clubbing or cyanosis. 1-2+ pedal edema noted NEUROLOGICAL: Focused neurological exam showed no significant neurologic deficit. Normal speech, no focal weakness appreciated. PSYCH: Normal mood, normal affect. Judgment and insight within normal limits. SKIN: No significant ecchymosis, skin is noted to be warm. MUSCULOSKELETAL EXAM: No significant acute joint swelling noted. Results Laboratory Results: 01/12/18 04:48 01/12/18 04:48 01/12/18 01/12/18 04:48 04:48 WBC 6.7 RBC 2.78 L Hgb 8.6 L Hct 27.1 L MCV 97 MCH 31.0 MCHC 31.8 L RDW 18.7 H Plt Count 142 L Sodium 135.5 L Potassium 3.8 Chloride 95 L Carbon Dioxide 29 Anion Gap 12 BUN 119 H Creatinine 2.77 H Est GFR ( Amer) 21 L Est GFR (Non-Af Amer) 17 L Glucose 108 Calcium 8.3 L Magnesium 2.6 H 01/04/18 01/04/18 01/04/18 17:15 17:15 19:00 Creatine Kinase 37 40 CK-MB (CK-2) 1.98 Troponin I 0.035 NT-Pro-B Natriuret Pep 8320 H 01/04/18 01/05/18 01/05/18 19:00 00:15 00:15 Creatine Kinase 34 CK-MB (CK-2) 1.94 1.69 Troponin I 0.046 0.047 NT-Pro-B Natriuret Pep 01/05/18 01/05/18 06:10 06:10 Creatine Kinase 33 CK-MB (CK-2) 1.85 Troponin I 0.059 NT-Pro-B Natriuret Pep EKG Comments: Atrial fibrillation with controlled ventricular response Impressions: Renal Ultrasound 01/05/18 06:58 IMPRESSION: GROSSLY NORMAL RENAL AND BLADDER ULTRASOUND. Head CT 01/05/18 13:39 IMPRESSION: 1. No acute intracranial event. 2. Chronic sphenoid sinus disease. EVIDENCE OF ACUTE STROKE: NO. Chest X-Ray 01/08/18 08:52 IMPRESSION: Marked cardiomegaly Small bilateral pleural effusions with bibasilar airspace disease. Assessment & Plan - Diagnosis (1) Congestive heart failure Qualifiers: Heart failure type: diastolic Heart failure chronicity: acute on chronic Qualified Code(s): I50.33 - Acute on chronic diastolic (congestive) heart failure Is this a current diagnosis for this admission?: Yes (2) Atrial fibrillation Qualifiers: Atrial fibrillation type: chronic Qualified Code(s): I48.2 - Chronic atrial fibrillation Is this a current diagnosis for this admission?: Yes (3) Coronary artery disease Qualifiers: Coronary Disease-Associated Artery/Lesion type: [place] artery [place] vs. transplanted heart: [place] heart Associated angina: angina presence unspecified Qualified Code(s): I25.10 - Atherosclerotic heart disease of [place] coronary artery without angina pectoris Is this a current diagnosis for this admission?: Yes (4) Hypertension Qualifiers: Hypertension type: essential hypertension Qualified Code(s): I10 - Essential (primary) hypertension Is this a current diagnosis for this admission?: Yes (5) Cellulitis of right leg Is this a current diagnosis for this admission?: Yes - Notes Notes: Events over the long weekend was reviewed. Patient is showing gradual slow improvement. Continue current therapeutic regimen. CHF: Patient noted to have significant fluid overload. Patient placed on fluid restriction. Continue IV diuretics. May need to optimize this further. Atrial fibrillation: Patient has history of chronic GI bleed. Currently there is some contraindication for chronic Coumadin therapy or other anticoagulants. Coronary artery disease: Currently without any symptoms of angina or angina equivalent symptoms. Hypertension: Blood pressure goal should be 135/85 or less. Cellulitis right leg: Continue antibiotic therapy. Sleep apnea syndrome: Patient patient now will consider to use CPAP therapy. However will introduce nasal pillows to the patient. Pulmonary hypertension and right heart failure: Patient will benefit from oxygen supplementation and CPAP therapy/BiPAP therapy if she would try to use it. Patient is now willing to try a nasal pillow but this has to be done as an outpatient since the hospital does not carry such equipment. - Time Time with patient: Greater than 35 minutes - More than 50% of the time spent coordinating care, discussing management plans with involved caregivers. Management plans discussed with involved personnels. Medical decision making was of moderate to high complexity, patient's has multiple comorbidities. Medications reviewed and adjusted accordingly: Yes
[2018-01-12] MEDS: SIMVASTATIN 10 MG TABLET PO SCH (22:05)
[2018-01-12] MEDS: OTEZLA 30 MG PO SCH (22:05)
[2018-01-12] MEDS: INSULIN GLARGINE,HUM.REC.ANLOG 300 UNIT/3 ML INSULN.PEN SUBCUT SCH (22:05)
[2018-01-13] MEDS: IPRATROPIUM/ALBUTEROL 0.5-2.5 MG/3 ML AMPUL NEB SCH ×4 (01:59→20:51)
[2018-01-13] MEDS: AMOXICILLIN TR/POT CLAVULANATE 500-125 MG TAB PO SCH ×3 (05:16→21:50)
[2018-01-13] MEDS: HYDRALAZINE HCL 50 MG TABLET PO SCH ×3 (05:16→21:50)
[2018-01-13 06:44] LABS: ANION GAP 11 (5-19); CALCIUM 8.6 mg/dL (8.4-10.2); CARBON DIOXIDE 28 mmol/L (22-30); CHLORIDE 93 mmol/L (98-107); GLUCOSE 94 mg/dL (75-110); POTASSIUM 4.1 mmol/L (3.6-5.0); SODIUM 131.7 mmol/L (137-145)
[2018-01-13 06:51] LABS: BLOOD UREA NITROGEN 116 mg/dL (7-20)
[2018-01-13] MEDS: BUDESONIDE NEB 0.25 MG/2 ML AMPUL NEB SCH ×2 (08:16→20:52)
[2018-01-13] MEDS ORDERED: HYDRALAZINE HCL 50 MG TABLET PO SCH (10:00)
--- NOTE | 2018-01-13 10:16 | PDOC PROGRESS REPORT ---
Subjective Progress Note for:: 01/13/18 Subjective:: Patient is sitting up in her chair she is feeling better she is less short of breath she was able to walk 60 feet yesterday with the assistance of a walker she is moving her bowels they are weaning her off oxygen she is presently on 1 L and satting at 94%. She denies chest pain, palpitations, nausea vomiting denies any urinary symptoms. Reason For Visit: CHF,CELLULITUS Physical Exam Vital Signs: Temp Pulse Resp BP Pulse Ox 97.9 F 74 16 169/35 H 92 01/13/18 07:44 01/13/18 08:16 01/13/18 08:16 01/13/18 07:44 01/13/18 08:16 Intake & Output 01/12/18 01/13/18 01/14/18 06:59 06:59 06:59 Intake Total 268 880 Output Total 1150 950 Balance -882 -70 General appearance: PRESENT: no acute distress, well-developed, well-nourished Head exam: PRESENT: atraumatic, normocephalic Eye exam: PRESENT: conjunctiva pink, EOMI, PERRLA. ABSENT: scleral icterus Ear exam: PRESENT: normal external ear exam Mouth exam: PRESENT: moist, tongue midline Neck exam: PRESENT: full ROM. ABSENT: carotid bruit, JVD, lymphadenopathy, thyromegaly Respiratory exam: PRESENT: clear to auscultation noelle, decreased breath sounds Cardiovascular exam: PRESENT: systolic murmur Murmur grade: 2 Pulses: PRESENT: normal dorsalis pedis pul, +2 pedal pulses bilateral Vascular exam: PRESENT: normal capillary refill GI/Abdominal exam: PRESENT: normal bowel sounds, soft. ABSENT: distended, guarding, mass, organolmegaly, rebound, tenderness Rectal exam: PRESENT: deferred Additional comments: 1-2+ edema to the mid tib right lower leg decreased erythema no drainage, no warmth Neurological exam: PRESENT: alert, awake, oriented to person, oriented to place , oriented to time, oriented to situation, CN II-XII grossly intact. ABSENT: motor sensory deficit Psychiatric exam: PRESENT: appropriate affect, normal mood. ABSENT: homicidal ideation, suicidal ideation Skin exam: PRESENT: dry, intact, warm. ABSENT: cyanosis, rash Results Laboratory Results: 01/12/18 04:48 01/13/18 06:15 01/13/18 06:15 Sodium 131.7 L Potassium 4.1 Chloride 93 L Carbon Dioxide 28 Anion Gap 11 BUN 116 H Creatinine 2.79 H Est GFR ( Amer) 21 L Est GFR (Non-Af Amer) 17 L Glucose 94 Calcium 8.6 01/04/18 01/04/18 01/04/18 17:15 17:15 19:00 Creatine Kinase 37 40 CK-MB (CK-2) 1.98 Troponin I 0.035 NT-Pro-B Natriuret Pep 8320 H 01/04/18 01/05/18 01/05/18 19:00 00:15 00:15 Creatine Kinase 34 CK-MB (CK-2) 1.94 1.69 Troponin I 0.046 0.047 NT-Pro-B Natriuret Pep 01/05/18 01/05/18 06:10 06:10 Creatine Kinase 33 CK-MB (CK-2) 1.85 Troponin I 0.059 NT-Pro-B Natriuret Pep Impressions: Renal Ultrasound 01/05/18 06:58 IMPRESSION: GROSSLY NORMAL RENAL AND BLADDER ULTRASOUND. Head CT 01/05/18 13:39 IMPRESSION: 1. No acute intracranial event. 2. Chronic sphenoid sinus disease. EVIDENCE OF ACUTE STROKE: NO. Chest X-Ray 01/08/18 08:52 IMPRESSION: Marked cardiomegaly Small bilateral pleural effusions with bibasilar airspace disease. Assessment & Plan - Diagnosis (1) Congestive heart failure Qualifiers: Heart failure type: diastolic Heart failure chronicity: acute on chronic Qualified Code(s): I50.33 - Acute on chronic diastolic (congestive) heart failure Is this a current diagnosis for this admission?: Yes (2) Cellulitis of right leg Is this a current diagnosis for this admission?: Yes (3) Hypertension Qualifiers: Hypertension type: essential hypertension Qualified Code(s): I10 - Essential (primary) hypertension Is this a current diagnosis for this admission?: Yes (4) Acute on chronic renal failure Qualifiers: Acute renal failure type: unspecified Chronic kidney disease stage: stage 4 (severe) Qualified Code(s): N17.9 - Acute kidney failure, unspecified; N18.4 - Chronic kidney disease, stage 4 (severe); N18.4 - Chronic kidney disease , stage 4 (severe); N18.4 - Chronic kidney disease, stage 4 (severe); N18.4 - Chronic kidney disease, stage 4 (severe) Is this a current diagnosis for this admission?: Yes (5) Hyperkalemia, diminished renal excretion Is this a current diagnosis for this admission?: Yes (6) Pulmonary hypertension Is this a current diagnosis for this admission?: Yes (7) Cellulitis Qualifiers: Site of cellulitis of extremity: lower extremity Is this a current diagnosis for this admission?: Yes (8) Diabetes mellitus Qualifiers: Diabetes mellitus type: type 2 Diabetes mellitus complication status: with kidney complications Diabetes mellitus complication detail: with chronic kidney disease Chronic kidney disease stage: stage 4 (severe) Is this a current diagnosis for this admission?: Yes - Time Time Spent with patient: 15-24 minutes Anticipated discharge: Home Within: within 24 hours - Inpatient Certification I certify that my determination is in accordance with my understanding of Medicare's requirements for reasonable and necessary INPATIENT services [42 CFR 412.3e].: Yes Medical Necessity: Failure to Improve With Outpatient Therapy, Significant Comorbidiites Make Outpatient Treatment Too Risky Post Hospital Care: D/C [employer] Supervisor Documentation
[2018-01-13] MEDS: BUMETANIDE INJ/PF 1 MG/4 ML SDV IV SCH ×2 (10:52→17:01)
[2018-01-13] MEDS: NITROGLYCERIN 10 MG (0.4 MG/HR) PATCH.TD24 TD SCH (10:52)
[2018-01-13] MEDS: CARVEDILOL 12.5 MG TABLET PO SCH ×2 (10:52→21:50)
[2018-01-13] MEDS: ENOXAPARIN SODIUM INJ 30 MG/0.3 ML DISP.SYRIN SUBCUT SCH (10:52)
[2018-01-13] MEDS: METOLAZONE 5 MG TABLET PO SCH ×2 (10:53→17:01)
[2018-01-13] MEDS: ALLOPURINOL 300 MG TABLET PO SCH (10:53)
[2018-01-13] MEDS: CETIRIZINE 10 MG TABLET PO SCH (10:53)
[2018-01-13] MEDS: ACETAMINOPHEN 325 MG TABLET PO PRN ×2 (10:54→21:57)
--- NOTE | 2018-01-13 15:56 | PDOC PROGRESS REPORT ---
Subjective Progress Note for:: 01/13/18 Reason For Visit: Patient seen today. She sitting in the recliner. She is feeling better on a daily basis regarding shortness of breath. She also believes of the pedal edema is getting better. No complaints of any chest pain, fever or chills. Labs and medications were reviewed with the patient. Renal numbers are relatively stable. Electrolytes are stable. Physical Exam Vital Signs: Temp Pulse Resp BP Pulse Ox 97.5 F 72 17 169/33 H 95 01/13/18 15:41 01/13/18 15:41 01/13/18 15:41 01/13/18 15:41 01/13/18 15:41 Intake & Output 01/12/18 01/13/18 01/14/18 06:59 06:59 06:59 Intake Total 268 880 350 Output Total 1150 950 300 Balance -882 -70 50 General appearance: PRESENT: no acute distress Respiratory exam: PRESENT: clear to auscultation noelle. ABSENT: crackles Cardiovascular exam: PRESENT: irregular rhythm, +S1, +S2 GI/Abdominal exam: PRESENT: normal bowel sounds, soft. ABSENT: distended, organomegaly, tenderness Extremities exam: PRESENT: +1 edema Neurological exam: PRESENT: alert, awake, oriented to person, oriented to place Results Laboratory Results: 01/12/18 04:48 01/13/18 06:15 01/13/18 06:15 Sodium 131.7 L Potassium 4.1 Chloride 93 L Carbon Dioxide 28 Anion Gap 11 BUN 116 H Creatinine 2.79 H Est GFR ( Amer) 21 L Est GFR (Non-Af Amer) 17 L Glucose 94 Calcium 8.6 01/04/18 01/04/18 01/04/18 17:15 17:15 19:00 Creatine Kinase 37 40 CK-MB (CK-2) 1.98 Troponin I 0.035 NT-Pro-B Natriuret Pep 8320 H 01/04/18 01/05/18 01/05/18 19:00 00:15 00:15 Creatine Kinase 34 CK-MB (CK-2) 1.94 1.69 Troponin I 0.046 0.047 NT-Pro-B Natriuret Pep 01/05/18 01/05/18 06:10 06:10 Creatine Kinase 33 CK-MB (CK-2) 1.85 Troponin I 0.059 NT-Pro-B Natriuret Pep Impressions: Renal Ultrasound 01/05/18 06:58 IMPRESSION: GROSSLY NORMAL RENAL AND BLADDER ULTRASOUND. Head CT 01/05/18 13:39 IMPRESSION: 1. No acute intracranial event. 2. Chronic sphenoid sinus disease. EVIDENCE OF ACUTE STROKE: NO. Chest X-Ray 01/08/18 08:52 IMPRESSION: Marked cardiomegaly Small bilateral pleural effusions with bibasilar airspace disease. Assessment & Plan - Diagnosis (1) Acute on chronic renal failure Qualifiers: Acute renal failure type: unspecified Chronic kidney disease stage: stage 4 (severe) Qualified Code(s): N17.9 - Acute kidney failure, unspecified; N18.4 - Chronic kidney disease, stage 4 (severe); N18.4 - Chronic kidney disease , stage 4 (severe); N18.4 - Chronic kidney disease, stage 4 (severe); N18.4 - Chronic kidney disease, stage 4 (severe) Is this a current diagnosis for this admission?: Yes Plan: Nonoliguric. Doing well with good diuresis on current diuretic regimen. Monitor. (2) Congestive heart failure Qualifiers: Heart failure type: diastolic Heart failure chronicity: acute on chronic Qualified Code(s): I50.33 - Acute on chronic diastolic (congestive) heart failure Is this a current diagnosis for this admission?: Yes Plan: Still decompensated but improving well. Good response on the current diuretic regimen. (3) Hyperkalemia, diminished renal excretion Is this a current diagnosis for this admission?: Yes Plan: Resolved and currently stable. (4) Atrial fibrillation Qualifiers: Atrial fibrillation type: chronic Qualified Code(s): I48.2 - Chronic atrial fibrillation Is this a current diagnosis for this admission?: Yes Plan: As per Dr. Payan and cardiology. (5) Diabetes mellitus Qualifiers: Diabetes mellitus type: type 2 Diabetes mellitus complication status: with kidney complications Diabetes mellitus complication detail: with chronic kidney disease Chronic kidney disease stage: stage 4 (severe) Is this a current diagnosis for this admission?: Yes Plan: Advised the need for tight diabetic control (6) Psoriasis Plan: Stable. (7) Cellulitis of right leg Is this a current diagnosis for this admission?: Yes Plan: She is growing enterococcus and methicillin sensitive staph aureus both sensitive to ampicillin. Dose appropriately adjusted for her current renal functions. Patient overall getting better. (8) Anemia Qualifiers: Anemia type: iron deficiency Iron deficiency anemia type: chronic blood loss Qualified Code(s): D50.0 - Iron deficiency anemia secondary to blood loss (chronic) Is this a current diagnosis for this admission?: Yes Plan: Being seen by heme oncologist. Iron deficiency noted earlier and has been given 1 dose of IV iron. Hemoglobin relatively stable.
--- NOTE | 2018-01-13 20:18 | PDOC PROGRESS REPORT ---
Subjective Progress Note for:: 01/13/18 Subjective:: Patient has made slow progress. Today she claims that she is now willing to try nasal CPAP with a nasal pillow but the hospital does not carry a nasal pillow. Pt is denying any chest arm or neck discomfort. Patient denying any PND, orthopnea. Patient denied any sustained palpitations, dizziness, syncope, near syncope. Patient denying any fever chills. Patient denying any other significant discomfort. Patient is maintaining atrial fibrillation. Review of systems: Rest review of systems negative. Medications: Medications have been reviewed. Reason For Visit: CHF,CELLULITUS Physical Exam Vital Signs: Temp Pulse Resp BP Pulse Ox 97.5 F 72 17 169/33 H 95 01/13/18 15:41 01/13/18 15:41 01/13/18 15:41 01/13/18 15:41 01/13/18 15:41 Intake & Output 01/12/18 01/13/18 01/14/18 06:59 06:59 06:59 Intake Total 268 880 700 Output Total 1150 950 400 Balance -882 -70 300 Exam: GENERAL: well-nourished and in no acute distress. Alert and oriented x3 HEAD: Atraumatic, normocephalic. EYES: Pupils equal round and reactive to light, extraocular movements intact, sclera anicteric, conjunctiva are normal. ENT: TMs normal, nares patent, oropharynx clear without exudates. Moist mucous membranes. No oral ulcerations or bleeding gums noted NECK: supple without lymphadenopathy. Trachea is central. No cervical or axillary lymphadenopathy noted. Carotids are 2+, JVD 10-12 cm LUNGS: Respiration seems nonlabored, no significant accessory muscle action noted. Bibasilar fine crackles are noted. No wheezes rales or rhonchi noted. No significant dullness noted on percussion. CHEST: Palpation of the chest wall shows no significant chest wall tenderness. HEART: [place] [employer], No PSH, 1/6 REX aortic area, 1/6 green systolic murmur mitral area, no rubs, no gallops. ABDOMEN: Soft, no significant tenderness appreciated, normoactive bowel sounds. No guarding, no rebound. No rigidity noted . No masses appreciated. EXTREMITIES: Pedal pulses are 1-2+, no calf tenderness noted. No clubbing or cyanosis. 2+ pedal edema noted NEUROLOGICAL: Focused neurological exam showed no significant neurologic deficit. Normal speech, no focal weakness appreciated. PSYCH: Normal mood, normal affect. Judgment and insight within normal limits. SKIN: No significant ecchymosis, skin is noted to be warm. MUSCULOSKELETAL EXAM: No significant acute joint swelling noted. Results Laboratory Results: 01/12/18 04:48 01/13/18 06:15 01/13/18 06:15 Sodium 131.7 L Potassium 4.1 Chloride 93 L Carbon Dioxide 28 Anion Gap 11 BUN 116 H Creatinine 2.79 H Est GFR ( Amer) 21 L Est GFR (Non-Af Amer) 17 L Glucose 94 Calcium 8.6 01/04/18 01/04/18 01/04/18 17:15 17:15 19:00 Creatine Kinase 37 40 CK-MB (CK-2) 1.98 Troponin I 0.035 NT-Pro-B Natriuret Pep 8320 H 01/04/18 01/05/18 01/05/18 19:00 00:15 00:15 Creatine Kinase 34 CK-MB (CK-2) 1.94 1.69 Troponin I 0.046 0.047 NT-Pro-B Natriuret Pep 01/05/18 01/05/18 06:10 06:10 Creatine Kinase 33 CK-MB (CK-2) 1.85 Troponin I 0.059 NT-Pro-B Natriuret Pep Impressions: Renal Ultrasound 01/05/18 06:58 IMPRESSION: GROSSLY NORMAL RENAL AND BLADDER ULTRASOUND. Head CT 01/05/18 13:39 IMPRESSION: 1. No acute intracranial event. 2. Chronic sphenoid sinus disease. EVIDENCE OF ACUTE STROKE: NO. Chest X-Ray 01/08/18 08:52 IMPRESSION: Marked cardiomegaly Small bilateral pleural effusions with bibasilar airspace disease. Assessment & Plan - Diagnosis (1) Congestive heart failure Qualifiers: Heart failure type: diastolic Heart failure chronicity: acute on chronic Qualified Code(s): I50.33 - Acute on chronic diastolic (congestive) heart failure Is this a current diagnosis for this admission?: Yes (2) Atrial fibrillation Qualifiers: Atrial fibrillation type: chronic Qualified Code(s): I48.2 - Chronic atrial fibrillation Is this a current diagnosis for this admission?: Yes (3) Coronary artery disease Qualifiers: Coronary Disease-Associated Artery/Lesion type: cheesh-na artery [facility] [place] vs. transplanted heart: cheesh-na heart Associated angina: angina presence unspecified Qualified Code(s): I25.10 - Atherosclerotic heart disease of cheesh-na coronary artery without angina pectoris Is this a current diagnosis for this admission?: Yes (4) Hypertension Qualifiers: Hypertension type: essential hypertension Qualified Code(s): I10 - Essential (primary) hypertension Is this a current diagnosis for this admission?: Yes (5) Cellulitis of right leg Is this a current diagnosis for this admission?: Yes (6) Pulmonary hypertension Is this a current diagnosis for this admission?: Yes (7) Sleep apnea syndrome Qualifiers: Sleep apnea type: unspecified type Qualified Code(s): G47.30 - Sleep apnea , unspecified Is this a current diagnosis for this admission?: Yes - Notes Notes: No new recommendation except continue with diuretic therapy. Congestive heart failure: 2D echo results were reviewed again with the patient. Patient noted to have significant pulmonary hypertension. Continue with with IV diuretics. Atrial fibrillation: This is probably chronic. Rate seems reasonably well controlled . Chronic anticoagulation issue to be decided later on. Currently not on any chronic anticoagulation, patient has history of GI bleed and also had received blood transfusion. After ruling out any acute ongoing bleed, may consider chronic anticoagulation. Any of the newer oral anticoagulants will be preferable. Other option would be placement of watchman device, or other left atrial appendage occlusive device. Coronary artery disease: Currently symptomatically stable. Will consider evaluation with a nuclear stress test after CHF is well controlled. Hypertension: Blood pressure goal should be 135/85 or less. Recommend beta- blockers, MT inhibitor/ARB for hypertension control. Additional agents may be needed. Cellulitis of the right leg: Continue with antibiotic therapy. Pulmonary hypertension: Most likely related to chronic left heart failure. Patient could also have obesity hypoventilation syndrome, sleep apnea syndrome, nocturnal hypoxemia. These were discussed. Patient advised in weight loss. Sleep apnea syndrome: Patient now agreeable to try a nasal pillow. However the hospital does not carry this and needs to be tried as an outpatient. - Time Time with patient: Greater than 35 minutes - More than 50% of the time spent coordinating care, discussing management plans with involved caregivers. Management plans discussed with involved personnels. Medical decision making was of moderate to high complexity, patient's has multiple comorbidities. Medications reviewed and adjusted accordingly: Yes
[2018-01-13] MEDS: INSULIN GLARGINE,HUM.REC.ANLOG 300 UNIT/3 ML INSULN.PEN SUBCUT SCH (21:49)
[2018-01-13] MEDS: SIMVASTATIN 10 MG TABLET PO SCH (21:50)
[2018-01-13] MEDS: OTEZLA 30 MG PO SCH (21:50)
[2018-01-14] MEDS: IPRATROPIUM/ALBUTEROL 0.5-2.5 MG/3 ML AMPUL NEB SCH ×4 (02:49→20:08)
[2018-01-14] MEDS: BUDESONIDE NEB 0.25 MG/2 ML AMPUL NEB SCH ×2 (09:17→20:08)
[2018-01-14 09:30] LABS: CALCIUM 8.6 mg/dL (8.4-10.2); GLUCOSE 90 mg/dL (75-110)
[2018-01-14 09:31] LABS: ANION GAP 13 (5-19); CARBON DIOXIDE 27 mmol/L (22-30); CHLORIDE 92 mmol/L (98-107); POTASSIUM 3.9 mmol/L (3.6-5.0); SODIUM 131.6 mmol/L (137-145)
[2018-01-14] MEDS: HYDRALAZINE HCL 50 MG TABLET PO SCH ×3 (10:16→21:56)
[2018-01-14] MEDS: AMOXICILLIN TR/POT CLAVULANATE 500-125 MG TAB PO SCH ×3 (10:17→21:55)
[2018-01-14 10:29] LABS: BLOOD UREA NITROGEN 123 mg/dL (7-20)
[2018-01-14] MEDS: NITROGLYCERIN 10 MG (0.4 MG/HR) PATCH.TD24 TD SCH (10:30)
[2018-01-14] MEDS: BUMETANIDE INJ/PF 1 MG/4 ML SDV IV SCH (10:30)
[2018-01-14] MEDS: CETIRIZINE 10 MG TABLET PO SCH (10:31)
[2018-01-14] MEDS: ALLOPURINOL 300 MG TABLET PO SCH (10:31)
[2018-01-14] MEDS: METOLAZONE 5 MG TABLET PO SCH (10:31)
[2018-01-14] MEDS: CARVEDILOL 12.5 MG TABLET PO SCH ×2 (10:31→21:55)
[2018-01-14] MEDS: ENOXAPARIN SODIUM INJ 30 MG/0.3 ML DISP.SYRIN SUBCUT SCH (10:32)
--- NOTE | 2018-01-14 15:53 | PDOC PROGRESS REPORT ---
Subjective Progress Note for:: 01/14/18 Subjective:: Patient states feeling better today less short of breath she got up several times to ambulate but still gets short of breath that distances denies chest pain, fever chills palpitations she has had bowel movements. Reason For Visit: CHF,CELLULITUS Physical Exam Vital Signs: Temp Pulse Resp BP Pulse Ox 97.7 F 67 18 157/35 H 91 L 01/14/18 11:18 01/14/18 14:00 01/14/18 13:41 01/14/18 11:18 01/14/18 13:41 Intake & Output 01/13/18 01/14/18 01/15/18 06:59 06:59 06:59 Intake Total 880 700 175 Output Total 950 700 250 Balance -70 0 -75 General appearance: PRESENT: no acute distress, well-developed, well-nourished Head exam: PRESENT: atraumatic, normocephalic Eye exam: PRESENT: conjunctiva pink, EOMI, PERRLA. ABSENT: scleral icterus Ear exam: PRESENT: normal external ear exam Mouth exam: PRESENT: moist, tongue midline Neck exam: PRESENT: full ROM. ABSENT: carotid bruit, JVD, lymphadenopathy, thyromegaly Respiratory exam: PRESENT: clear to auscultation noelle Cardiovascular exam: PRESENT: RRR. ABSENT: diastolic murmur, rubs, systolic murmur Murmur grade: 2 Pulses: PRESENT: normal dorsalis pedis pul, +2 pedal pulses bilateral Vascular exam: PRESENT: normal capillary refill GI/Abdominal exam: PRESENT: normal bowel sounds, soft. ABSENT: distended, guarding, mass, organolmegaly, rebound, tenderness Rectal exam: PRESENT: deferred Additional comments: RT. LEG decreased erythema no warmth , decreased edema 1 plus Neurological exam: PRESENT: alert, awake, oriented to person, oriented to place , oriented to time, oriented to situation, CN II-XII grossly intact. ABSENT: motor sensory deficit Psychiatric exam: PRESENT: appropriate affect, normal mood. ABSENT: homicidal ideation, suicidal ideation Skin exam: PRESENT: dry, intact, warm. ABSENT: cyanosis, rash Results Laboratory Results: 01/12/18 04:48 01/14/18 06:19 01/14/18 06:19 Sodium 131.6 L Potassium 3.9 Chloride 92 L Carbon Dioxide 27 Anion Gap 13 BUN 123 H Creatinine 2.79 H Est GFR ( Amer) 21 L Est GFR (Non-Af Amer) 17 L Glucose 90 Calcium 8.6 01/04/18 01/04/18 01/04/18 17:15 17:15 19:00 Creatine Kinase 37 40 CK-MB (CK-2) 1.98 Troponin I 0.035 NT-Pro-B Natriuret Pep 8320 H 01/04/18 01/05/18 01/05/18 19:00 00:15 00:15 Creatine Kinase 34 CK-MB (CK-2) 1.94 1.69 Troponin I 0.046 0.047 NT-Pro-B Natriuret Pep 01/05/18 01/05/18 06:10 06:10 Creatine Kinase 33 CK-MB (CK-2) 1.85 Troponin I 0.059 NT-Pro-B Natriuret Pep Impressions: Renal Ultrasound 01/05/18 06:58 IMPRESSION: GROSSLY NORMAL RENAL AND BLADDER ULTRASOUND. Head CT 01/05/18 13:39 IMPRESSION: 1. No acute intracranial event. 2. Chronic sphenoid sinus disease. EVIDENCE OF ACUTE STROKE: NO. Chest X-Ray 01/08/18 08:52 IMPRESSION: Marked cardiomegaly Small bilateral pleural effusions with bibasilar airspace disease. Assessment & Plan - Diagnosis (1) Congestive heart failure Qualifiers: Heart failure type: diastolic Heart failure chronicity: acute on chronic Qualified Code(s): I50.33 - Acute on chronic diastolic (congestive) heart failure Is this a current diagnosis for this admission?: Yes Plan: cont. current diuretics, monitor BMP7 (2) Cellulitis of right leg Is this a current diagnosis for this admission?: Yes Plan: cont. antibiotics on day 8 will recieve total 10 days (3) Hypertension Qualifiers: Hypertension type: essential hypertension Qualified Code(s): I10 - Essential (primary) hypertension Is this a current diagnosis for this admission?: Yes Plan: cont. current treatment plan (4) Acute on chronic renal failure Qualifiers: Acute renal failure type: unspecified Chronic kidney disease stage: stage 4 (severe) Qualified Code(s): N17.9 - Acute kidney failure, unspecified; N18.4 - Chronic kidney disease, stage 4 (severe); N18.4 - Chronic kidney disease , stage 4 (severe); N18.4 - Chronic kidney disease, stage 4 (severe); N18.4 - Chronic kidney disease, stage 4 (severe) Is this a current diagnosis for this admission?: Yes Plan: cont. current diuretics monitor fluyid status and check BMP7 in am. (5) Hyperkalemia, diminished renal excretion Is this a current diagnosis for this admission?: Yes (6) Pulmonary hypertension Is this a current diagnosis for this admission?: Yes (7) Cellulitis Qualifiers: Site of cellulitis of extremity: lower extremity Is this a current diagnosis for this admission?: Yes (8) Diabetes mellitus Qualifiers: Diabetes mellitus type: type 2 Diabetes mellitus complication status: with kidney complications Diabetes mellitus complication detail: with chronic kidney disease Chronic kidney disease stage: stage 4 (severe) Is this a current diagnosis for this admission?: Yes Plan: currently controlled maintain blood sugar between 120 -180 - Time Time Spent with patient: 15-24 minutes Anticipated discharge: Home Within: within 24 hours - Inpatient Certification I certify that my determination is in accordance with my understanding of Medicare's requirements for reasonable and necessary INPATIENT services [42 CFR 412.3e].: Yes Medical Necessity: Failure to Improve With Outpatient Therapy, Significant Comorbidiites Make Outpatient Treatment Too Risky, Need Close Monitoring Due to Risk of Patient Decompensation 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
--- NOTE | 2018-01-14 16:20 | PDOC PROGRESS REPORT ---
Subjective Progress Note for:: 01/14/18 Subjective:: Patient was sitting up in her chair at the time of examination. At the time she stated that she felt better compared to yesterday. She denied chest pain, SOB, n /v/d/c. She also denied s/s of uremia. Urine output has decreased even with the change in bumex. Reason For Visit: CHF,CELLULITUS Physical Exam Vital Signs: Temp Pulse Resp BP Pulse Ox 97.7 F 67 18 157/35 H 91 L 01/14/18 11:18 01/14/18 14:00 01/14/18 13:41 01/14/18 11:18 01/14/18 13:41 Intake & Output 01/13/18 01/14/18 01/15/18 06:59 06:59 06:59 Intake Total 880 700 175 Output Total 950 700 250 Balance -70 0 -75 General appearance: PRESENT: no acute distress, well-developed, well-nourished Mouth exam: PRESENT: moist, neck supple Neck exam: PRESENT: full ROM. ABSENT: JVD Respiratory exam: PRESENT: crackles. ABSENT: accessory muscle use, clear to auscultation noelle, rales, rhonchi, wheezes Cardiovascular exam: PRESENT: irregular rhythm, +S1, +S2 GI/Abdominal exam: PRESENT: normal bowel sounds, soft. ABSENT: distended, organomegaly, tenderness Extremities exam: PRESENT: +2 edema. ABSENT: pedal edema, tenderness Musculoskeletal exam: ABSENT: normal inspection, tenderness Neurological exam: PRESENT: alert, awake, oriented to person, oriented to place , oriented to time, oriented to situation Skin exam: PRESENT: dry, erythema, rash, warm. ABSENT: cyanosis, intact Results Laboratory Results: 01/12/18 04:48 01/14/18 06:19 01/14/18 06:19 Sodium 131.6 L Potassium 3.9 Chloride 92 L Carbon Dioxide 27 Anion Gap 13 BUN 123 H Creatinine 2.79 H Est GFR ( Amer) 21 L Est GFR (Non-Af Amer) 17 L Glucose 90 Calcium 8.6 01/04/18 01/04/18 01/04/18 17:15 17:15 19:00 Creatine Kinase 37 40 CK-MB (CK-2) 1.98 Troponin I 0.035 NT-Pro-B Natriuret Pep 8320 H 01/04/18 01/05/18 01/05/18 19:00 00:15 00:15 Creatine Kinase 34 CK-MB (CK-2) 1.94 1.69 Troponin I 0.046 0.047 NT-Pro-B Natriuret Pep 01/05/18 01/05/18 06:10 06:10 Creatine Kinase 33 CK-MB (CK-2) 1.85 Troponin I 0.059 NT-Pro-B Natriuret Pep Impressions: Renal Ultrasound 01/05/18 06:58 IMPRESSION: GROSSLY NORMAL RENAL AND BLADDER ULTRASOUND. Head CT 01/05/18 13:39 IMPRESSION: 1. No acute intracranial event. 2. Chronic sphenoid sinus disease. EVIDENCE OF ACUTE STROKE: NO. Chest X-Ray 01/08/18 08:52 IMPRESSION: Marked cardiomegaly Small bilateral pleural effusions with bibasilar airspace disease. Assessment & Plan - Diagnosis (1) Acute on chronic renal failure Qualifiers: Acute renal failure type: unspecified Chronic kidney disease stage: stage 4 (severe) Qualified Code(s): N17.9 - Acute kidney failure, unspecified; N18.4 - Chronic kidney disease, stage 4 (severe); N18.4 - Chronic kidney disease , stage 4 (severe); N18.4 - Chronic kidney disease, stage 4 (severe); N18.4 - Chronic kidney disease, stage 4 (severe) Is this a current diagnosis for this admission?: Yes Plan: BUN is significantly elevated and still rising. No current indications for [employer]OOK[employer]. Decreasing diuretics to 1mg of bumex once daily and stopping metolazone. Edema that is on the legs is related to right sided heart failure. Diuretics will not be as helpful to remove the extra fluid. Underlining cause of right sided heart failure needs to be treated. This case was discussed with Dr. Chaudhary (2) Congestive heart failure Qualifiers: Heart failure type: diastolic Heart failure chronicity: acute on chronic Qualified Code(s): I50.33 - Acute on chronic diastolic (congestive) heart failure Is this a current diagnosis for this admission?: Yes Plan: Decreasing diuretics to 1mg of bumex once daily and stopping metolazone. Edema that is on the legs is related to right sided heart failure. Diuretics will not be as helpful to remove the extra fluid. Underlining cause of right sided heart failure needs to be treated. This case was discussed with Dr. Chaudhary (3) Anemia Qualifiers: Anemia type: iron deficiency Iron deficiency anemia type: chronic blood loss Qualified Code(s): D50.0 - Iron deficiency anemia secondary to blood loss (chronic) Is this a current diagnosis for this admission?: Yes Plan: per heme/onc (4) Diabetes mellitus Qualifiers: Diabetes mellitus type: type 2 Diabetes mellitus complication status: with kidney complications Diabetes mellitus complication detail: with chronic kidney disease Chronic kidney disease stage: stage 4 (severe) Is this a current diagnosis for this admission?: Yes (5) Hyperkalemia, diminished renal excretion Is this a current diagnosis for this admission?: Yes Plan: stable, will monitor. (7) Pulmonary hypertension Is this a current diagnosis for this admission?: Yes Plan: per primary and cardiology - Notes Notes: case was reviewed and discussed with Dr. Cahudhary
[2018-01-14] MEDS: OTEZLA 30 MG PO SCH (21:54)
[2018-01-14] MEDS: SIMVASTATIN 10 MG TABLET PO SCH (21:55)
[2018-01-14] MEDS: INSULIN GLARGINE,HUM.REC.ANLOG 300 UNIT/3 ML INSULN.PEN SUBCUT SCH (21:56)
[2018-01-15] MEDS: IPRATROPIUM/ALBUTEROL 0.5-2.5 MG/3 ML AMPUL NEB SCH ×2 (01:01→08:41)
[2018-01-15] MEDS: AMOXICILLIN TR/POT CLAVULANATE 500-125 MG TAB PO SCH (05:51)
[2018-01-15] MEDS: HYDRALAZINE HCL 50 MG TABLET PO SCH (05:54)
[2018-01-15 06:14] LABS: ANION GAP 13 (5-19); CALCIUM 8.5 mg/dL (8.4-10.2); CARBON DIOXIDE 27 mmol/L (22-30); CHLORIDE 91 mmol/L (98-107); GLUCOSE 81 mg/dL (75-110); POTASSIUM 4.2 mmol/L (3.6-5.0); SODIUM 130.9 mmol/L (137-145)
[2018-01-15 06:24] LABS: BLOOD UREA NITROGEN 131 mg/dL (7-20)
[2018-01-15] MEDS: BUDESONIDE NEB 0.25 MG/2 ML AMPUL NEB SCH (08:41)
[2018-01-15] MEDS: NITROGLYCERIN 10 MG (0.4 MG/HR) PATCH.TD24 TD SCH (09:05)
[2018-01-15] MEDS: ALLOPURINOL 300 MG TABLET PO SCH (09:06)
[2018-01-15] MEDS: ENOXAPARIN SODIUM INJ 30 MG/0.3 ML DISP.SYRIN SUBCUT SCH (09:06)
[2018-01-15] MEDS: CARVEDILOL 12.5 MG TABLET PO SCH (09:06)
[2018-01-15] MEDS: CETIRIZINE 10 MG TABLET PO SCH (09:06)
[2018-01-15] MEDS ORDERED: BUMETANIDE INJ/PF 1 MG/4 ML SDV IV SCH (10:00)
[2018-01-15 10:39] VITALS: BP 151/37
--- NOTE | 2018-01-15 10:40 | PDOC DISCHARGE SUMMARY ---
General - Admit/Disc Date/PCP Admission Date/Primary Care Provider: 01/04/18 11:37 MINO MONZON MD Discharge Date: 01/15/18 - Discharge Diagnosis (1) Congestive heart failure Is this a current diagnosis for this admission?: Yes (2) Cellulitis of right leg Is this a current diagnosis for this admission?: Yes (3) Hypertension Is this a current diagnosis for this admission?: Yes (4) Acute on chronic renal failure Is this a current diagnosis for this admission?: Yes (5) Hyperkalemia, diminished renal excretion Is this a current diagnosis for this admission?: Yes (6) Pulmonary hypertension Is this a current diagnosis for this admission?: Yes (7) Cellulitis Is this a current diagnosis for this admission?: Yes (8) Diabetes mellitus Is this a current diagnosis for this admission?: Yes - Additional Information Resuscitation Status: Full Code Discharge Diet: Cardiac, Diabetic Discharge Activity: Activity As Tolerated, Balance Activity w/Rest, Weigh Daily Prescriptions: Amox Tr/Potassium Clavulanate [Augmentin "500" Tablet] 1 tab PO Q8 3 Days #12 tablet Bumetanide [Bumex Inj/Pf 1 mg/4 ml Sdv] 1 mg PO DAILY 30 Days #30 vial Hydralazine HCl [Apresoline 50 mg Tablet] 100 mg PO Q8@0600,1400,2200 30 Days # 90 tablet Insulin Glargine,Hum.rec.anlog [Lantus Insulin 100 Unit/mL] 20 unit SUBCUT QHS 30 Days #1 insuln.pen Ipratropium/Albuterol Sulfate [Duoneb 3 ml Ampul] 3 ml NEB RTQ6 30 Days #100 vial.neb Nitroglycerin [Nitro-Dur 10 mg (0.4MG/Hr) Transdermal Patch] 1 each TD DAILY 30 Days #30 patch.td24 Home Medications: Allopurinol [Zyloprim 300 mg Tablet] 300 mg PO DAILY 03/05/17 Apremilast [Otezla] 30 mg PO QHS 03/05/17 Cholecalciferol (Vitamin D3) [Vitamin D3] 50,000 unit PO WE@1000 03/05/17 Cyanocobalamin (Vitamin B-12) [Vitamin B-12] 1,000 mcg PO DAILY 03/05/17 Insulin Glargine,Hum.rec.anlog [Toujeo Solostar] 20 units SQ QHS 03/05/17 Potassium Chloride 20 meq PO BID 03/05/17 Simvastatin [Zocor 20 mg Tablet] 20 mg PO QHS 03/05/17 Carvedilol 12.5 mg PO QPM 06/17/17 Cetirizine HCl [Zyrtec 10 mg Tablet] 1 tab PO DAILY 08/22/17 Acetaminophen [Pain & Fever] 500 mg PO QID 01/04/18 Acetaminophen [Tylenol 325 mg Tablet] 650 mg PO Q6HP PRN tablet 01/15/18 Allopurinol [Zyloprim 300 mg Tablet] 300 mg PO DAILY tablet 01/15/18 Amox Tr/Potassium Clavulanate [Augmentin "500" Tablet] 1 tab PO Q8 3 Days #12 tablet 01/15/18 Bumetanide [Bumex Inj/Pf 1 mg/4 ml Sdv] 1 mg PO DAILY 30 Days #30 vial 01/15/18 Carvedilol [Coreg 12.5 mg Tablet] 12.5 mg PO Q12 tablet 01/15/18 Cetirizine HCl [Zyrtec 10 mg Tablet] 10 mg PO DAILY tablet 01/15/18 Hydralazine HCl [Apresoline 50 mg Tablet] 100 mg PO Q8@0600,1400,2200 30 Days # 90 tablet 01/15/18 Insulin Glargine,Hum.rec.anlog [Lantus Insulin 100 Unit/mL] 20 unit SUBCUT QHS 30 Days #1 insuln.pen 01/15/18 Ipratropium/Albuterol Sulfate [Duoneb 3 ml Ampul] 3 ml NEB RTQ6 30 Days #100 vial.neb 01/15/18 Nitroglycerin [Nitro-Dur 10 mg (0.4MG/Hr) Transdermal Patch] 1 each TD DAILY 30 Days #30 patch.td24 01/15/18 Simvastatin [Zocor 10 mg Tablet] 20 mg PO QHS tablet 01/15/18 History of Present Illness History of Present Illness: Patient comes in due progressive SOB, ORTHPNEA, RT. LEG SWERLLING AND PAIN. Hospital Course Hospital Course: Patient was admitted to the hospital with worsening congestive heart failure hyperkalemia acute on chronic renal failure. She was put on supplemental oxygen cardiac enzymes were done which were negative she was put on increased dose of IV diuretics IV Lasix when there was not enough negative balance Zaroxolyn was added and increased. Subsequent to which her Lasix was discontinued and she was started on Bumex. She had an echocardiogram by cardiology which was read with normal left ventricular function she had significant pulmonary artery hypertension with PA pressures of 40-50 she was trial of CPAP but was unable to tolerate so she was maintained on oxygen throughout her hospitalization because of desaturations. With regards to the right-sided failure we were able to achieve some negative balance but unfortunately as the negative balance was achieved it was at this state of decreasing kidney function her BUN went up to 136 with a creatinine of 2.8 stage IV disease so was felt that further attempting at diuresing could put her at risk of renal failure. She was also seen by hematology giving her IV iron her hemoglobin did not drop below 8.6 and her hospitalization. And it was not felt necessary for blood transfusions as she was fluid overloaded and it hemodiluted state. She had right leg cellulitis which cultured out enterococcus and eventually MSSA IV antibiotics were switched to p.o. pansensitive and that resolved prior to discharge. Clinically she showed improvement with decreasing shortness of breath increase physical activity without any evidence of uremic symptoms of anorexia nausea vomiting or generalized weakness. It was felt she was stable for discharge she will get an outpatient home sleep study and attempt at nasal CPAP. Physical Exam Vital Signs: Temp Pulse Resp BP Pulse Ox 97.6 F 70 16 158/32 H 99 01/15/18 07:15 01/15/18 07:15 01/15/18 07:15 01/15/18 07:15 01/15/18 07:15 Intake & Output 01/14/18 01/15/18 01/16/18 06:59 06:59 06:59 Intake Total 700 411 Output Total 700 1050 Balance 0 -639 Weight 113 kg General appearance: PRESENT: no acute distress, obese, well-developed, well- nourished Head exam: PRESENT: atraumatic, normocephalic Eye exam: PRESENT: conjunctiva pink, EOMI, PERRLA. ABSENT: scleral icterus Ear exam: PRESENT: normal external ear exam Mouth exam: PRESENT: moist, tongue midline Neck exam: PRESENT: full ROM. ABSENT: carotid bruit, JVD, lymphadenopathy, thyromegaly Respiratory exam: PRESENT: decreased breath sounds Cardiovascular exam: PRESENT: systolic murmur Murmur grade: 2 Pulses: PRESENT: normal dorsalis pedis pul, +2 pedal pulses bilateral Vascular exam: PRESENT: normal capillary refill GI/Abdominal exam: PRESENT: normal bowel sounds, soft. ABSENT: distended, guarding, mass, organolmegaly, rebound, tenderness Rectal exam: PRESENT: deferred Additional comments: Bilateral leg edema 1-2+ up to the tibial tuberosity no erythema no warmth dried eschar over the prior open wound area Musculoskeletal exam: PRESENT: ambulatory Neurological exam: PRESENT: alert, awake, oriented to person, oriented to place , oriented to time, oriented to situation, CN II-XII grossly intact. ABSENT: motor sensory deficit Psychiatric exam: PRESENT: appropriate affect, normal mood. ABSENT: homicidal ideation, suicidal ideation Skin exam: PRESENT: dry, intact, warm. ABSENT: cyanosis, rash Results Laboratory Results: 01/12/18 04:48 01/15/18 05:22 01/14/18 01/15/18 06:19 05:22 Sodium 131.6 L 130.9 L Potassium 3.9 4.2 Chloride 92 L 91 L Carbon Dioxide 27 27 Anion Gap 13 13 BUN 123 H 131 H Creatinine 2.79 H 2.89 H Est GFR ( Amer) 21 L 20 L Est GFR (Non-Af Amer) 17 L 16 L Glucose 90 81 Calcium 8.6 8.5 01/04/18 01/04/18 01/04/18 17:15 17:15 19:00 Creatine Kinase 37 40 CK-MB (CK-2) 1.98 Troponin I 0.035 NT-Pro-B Natriuret Pep 8320 H 01/04/18 01/05/18 01/05/18 19:00 00:15 00:15 Creatine Kinase 34 CK-MB (CK-2) 1.94 1.69 Troponin I 0.046 0.047 NT-Pro-B Natriuret Pep 01/05/18 01/05/18 06:10 06:10 Creatine Kinase 33 CK-MB (CK-2) 1.85 Troponin I 0.059 NT-Pro-B Natriuret Pep Impressions: Renal Ultrasound 01/05/18 06:58 IMPRESSION: GROSSLY NORMAL RENAL AND BLADDER ULTRASOUND. Head CT 01/05/18 13:39 IMPRESSION: 1. No acute intracranial event. 2. Chronic sphenoid sinus disease. EVIDENCE OF ACUTE STROKE: NO. Chest X-Ray 01/08/18 08:52 IMPRESSION: Marked cardiomegaly Small bilateral pleural effusions with bibasilar airspace disease. Qualifiers - * PATIENT BEING DISCHARGED WITH ANY OF THE FOLLOWING DIAGNOSIS: No Plan Time Spent: Less than 30 Minutes
--- NOTE | 2018-01-15 22:55 | PDOC PROGRESS REPORT ---
Subjective Progress Note for:: 01/15/18 Subjective:: Patient has made slow progress. Today she claims that she is now willing to try nasal CPAP with a nasal pillow but the hospital does not carry a nasal pillow. Pt is denying any chest arm or neck discomfort. Patient denying any PND, orthopnea. Patient denied any sustained palpitations, dizziness, syncope, near syncope. Patient denying any fever chills. Patient denying any other significant discomfort. Patient is maintaining atrial fibrillation. Review of systems: Rest review of systems negative. Medications: Medications have been reviewed. Reason For Visit: CHF,CELLULITUS Physical Exam Vital Signs: Temp Pulse Resp BP Pulse Ox 97.6 F 68 16 151/37 H 98 01/15/18 10:38 01/15/18 10:38 01/15/18 10:38 01/15/18 10:38 01/15/18 10:38 Intake & Output 01/14/18 01/15/18 01/16/18 06:59 06:59 06:59 Intake Total 700 411 Output Total 700 1050 Balance 0 -639 Weight 113 kg Exam: GENERAL: well-nourished and in no acute distress. Alert and oriented x3 HEAD: Atraumatic, normocephalic. EYES: Pupils equal round and reactive to light, extraocular movements intact, sclera anicteric, conjunctiva are normal. ENT: TMs normal, nares patent, oropharynx clear without exudates. Moist mucous membranes. No oral ulcerations or bleeding gums noted NECK: supple without lymphadenopathy. Trachea is central. No cervical or axillary lymphadenopathy noted. Carotids are 2+, JVD 8-10 LUNGS: Respiration seems nonlabored, no significant accessory muscle action noted. Breath sounds clear to auscultation bilaterally and equal noted. No wheezes rales or rhonchi noted. No significant dullness noted on percussion. CHEST: Palpation of the chest wall shows no significant chest wall tenderness. HEART: [place] [employer], No PSH, 1/6 REX aortic area, 1/6 green systolic murmur mitral area, no rubs, no gallops. ABDOMEN: Soft, no significant tenderness appreciated, normoactive bowel sounds. No guarding, no rebound. No rigidity noted . No masses appreciated. EXTREMITIES: Pedal pulses are 1-2+, no calf tenderness noted. No clubbing or cyanosis. 1-2+ pedal edema noted NEUROLOGICAL: Focused neurological exam showed no significant neurologic deficit. Normal speech, no focal weakness appreciated. PSYCH: Normal mood, normal affect. Judgment and insight within normal limits. SKIN: No significant ecchymosis, skin is noted to be warm. MUSCULOSKELETAL EXAM: No significant acute joint swelling noted. Results Laboratory Results: 01/12/18 04:48 01/15/18 05:22 01/15/18 05:22 Sodium 130.9 L Potassium 4.2 Chloride 91 L Carbon Dioxide 27 Anion Gap 13 BUN 131 H Creatinine 2.89 H Est GFR ( Amer) 20 L Est GFR (Non-Af Amer) 16 L Glucose 81 Calcium 8.5 01/04/18 01/04/18 01/04/18 17:15 17:15 19:00 Creatine Kinase 37 40 CK-MB (CK-2) 1.98 Troponin I 0.035 NT-Pro-B Natriuret Pep 8320 H 01/04/18 01/05/18 01/05/18 19:00 00:15 00:15 Creatine Kinase 34 CK-MB (CK-2) 1.94 1.69 Troponin I 0.046 0.047 NT-Pro-B Natriuret Pep 01/05/18 01/05/18 06:10 06:10 Creatine Kinase 33 CK-MB (CK-2) 1.85 Troponin I 0.059 NT-Pro-B Natriuret Pep Impressions: Renal Ultrasound 01/05/18 06:58 IMPRESSION: GROSSLY NORMAL RENAL AND BLADDER ULTRASOUND. Head CT 01/05/18 13:39 IMPRESSION: 1. No acute intracranial event. 2. Chronic sphenoid sinus disease. EVIDENCE OF ACUTE STROKE: NO. Chest X-Ray 01/08/18 08:52 IMPRESSION: Marked cardiomegaly Small bilateral pleural effusions with bibasilar airspace disease. Assessment & Plan - Diagnosis (1) Congestive heart failure Qualifiers: Heart failure type: diastolic Heart failure chronicity: acute on chronic Qualified Code(s): I50.33 - Acute on chronic diastolic (congestive) heart failure Is this a current diagnosis for this admission?: Yes (2) Atrial fibrillation Qualifiers: Atrial fibrillation type: chronic Qualified Code(s): I48.2 - Chronic atrial fibrillation Is this a current diagnosis for this admission?: Yes (3) Coronary artery disease Qualifiers: Coronary Disease-Associated Artery/Lesion type: [place] artery [place] vs. transplanted heart: [place] heart Associated angina: angina presence unspecified Qualified Code(s): I25.10 - Atherosclerotic heart disease of [place] coronary artery without angina pectoris Is this a current diagnosis for this admission?: Yes (4) Hypertension Qualifiers: Hypertension type: essential hypertension Qualified Code(s): I10 - Essential (primary) hypertension Is this a current diagnosis for this admission?: Yes (5) Cellulitis of right leg Is this a current diagnosis for this admission?: Yes (6) Pulmonary hypertension Is this a current diagnosis for this admission?: Yes (7) Sleep apnea syndrome Qualifiers: Sleep apnea type: unspecified type Qualified Code(s): G47.30 - Sleep apnea , unspecified Is this a current diagnosis for this admission?: Yes - Notes Notes: Congestive heart failure: Patient being discharged today. She has shown gradual overall improvement. Patient has been noted to ambulate with a long oxygen 2. Atrial fibrillation: Chronic. Anticoagulation is an issue due to GI bleed, which has been recurrent. Will consider evaluation for placement of watchman device, or other left atrial appendage occlusive device. This will be considered as an outpatient. Coronary artery disease: Currently symptomatically stable. Will consider evaluation with a nuclear stress test after CHF is well controlled. Hypertension: Blood pressure goal should be 135/85 or less. Recommend beta- blockers, MT inhibitor/ARB for hypertension control. Additional agents may be needed. Blood pressure has been noted to be satisfactory. Cellulitis of the right leg: Continue with antibiotic therapy. Pulmonary hypertension: Most likely related to chronic left heart failure. Patient could also have obesity hypoventilation syndrome, sleep apnea syndrome, nocturnal hypoxemia. These were discussed. Patient advised in weight loss. Sleep apnea syndrome: Patient is now willing to try a nasal pillow but this can only be done as an outpatient. - Time Time with patient: 15-25 minutes - More than 50% of the time spent coordinating care, discussing management plans with involved caregivers. Management plans discussed with involved personnels. Medical decision making was of moderate to high complexity, patient's has multiple comorbidities. Medications reviewed and adjusted accordingly: Yes
--- NOTE | 2018-01-16 19:12 | PDOC PROGRESS REPORT ---
Subjective Progress Note for:: 01/14/18 Subjective:: Patient has made slow progress. Today she claims that she is now willing to try nasal CPAP with a nasal pillow but the hospital does not carry a nasal pillow. Pt is denying any chest arm or neck discomfort. Patient denying any PND, orthopnea. Patient denied any sustained palpitations, dizziness, syncope, near syncope. Patient denying any fever chills. Patient denying any other significant discomfort. Patient is maintaining atrial fibrillation. Review of systems: Rest review of systems negative. Medications: Medications have been reviewed. Reason For Visit: CHF,CELLULITUS Physical Exam Vital Signs: Temp Pulse Resp BP Pulse Ox 97.3 F 62 18 175/34 H 95 01/14/18 19:27 01/14/18 20:08 01/14/18 20:08 01/14/18 19:27 01/14/18 20:08 Intake & Output 01/13/18 01/14/18 01/15/18 06:59 06:59 06:59 Intake Total 880 700 411 Output Total 950 700 550 Balance -70 0 -139 Exam: GENERAL: well-nourished and in no acute distress. Alert and oriented x3 HEAD: Atraumatic, normocephalic. EYES: Pupils equal round and reactive to light, extraocular movements intact, sclera anicteric, conjunctiva are normal. ENT: TMs normal, nares patent, oropharynx clear without exudates. Moist mucous membranes. No oral ulcerations or bleeding gums noted NECK: supple without lymphadenopathy. Trachea is central. No cervical or axillary lymphadenopathy noted. Carotids are 2+, JVD 8-10 cm LUNGS: Respiration seems nonlabored, no significant accessory muscle action noted. Breath sounds clear to auscultation bilaterally and equal noted. No wheezes rales or rhonchi noted. No significant dullness noted on percussion. CHEST: Palpation of the chest wall shows no significant chest wall tenderness. HEART: [place] [employer], No PSH, 1/6 REX aortic area, 1/6 green systolic murmur mitral area, no rubs, no gallops. ABDOMEN: Soft, no significant tenderness appreciated, normoactive bowel sounds. No guarding, no rebound. No rigidity noted . No masses appreciated. EXTREMITIES: Pedal pulses are 1-2+, no calf tenderness noted. No clubbing or cyanosis. 1-2+ pedal edema noted NEUROLOGICAL: Focused neurological exam showed no significant neurologic deficit. Normal speech, no focal weakness appreciated. PSYCH: Normal mood, normal affect. Judgment and insight within normal limits. SKIN: No significant ecchymosis, skin is noted to be warm. MUSCULOSKELETAL EXAM: No significant acute joint swelling noted. Results Laboratory Results: 01/12/18 04:48 01/14/18 06:19 01/14/18 06:19 Sodium 131.6 L Potassium 3.9 Chloride 92 L Carbon Dioxide 27 Anion Gap 13 BUN 123 H Creatinine 2.79 H Est GFR ( Amer) 21 L Est GFR (Non-Af Amer) 17 L Glucose 90 Calcium 8.6 01/04/18 01/04/18 01/04/18 17:15 17:15 19:00 Creatine Kinase 37 40 CK-MB (CK-2) 1.98 Troponin I 0.035 NT-Pro-B Natriuret Pep 8320 H 01/04/18 01/05/18 01/05/18 19:00 00:15 00:15 Creatine Kinase 34 CK-MB (CK-2) 1.94 1.69 Troponin I 0.046 0.047 NT-Pro-B Natriuret Pep 01/05/18 01/05/18 06:10 06:10 Creatine Kinase 33 CK-MB (CK-2) 1.85 Troponin I 0.059 NT-Pro-B Natriuret Pep Impressions: Renal Ultrasound 01/05/18 06:58 IMPRESSION: GROSSLY NORMAL RENAL AND BLADDER ULTRASOUND. Head CT 01/05/18 13:39 IMPRESSION: 1. No acute intracranial event. 2. Chronic sphenoid sinus disease. EVIDENCE OF ACUTE STROKE: NO. Chest X-Ray 01/08/18 08:52 IMPRESSION: Marked cardiomegaly Small bilateral pleural effusions with bibasilar airspace disease. Assessment & Plan - Diagnosis (1) Congestive heart failure Qualifiers: Heart failure type: diastolic Heart failure chronicity: acute on chronic Qualified Code(s): I50.33 - Acute on chronic diastolic (congestive) heart failure Is this a current diagnosis for this admission?: Yes (2) Atrial fibrillation Qualifiers: Atrial fibrillation type: chronic Qualified Code(s): I48.2 - Chronic atrial fibrillation Is this a current diagnosis for this admission?: Yes (3) Coronary artery disease Qualifiers: Coronary Disease-Associated Artery/Lesion type: [place] artery [place] vs. transplanted heart: [place] heart Associated angina: angina presence unspecified Qualified Code(s): I25.10 - Atherosclerotic heart disease of [place] coronary artery without angina pectoris Is this a current diagnosis for this admission?: Yes (4) Hypertension Qualifiers: Hypertension type: essential hypertension Qualified Code(s): I10 - Essential (primary) hypertension Is this a current diagnosis for this admission?: Yes (5) Cellulitis of right leg Is this a current diagnosis for this admission?: Yes (6) Pulmonary hypertension Is this a current diagnosis for this admission?: Yes (7) Sleep apnea syndrome Qualifiers: Sleep apnea type: unspecified type Qualified Code(s): G47.30 - Sleep apnea , unspecified Is this a current diagnosis for this admission?: Yes (8) Obesity Qualifiers: Obesity type: unspecified obesity type Obesity classification: unspecified obesity classification Is this a current diagnosis for this admission?: Yes - Notes Notes: Congestive heart failure: Improved with IV diuretics. Continue with this until discharge. Atrial fibrillation: Chronic. Anticoagulation is an issue due to GI bleed, which has been recurrent. Will consider evaluation for placement of watchman device, or other left atrial appendage occlusive device. Coronary artery disease: Currently symptomatically stable. Will consider evaluation with a nuclear stress test after CHF is well controlled. Hypertension: Blood pressure goal should be 135/85 or less. Recommend beta- blockers, MT inhibitor/ARB for hypertension control. Additional agents may be needed. Cellulitis of the right leg: Continue with antibiotic therapy. Pulmonary hypertension: Most likely related to chronic left heart failure. Patient could also have obesity hypoventilation syndrome, sleep apnea syndrome, nocturnal hypoxemia. These were discussed. Patient advised in weight loss. Sleep apnea syndrome: Patient is now willing to try a nasal pillow but this can only be done as an outpatient. - Time Time with patient: 15-25 minutes - CODE STATUS was discussed, patient remains full code. Surrogate decision-maker unchanged. Multiple medical problems were addressed. More than 50% of the time spent coordinating care, discussing management plans with involved caregivers. Management plans discussed with involved personnels. Medical decision making was of moderate to high complexity , patient's has multiple comorbidities. Medications reviewed and adjusted accordingly: Yes
== END 2018-01-15 12:20 | disposition home or self-care (01) | DRG 291 ==
LOC: ER 10:39 → EH 11:37 → 3S 17:51
PROVIDERS: ADMIT Internal Medicine; ATTEND Internal Medicine
DX: I13.0 Hypertensive heart and chronic kidney disease with heart failure and stage 1 through stage 4 chronic kidney disease, or unspecified chronic kidney disease (principal); I50.33 Acute on chronic diastolic (congestive) heart failure; L03.115 Cellulitis of right lower limb; Z68.41 Body mass index [BMI] 40.0-44.9, adult; N17.9 Acute kidney failure, unspecified; N18.4 Chronic kidney disease, stage 4 (severe); B95.61 Methicillin susceptible Staphylococcus aureus infection as the cause of diseases classified elsewhere; E11.22 Type 2 diabetes mellitus with diabetic chronic kidney disease; I48.2 Chronic atrial fibrillation; E87.5 Hyperkalemia; D50.0 Iron deficiency anemia secondary to blood loss (chronic); I25.10 Atherosclerotic heart disease of native coronary artery without angina pectoris; I27.20 Pulmonary hypertension, unspecified; E78.5 Hyperlipidemia, unspecified; G47.30 Sleep apnea, unspecified; L40.9 Psoriasis, unspecified; M19.90 Unspecified osteoarthritis, unspecified site; E66.9 Obesity, unspecified; Z79.4 Long term (current) use of insulin; Z79.899 Other long term (current) drug therapy; I25.2 Old myocardial infarction; Z95.1 Presence of aortocoronary bypass graft; Z85.3 Personal history of malignant neoplasm of breast; Z90.710 Acquired absence of both cervix and uterus; Z88.2 Allergy status to sulfonamides; Z88.8 Allergy status to other drugs, medicaments and biological substances
CPT/HCPCS: 36415; 70450; 71045; 71046; 76770; 80048; 80053; 81001; 82550; 82553; 82607; 82728; 82746; 82962; 83540; 83550; 83735; 83880; 84156; 84166; 84300; 84484; 85025; 85027; 85045; 85610; 85652; 85730; 86140; 86225; 86235; 86320; 86335; 87040; 87070; 87077; 87086; 87186; 87205; 93005; 93010; 93306; 94640; 94660; 94799; 99285; G8978-GP; G8979-GP; J0295; J0692; J1756; J1815; J1940; J3370; J3490; J7050; J7060; J7620; J7626; Q0138

== ENCOUNTER 2018-01-19 10:49 | Emergency (ER) | payer MEDICARE, OTHER ==
--- NOTE | 2018-01-19 11:10 | ER Document Report ---
ED Medical Screen (RME) - General Chief Complaint: Shortness Of Breath Stated Complaint: SHORTNESS OF BREATH Time Seen by Provider: 01/19/18 10:58 Notes: Patient is a 67-year-old female that presents to the emergency department for chief complaint of shortness of breath and congestive heart failure. Patient was discharged from the hospital on 01/04/18 after congestive heart failure exacerbation. She states they stopped her Lasix while she was in the hospital and changed her to a new medication that she does not know the name of. She has been taking her medications as prescribed. She is having worsening shortness of breath with any exertion. She was referred here by PCP for CHF evaluation ROS: GENERAL: Denies fever of chills Respiratory: Short of breath PHYSICAL EXAMINATION: GENERAL: Well-appearing, well-nourished and in no acute distress. HEAD: Atraumatic, normocephalic. EYES: Pupils equal round extraocular movements intact, conjunctiva are normal. ENT: Nares patent NECK: Normal range of motion LUNGS: No respiratory distress Musculoskeletal: Normal range of motion NEUROLOGICAL: Normal speech, normal gait. PSYCH: Normal mood, normal affect. MDM: Patient seen and examined for rapid initial assessment. Vital signs reviewed. A comprehensive ED assessment and evaluation of the patient, analysis of test results and completion of the medical decision making process will be conducted by additional ED providers. TRAVEL OUTSIDE OF THE [place] IN LAST 30 DAYS: No - Related Data Allergies/Adverse Reactions: Sulfa (Sulfonamide Antibiotics) Allergy (Mild, Verified 01/19/18 10:50) Hives warfarin sodium [From Coumadin] Adverse Reaction (Mild, Verified 01/19/18 10:50) Diarrhea Past Medical History - Social History Chew tobacco use (# tins/day): No Frequency of alcohol use: None Drug Abuse: None - Past Medical History Cardiac Medical History: Reports: Hx Atrial Fibrillation - TWO YEARS AGO, Hx Congestive Heart Failure, Hx Coronary Artery Disease, Hx Heart Attack - Triple bypass 2004, Hx Hypercholesterolemia, Hx Hypertension, Hx Heart Murmur Pulmonary Medical History: Reports: Hx Bronchitis, Hx Pneumonia Denies: Hx Asthma, Hx COPD, Hx Tuberculosis Neurological Medical History: Denies: Hx Cerebrovascular Accident, Hx Seizures Endocrine Medical History: Reports: Hx Diabetes Mellitus Type 1, Hx Diabetes Mellitus Type 2 Renal/ Medical History: Reports: Hx End Stage Renal Disease. Denies: Hx Kidney Stones, Hx Peritoneal Dialysis Malignancy Medical History: Reports: Hx Breast Cancer GI Medical History: Reports: Hx Endoscopy. Denies: Hx Cirrhosis, Hx Gastroesophageal Reflux Disease, Hx Ulcer Musculoskeltal Medical History: Reports Hx Arthritis - SCORIATIC ARTHRITIS, Reports Hx Gout, Denies Hx Multiple Sclerosis Skin Medical History: Denies Hx MRSA, Reports Hx Psoriasis Psychiatric Medical History: Denies: Hx Bipolar Disorder, Hx Depression, Hx Schizophrenia Past Surgical History: Reports: Hx Cardiac Catheterization - Jan, Hx Cardiac Surgery - [place] 2004, Hx Section, Hx Cholecystectomy, Hx Coronary Artery Bypass Graft - 2004 at [facility], Hx Hysterectomy, Hx Tubal Ligation. Denies: Hx Adenoidectomy, Hx Pacemaker - Immunizations Hx Diphtheria, Pertussis, Tetanus Vaccination: No History of Influenza Vaccine for 02/2017 - 07/2017 Season: Yes Influenza Administration Date for 02/2017 - 07/2017 Season: 01/08/17 Physical Exam - Vital signs Vitals: Resp 26 H 01/19/18 10:57 Course - Vital Signs Vital signs: Temp Pulse Resp BP Pulse Ox 26 H 01/19/18 10:57 Doctor's Discharge - Discharge Referrals: MINO MONZON MD [Primary Care Provider] - Follow up as needed
--- NOTE | 2018-01-19 12:17 | RADIOLOGY REPORT (SQ) ---
EXAM DESCRIPTION: CHEST 2 VIEWS COMPLETED DATE/TIME: 01/19/2018 12:05 pm REASON FOR STUDY: shortness of breath COMPARISON: 11/04/2017. EXAM PARAMETERS: NUMBER OF VIEWS: two views TECHNIQUE: Digital Frontal and Lateral radiographic views of the chest acquired. RADIATION DOSE: NA LIMITATIONS: none FINDINGS: LUNGS AND PLEURA: Increasing density both lower lung zones consistent with bilateral pleur al effusion and possible associated atelectasis or infiltrate. MEDIASTINUM AND HILAR STRUCTURES: No masses or contour abnormalities. HEART AND VASCULAR STRUCTURES: Cardiomegaly. BONES: No acute findings. HARDWARE: Status post CAB OTHER: No other significant finding. IMPRESSION: Cardiomegaly and bilateral pleural effusions consistent with congestive heart failure. Possible bibasilar atelectasis or infiltrate partially obscured by the effusion. TECHNICAL DOCUMENTATION: JOB ID: [id number] [employer]- All Rights Reserved Reading location - IP/workstation name: [email or web address]
--- NOTE | 2018-01-19 12:43 | ER Document Report ---
ED Respiratory Problem - General Chief Complaint: Shortness Of Breath Stated Complaint: SHORTNESS OF BREATH Time Seen by Provider: 01/19/18 10:58 Mode of Arrival: Medic Information source: Patient, Relative TRAVEL OUTSIDE OF THE [place] IN LAST 30 DAYS: No - HPI Patient complains to provider of: Short of breath Onset: Last week Duration: Continuous Initiating Event: Other - GRADUALLY WORSENING SINCE D/C/FROM [facility] LAST WEEK (WAS ADMITTED FOR [facility].) Context: Hx CHF, Other - CHRONIC A. FIB.. denies: DVT, Malignancy, , Recent cardiac event, Recent foreign travel, Recent long distance trvl, Recent surgery, Smoker Short of Breath: Moderate Sputum amount: None At home treatment: Diuretics, Oxygen EMS treatments: Oxygen Associated symptoms: Ankle/leg swelling, Extertional dyspnea, Orthopnea, Short of breath. denies: Bloody cough, Chest pain/discomfort, Chills, Congestion, Cough, Fever, Heart racing, Leg/calf/joint pain, Sweaty, Wheezing Similar symptoms previously: Yes Recently seen / treated by doctor: Yes - SEEN IN OFFICE THIS A.M., REFERRED TO E.D. - Related Data Allergies/Adverse Reactions: Sulfa (Sulfonamide Antibiotics) Allergy (Mild, Verified 01/19/18 10:50) Hives warfarin sodium [From Coumadin] Adverse Reaction (Mild, Verified 01/19/18 10:50) Diarrhea Past Medical History - General Information source: Patient, Relative, [facility] Records - Social History Smoking Status: Former Smoker Cigarette use (# per day): No Chew tobacco use (# tins/day): No Frequency of alcohol use: None Drug Abuse: None Lives with: Family Family History: CAD, DM, Hypertension Patient has suicidal ideation: No Patient has homicidal ideation: No - Past Medical History Cardiac Medical History: Reports: Hx Atrial Fibrillation - TWO YEARS AGO, Hx Congestive Heart Failure, Hx Coronary Artery Disease, Hx Heart Attack - Triple bypass 2004, Hx Hypercholesterolemia, Hx Hypertension, Hx Heart Murmur Pulmonary Medical History: Reports: Hx Bronchitis, Hx Pneumonia Denies: Hx Asthma, Hx COPD, Hx Tuberculosis Neurological Medical History: Denies: Hx Cerebrovascular Accident, Hx Seizures Endocrine Medical History: Reports: Hx Diabetes Mellitus Type 1, Hx Diabetes Mellitus Type 2 Renal/ Medical History: Reports: Hx End Stage Renal Disease. Denies: Hx Kidney Stones, Hx Peritoneal Dialysis Malignancy Medical History: Reports: Hx Breast Cancer GI Medical History: Reports: Hx Endoscopy. Denies: Hx Cirrhosis, Hx Gastroesophageal Reflux Disease, Hx Ulcer Musculoskeletal Medical History: Reports Hx Arthritis - SCORIATIC ARTHRITIS, Reports Hx Gout, Denies Hx Multiple Sclerosis Skin Medical History: Denies Hx MRSA, Reports Hx Psoriasis Psychiatric Medical History: Denies: Hx Bipolar Disorder, Hx Depression, Hx Schizophrenia Past Surgical History: Reports: Hx Cardiac Catheterization - Jan, Hx Cardiac Surgery - [place], Hx Section, Hx Cholecystectomy, Hx Coronary Artery Bypass Graft - 2004 at [facility], Hx Hysterectomy, Hx Tubal Ligation. Denies: Hx Adenoidectomy, Hx Pacemaker - Immunizations Hx Diphtheria, Pertussis, Tetanus Vaccination: No Hx Pneumococcal Vaccination: 03/11/14 Review of Systems - Review of Systems Constitutional: Weakness EENT: No symptoms reported Cardiovascular: See HPI Respiratory: See HPI Gastrointestinal: No symptoms reported Genitourinary: No symptoms reported Female Genitourinary: Post menopausal Musculoskeletal: No symptoms reported Skin: No symptoms reported Neurological/Psychological: No symptoms reported Physical Exam - Vital signs Vitals: Temp Pulse Resp BP Pulse Ox 97.3 F 67 24 H 172/47 H 90 L 01/19/18 10:54 01/19/18 10:54 01/19/18 10:54 01/19/18 10:54 01/19/18 10:54 Interpretation: Hypertensive, Hypoxic, Tachypneic. No: Tachycardic, Febrile - General General appearance: Appears well, Alert In distress: None - HEENT Head: Normocephalic Eyes: Normal Conjunctiva: Normal Ears: Normal Nasal: Normal Mouth/Lips: Normal Mucous membranes: Normal - Respiratory Respiratory status: No respiratory distress, Tachypnea Breath sounds: Decreased air movement - BILAT. BASES. No: Wheezing - Cardiovascular Rhythm: Irregularly irregular Heart sounds: Normal auscultation Murmur: No - Abdominal Inspection: Morbidly Obese Bowel sounds: Normal - Extremities General upper extremity: Normal inspection General lower extremity: Edema - 3+, BILAT.. No: Normal inspection - Neurological Neuro grossly intact: Yes Cognition: Normal Orientation: AAOx4 - Psychological Associated symptoms: Normal affect, Normal mood - Skin Skin Temperature: Warm Skin Moisture: Dry Skin Color: Normal Skin Turgor: Elastic Course - Vital Signs Vital signs: Temp Pulse Resp BP Pulse Ox 97.5 F 67 18 193/60 H 97 01/19/18 20:20 01/19/18 10:54 01/19/18 21:03 01/19/18 21:03 01/19/18 21:03 - Laboratory Result Diagrams: 01/19/18 11:41 01/19/18 11:41 Laboratory results interpreted by me: 01/19/18 01/19/18 01/19/18 11:41 11:41 11:41 RBC 2.93 L Hgb 9.0 L Hct 28.7 L MCV 98 H MCHC 31.5 L RDW 19.8 H Seg Neuts % (Manual) 87 H Lymphocytes % (Manual) 7 L Sodium 132.1 L Potassium 5.5 H Chloride 93 L BUN 151 H Creatinine 3.76 H Est GFR ( Amer) 15 L Est GFR (Non-Af Amer) 12 L Glucose 111 H NT-Pro-B Natriuret Pep 20213 H - EKG Interpretation by Me EKG shows normal: [place], ST-T Waves. abnormal: Sinus rhythm, Intervals - BORDERLINE LONG QT Rate: Normal Rhythm: A.Fib - Consults DR. LEA Time consulted: 16:16 Reason for consultation: 01/19/18 18:09 OPINES: PATIENT NEEDS TRANSFER TO HIGHER LEVEL OF CARE, WILL LIKELY NEED HEMODIALYSIS, NO SUCH CAPABILITY HERE. [facility] Time consulted: 17:10 Reason for consultation: 01/19/18 18:11 UNABLE TO ACCEPT TRANSFER, DIALYSIS WILL NOT BE AVAILABLE THERE FOR NEXT SEVERAL DAYS. DR. HOOPER ([facility]) Time consulted: 19:30 Reason for consultation: 01/19/18 21:22 ACCEPTS PATIENT FOR TRANSFER. BED ASSIGNMENT PENDING. Discharge - Discharge Clinical Impression: Hyperkalemia, diminished renal excretion, Pulmonary hypertension, Dyspnea on exertion CHF (congestive heart failure) Qualifiers: Heart failure type: unspecified Heart failure chronicity: acute on chronic Qualified Code(s): I50.9 - Heart failure, unspecified Acute on chronic renal failure Qualifiers: Acute renal failure type: unspecified Chronic kidney disease stage: unspecified stage Qualified Code(s): N17.9 - Acute kidney failure, unspecified Atrial fibrillation Qualifiers: Atrial fibrillation type: chronic Qualified Code(s): I48.2 - Chronic atrial fibrillation Condition: Fair Referrals: MINO MONZON MD [Primary Care Provider] - Follow up as needed
[2018-01-19 13:00] LABS: ANION GAP 12 (5-19); CALCIUM 8.5 mg/dL (8.4-10.2); CARBON DIOXIDE 27 mmol/L (22-30); CHLORIDE 93 mmol/L (98-107); GLUCOSE 111 mg/dL (75-110); POTASSIUM 5.5 mmol/L (3.6-5.0); SODIUM 132.1 mmol/L (137-145)
[2018-01-19 13:08] LABS: BLOOD UREA NITROGEN 151 mg/dL (7-20)
[2018-01-19 13:14] LABS: TROPONIN I 0.08 ng/mL
[2018-01-19] MEDS ORDERED: BUMETANIDE INJ/PF 1 MG/4 ML SDV IV STA (13:47)
[2018-01-19 14:15] LABS: HEMATOCRIT 28.7 % (36.0-47.0); MEAN CORPUSCULAR HEMOGLOBIN 30.9 pg (27.0-33.4); MEAN CORPUSCULAR HGB CONC 31.5 g/dL (32.0-36.0); MEAN CORPUSCULAR VOLUME 98 fl (80-97); PLATELET COUNT 154 10^3/uL (150-450); RED BLOOD COUNT 2.93 10^6/uL (3.72-5.28); RED CELL DISTRIBUTION WIDTH 19.8 % (11.5-14.0); WHITE BLOOD COUNT 7.1 10^3/uL (4.0-10.5)
[2018-01-19 14:28] LABS: ABSOLUTE LYMPHOCYTES# (MANUAL) 0.5 10^3/uL (0.5-4.7); ABSOLUTE MONOCYTES # (MANUAL) 0.3 10^3/uL (0.1-1.4); ABSOLUTE NEUTROPHILS# (MANUAL) 6.2 10^3/uL (1.7-8.2); BASOPHILS % (MANUAL) 1 % (0-2); EOSINOPHILS % (MANUAL) 1 % (0-6); LYMPHOCYTES % (MANUAL) 7 % (13-45); MONOCYTES % (MANUAL) 4 % (3-13); SEGMENTED NEUTROPHILS % (MAN) 87 % (42-78); TOTAL CELLS COUNTED 100
[2018-01-19 14:29] LABS: PLATELET COMMENT ADEQUATE
[2018-01-19 14:31] LABS: ANISOCYTOSIS 1+
[2018-01-19 14:32] LABS: OVALOCYTES SLIGHT; POIKILOCYTOSIS SLIGHT
[2018-01-19] MEDS ORDERED: INSULIN GLARGINE,HUM.REC.ANLOG 1,000 UNIT/10 ML UNIT SUBCUT SCH (22:00)
[2018-01-19] MEDS: HYDRALAZINE HCL 50 MG TABLET PO SCH (22:16)
[2018-01-19] MEDS: IPRATROPIUM/ALBUTEROL 0.5-2.5 MG/3 ML AMPUL NEB SCH (22:16)
[2018-01-19] MEDS ORDERED: ACETAMINOPHEN 325 MG TABLET PO ONE (22:22)
--- NOTE | 2018-01-19 23:06 | EKG REPORT ---
SEVERITY:- ABNORMAL ECG - ATRIAL FIBRILLATION BORDERLINE PROLONGED QT INTERVAL NONSPECIFIC ST-T CHANGES : Confirmed by: Shelia Branch 19-Jan-2018 23:06:18
[2018-01-20] MEDS: IPRATROPIUM/ALBUTEROL 0.5-2.5 MG/3 ML AMPUL NEB SCH ×3 (05:26→15:42)
[2018-01-20] MEDS: HYDRALAZINE HCL 50 MG TABLET PO SCH (06:19)
[2018-01-20 08:01] LABS: ANION GAP 9 (5-19); CALCIUM 8.6 mg/dL (8.4-10.2); CARBON DIOXIDE 28 mmol/L (22-30); CHLORIDE 96 mmol/L (98-107); GLUCOSE 82 mg/dL (75-110); POTASSIUM 5.5 mmol/L (3.6-5.0); SODIUM 133.2 mmol/L (137-145)
[2018-01-20 08:10] LABS: BLOOD UREA NITROGEN 155 mg/dL (7-20)
[2018-01-20 13:42] VITALS: BP 177/52
[2018-01-20] MEDS ORDERED: HYDRALAZINE HCL 50 MG TABLET PO SCH (14:00)
--- NOTE | 2018-01-20 15:56 | ER Document Report ---
Doctor's Note Notes: 01/20/18 15:56 Transport is available at this time. Patient stable for transport at this time. Labs have been reviewed.
[2018-01-20] MEDS ORDERED: INSULIN GLARGINE,HUM.REC.ANLOG 300 UNIT/3 ML INSULN.PEN SUBCUT SCH (22:00)
[2018-01-20] MEDS ORDERED: INSULIN GLARGINE,HUM.REC.ANLOG 1,000 UNIT/10 ML UNIT SUBCUT SCH (22:00)
== END 2018-01-20 16:19 | disposition short-term general hospital (02) ==
LOC: ER 10:49
DX: I13.2 Hypertensive heart and chronic kidney disease with heart failure and with stage 5 chronic kidney disease, or end stage renal disease (principal); E11.22 Type 2 diabetes mellitus with diabetic chronic kidney disease; N18.6 End stage renal disease; I50.9 Heart failure, unspecified; N17.9 Acute kidney failure, unspecified; I48.2 Chronic atrial fibrillation; E87.5 Hyperkalemia; R06.09 Other forms of dyspnea; I25.10 Atherosclerotic heart disease of native coronary artery without angina pectoris; R06.02 Shortness of breath; R53.1 Weakness; Z79.899 Other long term (current) drug therapy; Z99.81 Dependence on supplemental oxygen; Z88.2 Allergy status to sulfonamides; Z87.891 Personal history of nicotine dependence; Z95.1 Presence of aortocoronary bypass graft
CPT/HCPCS: 93005; 94640 ×2; 99285; 96374; 36415; 82962; 85025; 80048; 84484; 83880; 71046; 93010; 94660; A9270 ×6; J3490; J1815; J7620